=== PATIENT | female | born 1965 | race Caucasian/White ===

== ENCOUNTER 2017-06-08 18:36 | Emergency (ER) | payer MEDICAID ==
[~2017-06-08] VITALS: Ht 160 cm; Wt 68.0 kg
[~2017-06-08 18:36] MED LIST: ACT35T; ALPR1TAB2 PO; BUTA1CAP42 PO; CARI350T27 PO; CLIN150C17 PO; CLN150C PO; CLON0.5T3; DICL75TA2 PO; DICY20TA10 PO; DOXY100C2 PO; DULO30CA3 PO; DULO60CA6 PO; FLT05NA16; FLUD0.1T7 PO; GABA300T; GABA600T2 PO; HYDR-3820 PO; HYDR-757 PO; IBUP-15; IPRA0.2S18; LACT1CAP74 PO; LRT10T; METH750T3; MIDO2.5T; MIDO5TAB PO; OLOP2.5D OP; OLOPATADINE; OXB5TCR PO; PENI500T PO; PIRO20CA2; PROM25TA14 PO; PROP10TA8 PO; PROP20TA5; RT-COMBINH; SAVELLA 50 MG; [UNRECOGNIZED DRUG - CODE]
--- OUTSIDE RECORDS SUMMARY | 2017-06-08 18:42 | XMS REPORT | CCD ---
Author Author SYDNIE PURCELL Organization Unknown Address [address] [facility] [address] [place], [place] [id number] Care Team Providers Care Inserting Press Operator Name Role Phone VIPIN MATA, BELLE Billingsley Attphys VIPIN MATA, BELLE Davidsusierra Vital Signs Unknown or Not Available. Allergies Allergy Code Allergy Type Reaction Status IV IODINE {Clinical monitoring unavailable} 0 Drug allergy Active Procedures Procedure Code Procedure Type Date CBC W/ AUTO DIFF (RFLX MAN DIFF IF IND) 7998428 SNOMED CT 10/05/2015 COMPREHENSIVE METABOLIC PANEL 932293769 SNOMED CT 2014 C REACTIVE PROTEIN 46165819 SNOMED CT 10/05/2015 CULTURE BLOOD 33325473 SNOMED CT 10/05/2015 ^CBC W/AUTO DIFF 1154222 SNOMED CT 10/05/2015 CT NECK SOFT TISSUE W/O CONTRAST 274492541 SNOMED CT 10/05 History of Immunizations Unknown or Not Available. Problems Problem Code Start Date Resolved Date Status Facial cellulitis 851094746 10/09/2015 Active Results COMPREHENSIVE METABOLIC PANEL - Collect Date/Time: 10/06/2015 00:15 Test Name Code Test Result Test Units Test Ref Range GLUCOSE 2345-7 111 MG/DL L=70 H=100 SODIUM 2951-2 138 MEQ/L L=135 H=148 POTASSIUM 2823-3 6.2 MEQ/L L=3.5 H=5.3 CHLORIDE 2075-0 106 MEQ/L L=96 H=110 CO2 2028-9 20 MEQ/L L=22 H=29 BUN 3094-0 7 MG/DL L=8 H=22 CREATININE 2160-0 0.8 MG/DL L=0.6 H=1.6 SGOT/AST 1920-8 96 IU/L L=10 H=40 SGPT/ALT 1742-6 173 IU/L L=8 H=54 ALK PHOS 6768-6 118 IU/L L=35 H=115 TOTAL PROTEIN 2885-2 8.3 G/DL L=5.5 H=8.5 ALBUMIN 1751-7 4.1 G/DL L=3.1 H=5.4 TOTAL BILI 1975-2 0.4 MG/DL L=0.0 H=1.5 CALCIUM 97674-4 9.1 MG/DL L=8.2 H=10.6 AGE 50 yrs GFR NonAA 76 GFR AA 92 eGFR >60 N/A eGFR AA* >60 N/A CBC W/ AUTO DIFF (RFLX MAN DIFF IF IND) - Collect Date/Time: 10/06/2015 00:15 Test Name Code Test Result Test Units Test Ref Range WBC 93945-6 13.2 TH/CMM L=4.5 H=10.8 RBC 789-8 4.61 ML/CMM L=4.20 H=5.40 HGB 718-7 14.9 G/DL L=12.0 H=16.0 HCT 4544-3 43.0 % L=37.0 H=47.0 MCV 93 FL L=81 H=99 MCH 32.3 PG L=27.0 H=33.0 MCHC 34.7 G/DL L=31.0 H=36.0 RDW SD 46 FL L=36 H=50 MPV 11.6 FL L=9.3 H=12.5 PLT 777-3 188 TH/CMM L=130 H=440 %NEUT 78.0 % %LYMP 14.4 % %MIXED 7.60 % L=2.00 H=25.00 #NEUT 10.30 TH/CMM L=2.10 H=8.20 #LYMP 1.90 TH/CMM L=0.90 H=5.20 #MIXED 1.00 TH/CMM MANUAL DIFF NOT IND N/A C REACTIVE PROTEIN - Collect Date/Time: 10/06/2015 00:15 Test Name Code Test Result Test Units Test Ref Range C REACTIVE PROTEIN 1988-5 4.0 MG/DL L=0.0 H= 1.0 Active Medications Medication Code Dose Units Frequency Route Modification Start Date/Time ALPRAZolam 1MG Oral Tablet 887498 1 MILLIGRAMS THREE TIMES A DAY ORAL 10/09/2015 14:07 Prescription Detail 1 MILLIGRAMS ORAL THREE TIMES A DAY Combivent Respimat 100MCG-20MCG/Actuati Inhalation [place] 6110720 2 PUFF NEEDED INHALATION 10/09/2015 14: 07 Prescription Detail 2 PUFF INHALATION NEEDED Cymbalta 30MG Oral Capsule, Delayed Release 072255 30 MILLIGRAMS AT BEDTIME ORAL 10/09/2015 14:07 Prescription Detail 30 MILLIGRAMS ORAL AT BEDTIME Cymbalta 60MG Oral Capsule, Delayed Release 348753 60 MILLIGRAMS DAILY ORAL 10/09/2015 14:07 Prescription Detail 60 MILLIGRAMS ORAL DAILY Ditropan XL 5MG Oral Tablet, Extended Release 924042 5 MILLIGRAMS TWO TIMES A DAY ORAL 10/09/2015 14:07 Prescription Detail 5 MILLIGRAMS ORAL TWO TIMES A DAY Docusate Sodium 100MG Oral Capsule 4720106 100 MILLIGRAMS TWO TIMES A DAY BY MOUTH 10/09/2015 14:07 Prescription Detail 100 MILLIGRAMS BY MOUTH TWO TIMES A DAY Enoxaparin Sodium 40MG/0.4ML Subcutaneous Solution 062463 40 MILLIGRAMS EVERY 24 HOURS SUB Q 10/09/2015 14: 07 Prescription Detail 40 MILLIGRAMS SUB Q EVERY 24 HOURS Famotidine 20MG Oral Tablet 556813 20 MILLIGRAMS TWO TIMES A DAY BY MOUTH 10/09/2015 14:07 Prescription Detail 20 MILLIGRAMS BY MOUTH TWO TIMES A DAY Floranex 0.2 MG-0.2 MG Oral Tablet, Chewable 53483594364 1 TABLET WITH EACH MEAL BY MOUTH 10/09/2015 14:07 Prescription Detail 1 TABLET BY MOUTH WITH EACH MEAL Fludrocortisone Acetate 0.1MG Oral Tablet 712938 0.1 MILLIGRAMS TWO TIMES A DAY ORAL 10/09/2015 14:07 Prescription Detail 0.1 MILLIGRAMS ORAL TWO TIMES A DAY Gabapentin 600MG Oral Tablet 608724 600 MILLIGRAMS FOUR TIMES A DAY ORAL 10/09/2015 14:07 Prescription Detail 600 MILLIGRAMS ORAL FOUR TIMES A DAY HYDROmorphone HCl 2MG/1ML Injection Solution 063671 0.5 MILLIGRAMS NEEDED IVP 10/09/2015 14:07 Prescription Detail 0.5 MILLIGRAMS IVP NEEDED Ketorolac Tromethamine 30MG/1ML Injection Solution 3690567 30 MILLIGRAMS EVERY 6 HOURS IVP 10/09/2015 14: 07 Prescription Detail 30 MILLIGRAMS IVP EVERY 6 HOURS Loratadine 10MG Oral Tablet 706535 10 MILLIGRAMS DAILY ORAL 10/09/2015 14:07 Prescription Detail 10 MILLIGRAMS ORAL DAILY Midodrine HCl 5MG Oral Tablet 600648 5 MILLIGRAMS TWO TIMES A DAY ORAL 10/09/2015 14:07 Prescription Detail 5 MILLIGRAMS ORAL TWO TIMES A DAY Novaplus Ondansetron 2MG/1ML Injection Solution 929766 4 MILLIGRAMS NEEDED SIVP 10/09/2015 14:07 Prescription Detail 4 MILLIGRAMS SIVP NEEDED oxyCODONE HCl-acetaminophen 10MG-325MG Oral Tablet 6949208 1 EACH NEEDED EVERY 4 HR BY MOUTH 10/09/2015 14:07 Prescription Detail 1 EACH BY MOUTH NEEDED EVERY 4 HR Soma 250MG Oral Tablet 166806 250 MILLIGRAMS THREE TIMES A DAY ORAL 10/09/2015 14:07 Prescription Detail 250 MILLIGRAMS ORAL THREE TIMES A DAY Tums 500MG Oral Tablet, Chewable 46973407637 500 MILLIGRAMS NEEDED ORAL 10/09/2015 14:07 Prescription Detail 500 MILLIGRAMS ORAL NEEDED Unasyn 1GM-0.5GM Injection Powder for Solution 6304090 3 GRAM EVERY 6 HOURS INTRAVENOUS 10/09/2015 14:07 Prescription Detail 3 GRAM INTRAVENOUS EVERY 6 HOURS Vancomycin HCl Novation 1GM Intravenous Powder for Solution 487395 EVERY 8 HOURS IVPB 10/09/2015 14:07 Prescription Detail IVPB EVERY 8 HOURS Medications Administered During Visit Unknown or Not Available. Encounters Encounter Diagnosis Diagnosis Code Start Date Periapical abscess without sinus K047 10/05/2015 Social History Smoking Status Code Start Date End Date Current every day smoker [id number] Patient Decision Aids Unknown or Not Available. Discharge Instructions You were admitted to [facility] on 10/05/2015 with a principal diagnosis of Periapical abscess without sinus. You were discharged from [facility] on 10/06/2015. Should you have any questions prior to discharge, please contact a member of your healthcare team. If you have left the hospital and have any questions, please contact your primary care physician. Chief Complaint and Reason For Visit Chief Complaint Date of Onset DENTAL PAIN THROAT PAIN Function Status Unknown or Not Available. Plan of Care Unknown or Not Available. Referral/Transition of Care Unknown or Not Available.
--- OUTSIDE RECORDS SUMMARY | 2017-06-08 18:42 | XMS REPORT ---
Author Author CHUCKY SHEPPARD Organization [employer] Address Unknown Phone Unavailable Care Team Providers Care Lead Technical Writer Name Role Phone CHUCKY SHEPPARD CP Unavailable Allergies, Adverse Reactions, Alerts Substance Reaction Event Type Latex Gloves Info Not Available Drug Allergy Iodine Info Not Available Drug Allergy Problems Problem Type Condition Code Onset Dates Condition Status Assessment Dental examination Z01.20 Active Medications Medication Code System Code Instructions Start Date End Date Status Dosage Hysingla ER [facility] [address]-24 not defined Oxybutynin [facility] [address]-79 not defined Soma [facility] [address]-13 not defined Cymbalta [facility] [address]-95 not defined Piroxicam [facility] [address]-58 not defined Metoclopramide HCl [facility] [address]-94 not defined Ranitidine ND 0 not defined Fludrocortisone Acetate [facility] [address]-23 not defined Midodrine HCl [facility] [address]-92 not defined Nitrostat [facility] [address]-45 not defined Estropipate [facility] [address]-91 not defined Fluticasone Propionate [facility] [address]-86 not defined Hydrocodone-Acetaminophen [facility] [address]-92 not defined Gabapentin [facility] [address]-68 not defined Clindamycin HCl [facility] [address]-66 not defined Procedures Procedure Coding System Code Date INTRAORL-PERIAPICAL 1 FILM 70500 CPT-4 D0220 Jul 31, 2015 LTD ORAL EVALUATION - PROBLEM FOCUS CPT-4 D0140 Jul 31, 2015 Vital Signs Date/Time: Jul 31, 2015 Blood Pressure Diastolic 79 mmHg Blood Pressure Systolic 114 mmHg Results No Known Results Summary Purpose [employer] Submission
--- OUTSIDE RECORDS SUMMARY | 2017-06-08 18:42 | XMS REPORT | CCD ---
Author Author KATHI WEBB Unknown Address [address] [facility] [address] [place] [address] Care Team Providers Care Environmental Scientist Name Role Phone JESSICA ALMANZA MD Attphys JESSICA ALMANZA MD Prisurg Allergies Allergy Code Allergy Type Reaction Status IV IODINE {Clinical monitoring unavailable} 0 Drug allergy Active Active Medications Medication Code Dose Units Frequency Route Modification Start Date/Time ALPRAZolam 1MG Oral Tablet 220534 1 MILLIGRAMS THREE TIMES A DAY ORAL 10/09/2015 14:07 Prescription Detail 1 MILLIGRAMS ORAL THREE TIMES A DAY Combivent Respimat 100MCG-20MCG/Actuati Inhalation [place] 2007997 2 PUFF NEEDED INHALATION 10/09/2015 14: 07 Prescription Detail 2 PUFF INHALATION NEEDED Cymbalta 30MG Oral Capsule, Delayed Release 737477 30 MILLIGRAMS AT BEDTIME ORAL 10/09/2015 14:07 Prescription Detail 30 MILLIGRAMS ORAL AT BEDTIME Cymbalta 60MG Oral Capsule, Delayed Release 898771 60 MILLIGRAMS DAILY ORAL 10/09/2015 14:07 Prescription Detail 60 MILLIGRAMS ORAL DAILY Ditropan XL 5MG Oral Tablet, Extended Release 698985 5 MILLIGRAMS TWO TIMES A DAY ORAL 10/09/2015 14:07 Prescription Detail 5 MILLIGRAMS ORAL TWO TIMES A DAY Docusate Sodium 100MG Oral Capsule 0450832 100 MILLIGRAMS TWO TIMES A DAY BY MOUTH 10/09/2015 14:07 Prescription Detail 100 MILLIGRAMS BY MOUTH TWO TIMES A DAY Enoxaparin Sodium 40MG/0.4ML Subcutaneous Solution 924560 40 MILLIGRAMS EVERY 24 HOURS SUB Q 10/09/2015 14: 07 Prescription Detail 40 MILLIGRAMS SUB Q EVERY 24 HOURS Famotidine 20MG Oral Tablet 582980 20 MILLIGRAMS TWO TIMES A DAY BY MOUTH 10/09/2015 14:07 Prescription Detail 20 MILLIGRAMS BY MOUTH TWO TIMES A DAY Floranex 0.2 MG-0.2 MG Oral Tablet, Chewable 25936677862 1 TABLET WITH EACH MEAL BY MOUTH 10/09/2015 14:07 Prescription Detail 1 TABLET BY MOUTH WITH EACH MEAL Fludrocortisone Acetate 0.1MG Oral Tablet 377785 0.1 MILLIGRAMS TWO TIMES A DAY ORAL 10/09/2015 14:07 Prescription Detail 0.1 MILLIGRAMS ORAL TWO TIMES A DAY Gabapentin 600MG Oral Tablet 855583 600 MILLIGRAMS FOUR TIMES A DAY ORAL 10/09/2015 14:07 Prescription Detail 600 MILLIGRAMS ORAL FOUR TIMES A DAY HYDROmorphone HCl 2MG/1ML Injection Solution 4884555 0.5 MILLIGRAMS NEEDED IVP 10/09/2015 14:07 Prescription Detail 0.5 MILLIGRAMS IVP NEEDED Ketorolac Tromethamine 30MG/1ML Injection Solution 8030930 30 MILLIGRAMS EVERY 6 HOURS IVP 10/09/2015 14: 07 Prescription Detail 30 MILLIGRAMS IVP EVERY 6 HOURS Loratadine 10MG Oral Tablet 057737 10 MILLIGRAMS DAILY ORAL 10/09/2015 14:07 Prescription Detail 10 MILLIGRAMS ORAL DAILY Midodrine HCl 5MG Oral Tablet 914238 5 MILLIGRAMS TWO TIMES A DAY ORAL 10/09/2015 14:07 Prescription Detail 5 MILLIGRAMS ORAL TWO TIMES A DAY Novaplus Ondansetron 2MG/1ML Injection Solution 1472991 4 MILLIGRAMS NEEDED SIVP 10/09/2015 14:07 Prescription Detail 4 MILLIGRAMS SIVP NEEDED oxyCODONE HCl-acetaminophen 10MG-325MG Oral Tablet 5343012 1 EACH NEEDED EVERY 4 HR BY MOUTH 10/09/2015 14:07 Prescription Detail 1 EACH BY MOUTH NEEDED EVERY 4 HR Soma 250MG Oral Tablet 734891 250 MILLIGRAMS THREE TIMES A DAY ORAL 10/09/2015 14:07 Prescription Detail 250 MILLIGRAMS ORAL THREE TIMES A DAY Tums 500MG Oral Tablet, Chewable 97012519256 500 MILLIGRAMS NEEDED ORAL 10/09/2015 14:07 Prescription Detail 500 MILLIGRAMS ORAL NEEDED Unasyn 1GM-0.5GM Injection Powder for Solution 9497233 3 GRAM EVERY 6 HOURS INTRAVENOUS 10/09/2015 14:07 Prescription Detail 3 GRAM INTRAVENOUS EVERY 6 HOURS Vancomycin HCl Novation 1GM Intravenous Powder for Solution 7946846 EVERY 8 HOURS IVPB 10/09/2015 14: 07 Prescription Detail IVPB EVERY 8 HOURS Problems Problem Code Start Date Resolved Date Status Facial cellulitis 216680013 10/09/2015 Active Procedures Procedure Code Procedure Type Date CT MAXILLOFACIAL W/O CONTRAST [id number] [facility] 2015 C REACTIVE PROTEIN 50690490 [facility] 10/16/2016 SED RATE 241941239 [facility] 10/16/2016 COMPREHENSIVE METABOLIC PANEL 460750777 [facility] 2015 CBC W/ AUTO DIFF (RFLX MAN DIFF IF IND) 0433371 [facility] 10/16/2016 ^CBC W/AUTO DIFF 2210818 [facility] 10/16/2016 Results COMPREHENSIVE METABOLIC PANEL - Collect Date/Time: 10/16/2016 23:30 Test Name Code Test Result Test Units Test Ref Range GLUCOSE 2345-7 82 MG/DL L=70 H=100 SODIUM 2951-2 144 MEQ/L L=135 H=148 POTASSIUM 2823-3 3.9 MEQ/L L=3.5 H=5.3 CHLORIDE 2075-0 102 MEQ/L L=96 H=110 CO2 2028-9 30 MEQ/L L=22 H=29 BUN 3094-0 14 MG/DL L=8 H=22 CREATININE 2160-0 0.8 MG/DL L=0.6 H=1.6 SGOT/AST 1920-8 14 IU/L L=10 H=40 SGPT/ALT 1742-6 21 IU/L L=8 H=54 ALK PHOS 6768-6 83 IU/L L=35 H=115 TOTAL PROTEIN 2885-2 7.2 G/DL L=5.5 H=8.5 ALBUMIN 1751-7 4.0 G/DL L=3.1 H=5.4 TOTAL BILI 1975-2 0.2 MG/DL L=0.0 H=1.5 CALCIUM 02339-9 9.8 MG/DL L=8.2 H=10.6 AGE 51 yrs GFR NonAA 75 GFR AA 91 eGFR >60 N/A eGFR AA* >60 N/A CBC W/ AUTO DIFF (RFLX MAN DIFF IF IND) - Collect Date/Time: 10/16/2016 23:30 Test Name Code Test Result Test Units Test Ref Range WBC 56958-4 9.2 TH/CMM L=4.5 H=10.8 RBC 789-8 4.87 ML/CMM L=4.20 H=5.40 HGB 718-7 15.1 G/DL L=12.0 H=16.0 HCT 4544-3 46.3 % L=37.0 H=47.0 MCV 95 FL L=81 H=99 MCH 31.0 PG L=27.0 H=33.0 MCHC 32.6 G/DL L=31.0 H=36.0 RDW SD 45 FL L=36 H=50 RDW CV 12.9 % L=0.0 H=14.8 MPV 11.6 FL L=9.3 H=12.5 PLT 777-3 265 TH/CMM L=130 H=440 NRBC# 0.00 TH/CMM L=0.00 H=0.00 NRBC% 0.0 /100WBC L=0.0 H=2.0 %NEUT 55.8 % %LYMP 33.9 % %MONO 7.6 % %EOS 2.2 % %BASO 0.3 % #NEUT 5.12 TH/CMM L=2.10 H=8.20 #LYMP 3.12 TH/CMM L=0.90 H=5.20 #MONO 0.70 TH/CMM L=0.16 H=1.00 #EOS 0.20 TH/CMM L=0.00 H=0.80 #BASO 0.03 TH/CMM L=0.00 H=0.20 MANUAL DIFF NOT IND N/A SED RATE - Collect Date/Time: 10/16/2016 23:30 Test Name Code Test Result Test Units Test Ref Range SEDRATE 4537-7 19 MM/HR L=0 H=30 C REACTIVE PROTEIN - Collect Date/Time: 10/16/2016 23:30 Test Name Code Test Result Test Units Test Ref Range C REACTIVE PROTEIN 1988-5 <0.5 MG/DL L=0.0 H= 1.0 Function Status Unknown or Not Available. History of Immunizations Unknown or Not Available. Plan of Treatment Unknown or Not Available. Social History Smoking Status Code Start Date End Date Current every day smoker [id number] Vital Signs Unknown or Not Available. Function Status Unknown or Not Available. Goals Unknown or Not Available. ASSESSMENTS Unknown or Not Available. Health Concerns Section Unknown or Not Available.
--- OUTSIDE RECORDS SUMMARY | 2017-06-08 18:42 | XMS REPORT | CCD ---
Author Author SYDNIE PURCELL Organization Unknown Address [address] [facility] [address] [place], [place] [id number] Care Team Providers Care Records Supervisor Name Role Phone SARAHI MATA, Analilia MENDIETA Attphys KOBE WILLIAM DO Prisurg S., NESTOR Waddell NASST F., DARIEN NASST L., BHARTI Beard NASST Vital Signs Vital Sign Value Unit Date/Time Recent/Initial? BP Systolic 113 mmHg 10/09/2015 06:36 Initial VS BP Diastolic 72 mmHg 10/09/2015 06:36 Initial VS Respiratory Rate 16 bpm 10/09/2015 06:36 Initial VS Heart Rate 85 bpm 10/09/2015 06:36 Initial VS O2 % BldC Oximetry 96 % 10/09/2015 06:36 Initial VS Body Temperature 98 degrees 10/09/2015 06:36 Initial VS Weight Measured 143.03 lbs 10/09/2015 06:56 Initial VS Height 63 in 10/09/2015 06:56 Initial VS BMI (Body Mass Index) 25.33 kg/m^2 10/09/2015 06:56 Initial VS BSA (Body Surface Area) 1.7 m^2 10/09/2015 06:56 Initial VS BP Systolic 120 mmHg 10/09/2015 14:30 Most Recent VS BP Diastolic 80 mmHg 10/09/2015 14:30 Most Recent VS Respiratory Rate 18 bpm 10/09/2015 14:30 Most Recent VS Heart Rate 125 bpm 10/09/2015 14:30 Most Recent VS O2 % BldC Oximetry 96 % 10/09/2015 14:30 Most Recent VS Body Temperature 98.3 degrees 10/09/2015 14:30 Most Recent VS Allergies Allergy Code Allergy Type Reaction Status IV IODINE {Clinical monitoring unavailable} 0 Drug allergy Active Procedures Procedure Code Procedure Type Date CBC W/ AUTO DIFF (RFLX MAN DIFF IF IND) [id number] [facility] 10/09/2015 COMPREHENSIVE METABOLIC PANEL [id number] [facility] 2014 C REACTIVE PROTEIN [id number] [facility] 10/09/2015 CULTURE BLOOD [id number] [facility] 10/09/2015 CULTURE BLOOD [id number] [facility] 10/09/2015 LACTIC ACID [id number] [facility] 10/09/2015 ^CBC W/ MANUAL DIFF [id number] [facility] 10/09/2015 CT NECK SOFT TISSUE W/O CONTRAST [id number] [facility] 10/09 History of Immunizations Unknown or Not Available. Problems Problem Code Start Date Resolved Date Status Facial cellulitis [id number] 10/09/2015 Active Results COMPREHENSIVE METABOLIC PANEL - Collect Date/Time: 10/09/2015 03:00 Test Name Code Test Result Test Units Test Ref Range GLUCOSE 2345-7 116 MG/DL L=70 H=100 SODIUM 2951-2 141 MEQ/L L=135 H=148 POTASSIUM 2823-3 3.9 MEQ/L L=3.5 H=5.3 CHLORIDE 2075-0 106 MEQ/L L=96 H=110 CO2 2028-9 25 MEQ/L L=22 H=29 BUN 3094-0 17 MG/DL L=8 H=22 CREATININE 2160-0 0.8 MG/DL L=0.6 H=1.6 SGOT/AST 1920-8 18 IU/L L=10 H=40 SGPT/ALT 1742-6 94 IU/L L=8 H=54 ALK PHOS 6768-6 117 IU/L L=35 H=115 TOTAL PROTEIN 2885-2 6.4 G/DL L=5.5 H=8.5 ALBUMIN 1751-7 3.4 G/DL L=3.1 H=5.4 TOTAL BILI 1975-2 0.2 MG/DL L=0.0 H=1.5 CALCIUM 55410-8 9.4 MG/DL L=8.2 H=10.6 AGE 50 yrs GFR NonAA 76 GFR AA 92 eGFR >60 N/A eGFR AA* >60 N/A CBC W/ AUTO DIFF (RFLX MAN DIFF IF IND) - Collect Date/Time: 10/09/2015 03:00 Test Name Code Test Result Test Units Test Ref Range WBC 97037-9 21.5 TH/CMM L=4.5 H=10.8 RBC 789-8 3.90 ML/CMM L=4.20 H=5.40 HGB 718-7 12.2 G/DL L=12.0 H=16.0 HCT 4544-3 36.6 % L=37.0 H=47.0 MCV 94 FL L=81 H=99 MCH 31.3 PG L=27.0 H=33.0 MCHC 33.3 G/DL L=31.0 H=36.0 RDW SD 46 FL L=36 H=50 RDW CV 13.3 % L=0.0 H=14.8 MPV 12.0 FL L=9.3 H=12.5 PLT 777-3 235 TH/CMM L=130 H=440 NRBC# 0.00 TH/CMM L=0.00 H=0.00 NRBC% 0.0 /100WBC L=0.0 H=2.0 %NEUT 79.2 % %LYMP 12.1 % %MONO 8.7 % %EOS 0.0 % %BASO 0.0 % #NEUT 17.00 TH/CMM L=2.10 H=8.20 #LYMP 2.61 TH/CMM L=0.90 H=5.20 #MONO 1.88 TH/CMM L=0.16 H=1.00 #EOS 0.00 TH/CMM L=0.00 H=0.80 #BASO 0.01 TH/CMM L=0.00 H=0.20 SEGS 80 % BANDS 2 % LYMPHS 10 % MONOS 8 % MANUAL DIFF SEE BELOW N/A C REACTIVE PROTEIN - Collect Date/Time: 10/09/2015 03:00 Test Name Code Test Result Test Units Test Ref Range C REACTIVE PROTEIN 1988-5 12.0 MG/DL L=0.0 H= 1.0 LACTIC ACID - Collect Date/Time: 10/09/2015 04:35 Test Name Code Test Result Test Units Test Ref Range LACTIC ACID 2524-7 1.0 mmol/L L=0.5 H=1.6 Active Medications Medication Code Dose Units Frequency Route Modification Start Date/Time ALPRAZolam 1MG Oral Tablet 500882 1 MILLIGRAMS THREE TIMES A DAY ORAL 10/09/2015 14:07 Prescription Detail 1 MILLIGRAMS ORAL THREE TIMES A DAY Combivent Respimat 100MCG-20MCG/Actuati Inhalation [place] [id number] 2 PUFF NEEDED INHALATION 10/09/2015 14: 07 Prescription Detail 2 PUFF INHALATION NEEDED Cymbalta 30MG Oral Capsule, Delayed Release [id number] 30 MILLIGRAMS AT BEDTIME ORAL 10/09/2015 14:07 Prescription Detail 30 MILLIGRAMS ORAL AT BEDTIME Cymbalta 60MG Oral Capsule, Delayed Release [id number] 60 MILLIGRAMS DAILY ORAL 10/09/2015 14:07 Prescription Detail 60 MILLIGRAMS ORAL DAILY Ditropan XL 5MG Oral Tablet, Extended Release 520014 5 MILLIGRAMS TWO TIMES A DAY ORAL 10/09/2015 14:07 Prescription Detail 5 MILLIGRAMS ORAL TWO TIMES A DAY Docusate Sodium 100MG Oral Capsule [id number] 100 MILLIGRAMS TWO TIMES A DAY BY MOUTH 10/09/2015 14:07 Prescription Detail 100 MILLIGRAMS BY MOUTH TWO TIMES A DAY Enoxaparin Sodium 40MG/0.4ML Subcutaneous Solution 650521 40 MILLIGRAMS EVERY 24 HOURS SUB Q 10/09/2015 14: 07 Prescription Detail 40 MILLIGRAMS SUB Q EVERY 24 HOURS Famotidine 20MG Oral Tablet 527909 20 MILLIGRAMS TWO TIMES A DAY BY MOUTH 10/09/2015 14:07 Prescription Detail 20 MILLIGRAMS BY MOUTH TWO TIMES A DAY Floranex 0.2 MG-0.2 MG Oral Tablet, Chewable [id number] 1 TABLET WITH EACH MEAL BY MOUTH 10/09/2015 14:07 Prescription Detail 1 TABLET BY MOUTH WITH EACH MEAL Fludrocortisone Acetate 0.1MG Oral Tablet 069347 0.1 MILLIGRAMS TWO TIMES A DAY ORAL 10/09/2015 14:07 Prescription Detail 0.1 MILLIGRAMS ORAL TWO TIMES A DAY Gabapentin 600MG Oral Tablet 922096 600 MILLIGRAMS FOUR TIMES A DAY ORAL 10/09/2015 14:07 Prescription Detail 600 MILLIGRAMS ORAL FOUR TIMES A DAY HYDROmorphone HCl 2MG/1ML Injection Solution 019329 0.5 MILLIGRAMS NEEDED IVP 10/09/2015 14:07 Prescription Detail 0.5 MILLIGRAMS IVP NEEDED Ketorolac Tromethamine 30MG/1ML Injection Solution [id number] 30 MILLIGRAMS EVERY 6 HOURS IVP 10/09/2015 14: 07 Prescription Detail 30 MILLIGRAMS IVP EVERY 6 HOURS Loratadine 10MG Oral Tablet 125312 10 MILLIGRAMS DAILY ORAL 10/09/2015 14:07 Prescription Detail 10 MILLIGRAMS ORAL DAILY Midodrine HCl 5MG Oral Tablet 536563 5 MILLIGRAMS TWO TIMES A DAY ORAL 10/09/2015 14:07 Prescription Detail 5 MILLIGRAMS ORAL TWO TIMES A DAY Novaplus Ondansetron 2MG/1ML Injection Solution 622806 4 MILLIGRAMS NEEDED SIVP 10/09/2015 14:07 Prescription Detail 4 MILLIGRAMS SIVP NEEDED oxyCODONE HCl-acetaminophen 10MG-325MG Oral Tablet 7971226 1 EACH NEEDED EVERY 4 HR BY MOUTH 10/09/2015 14:07 Prescription Detail 1 EACH BY MOUTH NEEDED EVERY 4 HR Soma 250MG Oral Tablet 657416 250 MILLIGRAMS THREE TIMES A DAY ORAL 10/09/2015 14:07 Prescription Detail 250 MILLIGRAMS ORAL THREE TIMES A DAY Tums 500MG Oral Tablet, Chewable [id number] 500 MILLIGRAMS NEEDED ORAL 10/09/2015 14:07 Prescription Detail 500 MILLIGRAMS ORAL NEEDED Unasyn 1GM-0.5GM Injection Powder for Solution 1643367 3 GRAM EVERY 6 HOURS INTRAVENOUS 10/09/2015 14:07 Prescription Detail 3 GRAM INTRAVENOUS EVERY 6 HOURS Vancomycin HCl Novation 1GM Intravenous Powder for Solution 740849 EVERY 8 HOURS IVPB 10/09/2015 14:07 Prescription Detail IVPB EVERY 8 HOURS Medications Administered During Visit Medication Dose Units Frequency Route Date/ Time of Last Dose VANCOMYCIN [PREDEFINED] ADV IV : 1000MG Q8H IVPB 10/09/2015 09:15 HYDROmorphone SYR(DILAUDID)SYR:2MG/ML 1 MG PRN IVP 10/09/2015 13:39 DULOXETINE [CYMBALTA] CAP: 30 MG 60 MG DAILY PO 10/09/2015 10:10 PERCOCET 10/325MG TABLET 1 DOSE PRN Q 4 HRS PO 10/09/2015 09:42 UNASYN 3 GM IV [PREDEFINED] Q6H IVPB 10/09/2015 10:59 FAMOTIDINE [PEPCID] TABLET: 20 MG 20 MG BID PO 10/09/2015 10:10 KETOROLAC (TORADOL) VIAL: 30 MG/ML 1 ML 30 MG Q6H IVP 10/09/2015 10:10 LACTINEX TABLETS (PO) 1 TAB MEALS PO 2014 13:47 OXYBUTYNIN XL(DITROPAN XL):5MG 5 MG BID PO 10/09/2015 10:10 FLUDROCORTISONE (FLORINEF)TAB:0.1MG 0.1 MG BID PO 10/09/2015 10:10 ALPRAZOLAM [XANAX] TABLET : 1 MG 1 MG TID PO 10/09/2015 13:47 GABAPENTIN (NEURONTIN) TAB:600 MG 600 MG QID PO 10/09/2015 13:47 LORATADINE [CLARITIN] TABLET: 10 MG 10 MG DAILY PO 10/09/2015 10:10 ENOXAPARIN 40 MG/0.4ML YELLOW [LOVENOX] 40 MG Q24H SUB Q 10/09/2015 10:10 Encounters Encounter Diagnosis Diagnosis Code Start Date Cellulitis and abscess of mouth K122 10/09/2015 Social History Smoking Status Code Start Date End Date Current every day smoker [id number] Patient Decision Aids Unknown or Not Available. Discharge Instructions You were admitted to [facility] on 10/09/2015 with a principal diagnosis of Cellulitis and abscess of mouth. You were discharged from [facility] on 10/09/2015. Should you have any questions prior to discharge, please contact a member of your healthcare team. If you have left the hospital and have any questions, please contact your primary care physician. CHIEF COMPLAINT: RIGHT JAW SWELLING AND PAIN Chief Complaint and Reason For Visit Chief Complaint Date of Onset FACIAL CELLULITIS Function Status Unknown or Not Available. Plan of Care Unknown or Not Available. Referral/Transition of Care Unknown or Not Available.
--- OUTSIDE RECORDS SUMMARY | 2017-06-08 18:43 | XMS REPORT | CCD ---
Author Author KATHI WEBB Unknown Address [address] [facility] [address] [place] [address] Care Team Providers Care Installation Service Representative Name Role Phone LISA ER, MANNY DO Attphys [place] ER, MANNY DO Prisurg Allergies Allergy Code Allergy Type Reaction Status IV IODINE {Clinical monitoring unavailable} 0 Drug allergy Active Active Medications Medication Code Dose Units Frequency Route Modification Start Date/Time ALPRAZolam 1MG Oral Tablet 393534 1 MILLIGRAMS THREE TIMES A DAY ORAL 10/09/2015 14:07 Prescription Detail 1 MILLIGRAMS ORAL THREE TIMES A DAY Combivent Respimat 100MCG-20MCG/Actuati Inhalation [place] 1082876 2 PUFF NEEDED INHALATION 10/09/2015 14: 07 Prescription Detail 2 PUFF INHALATION NEEDED Cymbalta 30MG Oral Capsule, Delayed Release [id number] 30 MILLIGRAMS AT BEDTIME ORAL 10/09/2015 14:07 Prescription Detail 30 MILLIGRAMS ORAL AT BEDTIME Cymbalta 60MG Oral Capsule, Delayed Release 397100 60 MILLIGRAMS DAILY ORAL 10/09/2015 14:07 Prescription Detail 60 MILLIGRAMS ORAL DAILY Ditropan XL 5MG Oral Tablet, Extended Release 617545 5 MILLIGRAMS TWO TIMES A DAY ORAL 10/09/2015 14:07 Prescription Detail 5 MILLIGRAMS ORAL TWO TIMES A DAY Docusate Sodium 100MG Oral Capsule 1802221 100 MILLIGRAMS TWO TIMES A DAY BY MOUTH 10/09/2015 14:07 Prescription Detail 100 MILLIGRAMS BY MOUTH TWO TIMES A DAY Enoxaparin Sodium 40MG/0.4ML Subcutaneous Solution 777422 40 MILLIGRAMS EVERY 24 HOURS SUB Q 10/09/2015 14: 07 Prescription Detail 40 MILLIGRAMS SUB Q EVERY 24 HOURS Famotidine 20MG Oral Tablet 625015 20 MILLIGRAMS TWO TIMES A DAY BY MOUTH 10/09/2015 14:07 Prescription Detail 20 MILLIGRAMS BY MOUTH TWO TIMES A DAY Floranex 0.2 MG-0.2 MG Oral Tablet, Chewable 90295471183 1 TABLET WITH EACH MEAL BY MOUTH 10/09/2015 14:07 Prescription Detail 1 TABLET BY MOUTH WITH EACH MEAL Fludrocortisone Acetate 0.1MG Oral Tablet 585735 0.1 MILLIGRAMS TWO TIMES A DAY ORAL 10/09/2015 14:07 Prescription Detail 0.1 MILLIGRAMS ORAL TWO TIMES A DAY Gabapentin 600MG Oral Tablet 410242 600 MILLIGRAMS FOUR TIMES A DAY ORAL 10/09/2015 14:07 Prescription Detail 600 MILLIGRAMS ORAL FOUR TIMES A DAY HYDROmorphone HCl 2MG/1ML Injection Solution 2625745 0.5 MILLIGRAMS NEEDED IVP 10/09/2015 14:07 Prescription Detail 0.5 MILLIGRAMS IVP NEEDED Ketorolac Tromethamine 30MG/1ML Injection Solution [id number] 30 MILLIGRAMS EVERY 6 HOURS IVP 10/09/2015 14: 07 Prescription Detail 30 MILLIGRAMS IVP EVERY 6 HOURS Loratadine 10MG Oral Tablet 572214 10 MILLIGRAMS DAILY ORAL 10/09/2015 14:07 Prescription Detail 10 MILLIGRAMS ORAL DAILY Midodrine HCl 5MG Oral Tablet 235501 5 MILLIGRAMS TWO TIMES A DAY ORAL 10/09/2015 14:07 Prescription Detail 5 MILLIGRAMS ORAL TWO TIMES A DAY Novaplus Ondansetron 2MG/1ML Injection Solution 0708248 4 MILLIGRAMS NEEDED SIVP 10/09/2015 14:07 Prescription Detail 4 MILLIGRAMS SIVP NEEDED oxyCODONE HCl-acetaminophen 10MG-325MG Oral Tablet 6679407 1 EACH NEEDED EVERY 4 HR BY MOUTH 10/09/2015 14:07 Prescription Detail 1 EACH BY MOUTH NEEDED EVERY 4 HR Soma 250MG Oral Tablet 890645 250 MILLIGRAMS THREE TIMES A DAY ORAL 10/09/2015 14:07 Prescription Detail 250 MILLIGRAMS ORAL THREE TIMES A DAY Tums 500MG Oral Tablet, Chewable 71968165004 500 MILLIGRAMS NEEDED ORAL 10/09/2015 14:07 Prescription Detail 500 MILLIGRAMS ORAL NEEDED Unasyn 1GM-0.5GM Injection Powder for Solution 7115819 3 GRAM EVERY 6 HOURS INTRAVENOUS 10/09/2015 14:07 Prescription Detail 3 GRAM INTRAVENOUS EVERY 6 HOURS Vancomycin HCl Novation 1GM Intravenous Powder for Solution 3342908 EVERY 8 HOURS IVPB 10/09/2015 14: 07 Prescription Detail IVPB EVERY 8 HOURS Problems Problem Code Start Date Resolved Date Status Facial cellulitis [id number] 10/09/2015 Active Procedures Unknown or Not Available. Results Unknown or Not Available. Encounters Encounter Diagnosis Diagnosis Code Start Date Periapical abscess with sinus K046 11/28/2016 Function Status Unknown or Not Available. History of Immunizations Immunization Code Date influenza, split (incl. purified surface antigen) 15 08/15/2009 Social History Smoking Status Code Start Date End Date Current every day smoker [id number] Vital Signs Unknown or Not Available. Function Status Unknown or Not Available. Goals Unknown or Not Available. ASSESSMENTS Unknown or Not Available. Health Concerns Section Unknown or Not Available.
--- OUTSIDE RECORDS SUMMARY | 2017-06-08 18:43 | XMS REPORT | CCD ---
Author Author SYDNIE PURCELL Organization Unknown Address [address] [facility] [address] [place] [address] Care Team Providers Care Civil Engineering Project Manager Name Role Phone LISA ER, MANNY DO Attphys LISA ER, MANNY DO Prisurg Allergies Allergy Code Allergy Type Reaction Status IV IODINE {Clinical monitoring unavailable} 0 Drug allergy Active Active Medications Medication Code Dose Units Frequency Route Modification Start Date/Time ALPRAZolam 1MG Oral Tablet 803522 1 MILLIGRAMS THREE TIMES A DAY ORAL 10/09/2015 14:07 Prescription Detail 1 MILLIGRAMS ORAL THREE TIMES A DAY Combivent Respimat 100MCG-20MCG/Actuati Inhalation [place] 0859471 2 PUFF NEEDED INHALATION 10/09/2015 14: 07 Prescription Detail 2 PUFF INHALATION NEEDED Cymbalta 30MG Oral Capsule, Delayed Release 370272 30 MILLIGRAMS AT BEDTIME ORAL 10/09/2015 14:07 Prescription Detail 30 MILLIGRAMS ORAL AT BEDTIME Cymbalta 60MG Oral Capsule, Delayed Release 458416 60 MILLIGRAMS DAILY ORAL 10/09/2015 14:07 Prescription Detail 60 MILLIGRAMS ORAL DAILY Ditropan XL 5MG Oral Tablet, Extended Release 409125 5 MILLIGRAMS TWO TIMES A DAY ORAL 10/09/2015 14:07 Prescription Detail 5 MILLIGRAMS ORAL TWO TIMES A DAY Docusate Sodium 100MG Oral Capsule 3229948 100 MILLIGRAMS TWO TIMES A DAY BY MOUTH 10/09/2015 14:07 Prescription Detail 100 MILLIGRAMS BY MOUTH TWO TIMES A DAY Enoxaparin Sodium 40MG/0.4ML Subcutaneous Solution 550507 40 MILLIGRAMS EVERY 24 HOURS SUB Q 10/09/2015 14: 07 Prescription Detail 40 MILLIGRAMS SUB Q EVERY 24 HOURS Famotidine 20MG Oral Tablet 075278 20 MILLIGRAMS TWO TIMES A DAY BY MOUTH 10/09/2015 14:07 Prescription Detail 20 MILLIGRAMS BY MOUTH TWO TIMES A DAY Floranex 0.2 MG-0.2 MG Oral Tablet, Chewable 38826612687 1 TABLET WITH EACH MEAL BY MOUTH 10/09/2015 14:07 Prescription Detail 1 TABLET BY MOUTH WITH EACH MEAL Fludrocortisone Acetate 0.1MG Oral Tablet 234536 0.1 MILLIGRAMS TWO TIMES A DAY ORAL 10/09/2015 14:07 Prescription Detail 0.1 MILLIGRAMS ORAL TWO TIMES A DAY Gabapentin 600MG Oral Tablet 442287 600 MILLIGRAMS FOUR TIMES A DAY ORAL 10/09/2015 14:07 Prescription Detail 600 MILLIGRAMS ORAL FOUR TIMES A DAY HYDROmorphone HCl 2MG/1ML Injection Solution 5802801 0.5 MILLIGRAMS NEEDED IVP 10/09/2015 14:07 Prescription Detail 0.5 MILLIGRAMS IVP NEEDED Ketorolac Tromethamine 30MG/1ML Injection Solution 8252471 30 MILLIGRAMS EVERY 6 HOURS IVP 10/09/2015 14: 07 Prescription Detail 30 MILLIGRAMS IVP EVERY 6 HOURS Loratadine 10MG Oral Tablet 269295 10 MILLIGRAMS DAILY ORAL 10/09/2015 14:07 Prescription Detail 10 MILLIGRAMS ORAL DAILY Midodrine HCl 5MG Oral Tablet 349717 5 MILLIGRAMS TWO TIMES A DAY ORAL 10/09/2015 14:07 Prescription Detail 5 MILLIGRAMS ORAL TWO TIMES A DAY Novaplus Ondansetron 2MG/1ML Injection Solution 4089140 4 MILLIGRAMS NEEDED SIVP 10/09/2015 14:07 Prescription Detail 4 MILLIGRAMS SIVP NEEDED oxyCODONE HCl-acetaminophen 10MG-325MG Oral Tablet 7546116 1 EACH NEEDED EVERY 4 HR BY MOUTH 10/09/2015 14:07 Prescription Detail 1 EACH BY MOUTH NEEDED EVERY 4 HR Soma 250MG Oral Tablet 804121 250 MILLIGRAMS THREE TIMES A DAY ORAL 10/09/2015 14:07 Prescription Detail 250 MILLIGRAMS ORAL THREE TIMES A DAY Tums 500MG Oral Tablet, Chewable 19290613987 500 MILLIGRAMS NEEDED ORAL 10/09/2015 14:07 Prescription Detail 500 MILLIGRAMS ORAL NEEDED Unasyn 1GM-0.5GM Injection Powder for Solution 1654571 3 GRAM EVERY 6 HOURS INTRAVENOUS 10/09/2015 14:07 Prescription Detail 3 GRAM INTRAVENOUS EVERY 6 HOURS Vancomycin HCl Novation 1GM Intravenous Powder for Solution 3592775 EVERY 8 HOURS IVPB 10/09/2015 14: 07 Prescription Detail IVPB EVERY 8 HOURS Problems Problem Code Start Date Resolved Date Status Facial cellulitis [id number] 10/09/2015 Active Procedures Unknown or Not Available. Results Unknown or Not Available. Encounters Encounter Diagnosis Diagnosis Code Start Date Periapical abscess with sinus K046 11/28/2016 Function Status Unknown or Not Available. History of Immunizations Immunization Code Date influenza, split (incl. purified surface antigen) 15 08/15/2009 Social History Smoking Status Code Start Date End Date Current every day smoker [id number] Vital Signs Unknown or Not Available. Function Status Unknown or Not Available. Goals Unknown or Not Available. ASSESSMENTS Unknown or Not Available. Health Concerns Section Unknown or Not Available.
--- OUTSIDE RECORDS SUMMARY | 2017-06-08 18:43 | XMS REPORT ---
Author Author [facility] Organization [facility] Address [address] [place], [place] [id number] Care Team Providers Care Coin Machine Mechanic Name Role Phone PCP Unavailable Allergies and Adverse Reactions Name Reaction Notes NO KNOWN DRUG ALLERGIES Plan of Treatment Planned Activity Comments Planned Date Planned Time Plan/Goal CYTOPATH TBS C/V MANUAL 04/10/2015 12:00 AM MAMMOGRAM SCREENING 04/22/2015 12:00 AM DXA BONE DENSITY AXIAL 04/22/2015 12:00 AM Medications Active Name Start Date Estimated Completion Date SIG Comments Cymbalta Oral Capsule, Delayed Release(E.C.) 60 mg take 1 capsule (60 mg ) by oral route once daily Fludrocortisone Oral Tablet 0.1 mg take 1 tablet by oral route 2 times a day Alprazolam Oral Tablet 1 mg take 1 tablet by oral route daily Loratadine Oral Tablet 10 mg take 1 tablet (10 mg) by oral route once daily Gabapentin Oral Tablet 600 mg take 1 tablet by oral route 4 times a day Midodrine Oral Tablet 5 mg take 1/2 tablet by oral route BID Fluticasone Nasal [place], Suspension 50 mcg/Actuation spray 2 sprays in each nostril by intranasal route once daily Combivent Inhalation Aerosol 18-103 mcg/Actuation inhale 2 puffs by inhalation route 4 times a day as needed Nitrostat Sublingual Tablet, 0.[address] 1 tablet (0.4 mg) by buccal route at the first sign of an attack; no more than 3 tablets are recommended within a 15 minute period. Miralax Oral Powder 17 gram/dose 02/09/2012 take 17 gram mixed with 8 oz. water, juice, soda, coffee or tea by oral route once daily estropipate Oral tablet 0.75 mg 12/05/2012 take 1 tablet (0.75 mg) by oral route once daily oxybutynin chloride Oral tablet 5 mg take 1 tablet (5 mg) by oral route 2 times per day for 30 days estropipate oral tablet 0.75 mg 12/22/2013 TAKE 1 TABLET (0.75 MG) BY ORAL ROUTE ONCE DAILY estropipate oral tablet 0.75 mg 04/06/2014 TAKE 1 TABLET (0.75 MG) BY ORAL ROUTE ONCE DAILY estropipate oral tablet 0.75 mg 11/07/2014 TAKE 1 TABLET (0.75 MG) BY ORAL ROUTE ONCE DAILY Flagyl oral tablet 500 mg 04/10/2015 04/17/2015 take 1 tablet (500 mg) by oral route 2 times per day for 7 days Name Start Date Expiration Date SIG Comments Feldene Oral Capsule 20 mg take 1 capsule (20 mg) by oral route once daily lidocaine HCl Mucous Membrane Gel 2 % 12/22/2011 01/05/2012 apply to affected area BID x 7 days or until pain is gone Diflucan Oral Tablet 150 mg 12/22/2011 12/24/2011 take 1 tablet (150 mg) by oral route once for 1 day Lortab Oral Tablet 5-500 mg 12/22/2011 12/29/2011 take 1 tablet by oral route every 6 hours as needed for pain for 7 days Colace Oral Capsule 100 mg 02/09/2012 05/09/2012 take 1 capsule (100 mg) by oral route 2 times per day as needed for constipation metronidazole Oral tablet 500 mg 12/05/2012 12/12/2012 take 1 tablet (500 mg) by oral route every 12 hours for 7 days Flagyl oral tablet 500 mg 03/15/2014 03/22/2014 take 1 tablet (500 mg) by oral route 2 times per day for 7 days acyclovir oral tablet 400 mg 03/15/2014 04/04/2014 take 1 tablet by oral route 3 times a day for 5 days Flagyl oral tablet 500 mg 04/05/2014 04/12/2014 take 1 tablet (500 mg) by oral route 2 times per day for 7 days Diflucan oral tablet 150 mg 04/05/2014 04/08/2014 take 1 tablet (150 mg) by oral route once for 3 days Discontinued Name Start Date Discontinued Date SIG Comments Cenestin Oral Tablet 0.9 mg 02/24/2013 take 1 tablet (0.9 mg) by oral route once daily Tramadol Oral Tablet 50 mg 04/10/2015 Take one or two tablets three times a day Actonel Oral Tablet 35 mg 04/10/2015 take 1 tablet (35 mg) by oral route once weekly in the morning, at least 30 minutes before the first food, beverage , or medication of the day Triest/progesterone/testosterone topical 1.25/200/1 mg/ml 12/05/2012 apply to wrist daily metronidazole Oral tablet 500 mg 02/24/2013 02/24/2013 take 1 tablet (500 mg) by oral route every 12 hours for 7 days error metronidazole Oral tablet 500 mg 02/24/2013 04/10/2015 take 1 tablet (500 mg) by oral route every 12 hours for 7 days penicillin V potassium oral tablet 500 mg 04/10/2015 Diflucan Oral Tablet 150 mg 03/22/2014 04/05/2014 take 1 tablet (150 mg) by oral route once Problem List Description Status Onset Bipolar Disorder Active Arthritis unspecified Active Asthma Active Headache Active Mitral valve prolapse Active Osteoporosis Active Genital herpes Active 04/24/2012 Vaginal Discharge Active 04/05/2014 Vital Signs Date Time BP-Sys(mm[Hg] BP-Daisy(mm[Hg]) HR(bpm) RR(rpm) Temp WT HT HC BMI BSA BMI Percentile O2 Sat(%) 04/10/2015 3:30:00 PM 114 mmHg 75 mmHg 98 bpm 18 rpm 96.4 F 139.25 lbs 63 in 24.67 kg/m2 1.68 m2 04/05/2014 2:36:00 PM 118 mmHg 74 mmHg 100 bpm 98.4 F 143 lbs 63 in 25.3311 kg/m 1.698 m 03/22/2014 2:48:00 PM 124 mmHg 85 mmHg 103 bpm 98.3 F 140 lbs 63 in 24.80 kg/m2 1.68 m2 03/15/2014 3:29:00 PM 100 mmHg 60 mmHg 68 bpm 98 F 145 lbs 63 in 25.6853 kg/m 1.7098 m 07/05/2013 5:01:00 PM 109 mmHg 69 mmHg 77 bpm 97.8 F 141 lbs 63 in 24.98 kg/m2 1.69 m2 02/24/2013 9:58:00 AM 119 mmHg 84 mmHg 87 bpm 96.2 F 146 lbs 63 in 25.8625 kg/m 1.7157 m 12/05/2012 10:49:00 AM 125 mmHg 81 mmHg 84 bpm 141 lbs 63 in 24.98 kg/m2 1.69 m2 02/08/2012 4:38:00 PM 129 mmHg 83 mmHg 103 bpm 140 lbs 63 in 24.7996 kg/m 1.6801 m 01/06/2012 3:29:00 PM 108 mmHg 80 mmHg 94 bpm 137 lbs 63 in 24.27 kg/m2 1.66 m2 12/22/2011 3:22:00 PM 118 mmHg 80 mmHg 88 bpm 142 lbs 63 in 25.1539 kg/m 1.6921 m 07/08/2010 2:16:00 PM 97 mmHg 67 mmHg 75 bpm 98 F 137.5 lbs 63 in 24.36 kg/m2 1.67 m2 Social History Name Description Comments Drug use marijuana use as a teen Alcohol Tobacco Current every day smoker History of Procedures Date Ordered Description Order Status 12/22/2011 12:00 AM CHYLMD TRACH DNA AMP PROBE Returned 12/22/2011 12:00 AM N.GONORRHOEAE DNA AMP PROB Returned 12/22/2011 12:00 AM CYTOPATH TBS C/V MANUAL Returned 12/22/2011 12:00 AM SPECIMEN HANDLING OFFICE-LAB Reviewed 12/22/2011 12:00 AM KENYON VIRUS ISOLATE HSV Reviewed 12/22/2011 12:00 AM SMEAR WET [place] SALINE/INK Reviewed 01/04/2012 12:00 AM SYPHILIS TEST NON-TREP QUAL Returned 01/04/2012 12:00 AM HERPES SIMPLEX TYPE 1 TEST Returned 01/06/2012 12:00 AM MAMMOGRAM SCREENING Returned 02/08/2012 12:00 AM METABOLIC PANEL TOTAL CA Returned 02/08/2012 12:00 AM COMPLETE CBC W/AUTO DIFF WBC Returned 02/08/2012 12:00 AM ASSAY OF FREE TESTOSTERONE Reviewed 02/08/2012 12:00 AM ASSAY OF TOTAL TESTOSTERONE Reviewed 02/08/2012 12:00 AM ASSAY OF PROGESTERONE Returned 02/08/2012 12:00 AM ASSAY OF ESTRADIOL Returned 02/08/2012 12:00 AM ASSAY OF ESTROGEN Reviewed 12/14/2012 12:00 AM SMEAR WET MOUNT SALINE/INK Reviewed 02/24/2013 12:00 AM SMEAR WET [place] SALINE/INK Reviewed 07/05/2013 12:00 AM SMEAR WET [place] SALINE/INK Reviewed 07/13/2013 12:00 AM MAMMOGRAM SCREENING Returned 03/15/2014 12:00 AM TRICHOMONAS ASSAY W/OPTIC Returned 07/08/2010 12:00 AM SPECIMEN HANDLING OFFICE-LAB Reviewed 04/05/2014 12:00 AM COMPLETE CBC W/AUTO DIFF WBC Returned 04/05/2014 12:00 AM ASSAY THYROID STIM HORMONE Returned 04/05/2014 12:00 AM CHYLMD TRACH DNA AMP PROBE Returned Results Summary Data and Description Results 02/08/2012 6:10 PM GLUCOSE 86.0 mg/dLSODIUM 139.0 mmol/LPOTASSIUM 3.70 mmol/ LCHLORIDE 103.0 mmol/LCO2 25.0 mmol/LBUN 16.0 mg/dLCREATININE 0.70 mg/dLCALCIUM 9.0 mg/dLeGFR 60 PROGESTERONE 0.10 ng/mLWBC 8.5 RBC 4.86 HGB 15.70 g/dLHCT 45.30 %MCV 93.0 fLMCH 32.30 pgMCHC 34.70 g/dLRDW CV 12.90 %MPV 12.10 fLPLT 224 % NEUT 51.30 %%LYMP 40.60 %%MONO 5.70 %%EOS 1.90 %%BASO 0.50 %#NEUT 4.38 #LYMP 3.46 #MONO 0.49 #EOS 0.16 #BASO 0.04 ESTRADIOL 47.0 pg/mL 04/05/2014 3:52 PM TSH 2.430 uIU/mLWBC 7.6 RBC 4.96 HGB 15.90 g/dLHCT 45.50 % MCV 92.0 fLMCH 32.10 pgMCHC 34.90 g/dLRDW CV 12.80 %MPV 11.80 fLPLT 198 %NEUT 52.70 %%LYMP 38.40 %%MONO 6.20 %%EOS 2.40 %%BASO 0.30 %#NEUT 4.00 #LYMP 2.91 # MONO 0.47 #EOS 0.18 #BASO 0.02 History Of Immunizations Not available. History of Past Illness Name Date of Onset Comments Arthritis unspecified Asthma Headache Mitral valve prolapse TIA 1993 sudden onset-affected memory. Nothing like this since Hypotension, Orthostatic transient Bipolar Disorder Osteoporosis Genital herpes 04/24/2012 Stress Incontinence Jul 08 2010 2:18PM Vaginal Discharge Jul 08 2010 2:18PM Vaginal Discharge 04/05/2014 Vulvar Lesion Dec 22 2011 3:30PM Candidiasis, Vulvovaginal Dec 22 2011 3:30PM Vulvar Lesion Jan 04 2012 10:50AM Screening Mammogram Jan 06 2012 3:52PM Vulvar Lesion Jan 06 2012 3:34PM Pelvic Pain Feb 08 2012 4:44PM Menopausal Syndrome Feb 08 2012 4:44PM Pelvic Pain Feb 09 2012 10:21AM Bacterial Vaginitis Dec 05 2012 10:56AM Genital Herpes Dec 05 2012 10:56AM Menopausal Syndrome Dec 05 2012 10:56AM Bacterial Vaginosis Feb 24 2013 11:54AM Vaginal Discharge Jul 05 2013 5:05PM Screening Mammogram Jul 06 2013 10:11AM Bacterial Vaginitis Mar 15 2014 3:33PM Herpetic Vulvovaginitis Mar 15 2014 3:33PM Vaginal Discharge Mar 15 2014 3:33PM Candidiasis vulvovaginitis Mar 22 2014 2:50PM Vaginal Discharge Mar 22 2014 2:50PM Candidiasis vulvovaginitis Apr 05 2014 2:39PM Bacterial Vaginitis Apr 05 2014 2:39PM Vaginal Discharge Apr 05 2014 2:39PM Routine gynecological examination Apr 10 2015 3:40PM Bacterial Vaginitis Apr 10 2015 3:40PM Screening Mammogram Apr 10 2015 4:29PM Osteoporosis Apr 10 2015 4:29PM Payers Insurance Name Company Name Plan Name Plan Number Policy Number Policy Group Number Start Date [employer] [place] [employer] [place] [id number] N/A [employer] [place] [facility] [place] Plan [id number] N/A [place] [employer] [place] [employer] Prog [id number] N/A History of Encounters Visit Date Visit Type Provider 04/10/2015 Office visit Marsha Calhoun SCOURING TRAIN OPERATOR 04/05/2014 Office visit Marsha Calhoun SCOURING TRAIN OPERATOR 03/22/2014 Office visit Marsha Calhoun SCOURING TRAIN OPERATOR 03/15/2014 Office visit Marsha Calhoun SCOURING TRAIN OPERATOR 11/10/2013 García Nina MD 07/05/2013 Office visit Derrick Logan MD 02/24/2013 Office visit Derrick Logan MD 12/05/2012 Office visit Derrick Logan MD 02/08/2012 Office visit Derrick Logan MD 01/06/2012 Office visit Derrick Logan MD 12/22/2011 Office visit Derrick Logan MD 07/08/2010 Office visit Juliet Aaron MD
--- OUTSIDE RECORDS SUMMARY | 2017-06-08 18:43 | XMS REPORT | CCD ---
Author Author SYDNIE PURCELL Organization Unknown Address [address] [place], [place] [id number] Care Team Providers Care Director Special Education Name Role Phone HANDSHY ER, LISSY MATA Attphys HANDSHY ER, LISSY MATA Prisurg Vital Signs Unknown or Not Available. Allergies Allergy Code Allergy Type Reaction Status IV IODINE {Clinical monitoring unavailable} 0 Drug allergy Active Procedures Procedure Code Procedure Type Date CBC W/ AUTO DIFF (RFLX MAN DIFF IF IND) 4435077 SNOMED CT 10/05/2015 C REACTIVE PROTEIN 50949355 SNOMED CT 10/05/2015 SED RATE 135052108 SNOMED CT 10/05/2015 RAPID DRUG SCREEN 194299825 SNOMED CT 10/05/2015 COMPREHENSIVE METABOLIC PANEL 327873851 SNOMED CT 2014 ^CBC W/AUTO DIFF 3734734 SNOMED CT 10/05/2015 .BARBITURATE CONFIRM 619883849 SNOMED CT 10/05/2015 .BENZO QUANT UR 143932737 SNOMED CT 10/05/2015 .THC QUANT UR 254728554 SNOMED CT 10/05/2015 History of Immunizations Unknown or Not Available. Problems Problem Code Start Date Resolved Date Status Facial cellulitis 689200334 10/09/2015 Active Results COMPREHENSIVE METABOLIC PANEL - Collect Date/Time: 10/05/2015 04:50 Test Name Code Test Result Test Units Test Ref Range GLUCOSE 2345-7 104 MG/DL L=70 H=100 SODIUM 2951-2 140 MEQ/L L=135 H=148 POTASSIUM 2823-3 3.5 MEQ/L L=3.5 H=5.3 CHLORIDE 2075-0 108 MEQ/L L=96 H=110 CO2 2028-9 25 MEQ/L L=22 H=29 BUN 3094-0 12 MG/DL L=8 H=22 CREATININE 2160-0 0.7 MG/DL L=0.6 H=1.6 SGOT/AST 1920-8 305 IU/L L=10 H=40 SGPT/ALT 1742-6 254 IU/L L=8 H=54 ALK PHOS 6768-6 115 IU/L L=35 H=115 TOTAL PROTEIN 2885-2 6.1 G/DL L=5.5 H=8.5 ALBUMIN 1751-7 3.6 G/DL L=3.1 H=5.4 TOTAL BILI 1975-2 0.2 MG/DL L=0.0 H=1.5 CALCIUM 51089-9 8.8 MG/DL L=8.2 H=10.6 AGE 50 yrs GFR NonAA 88 GFR AA 107 eGFR >60 N/A eGFR AA* >60 N/A RAPID DRUG SCREEN - Collect Date/Time: 10/05/2015 05:31 Test Name Code Test Result Test Units Test Ref Range Cannabinoids (THC) NON-NEGATIVE N/A NEG: < 50 ng/ml Phencyclidine (PCP) NEGATIVE N/A NEG: < 25 ng/ ml Cocaine NEGATIVE N/A NEG: < 300 ng/ml Methamphetamine NEGATIVE N/A NEG: < 1000 ng/ml Opiates NON-NEGATIVE N/A NEG: < 300 ng/ml Amphetamine NEGATIVE N/A NEG: < 1000 ng/ml Benzodiazepines NON-NEGATIVE N/A NEG: < 300 ng/ ml Tricyclic Antidepres NEGATIVE N/A NEG: < 300 ng/ ml Methadone NEGATIVE N/A NEG: < 300 ng/ml Barbiturates NON-NEGATIVE N/A NEG: < 200 ng/ml Oxycodone NEGATIVE N/A NEG: < 100 ng/ml Propoxyphene (PPX) NEGATIVE N/A NEG: < 300 ng/ ml CBC W/ AUTO DIFF (RFLX MAN DIFF IF IND) - Collect Date/Time: 10/05/2015 04:50 Test Name Code Test Result Test Units Test Ref Range WBC 30253-0 8.2 TH/CMM L=4.5 H=10.8 RBC 789-8 4.36 ML/CMM L=4.20 H=5.40 HGB 718-7 13.6 G/DL L=12.0 H=16.0 HCT 4544-3 41.1 % L=37.0 H=47.0 MCV 94 FL L=81 H=99 MCH 31.2 PG L=27.0 H=33.0 MCHC 33.1 G/DL L=31.0 H=36.0 RDW SD 44 FL L=36 H=50 RDW CV 12.7 % L=0.0 H=14.8 MPV 11.7 FL L=9.3 H=12.5 PLT 777-3 208 TH/CMM L=130 H=440 NRBC# 0.00 TH/CMM L=0.00 H=0.00 NRBC% 0.0 /100WBC L=0.0 H=2.0 %NEUT 54.2 % %LYMP 34.9 % %MONO 8.5 % %EOS 2.0 % %BASO 0.4 % #NEUT 4.43 TH/CMM L=2.10 H=8.20 #LYMP 2.85 TH/CMM L=0.90 H=5.20 #MONO 0.69 TH/CMM L=0.16 H=1.00 #EOS 0.16 TH/CMM L=0.00 H=0.80 #BASO 0.03 TH/CMM L=0.00 H=0.20 MANUAL DIFF NOT IND N/A SED RATE - Collect Date/Time: 10/05/2015 04:50 Test Name Code Test Result Test Units Test Ref Range SEDRATE 4537-7 16 MM/HR L=0 H=30 C REACTIVE PROTEIN - Collect Date/Time: 10/05/2015 04:50 Test Name Code Test Result Test Units Test Ref Range C REACTIVE PROTEIN 1988-5 0.7 MG/DL L=0.0 H= 1.0 Active Medications Medication Code Dose Units Frequency Route Modification Start Date/Time ALPRAZolam 1MG Oral Tablet 687028 1 MILLIGRAMS THREE TIMES A DAY ORAL 10/09/2015 14:07 Prescription Detail 1 MILLIGRAMS ORAL THREE TIMES A DAY Combivent Respimat 100MCG-20MCG/Actuati Inhalation [place] 1789205 2 PUFF NEEDED INHALATION 10/09/2015 14: 07 Prescription Detail 2 PUFF INHALATION NEEDED Cymbalta 30MG Oral Capsule, Delayed Release 199530 30 MILLIGRAMS AT BEDTIME ORAL 10/09/2015 14:07 Prescription Detail 30 MILLIGRAMS ORAL AT BEDTIME Cymbalta 60MG Oral Capsule, Delayed Release [id number] 60 MILLIGRAMS DAILY ORAL 10/09/2015 14:07 Prescription Detail 60 MILLIGRAMS ORAL DAILY Ditropan XL 5MG Oral Tablet, Extended Release 162255 5 MILLIGRAMS TWO TIMES A DAY ORAL 10/09/2015 14:07 Prescription Detail 5 MILLIGRAMS ORAL TWO TIMES A DAY Docusate Sodium 100MG Oral Capsule 8058709 100 MILLIGRAMS TWO TIMES A DAY BY MOUTH 10/09/2015 14:07 Prescription Detail 100 MILLIGRAMS BY MOUTH TWO TIMES A DAY Enoxaparin Sodium 40MG/0.4ML Subcutaneous Solution 724305 40 MILLIGRAMS EVERY 24 HOURS SUB Q 10/09/2015 14: 07 Prescription Detail 40 MILLIGRAMS SUB Q EVERY 24 HOURS Famotidine 20MG Oral Tablet 143921 20 MILLIGRAMS TWO TIMES A DAY BY MOUTH 10/09/2015 14:07 Prescription Detail 20 MILLIGRAMS BY MOUTH TWO TIMES A DAY Floranex 0.2 MG-0.2 MG Oral Tablet, Chewable [id number] 1 TABLET WITH EACH MEAL BY MOUTH 10/09/2015 14:07 Prescription Detail 1 TABLET BY MOUTH WITH EACH MEAL Fludrocortisone Acetate 0.1MG Oral Tablet 581333 0.1 MILLIGRAMS TWO TIMES A DAY ORAL 10/09/2015 14:07 Prescription Detail 0.1 MILLIGRAMS ORAL TWO TIMES A DAY Gabapentin 600MG Oral Tablet 275755 600 MILLIGRAMS FOUR TIMES A DAY ORAL 10/09/2015 14:07 Prescription Detail 600 MILLIGRAMS ORAL FOUR TIMES A DAY HYDROmorphone HCl 2MG/1ML Injection Solution 483000 0.5 MILLIGRAMS NEEDED IVP 10/09/2015 14:07 Prescription Detail 0.5 MILLIGRAMS IVP NEEDED Ketorolac Tromethamine 30MG/1ML Injection Solution 1546117 30 MILLIGRAMS EVERY 6 HOURS IVP 10/09/2015 14: 07 Prescription Detail 30 MILLIGRAMS IVP EVERY 6 HOURS Loratadine 10MG Oral Tablet 433662 10 MILLIGRAMS DAILY ORAL 10/09/2015 14:07 Prescription Detail 10 MILLIGRAMS ORAL DAILY Midodrine HCl 5MG Oral Tablet 429457 5 MILLIGRAMS TWO TIMES A DAY ORAL 10/09/2015 14:07 Prescription Detail 5 MILLIGRAMS ORAL TWO TIMES A DAY Novaplus Ondansetron 2MG/1ML Injection Solution 657685 4 MILLIGRAMS NEEDED SIVP 10/09/2015 14:07 Prescription Detail 4 MILLIGRAMS SIVP NEEDED oxyCODONE HCl-acetaminophen 10MG-325MG Oral Tablet 8951570 1 EACH NEEDED EVERY 4 HR BY MOUTH 10/09/2015 14:07 Prescription Detail 1 EACH BY MOUTH NEEDED EVERY 4 HR Soma 250MG Oral Tablet 560023 250 MILLIGRAMS THREE TIMES A DAY ORAL 10/09/2015 14:07 Prescription Detail 250 MILLIGRAMS ORAL THREE TIMES A DAY Tums 500MG Oral Tablet, Chewable 35004674593 500 MILLIGRAMS NEEDED ORAL 10/09/2015 14:07 Prescription Detail 500 MILLIGRAMS ORAL NEEDED Unasyn 1GM-0.5GM Injection Powder for Solution 2056219 3 GRAM EVERY 6 HOURS INTRAVENOUS 10/09/2015 14:07 Prescription Detail 3 GRAM INTRAVENOUS EVERY 6 HOURS Vancomycin HCl Novation 1GM Intravenous Powder for Solution 957793 EVERY 8 HOURS IVPB 10/09/2015 14:07 Prescription Detail IVPB EVERY 8 HOURS Medications Administered During Visit Unknown or Not Available. Encounters Encounter Diagnosis Diagnosis Code Start Date Periapical abscess without sinus K047 10/05/2015 Social History Smoking Status Code Start Date End Date Current every day smoker [id number] Patient Decision Aids Unknown or Not Available. Discharge Instructions You were admitted to [facility] on 10/05/2015 with a principal diagnosis of Periapical abscess without sinus. You were discharged from [facility] on 10/05/2015. Should you have any questions prior to discharge, please contact a member of your healthcare team. If you have left the hospital and have any questions, please contact your primary care physician. Chief Complaint and Reason For Visit Chief Complaint Date of Onset TOOTHACHE Function Status Unknown or Not Available. Plan of Care Unknown or Not Available. Referral/Transition of Care Unknown or Not Available.
--- OUTSIDE RECORDS SUMMARY | 2017-06-08 18:43 | XMS REPORT | CCD ---
Author Author KATHI WEBB Unknown Address [address] [address] [place] [address] Care Team Providers Care Storage Wharfage Clerk Name Role Phone VIPIN MATA, BELLE Billingsley Attphys BELLE LEW MD [facility] Allergies Allergy Code Allergy Type Reaction Status IV IODINE {Clinical monitoring unavailable} 0 Drug allergy Active Active Medications Medication Code Dose Units Frequency Route Modification Start Date/Time ALPRAZolam 1MG Oral Tablet 072079 1 MILLIGRAMS THREE TIMES A DAY ORAL 10/09/2015 14:07 Prescription Detail 1 MILLIGRAMS ORAL THREE TIMES A DAY Combivent Respimat 100MCG-20MCG/Actuati Inhalation [place] 7115047 2 PUFF NEEDED INHALATION 10/09/2015 14: 07 Prescription Detail 2 PUFF INHALATION NEEDED Cymbalta 30MG Oral Capsule, Delayed Release 633011 30 MILLIGRAMS AT BEDTIME ORAL 10/09/2015 14:07 Prescription Detail 30 MILLIGRAMS ORAL AT BEDTIME Cymbalta 60MG Oral Capsule, Delayed Release [id number] 60 MILLIGRAMS DAILY ORAL 10/09/2015 14:07 Prescription Detail 60 MILLIGRAMS ORAL DAILY Ditropan XL 5MG Oral Tablet, Extended Release 464516 5 MILLIGRAMS TWO TIMES A DAY ORAL 10/09/2015 14:07 Prescription Detail 5 MILLIGRAMS ORAL TWO TIMES A DAY Docusate Sodium 100MG Oral Capsule 2969252 100 MILLIGRAMS TWO TIMES A DAY BY MOUTH 10/09/2015 14:07 Prescription Detail 100 MILLIGRAMS BY MOUTH TWO TIMES A DAY Enoxaparin Sodium 40MG/0.4ML Subcutaneous Solution 232774 40 MILLIGRAMS EVERY 24 HOURS SUB Q 10/09/2015 14: 07 Prescription Detail 40 MILLIGRAMS SUB Q EVERY 24 HOURS Famotidine 20MG Oral Tablet [id number] 20 MILLIGRAMS TWO TIMES A DAY BY MOUTH 10/09/2015 14:07 Prescription Detail 20 MILLIGRAMS BY MOUTH TWO TIMES A DAY Floranex 0.2 MG-0.2 MG Oral Tablet, Chewable [id number] 1 TABLET WITH EACH MEAL BY MOUTH 10/09/2015 14:07 Prescription Detail 1 TABLET BY MOUTH WITH EACH MEAL Fludrocortisone Acetate 0.1MG Oral Tablet 933047 0.1 MILLIGRAMS TWO TIMES A DAY ORAL 10/09/2015 14:07 Prescription Detail 0.1 MILLIGRAMS ORAL TWO TIMES A DAY Gabapentin 600MG Oral Tablet 785126 600 MILLIGRAMS FOUR TIMES A DAY ORAL 10/09/2015 14:07 Prescription Detail 600 MILLIGRAMS ORAL FOUR TIMES A DAY HYDROmorphone HCl 2MG/1ML Injection Solution 2118841 0.5 MILLIGRAMS NEEDED IVP 10/09/2015 14:07 Prescription Detail 0.5 MILLIGRAMS IVP NEEDED Ketorolac Tromethamine 30MG/1ML Injection Solution [id number] 30 MILLIGRAMS EVERY 6 HOURS IVP 10/09/2015 14: 07 Prescription Detail 30 MILLIGRAMS IVP EVERY 6 HOURS Loratadine 10MG Oral Tablet 557267 10 MILLIGRAMS DAILY ORAL 10/09/2015 14:07 Prescription Detail 10 MILLIGRAMS ORAL DAILY Midodrine HCl 5MG Oral Tablet 577350 5 MILLIGRAMS TWO TIMES A DAY ORAL 10/09/2015 14:07 Prescription Detail 5 MILLIGRAMS ORAL TWO TIMES A DAY Novaplus Ondansetron 2MG/1ML Injection Solution 0412407 4 MILLIGRAMS NEEDED SIVP 10/09/2015 14:07 Prescription Detail 4 MILLIGRAMS SIVP NEEDED oxyCODONE HCl-acetaminophen 10MG-325MG Oral Tablet 7062009 1 EACH NEEDED EVERY 4 HR BY MOUTH 10/09/2015 14:07 Prescription Detail 1 EACH BY MOUTH NEEDED EVERY 4 HR Soma 250MG Oral Tablet 778629 250 MILLIGRAMS THREE TIMES A DAY ORAL 10/09/2015 14:07 Prescription Detail 250 MILLIGRAMS ORAL THREE TIMES A DAY Tums 500MG Oral Tablet, Chewable [id number] 500 MILLIGRAMS NEEDED ORAL 10/09/2015 14:07 Prescription Detail 500 MILLIGRAMS ORAL NEEDED Unasyn 1GM-0.5GM Injection Powder for Solution 5253518 3 GRAM EVERY 6 HOURS INTRAVENOUS 10/09/2015 14:07 Prescription Detail 3 GRAM INTRAVENOUS EVERY 6 HOURS Vancomycin HCl Novation 1GM Intravenous Powder for Solution 7996582 EVERY 8 HOURS IVPB 10/09/2015 14: 07 Prescription Detail IVPB EVERY 8 HOURS Problems Problem Code Start Date Resolved Date Status Facial cellulitis [id number] 10/09/2015 Active Procedures Unknown or Not Available. Results Unknown or Not Available. Function Status Unknown or Not Available. History of Immunizations Unknown or Not Available. Plan of Treatment Unknown or Not Available. Social History Smoking Status Code Start Date End Date Current every day smoker [id number] Vital Signs Unknown or Not Available. Function Status Unknown or Not Available. Goals Unknown or Not Available. ASSESSMENTS Unknown or Not Available. Health Concerns Section Unknown or Not Available.
--- OUTSIDE RECORDS SUMMARY | 2017-06-08 18:44 | XMS REPORT ---
Author Author [facility] Organization [facility] Address [address] [place], [place] [id number] Care Team Providers Care Radiotelegraph Operator Servicer Name Role Phone PCP Unavailable Allergies and Adverse Reactions Name Reaction Notes NO KNOWN DRUG ALLERGIES Plan of Treatment Not available. Medications Active Name Start Date Estimated Completion [...] tablet by oral route BID Fluticasone Nasal [place], Suspension 50 mcg/Actuation spray 2 sprays in [...] (0.75 MG) BY ORAL ROUTE ONCE DAILY Name Start Date Expiration Date SIG Comments [...] by oral route once for 3 days estropipate oral tablet 0.75 mg 11/07/2014 TAKE 1 TABLET (0.75 MG) BY ORAL ROUTE ONCE DAILY Flagyl oral tablet 500 mg 04/10/2015 04/17/2015 take 1 tablet (500 mg) by oral route 2 times per day for 7 days Discontinued Name Start Date Discontinued Date [...] HC BMI BSA BMI Percentile O2 Sat(%) 05/23/2015 3:06:00 PM 115 mmHg 76 mmHg 90 bpm 98.6 F 142 lbs 63 in 25.15 kg/m2 1.69 m2 04/10/2015 3:30:00 PM 114 mmHg 75 mmHg 98 bpm 18 rpm 96.4 F 139.25 lbs 63 in 24.6668 kg/m 1.6756 m 04/05/2014 2:36:00 PM 118 mmHg 74 mmHg 100 bpm 98.4 F 143 lbs 63 in 25.33 kg/m2 1.70 m2 03/22/2014 2:48:00 PM 124 mmHg 85 mmHg 103 bpm 98.3 F 140 lbs 63 in 24.7996 kg/m 1.6801 m 03/15/2014 3:29:00 PM 100 mmHg 60 mmHg 68 bpm 98 F 145 lbs 63 in 25.69 kg/m2 1.71 m2 07/05/2013 5:01:00 PM 109 mmHg 69 mmHg 77 bpm 97.8 F 141 lbs 63 in 24.9768 kg/m 1.6861 m 02/24/2013 9:58:00 AM 119 mmHg 84 mmHg 87 bpm 96.2 F 146 lbs 63 in 25.86 kg/m2 1.72 m2 12/05/2012 10:49:00 AM 125 mmHg 81 mmHg 84 bpm 141 lbs 63 in 24.9768 kg/m 1.6861 m 02/08/2012 4:38:00 PM 129 mmHg 83 mmHg 103 bpm 140 lbs 63 in 24.80 kg/m2 1.68 m2 01/06/2012 3:29:00 PM 108 mmHg 80 mmHg 94 bpm 137 lbs 63 in 24.2682 kg/m 1.662 m 12/22/2011 3:22:00 PM 118 mmHg 80 mmHg 88 bpm 142 lbs 63 in 25.15 kg/m2 1.69 m2 07/08/2010 2:16:00 PM 97 mmHg 67 mmHg 75 bpm 98 F 137.5 lbs 63 in 24.3568 kg/m 1.665 m Social History Name Description Comments Drug use marijuana use as a teen Alcohol Never Tobacco Current every day smoker History of [...] AM CHYLMD TRACH DNA AMP PROBE Returned 04/10/2015 12:00 AM CYTOPATH TBS C/V MANUAL Returned 04/22/2015 12:00 AM MAMMOGRAM SCREENING Returned 04/22/2015 12:00 AM DXA BONE DENSITY AXIAL Returned 05/23/2015 12:00 AM EXAM OF CERVIX W/SCOPE Ordered Results Summary Data and Description Results 02/08/2012 [...] 2015 4:29PM Osteoporosis Apr 10 2015 4:29PM Low grade squamous intraepithelial lesion (LGSIL) on Pap smear May 23 2015 3: 13PM Payers Insurance Name Company Name Plan Name Plan Number Policy Number Policy Group Number Start Date [employer] - [facility] [place] State [facility] State Plan [id number] N/A [facility] [id number] N/A [place] [employer] [facility] [place] [employer] [place] [id number] N/A History of Encounters Visit Date Visit Type Provider 05/23/2015 Procedures Derrick Logan MD 05/06/2015 Voided Derrick Logan MD 04/10/2015 Office visit Marsha Calhoun PRINCIPAL SCIENTIST 04/05/2014 Office visit Marsha Calhoun PRINCIPAL SCIENTIST 03/22/2014 Office visit Marsha Calhoun PRINCIPAL SCIENTIST 03/15/2014 Office visit Marsha Calhoun PRINCIPAL SCIENTIST 11/10/2013 [facility] Issa Nina MD 07/05/2013 Office visit Derrick Logan MD 02/24/2013 Office visit Derrick Logan MD 12/05/2012 Office visit Derrick Logan MD 02/08/2012 Office visit Derrick Logan MD 01/06/2012 Office visit Derrick Logan MD 12/22/2011 Office visit Derrick Logan MD 07/08/2010 Office visit Juliet Aaron MD
--- NOTE | 2017-06-08 18:52 | ED GI ---
General Chief Complaint: Abdominal/GI Problems Stated Complaint: N/V/D/STOMACH CRAMPS Nursing Triage Note: PT AMBULATORY TO ROOM CC LOWER ABD PAIN WITH NAUSEA, ONSET TODAY. STATES HE HAD AN EPISODE SIMILAR LAST WEEK. Sepsis Screen: No Definite Risk Source of Information: Patient, Spouse Exam Limitations: No Limitations History of Present Illness Time Seen By Provider: 18:52 Initial Comments 52-year-old female patient presents to the emergency department with complaints of lower abdominal pain 1 day. Did have similar symptoms approximately 2 wks ago. Also complains of nausea, vomiting, diarrhea. States she did have a fever 102.1F yesterday. reports having similar symptoms last week. Timing/Duration: 1 Day Severity/Quality: Cramping Location: Other (lower abdomen) Radiation: No Radiation Activities at Onset: None Modifying Factors: Worsens With Eating, Worsens With Palpation Allergies and Home Medications Allergies Coded Allergies: Iodinated Contrast Media - IV Dye (Unverified Allergy, Severe, 09/27/06) Uncoded Allergies: TAPE (Allergy, Unknown, 09/27/06) Home Medications Alprazolam 1 Mg Tablet, 1 MG PO TID PRN for ANXIETY, (Reported) Butalbit/Acetamin/Caff/Codeine 1 Each Capsule, 1-2 EACH PO Q6H PRN for HEADACHE, (Reported) Carisoprodol 350 Mg Tablet, 350 MG PO HS, (Reported) Carisoprodol 350 Mg Tablet, 350 MG PO BID PRN for BLOOD PRESSURE, (Reported) Clindamycin HCl 150 Mg Capsule, 450 MG PO TID for 10 Days Prescribed by: SALOMÓN GARCIA on 10/03/152049 Diclofenac Sodium 75 Mg Tablet.dr, 75 MG PO DAILY, (Reported) Dicyclomine HCl 20 Mg Tablet, 20 MG PO TID PRN for upset stomach, (Reported) Duloxetine HCl 60 Mg Capsule.dr, 60 MG PO AC PRN for depression, (Reported) Duloxetine HCl 30 Mg Capsule.dr, 30 MG PO HS PRN for depression, (Reported) Fludrocortisone Acetate 0.1 Mg Tablet, 1 TAB PO BID, (Reported) Fluticasone Propionate 16 Gm [place], (Reported) Gabapentin 600 Mg Tablet, 600 MG PO QID, (Reported) Hydrocodone/Acetaminophen 1 Each Tablet, 1-2 TAB PO Q12H PRN for PAIN, (Reported ) Hydrocodone/Acetaminophen 1 Each Tablet, 1 EACH PO Q6H PRN for PAIN, #5 Prescribed by: SALOMÓN GARCIA on 10/03/152049 Ibuprofen 200 Mg Tablet, (Reported) Ipratropium Raymond 0.5 Mg/2.5 Ml Nebu, (Reported) Ipratropium/Albuterol Sulfate 14.7 Gm Aer.w.adap, (Reported) Lactobacillus Combination No.4 1 Each Capsule, 1 EACH PO BID, #14 Prescribed by: SALOMÓN GARCIA on 10/03/152049 Loratadine 10 Mg Tab, (Reported) Midodrine HCl 5 Mg Tablet, 5 MG PO BID, (Reported) Olopatadine HCl 2.5 Ml Drops, 2.5 ML OP, (Reported) Ondansetron 8 Mg Tab.rapdis, 8 MG PO Q6H PRN for NAUSEA/VOMITING-1ST LINE, #10 Ref 0 Prescribed by: AYE CRAMER on 06/08/172035 Oxybutynin Chloride 5 Mg Tab, 5 MG PO BID, (Reported) Penicillin V Potassium 500 Mg Tablet, 500 MG PO QID PRN for infection in jaw for 6 months, (Reported) Promethazine HCl 25 Mg Tablet, 25 MG PO Q6H PRN for NAUSEA/VOMITING, (Reported) Propranolol HCl 10 Mg Tablet, 10 MG PO DAILY, (Reported) Review of Systems Constitutional: chills, fever, malaise Respiratory: Denies Cough, Denies Shortness of Air Cardiovascular: Denies Chest Pain, Denies Lightheadedness, Denies Palpitations Gastrointestinal: See HPI, Denies Abdomen Distended, Abdominal Pain (lower abdominal pain.), Denies Blood Streaked Stools, Denies Constipated, Diarrhea, Nausea, Poor Appetite, Poor Fluid Intake, Denies Rectal Bleeding, Vomiting Genitourinary: See HPI, Denies Burning, Denies Frequency, Denies Flank Pain, Denies Hematuria, Pain (lower abdominal pain.) Musculoskeletal: no symptoms reported Skin: no symptoms reported Psychiatric/Neurological: No Symptoms Reported All Other Systems Reviewed Negative Unless Noted: Yes (Negative excepted noted.) Past Vfvoese-Usgdyw-Vibqbn Hx Patient Social History Alcohol Use: Denies Use Recreational Drug Use: No Smoking Status: Current Everyday Smoker Type Used: Cigars Recent Foreign Travel: No Contact w/Someone Who Travel: No Recent Infectious Disease Expo: No Immunizations Up To Date Tetanus Booster (TDap): Unknown Seasonal Allergies Seasonal Allergies: Yes Surgeries HX Surgeries: Yes (rotator cuffx1, hiatal herniax3,jaw sx x3 ) Surgeries: Gallbladder, Hysterectomy Respiratory Hx Respiratory Disorders: Yes Respiratory Disorders: Asthma, COPD Cardiovascular Hx Cardiac Disorders: Yes (MITRAL PROLAPSE VALVE, ORTHOSTATIC HYPOTENSION, dvt' s left leg) Neurological Hx Neurological Disorders: Yes (STROKE 1993) 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 System Hx 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 Disorders: No Sexually Transmitted Disease: No Genitourinary Hx Genitourinary Disorders: No Gastrointestinal Hx Gastrointestinal Disorders: No Gastrointestinal Disorders: Hiatal Hernia Musculoskeletal Hx Musculoskeletal Disorders: Yes (OSTEOPENIA) Musculoskeletal Disorders: Degenerate Disk Disease, Osteoporosis Endocrine Hx Endocrine Disorders: No HEENT HX ENT Disorders: Yes (blurred vision) Psychosocial Hx Psychiatric Problems: Yes (insomnia) Behavioral Health Disorders: Anxiety, Bipolar, Depression Integumentary HX Skin/Integumentary Disorder: No Blood Transfusions Hx Blood Disorders: No Reviewed Nursing Assessment Reviewed/Agree w Nursing PMH: Yes Family Medical History Significant Family History: No Pertinent Family Hx Physical Exam Vital Signs VS - Last 72 Hours, by Label 06/08/17 18:43 Temp 97.5 Pulse 85 Resp 18 B/P (MAP) 139/97 Pulse Ox 95 O2 Delivery Room Air Capillary Refill : Less Than 3 Seconds General Appearance: WD/WN, no apparent distress, other (patient ambulated to the exam room without difficulty.) HEENT: PERRL/EOMI, pharynx normal Neck: supple, normal inspection Respiratory: lungs clear, normal breath sounds, no respiratory distress Cardiovascular: regular rate, rhythm, no murmur Gastrointestinal: normal bowel sounds, soft, no organomegaly, No distended, guarding (epigastric and RUQ), No rebound, tenderness (epigastric and RUQ. Unable to reproduce the lower abdominal pain on exam.) Extremities: normal capillary refill Back: normal inspection, no CVA tenderness Neurologic/Psychiatric: alert, normal mood/affect, oriented x 3 Skin: normal color, warm/dry Progress/Results/Core Measures Results/Orders Lab Results Laboratory Tests Test 06/08/17 18:41 06/08/17 19:12 Range/Units Urine Color YELLOW Urine Clarity CLEAR Urine pH 7 5-9 Urine Specific [place] 1.010 L 1.016-1.022 Urine Protein 2+ H NEGATIVE Urine Glucose (UA) NEGATIVE NEGATIVE Urine Ketones 2+ H NEGATIVE Urine Nitrite NEGATIVE NEGATIVE Urine Bilirubin NEGATIVE NEGATIVE Urine Urobilinogen NORMAL NORMAL MG/DL Urine Leukocyte Esterase NEGATIVE NEGATIVE Urine RBC (Auto) 2+ H NEGATIVE Urine RBC 0-2 /HPF Urine WBC 0-2 /HPF Urine Squamous Epithelial Cells 2-5 /HPF Urine Crystals NONE /LPF Urine Bacteria FEW H /HPF Urine Casts NONE /LPF Urine Mucus NEGATIVE /LPF Urine Culture Indicated NO White Blood Count 8.2 4.3-11.0 10^3/uL Red Blood Count 5.08 4.35-5.85 10^6/uL Hemoglobin 15.4 11.5-16.0 G/DL Hematocrit 46 35-52 % Mean Corpuscular Volume 90 80-99 FL Mean Corpuscular Hemoglobin 30 25-34 PG Mean Corpuscular Hemoglobin Concent 34 32-36 G/DL Red Cell Distribution Width 12.8 10.0-14.5 % Platelet Count 247 130-400 10^3/uL Mean Platelet Volume 11.5 H 7.4-10.4 FL Neutrophils (%) (Auto) 54 42-75 % Lymphocytes (%) (Auto) 35 12-44 % Monocytes (%) (Auto) 10 0-12 % Eosinophils (%) (Auto) 0 0-10 % Basophils (%) (Auto) 0 0-10 % Neutrophils # (Auto) 4.4 1.8-7.8 X 10^3 Lymphocytes # (Auto) 2.8 1.0-4.0 X 10^3 Monocytes # (Auto) 0.8 0.0-1.0 X 10^3 Eosinophils # (Auto) 0.0 0.0-0.3 10^3/uL Basophils # (Auto) 0.0 0.0-0.1 10^3/uL Sodium Level 138 135-145 MMOL/L Potassium Level 3.1 L 3.6-5.0 MMOL/L Chloride Level 102 98-107 MMOL/L Carbon Dioxide Level 22 21-32 MMOL/L Anion Gap 14 5-14 MMOL/L Blood Urea Nitrogen 8 7-18 MG/DL Creatinine 0.71 0.60-1.30 MG/DL Estimat Glomerular Filtration Rate > 60 BUN/Creatinine Ratio 11 Glucose Level 101 70-105 MG/DL Calcium Level 9.6 8.5-10.1 MG/DL Total Bilirubin 0.7 0.1-1.0 MG/DL Aspartate Amino Transf (AST/SGOT) 11 5-34 U/L Alanine Aminotransferase (ALT/SGPT) 11 0-55 U/L Alkaline Phosphatase 106 40-136 U/L Total Protein 7.8 6.4-8.2 GM/DL Albumin 4.2 3.2-4.5 GM/DL Lipase 10 8-78 U/L My Orders Orders - AYE CRAMER Cbc With Automated Diff (06/08/17 18:43) Comprehensive Metabolic Panel (06/08/17 18:43) Lipase (06/08/17 18:43) Ua Culture If Indicated (06/08/17 18:43) Ketorolac Injection (Toradol Injection) (06/08/17 19:08) Ondansetron Oral Dissolve Tab (Zofran (06/08/17 19:08) Ct Abdomen/Pelvis Wo (06/08/17 19:08) Rx-Ondansetron Po (Rx-Zofran Po) (06/08/17 20:51) Vital Signs/I&O Vital Sign - Last 12Hours 06/08/17 18:43 Temp 97.5 Pulse 85 Resp 18 B/P (MAP) 139/97 Pulse Ox 95 O2 Delivery Room Air Blood Pressure Mean: 111 Diagnostic Imaging Diagonstic Imaging: CT Plain Films/CT/US/NM/MRI: abdomen, pelvis Comments FINDINGS: Lack of enteric contrast limits evaluation of the abnormal-appearing bowel loops. There is a focal dilated-appearing loop of bowel within the anterior lower abdomen towards the pelvis. This appears to represent a dilated loop of small bowel with adjacent abnormal appearing loops of bowel noted which demonstrate wall thickening. The jejunum in the left upper quadrant demonstrates diffuse enlargement and thickwalled appearance as well. Abnormal- appearing small bowel loops also noted within the lower abdomen towards the pelvis. A rounded area on image #55 of 78 right paracentral, likely a loop of small bowel adjacent to the appendix. No definite inflammation is seen about the visualized aspects of the appendix but the entire appendix is not seen. There is no free fluid. No free air. The colon is overall decompressed. The nonopacified abdominal viscera limited. Evidence of previous cholecystectomy noted. No acute abnormality seen in the liver. Spleen is normal. Adrenal glands unremarkable. The pancreas is unremarkable as well. Kidneys demonstrate no acute disease. Diffuse atherosclerotic disease along the aorta and its branches also noted. No acute osseous abnormality is appreciated. Lung bases demonstrate chronic changes. IMPRESSION: 1. Abnormal appearing small bowel loops nonspecific due to the lack of enteric contrast. Several wall thickened and dilated loops of jejunum and possibly ilium are noted throughout the abdomen towards the right lower pelvis, possibly due to focal enteritis or ileus. An abnormal-appearing fluid collection in the anterior aspect of the lower abdomen right paracentral, likely a loop of small bowel, less likely a process such as abscess. Correlation with symptoms recommended and if clinically warranted post enteric and IV contrast imaging would be useful for further characterization. 2. Appendix only partially seen. Its visualized aspects unremarkable. 3. Other incidental findings as discussed above. Dictated on workstation # [id number] Reviewed: Reviewed by Me (radiology report reviewed by me) Departure Communication Progress Notes 2030 patient case discussed with Dr. Yu including history, vital signs, laboratory findings, and diagnostic study findings. Patient is unable to have contrast as recommended by the radiologist due to IV dye/iodine allergy. Mara Yu recommends discharge to home with gut rest, CLD, zofran, and f/u in her office Tomorrow or . 2039 all laboratory findings, diagnostic study findings, and Dr. Yu's recommendations discussed with the patient. Patient reports feeling much better with Zofran and Toradol. I discussed all discharge instructions as well as return precautions with the patient. As this examiner is leaving the room patient said "What can I do for this back and hip pain that I have?" Patient has not said anything previously to this examiner or ED staff about back pain or hip pain. Patient reports the pain is chronic. Patient did ask the patient what she takes at home for pain. Patient states she used to take hydrocodone, oxycodone, Soma, and tramadol. Patient states she has not filled any of these prescriptions or taken these medications for "several months". Patient states "I had one prescription of tramadol and soma when I first moved here, but that was a long time ago." Per patient's reconciliation history she received tramadol 50 mg #120 tabs and soma 350 mg #60 tabs on 05/31/17 from Anuel Elias APRN. When questioned about this, the patient states "Oh yeah, I do have those at home." I've advised the patient to use the prescriptions as prescribed by CLARE Ayon when necessary and to follow-up with Dr. Yu tomorrow or as instructed. Patient to use ice packs and heating pads as needed for chronic pain. Impression Impression: Primary Impression: Abdominal pain Qualified Codes: R10.10 - Upper abdominal pain, unspecified Additional Impressions: Nausea, vomiting, and diarrhea Ileus Disposition: 01 HOME, SELF-CARE Condition: Improved Departure-Patient Inst. Decision time for Depature: 20:35 Referrals: [facility] (PCP/Family) Primary Care Physician Patient Instructions: Acute Abdomen (Belly Pain), Adult (DC), GASTROENTERITIS- 6Y-ADULT, Nausea and Vomiting, Adult (DC) Add. Discharge Instructions: All discharge instructions reviewed with patient and/or family. Voiced understanding. Medications as instructed. Clear liquid diet until symptoms improve, then increase diet slowly to a low-fat, bland diet. Push fluids. Follow-up with Dr. Yu tomorrow or in her office for recheck at [facility]. Call tomorrow morning for appointment time. Return to the emergency department for worsened pain, fever, abdominal swelling, vomiting, vomiting blood, inability to urinate, blood in the stools, blood in the urine, or any other concerns. Scripts Ondansetron (Ondansetron Odt) 8 Mg Tab.rapdis 8 MG PO Q6H Y for NAUSEA/VOMITING-1ST LINE, #10 TAB 0 Refills Prov: AYE CRAMER 06/08/17 Copy Copies To 1: SKY YU MD, GRETCHEN L PA Jun 08, 2017 18:52
[2017-06-08] MEDS ORDERED: KETOROLAC 60 MG/2 ML VIAL IM STA (19:08)
[2017-06-08] MEDS ORDERED: ONDANSETRON 4 MG (ZOFRAN) ORAL DISSOLVE TAB SL STA (19:08)
[2017-06-08 19:20] LABS: BASOPHILS % (AUTO) 0 % (0-10); EOSINOPHILS % (AUTO) 0 % (0-10); LYMPHOCYTES # (AUTO) 2.8 X 10^3 (1.0-4.0); LYMPHOCYTES % (AUTO) 35 % (12-44); MEAN CORPUSCULAR HEMOGLOBIN 30 PG (25-34); MEAN CORPUSCULAR HGB CONC 34 G/DL (32-36); MEAN CORPUSCULAR VOLUME 90 FL (80-99); MEAN PLATELET VOLUME 11.5 FL (7.4-10.4); MONOCYTES # (AUTO) 0.8 X 10^3 (0.0-1.0); MONOCYTES % (AUTO) 10 % (0-12); NEUTROPHILS # (AUTO) 4.4 X 10^3 (1.8-7.8); NEUTROPHILS % (AUTO) 54 % (42-75); PLATELET COUNT 247 10^3/uL (130-400); RED BLOOD COUNT 5.08 10^6/uL (4.35-5.85); RED CELL DISTRIBUTION WIDTH 12.8 % (10.0-14.5); WHITE BLOOD COUNT 8.2 10^3/uL (4.3-11.0)
[2017-06-08 19:37] LABS: BILIRUBIN,URINE NEGATIVE (NEGATIVE); KETONES,URINE 2+ (NEGATIVE); LEUKOCYTE ESTERASE ,URINE NEGATIVE (NEGATIVE); NITRITE,URINE NEGATIVE (NEGATIVE); PH,URINE 7 (5-9); PROTEIN,URINE 2+ (NEGATIVE); UROBILINOGEN,URINE NORMAL (NORMAL)
[2017-06-08 19:44] LABS: ALANINE AMINOTRANSFERASE 11 U/L (0-55); ALBUMIN 4.2 GM/DL (3.2-4.5); ANION GAP 14 MMOL/L (5-14); ASPARTATE AMINO TRANSFERASE 11 U/L (5-34); BILIRUBIN,TOTAL 0.7 MG/DL (0.1-1.0); BLOOD UREA NITROGEN 8 MG/DL (7-18); BUN/CREATININE RATIO 11; CALCIUM 9.6 MG/DL (8.5-10.1); CARBON DIOXIDE 22 MMOL/L (21-32); CHLORIDE 102 MMOL/L (98-107); CREATININE SERUM 0.71 MG/DL (0.60-1.30); GFR ESTIMATED > 60; GLUCOSE 101 MG/DL (70-105); LIPASE 10 U/L (8-78); POTASSIUM 3.1 MMOL/L (3.6-5.0); SODIUM 138 MMOL/L (135-145); TOTAL PROTEIN 7.8 GM/DL (6.4-8.2)
--- NOTE | 2017-06-08 19:49 | Diagnostic Imaging Report ---
TECHNIQUE: Multiple contiguous axial images were obtained through the abdomen and pelvis without the use of intravenous contrast. INDICATION: Low abdomen pain with nausea, vomiting and diarrhea. EXAMINATION: CT abdomen and pelvis without contrast, 06/08/2017. COMPARISON: None. FINDINGS: Lack of enteric contrast limits evaluation of the abnormal-appearing bowel loops. There is a focal dilated-appearing loop of bowel within the anterior lower abdomen towards the pelvis. This appears to represent a dilated loop of small bowel with adjacent abnormal appearing loops of bowel noted which demonstrate wall thickening. The jejunum in the left upper quadrant demonstrates diffuse enlargement and thickwalled appearance as well. Abnormal-appearing small bowel loops also noted within the lower abdomen towards the pelvis. A rounded area on image #55 of 78 right paracentral, likely a loop of small bowel adjacent to the appendix. No definite inflammation is seen about the visualized aspects of the appendix but the entire appendix is not seen. There is no free fluid. No free air. The colon is overall decompressed. The nonopacified abdominal viscera limited. Evidence of previous cholecystectomy noted. No acute abnormality seen in the liver. Spleen is normal. Adrenal glands unremarkable. The pancreas is unremarkable as well. Kidneys demonstrate no acute disease. Diffuse atherosclerotic disease along the aorta and its branches also noted. No acute osseous abnormality is appreciated. Lung bases demonstrate chronic changes. IMPRESSION: 1. Abnormal appearing small bowel loops nonspecific due to the lack of enteric contrast. Several wall thickened and dilated loops of jejunum and possibly ilium are noted throughout the abdomen towards the right lower pelvis, possibly due to focal enteritis or ileus. An abnormal-appearing fluid collection in the anterior aspect of the lower abdomen right paracentral, likely a loop of small bowel, less likely a process such as abscess. Correlation with symptoms recommended and if clinically warranted post enteric and IV contrast imaging would be useful for further characterization. 2. Appendix only partially seen. Its visualized aspects unremarkable. 3. Other incidental findings as discussed above. Dictated by: Dictated on workstation # [id number]
[2017-06-08 19:52] LABS: WBC,URINE 0-2 /HPF
[2017-06-08] MEDS ORDERED: ONDA8TAB13 PO (20:36)
[2017-06-08] MEDS ORDERED: RX-ONDANSETRON 4 MG ODT (ZOFRAN) PPK #4 PO STA (20:51)
[2017-06-08 20:59] VITALS: BP 124/87
== END 2017-06-08 20:59 | disposition home or self-care (01) ==
LOC: EDUNIT# 18:36 → ER 18:38
DX: K56.7 Ileus, unspecified (principal); J44.9 Chronic obstructive pulmonary disease, unspecified; M81.0 Age-related osteoporosis without current pathological fracture; F41.9 Anxiety disorder, unspecified; F31.9 Bipolar disorder, unspecified; F17.290 Nicotine dependence, other tobacco product, uncomplicated; Z95.2 Presence of prosthetic heart valve; Z86.73 Personal history of transient ischemic attack (TIA), and cerebral infarction without residual deficits; Z90.710 Acquired absence of both cervix and uterus; Z87.19 Personal history of other diseases of the digestive system
CPT/HCPCS: 36415; 74176; 80053; 81000; 83690; 85025; 96372; 99284

== ENCOUNTER 2018-05-28 13:27 | Emergency (ER) | payer MEDICAID ==
[~2018-05-28] VITALS: Ht 160 cm; Wt 65.8 kg
[~2018-05-28 13:27] MED LIST changes: +ONDA8TAB13 PO; +POTA10CA43 PO
[2018-05-28] MEDS ORDERED: ONDANSETRON 4 MG/2 ML (SDV) Z0FRAN ONE (13:29)
[2018-05-28] MEDS ORDERED: fentaNYL INJECTION 100 MCG/2 ML AMP ONE (13:31)
[2018-05-28] MEDS ORDERED: LORazepam INJ 2 MG/ML (ATIVAN) VIAL ONE (13:31)
[2018-05-28 13:38] LABS: BASOPHILS % (AUTO) 0 % (0-10); EOSINOPHILS % (AUTO) 0 % (0-10); HEMATOCRIT 48 % (35-52); HEMOGLOBIN 16.4 G/DL (11.5-16.0); LYMPHOCYTES # (AUTO) 3.8 X 10^3 (1.0-4.0); LYMPHOCYTES % (AUTO) 34 % (12-44); MEAN CORPUSCULAR HEMOGLOBIN 31 PG (25-34); MEAN CORPUSCULAR HGB CONC 34 G/DL (32-36); MEAN CORPUSCULAR VOLUME 90 FL (80-99); MEAN PLATELET VOLUME 11.4 FL (7.4-10.4); MONOCYTES # (AUTO) 0.9 X 10^3 (0.0-1.0); MONOCYTES % (AUTO) 8 % (0-12); NEUTROPHILS # (AUTO) 6.4 X 10^3 (1.8-7.8); NEUTROPHILS % (AUTO) 57 % (42-75); PLATELET COUNT 279 10^3/uL (130-400); RED CELL DISTRIBUTION WIDTH 13.8 % (10.0-14.5); WHITE BLOOD COUNT 11.1 10^3/uL (4.3-11.0)
[2018-05-28] MEDS ORDERED: NS IV 1000 ML 1,000 ML IV ONE (13:40)
--- OUTSIDE RECORDS SUMMARY | 2018-05-28 13:41 | XMS REPORT ---
Author Author PAULA CHILDRESS Organization [facility] Address [address] [place] [address] Care Team Providers Care Wheat Buyer Name Role Phone PAULA CHILDRESS Unavailable PROBLEMS Type Condition ICD9-CM Code [id number] Code Onset Dates Condition Status SNOMED Code Problem Gastroesophageal reflux disease with esophagitis K21.0 Active 711754456 Problem Stress incontinence N39.3 Active 93584162 Problem Chronic fatigue R53.82 Active 22917881 Problem Anxiety F41.9 Active 69550440 Problem Lumbago with sciatica, left side M54.42 Active 551318854 Problem Acute right-sided low back pain with right-sided sciatica M54.41 Active 942560113 Problem Primary osteoarthritis, unspecified site M19.91 Active 541013874 Problem Arthritis M19.90 Active 2259033 Problem PTSD (post-traumatic stress disorder) F43.10 Active 36688840 Problem Other chronic pain G89.29 Active 21913004 Problem Degenerative joint disease M19.90 Active 314710550 Problem Unspecified mood [affective] disorder F39 Active 78985135 Problem Mood disorder F39 Active 69432921 ALLERGIES Substance Reaction Event Type Date Status Latex Gloves Unknown Drug Allergy Jan, Active Iodine Unknown Drug Allergy Jan, Active ENCOUNTERS Encounter Location Date Diagnosis [facility] [id number], [place] [address] May, [facility] [id number], [place] [address] May, [facility] [id number] [place] [address] 14628- 6893 Apr, Arthritis M19.90 ; Choking, initial encounter T17.308A and Acute cystitis without hematuria N30.00 [facility] [address] [place] [address] 74146- 8601 Apr, Unspecified mood [affective] disorder F39 and PTSD (post- traumatic stress disorder) F43.10 [place] [id number] [place] [address] 77594- 4004 Apr, 2nd deg burn hand T23.209A [facility] [id number] [place] [address] 56510- 5006 Apr, Mood disorder F39 and PTSD (post-traumatic stress disorder) F43.10 [place] [id number] [place] [address] 78447- 7035 Apr, [place] [id number] [place] [address] 31820- 0668 Mar, Abnormal TSH R79.89 [place] [id number] [place] [address] 54530- 2370 Mar, Chronic fatigue R53.82 ; Mood disorder F39 and Hypokalemia E87.6 [place] [id number] [place] [address] 41664- 8817 Mar, Mood disorder F39 and PTSD (post-traumatic stress disorder) F43.10 [place] [id number] [place] [address] 89266- 3440 Mar, Unspecified mood [affective] disorder F39 [place] [id number] [place] [address] 14120- 8783 February, [place] [id number] [place] [address] 38147- 8575 February, Mood disorder F39 ; Low back pain M54.5 ; Other chronic pain G89.29 ; Hypokalemia E87.6 and HSV-2 (herpes simplex virus 2) infection B00.9 [facility] [address] [place] [address] 47272- 0199 February, [place] [id number] [place] [address] 76311- 0648 Jan, Pain in left shoulder M25.512 ; Other chronic pain G89.29 and Bronchitis J40 [facility] [id number] [place] [address] 13856- 4601 Dec, Degenerative joint disease M19.90 and Anxiety F41.9 [facility] [address] 44672- 8806 Dec, [facility] [address] 15487- 3608 Dec, [facility] [address] 04303- 8277 Nov, [facility] [address] 15442- 6082 Nov, Degenerative joint disease M19.90 and Anxiety F41.9 [facility] [address] 43877- 3651 Nov, Lumbago with sciatica, left side M54.42 and Encounter for immunization Z23 [facility] [address] 08797- 8885 Nov, [facility] [address] 79084- 8137 Oct, Bronchitis J40 [facility] [id number] [place] [address] 70640 -7548 Oct, Cough R05 [facility] [id number] [place] [address] 03597- 6327 Oct, Degenerative joint disease M19.90 and Anxiety F41.9 [facility] [address] 94032- 5552 Sep, [facility] [address] 75720- 1930 Sep, [facility] [address] 93852- 6286 Sep, Localized edema R60.0 ; Anxiety F41.9 and Degenerative joint disease M19.90 [place] [address] 19373- 0172 Aug, Lumbago with sciatica, left side M54.42 ; Anxiety F41.9 and Stress incontinence N39.3 [place] [address] 10623- 8259 Aug, [place] [address] 27908- 6845 Aug, Localized edema R60.0 [facility] [address] 25302 -2883 Jul, Infected tooth K04.7 [place] [address] 24240- 3200 Jul, Localized edema R60.0 [place] [address] 44840- 0021 Jun, Localized edema R60.0 and Chronic fatigue R53.82 [place] [address] 27992- 6830 Jun, Localized edema R60.0 and Chronic fatigue R53.82 [place] [address] 30363- 6147 May, [place] [address] 31459- 9790 May, Gastroesophageal reflux disease with esophagitis K21.0 ; Primary osteoarthritis, unspecified site M19.91 and Acute right-sided low back pain with right-sided sciatica M54.41 [place] [address] 01162- 2848 May, [place] [address] 83747- 9628 May, Lumbago with sciatica, left side M54.42 and Anxiety F41.9 [facility] [address] [id number] [place] [address] Nov Degenerative joint disease M19.90 and Constipation K59.00 [facility] [address] [id number] [place] [id number] Jul, Dental examination Z01.20 IMMUNIZATIONS No Known Immunizations SOCIAL HISTORY Never Assessed REASON FOR VISIT Pain management (chronic)----DBennettRN PLAN OF CARE VITAL SIGNS Height 63.5 in 2018-01-31 Weight 145 lbs 2018-01-31 Temperature 98.4 degrees Fahrenheit 2018-01-31 Heart Rate 100 bpm 2018-01-31 Respiratory Rate 20 2018-01-31 BMI 25.28 kg/m2 2018-01-31 Blood pressure systolic 122 mmHg 2018-01-31 Blood pressure diastolic 84 mmHg 2018-01-31 MEDICATIONS Medication Instructions Dosage Frequency Start Date End Date Duration Status Nabumetone 500 mg Orally Twice a day 1 tablet 12h 30 Active Midodrine HCl 5 MG Orally twice a day 1 tabs daily 12h 30 Active Duloxetine HCl 30 MG Orally Once a day 1 tab p.m 24h 30 days Active Levaquin 500 mg Orally Once a day 1 tablet 24h Jan, Jan, 10 day(s) Active Protonix 40 mg Orally Once a day 1 tablet 24h 18 May, 2017 30 day(s) Active Oxybutynin Chloride ER 15 TAKE 1 TABLET BY MOUTH EVERY DAY 30 Active Gabapentin 600 MG Orally 4 times a day 1 tablet 6h 30 Active Loratadine 10 mg Orally Once a day 1 tab daily 24h 30 Active Combivent Respimat 20-100 MCG/ACT Inhalation Four times a day 1 puff 6h Oct, Active Nitrostat 0.4 MG Sublingual 1 tab under the tongue every 5 minutes until cp is controlled, report to ER if you use up to 3/day. 1 tablet Oct, Active Mupirocin 2 % Externally Three times a day 1 application to affected area 8h Dec, 5 day(s) Active Duloxetine HCl 60 mg Orally Once a day 1 tab a.m 24h 30 days Active Dicyclomine HCl 20 MG Orally Four times a day 1 tab daily 6h 30 Active Fludrocortisone Acetate 0.1 MG Orally 2 times a day 1 tablet 12h 30 Active RESULTS Name Result Date Reference Range Xray : Chest 2 View (IN HOUSE) 2018-01-31 PROCEDURES Procedure Date Ordered Result Body Site X-RAY EXAM CHEST 2 VIEWS January 31, 2018 INSTRUCTIONS MEDICATIONS ADMINISTERED No Known Medications MEDICAL (GENERAL) HISTORY Type Description Date Medical History Low blood pressure Medical History Mitral Valve Prolapse Medical History Asthma Medical History COPD Medical History Fainting (Low blood Pressure), transient hypotension Medical History Arthritis Medical History TMJ Medical History bells palsy Medical History age 18 bit by brown recluse left posterior leg and had complications Surgical History 3 Hiatal hernia surgery Surgical History Rotator cuff surgery (R) Surgical History Hysterectomy Surgical History cholecystectomy Surgical History tonsillectomy Hospitalization History Surgeries Hospitalization History [facility] thought it was a stroke Hospitalization History medical unit 3 months s/p spider bite age 18
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
--- OUTSIDE RECORDS SUMMARY | 2018-05-28 13:42 | XMS REPORT ---
Author Author PAULA CHILDRESS Organization [facility] Address [address] [place] [address] Care Team Providers Care Radiology Manager Name Role Phone PAULA CHILDRESS Unavailable PROBLEMS Type Condition ICD9-CM Code UMI33-FC Code Onset Dates Condition Status SNOMED Code Problem Primary osteoarthritis, unspecified site M19.91 Active 146375082 Problem Chronic fatigue R53.82 Active 13691978 Problem Gastroesophageal reflux disease with esophagitis K21.0 Active 847999987 Problem Anxiety F41.9 Active 46666525 Problem Lumbago with sciatica, left side M54.42 Active 543181030 Problem Acute right-sided low back pain with right-sided sciatica M54.41 Active 543628327 Problem PTSD (post-traumatic stress disorder) F43.10 Active 96831735 Problem Unspecified mood [affective] disorder F39 Active 11862575 Problem Degenerative joint disease M19.90 Active 384864412 Problem Stress incontinence N39.3 Active 31421004 Problem Mood disorder F39 Active 17350782 Problem Other chronic pain G89.29 Active 31817227 ALLERGIES No Information ENCOUNTERS Encounter Location Date Diagnosis [place] [address] [place] [address] 14159- 4223 Apr, [facility] [id number] [place] [address] 05526- 0929 Apr, [place] [address] [id number] [place] [address] 06761- 1795 Mar, Abnormal TSH R79.89 [place] [address] [id number] [place] [address] 64498- 7331 Mar, Chronic fatigue R53.82 ; Mood disorder F39 and Hypokalemia E87.6 [place] [address] [id number] [place] [address] 17804- 3781 Mar, Mood disorder F39 and PTSD (post-traumatic stress disorder) F43.10 [place] [address] [place] [id number] [place] [address] 57816- 1657 Mar, Unspecified mood [affective] disorder F39 [facility] [id number] [place] [address] 00390- 8206 February, [place] [address] 07918- 0226 February, Mood disorder F39 ; Low back pain M54.5 ; Other chronic pain G89.29 ; Hypokalemia E87.6 and HSV-2 (herpes simplex virus 2) infection B00.9 [place] [address] [id number] [place] [address] 97635- 8885 February, [place] [address] [place] [address] [id number] [place] [address] 35544- 4554 Jan, Pain in left shoulder M25.512 ; Other chronic pain G89.29 and Bronchitis J40 [place] [address] [id number] [place] [address] 78064- 8262 Dec, Degenerative joint disease M19.90 and Anxiety F41.9 [place] [address] [id number] [place] [address] 25608- 1375 Dec, [place] [address] [place] [id number] [place] [address] 88591- 8892 Dec, [facility] [id number] [place] [address] 02795- 4424 Nov, [facility] [id number] [place] [address] 32979- 6655 16 Nov, 2017 Degenerative joint disease M19.90 and Anxiety F41.9 [facility] [id number] [place] [address] 91749- 2325 15 Nov, 2017 Lumbago with sciatica, left side M54.42 and Encounter for immunization Z23 [place] [address] [place] [id number] [place] [address] 44684- 1442 Nov, [facility] [id number] [place] [address] 22886- 6206 Oct, Bronchitis J40 [facility] [id number] [place] [address] 11502 -0086 Oct, Cough R05 [place] [address] 93195- 6550 Oct, Degenerative joint disease M19.90 and Anxiety F41.9 [place] [address] [place] [address] [id number] [place] [address] 70654- 3501 Sep, [place] [address] [place] [id number] [place] [address] 16085- 4716 Sep, [place] [address] [place] [id number] [place] [address] 03313- 6881 Sep, Localized edema R60.0 ; Anxiety F41.9 and Degenerative joint disease M19.90 [place] [address] [place] [id number] [place] [address] 27935- 9332 Aug, Lumbago with sciatica, left side M54.42 ; Anxiety F41.9 and Stress incontinence N39.3 [place] [address] [place] [id number] [place] [address] 60974- 3161 Aug, [place] [address] [place] [address] [id number] [place] [address] 81692- 0397 Aug, Localized edema R60.0 [facility] [id number] [place] [address] 40310 -8730 Jul, Infected tooth K04.7 [place] [address] [place] [id number] [place] [address] 39828- 7731 Jul, Localized edema R60.0 [place] [address] [place] [id number] [place] [address] 30432- 8266 Jun, Localized edema R60.0 and Chronic fatigue R53.82 [facility] [address], [place] [address]- 3550 08 Jun, 2017 Localized edema R60.0 and Chronic fatigue R53.82 [facility] [address], [place] [address]- 4937 May, [facility] [address] [place] [address] 38646- 8865 May, Gastroesophageal reflux disease with esophagitis K21.0 ; Primary osteoarthritis, unspecified site M19.91 and Acute right-sided low back pain with right-sided sciatica M54.41 [place] [id number] [place] [address] 37036- 5567 May, [facility] [id number] [place] [address] 46658- 7039 May, Lumbago with sciatica, left side M54.42 and Anxiety F41.9 [facility] [address] [id number] [place] [address] 25 Nov Degenerative joint disease M19.90 and Constipation K59.00 [facility] [address] [id number] 07 Jul, 2015 Dental examination Z01.20 IMMUNIZATIONS Vaccine Route Administration Date Status FLULAVAL QUAD (6 MO AND UP) 2016 IM Intramuscular Dec 09, 2017 Administered SOCIAL HISTORY Never Assessed REASON FOR VISIT Ameritox PLAN OF CARE VITAL SIGNS MEDICATIONS Unknown Medications RESULTS Name Result Date Reference Range AMERITOX 2017-12-09 PROCEDURES Procedure Date Ordered Result Body Site No Charge Dec 09, 2017 FLULAVAL QUAD (6 MO AND UP) 2016Dec 09, 2017 SINGLE IMMUNIZATION ADMIN Dec 09, 2017 INSTRUCTIONS MEDICATIONS ADMINISTERED No Known Medications MEDICAL [...]
--- OUTSIDE RECORDS SUMMARY | 2018-05-28 13:42 | XMS REPORT ---
Author Author PAULA CHILDRESS Organization [facility] Address [address] [place] [address] Care Team Providers Care Tempering Oven Operator Name Role Phone PAULA CHILDRESS Unavailable PROBLEMS Type Condition ICD9-CM Code BPN90-OO Code Onset Dates Condition Status SNOMED Code Problem Lumbago with sciatica, left side M54.42 Active 916240469 Problem Primary osteoarthritis, unspecified site M19.91 Active 416043471 Problem Acute right-sided low back pain with right-sided sciatica M54.41 Active 157006730 Problem Anxiety F41.9 Active 77939433 Problem Mood disorder F39 Active 78112668 Problem Other chronic pain G89.29 Active 09018929 Problem Chronic fatigue R53.82 Active 87262087 Problem Gastroesophageal reflux disease with esophagitis K21.0 Active 358170568 Problem Degenerative joint disease M19.90 Active 728539247 Problem Stress incontinence N39.3 Active 81810236 ALLERGIES No Information ENCOUNTERS Encounter Location Date Diagnosis [place] [address] [place] [address] [id number] [place] [address] 46180- 5590 Mar, [place] [address] [place] [address] 96637- 5489 Mar, [facility] [id number] [place] [address] 59492- 2793 February, [place] [address] [place] [address] [id number] [place] [address] 34116- 6051 February, Mood disorder F39 ; Low back pain M54.5 ; Other chronic pain G89.29 ; Hypokalemia E87.6 and HSV-2 (herpes simplex virus 2) infection B00.9 [facility] [id number] [place] [address] 25349- 0879 February, [facility] [address] 66458- 4249 Jan, Pain in left shoulder M25.512 ; Other chronic pain G89.29 and Bronchitis J40 [facility] [address] 02568- 2068 Dec, Degenerative joint disease M19.90 and Anxiety F41.9 [place] [address] 88005- 7272 Dec, [facility] [address] 23937- 0025 Dec, [place] [address] 65259- 5385 Nov, [facility] [address] 98842- 0264 Nov, Degenerative joint disease M19.90 and Anxiety F41.9 [place] [address] 29853- 3209 Nov, Lumbago with sciatica, left side M54.42 and Encounter for immunization Z23 [place] [address] 62922- 4785 Nov, [facility] [address] 91858- 1233 Oct, Bronchitis J40 [facility] [address] 96361 -8934 Oct, Cough R05 [facility] [address] 37613- 4372 Oct, Degenerative joint disease M19.90 and Anxiety F41.9 [facility] [address] 32709- 2350 Sep, [facility] [address] 60864- 2952 Sep, [facility] [id number] [place] [address] 90126- 7978 08 Sep, 2017 Localized edema R60.0 ; Anxiety F41.9 and Degenerative joint disease M19.90 [place] [address] [place] [id number] [place] [address] 51541- 4462 Aug, Lumbago with sciatica, left side M54.42 ; Anxiety F41.9 and Stress incontinence N39.3 [facility] [address] [place] [address] [id number] [place] [address] 38030- 1775 Aug, [place] [address] [place] [id number] [place] [address] 78864- 7815 Aug, Localized edema R60.0 [facility] [id number] [place] [address] 11051 -5259 Jul, Infected tooth K04.7 [place] [address] [place] [id number] [place] [address] 61631- 2725 Jul, Localized edema R60.0 [place] [address] [place] [address] [id number] [place] [address] 93884- 9441 Jun, Localized edema R60.0 and Chronic fatigue R53.82 [place] [address] [place] [id number] [place] [address] 58989- 0099 Jun, Localized edema R60.0 and Chronic fatigue R53.82 [place] [address] [place] [id number] [place] [address] 28035- 9042 May, [place] [address] [place] [id number] [place] [address] 73039- 5067 May, Gastroesophageal reflux disease with esophagitis K21.0 ; Primary osteoarthritis, unspecified site M19.91 and Acute right-sided low back pain with right-sided sciatica M54.41 [place] [address] [place] [id number] [place] [address] 83814- 0506 14 May, 2017 [place] [address] [place] [id number] [place] [address] 71349- 3584 May, Lumbago with sciatica, left side M54.42 and Anxiety F41.9 [facility] [address] [id number] [place] [address] Nov Degenerative joint disease M19.90 and Constipation K59.00 [facility] [id number] [place] [id number] Jul, Dental examination Z01.20 IMMUNIZATIONS No Known Immunizations SOCIAL HISTORY Never Assessed REASON FOR VISIT Rx PLAN OF CARE VITAL SIGNS MEDICATIONS Unknown Medications RESULTS No Results PROCEDURES No Known procedures INSTRUCTIONS MEDICATIONS ADMINISTERED No Known Medications MEDICAL (GENERAL) HISTORY Type Description Date Medical History Low blood pressure Medical History Mitral Valve Prolapse Medical History Asthma Medical History COPD Medical History Fainting (Low blood Pressure) Medical History Arthritis Medical History Jaw Bone Medical History bells palsy Surgical History 3 Hiatal hernia surgery Surgical History Rotator cuff surgery (R) Surgical History Hysterectomy Surgical History cholecystectomy Surgical History tonsillectomy Hospitalization History Surgeries Hospitalization History [facility]IA thought it was a stroke
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
--- OUTSIDE RECORDS SUMMARY | 2018-05-28 13:42 | XMS REPORT ---
Author Author PAULA CHILDRESS Organization [facility] Address [address] [place] [address] Care Team Providers Care Java J2Ee Application Developer Name Role Phone PAULA CHILDRESS Unavailable PROBLEMS Type Condition ICD9-CM Code TOU45-RA Code Onset Dates Condition Status SNOMED Code Problem Acute right-sided low back pain with right-sided sciatica M54.41 Active 358163536 Problem Gastroesophageal reflux disease with esophagitis K21.0 Active 683983866 Problem Primary osteoarthritis, unspecified site M19.91 Active 625937186 Problem Anxiety F41.9 Active 07755767 Problem Lumbago with sciatica, left side M54.42 Active 558635229 Problem Unspecified mood [affective] disorder F39 Active 16585588 Problem Mood disorder F39 Active 59066209 Problem Stress incontinence N39.3 Active 41800677 Problem Chronic fatigue R53.82 Active 15726799 Problem Other chronic pain G89.29 Active 88174752 Problem Degenerative joint disease M19.90 Active 173323492 ALLERGIES No Information ENCOUNTERS Encounter Location Date Diagnosis [facility] [address] [place] [address] 14619- 2955 Mar, [place] [address] [place] [address] 39515- 8446 Mar, [facility] [id number] [place] [address] 01633- 8636 Mar, Unspecified mood [affective] disorder F39 [facility] [id number] [place] [address] 03964- 6502 February, [place] [id number] [place] [address] 98263- 0871 February, Mood disorder F39 ; Low back pain M54.5 ; Other chronic pain G89.29 ; Hypokalemia E87.6 and HSV-2 (herpes simplex virus 2) infection B00.9 [facility] [address] 12675- 4894 February, [place] [address] 56962- 8529 Jan, Pain in left shoulder M25.512 ; Other chronic pain G89.29 and Bronchitis J40 [place] [address] 39542- 9600 Dec, Degenerative joint disease M19.90 and Anxiety F41.9 [place] [address] 39698- 2731 Dec, [place] [address] 84543- 7509 Dec, [place] [address] 90183- 2323 Nov, [place] [address] 83583- 0723 Nov, Degenerative joint disease M19.90 and Anxiety F41.9 [place] [address] 63956- 6637 Nov, Lumbago with sciatica, left side M54.42 and Encounter for immunization Z23 [place] [address] 40709- 9197 Nov, [place] [address] 89924- 4481 Oct, Bronchitis J40 [facility] [address] 22308 -4243 Oct, Cough R05 [facility] [address] 42924- 0086 Oct, Degenerative joint disease M19.90 and Anxiety F41.9 [place] [address] [place] [address]- 8420 Sep, [facility] [address] 87040- 2257 Sep, [place] [address] 68562- 8671 Sep, Localized edema R60.0 ; Anxiety F41.9 and Degenerative joint disease M19.90 [place] [address] 02553- 6473 Aug, Lumbago with sciatica, left side M54.42 ; Anxiety F41.9 and Stress incontinence N39.3 [place] [address] 23355- 4988 Aug, [place] [address] 12519- 4168 Aug, Localized edema R60.0 [facility] [address] 47177 -8565 Jul, Infected tooth K04.7 [place] [address] 86903- 9255 Jul, Localized edema R60.0 [place] [address] 13879- 4783 Jun, Localized edema R60.0 and Chronic fatigue R53.82 [place] [address] 22858- 2807 Jun, Localized edema R60.0 and Chronic fatigue R53.82 [facility] [address] 92295- 6796 May, [place] [address] 40242- 2070 May, Gastroesophageal reflux disease with esophagitis K21.0 ; Primary osteoarthritis, unspecified site M19.91 and Acute right-sided low back pain with right-sided sciatica M54.41 [facility] [address] [facility] [id number] [place] [address]- 8013 May, [facility] [address] [facility] [id number] [place] [address]- 2778 May, Lumbago with sciatica, left side M54.42 and Anxiety F41.9 [facility] Keith WEEKSE [id number] [place] [address] Nov Degenerative joint disease M19.90 and Constipation K59.00 [facility] [address] [facility] [id number] [place] [id number] Jul, Dental examination Z01.20 IMMUNIZATIONS No Known Immunizations SOCIAL HISTORY Never Assessed REASON FOR VISIT Controlled Refill Request PLAN OF CARE VITAL SIGNS MEDICATIONS Medication Instructions Dosage Frequency Start Date End Date Duration Status Carisoprodol 350 MG Orally 2 times a day 1 tablet as needed 12h Active Alprazolam 1 MG Orally Twice a day 1 tablet 12h Active [place] 5-325 MG Orally every 6 hrs 1 tablet as needed 6h Oct, Active RESULTS No Results PROCEDURES No Known [...]
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
--- OUTSIDE RECORDS SUMMARY | 2018-05-28 13:42 | XMS REPORT ---
Author Author PAULA CHILDRESS Organization [facility] Address [address] [place] [address] Care Team Providers Care Rn Procedures Name Role Phone PAULA CHILDRESS Unavailable PROBLEMS Type Condition ICD9-CM Code VVF78-SH Code Onset Dates Condition Status SNOMED Code Problem Primary osteoarthritis, unspecified site M19.91 Active 724797992 Problem Chronic fatigue R53.82 Active 98751219 Problem Gastroesophageal reflux disease with esophagitis K21.0 Active 019731519 Problem Anxiety F41.9 Active 98148121 Problem Lumbago with sciatica, left side M54.42 Active 507678656 Problem Acute right-sided low back pain with right-sided sciatica M54.41 Active 234631230 Problem PTSD (post-traumatic stress disorder) F43.10 Active 37259888 Problem Unspecified mood [affective] disorder F39 Active 59125171 Problem Degenerative joint disease M19.90 Active 271333525 Problem Stress incontinence N39.3 Active 78084379 Problem Mood disorder F39 Active 43234417 Problem Other chronic pain G89.29 Active 50777931 ALLERGIES No Information ENCOUNTERS Encounter Location Date Diagnosis [place] [id number] [place] [address] 09139- 4652 Apr, [facility] [address] [place] [id number] [place] [address] 81673- 5582 Apr, [place] [address] [place] [id number] [place] [address] 16568- 0197 Mar, Abnormal TSH R79.89 [place] [address] [place] [id number] [place] [address] 68701- 5509 Mar, Chronic fatigue R53.82 ; Mood disorder F39 and Hypokalemia E87.6 [place] [address] [place] [address] [id number] [place] [address] 14745- 2747 Mar, Mood disorder F39 and PTSD (post-traumatic stress disorder) F43.10 [place] [address] [place] [id number] [place] [address] 77662- 4112 Mar, Unspecified mood [affective] disorder F39 [facility] [id number] [place] [address] 18957- 7182 February, [place] [address] 89149- 7618 February, Mood disorder F39 ; Low back pain M54.5 ; Other chronic pain G89.29 ; Hypokalemia E87.6 and HSV-2 (herpes simplex virus 2) infection B00.9 [place] [address] [place] [id number] [place] [address] 58853- 8287 February, [place] [address] [place] [id number] [place] [address] 56680- 6159 Jan, Pain in left shoulder M25.512 ; Other chronic pain G89.29 and Bronchitis J40 [place] [address] [id number] [place] [address] 56503- 4603 Dec, Degenerative joint disease M19.90 and Anxiety F41.9 [place] [address] [place] [id number] [place] [address] 78414- 1696 Dec, [place] [address] [place] [id number] [place] [address] 08329- 2753 Dec, [facility] [address] [id number] [place] [address] 95830- 8286 Nov, [facility] [address] [place] [address] [id number] [place] [address] 22360- 5923 16 Nov, 2017 Degenerative joint disease M19.90 and Anxiety F41.9 [facility] [address] [place] [id number] [place] [address] 86642- 1775 15 Nov, 2017 Lumbago with sciatica, left side M54.42 and Encounter for immunization Z23 [place] [address] [id number] [place] [address] 76871- 3773 Nov, [facility] [address] [id number] [place] [address] 38034- 9658 Oct, Bronchitis J40 [facility] [id number] [place] [address] 56640 -6273 Oct, Cough R05 [place] [address] 98059- 4373 Oct, Degenerative joint disease M19.90 and Anxiety F41.9 [place] [address] [place] [id number] [place] [address] 07308- 1405 Sep, [place] [address] [place] [id number] [place] [address] 00532- 0471 Sep, [place] [address] [place] [address] [id number] [place] [address] 95677- 6492 Sep, Localized edema R60.0 ; Anxiety F41.9 and Degenerative joint disease M19.90 [place] [address] [address] [id number] [place] [address] 52131- 1990 Aug, Lumbago with sciatica, left side M54.42 ; Anxiety F41.9 and Stress incontinence N39.3 [place] [address] [place] [id number] [place] [address] 06512- 8737 Aug, [place] [address] [place] [id number] [place] [address] 04489- 3894 Aug, Localized edema R60.0 [facility] [id number] [place] [address] 52014 -4658 Jul, Infected tooth K04.7 [place] [address] [place] [address] [id number] [place] [address] 07962- 3874 Jul, Localized edema R60.0 [place] [address] [address] [id number] [place] [address] 32336- 5920 Jun, Localized edema R60.0 and Chronic fatigue R53.82 [facility] [address], [place] [address] 4211 08 Jun, 2017 Localized edema R60.0 and Chronic fatigue R53.82 [facility] [address] [address] 2858 May, [facility] [address] [place] [address] 72815- 8790 May, Gastroesophageal reflux disease with esophagitis K21.0 ; Primary osteoarthritis, unspecified site M19.91 and Acute right-sided low back pain with right-sided sciatica M54.41 [place] [address] [id number] [place] [address] 51181- 7342 May, [facility] [address] [id number] [place] [address] 43629- 4533 May, Lumbago with sciatica, left side M54.42 and Anxiety F41.9 [facility] [address] [id number] [place] [address] Nov Degenerative joint disease M19.90 and Constipation K59.00 [facility] [address] [id number] Jul, Dental examination Z01.20 IMMUNIZATIONS No Known Immunizations SOCIAL HISTORY Never Assessed REASON FOR VISIT Controlled Med Refill PLAN OF CARE VITAL SIGNS MEDICATIONS Medication Instructions Dosage Frequency Start Date End Date Duration Status Carisoprodol 350 MG Orally 2 times a day 1 tablet as needed 12h 28 days Active [place] 5-325 MG Orally every 6 hrs 1 tablet as needed 6h Nov, 28 days Active Alprazolam 1 MG Orally Twice a day 1 tablet 12h 28 days Active RESULTS No Results PROCEDURES No [...]
--- OUTSIDE RECORDS SUMMARY | 2018-05-28 13:43 | XMS REPORT ---
Author Author PAULA CHILDRESS Organization [facility] [place] Address [address] [place] [address] Care Team Providers Care Salesforce Specialist Name Role Phone PAULA CHILDRESS Unavailable PROBLEMS Type Condition ICD9-CM Code ZGN85-WL Code Onset Dates Condition Status SNOMED Code Problem Anxiety F41.9 Active 67000659 Problem Primary osteoarthritis, unspecified site M19.91 Active 694197895 Problem Lumbago with sciatica, left side M54.42 Active 182297000 Problem Other chronic pain G89.29 Active 20199976 Problem Degenerative joint disease M19.90 Active 891501449 Problem Gastroesophageal reflux disease with esophagitis K21.0 Active 215524353 Problem Acute right-sided low back pain with right-sided sciatica M54.41 Active 800968122 Problem Stress incontinence N39.3 Active 56607646 Problem Chronic fatigue R53.82 Active 06434764 ALLERGIES No Information ENCOUNTERS Encounter Location Date Diagnosis [place] [address] 52428- 0470 Jan, Pain in left shoulder M25.512 ; Other chronic pain G89.29 and Bronchitis J40 [facility] [place] [address] [place] [id number] [place] [address] 35608- 4322 Dec, Degenerative joint disease M19.90 and Anxiety F41.9 [facility] [place] [id number] [place] [address] 45472- 9842 Dec, [facility] [place] [address] 07317- 5295 Dec, [facility] [place] [address] [place] [id number] [place] [address] 75943- 6356 Nov, [facility] [place] [address] [place] [address] [id number] [place] [address] 33142- 4799 Nov, Degenerative joint disease M19.90 and Anxiety F41.9 [facility] [place] [address] [place] [id number] [place] [address] 28577- 8076 15 Nov, 2017 Lumbago with sciatica, left side M54.42 and Encounter for immunization Z23 [facility] [place] [address] 27976- 6071 12 Nov, 2017 [facility] [place] [address] 13920- 8864 Oct, Bronchitis J40 [facility] [address] 03053 -1673 Oct, Cough R05 [place] [address] 28014- 8085 Oct, Degenerative joint disease M19.90 and Anxiety F41.9 [place] [address] 76361- 7614 Sep, [facility] [place] [address] 63505- 8841 Sep, [facility] [place] [address] 44158- 9432 Sep, Localized edema R60.0 ; Anxiety F41.9 and Degenerative joint disease M19.90 [place] [address] [place] [id number] [place] [address] 20336- 7752 Aug, Lumbago with sciatica, left side M54.42 ; Anxiety F41.9 and Stress incontinence N39.3 [place] [address] 46785- 7320 Aug, [place] [address] 85840- 2078 Aug, Localized edema R60.0 [facility] [address] [place] [id number] [place] [address] 87604 -7283 Jul, Infected tooth K04.7 [place] [address] [address]- 7054 Jul, Localized edema R60.0 [place] [address] [place] [id number] [place] [address] 21200- 2197 Jun, Localized edema R60.0 and Chronic fatigue R53.82 [place] [address] [place] [id number] [place] [address] 87279- 7158 Jun, Localized edema R60.0 and Chronic fatigue R53.82 [place] [address] [place] [id number] [place] [address] 13537- 5673 May, [place] [address] [place] [id number] [place] [address] 64780- 1502 May, Gastroesophageal reflux disease with esophagitis K21.0 ; Primary osteoarthritis, unspecified site M19.91 and Acute right-sided low back pain with right-sided sciatica M54.41 [place] [address] [place] [address] 81964- 1844 May, [place] [address] [place] [id number] [place] [address] 27352- 6381 May, Lumbago with sciatica, left side M54.42 and Anxiety F41.[address] [facility] [address] [id number] [place] [address] Nov Degenerative joint disease M19.90 and Constipation K59.00 [facility] [address] [facility] [id number] [id number] Jul, Dental examination Z01.20 IMMUNIZATIONS No Known Immunizations SOCIAL HISTORY Never Assessed REASON FOR VISIT Controlled Med Refill PLAN OF CARE VITAL SIGNS MEDICATIONS Medication Instructions Dosage Frequency Start Date End Date Duration Status [place] 5-325 MG Orally every 6 hrs 1 tablet as needed 6h Aug, Active Carisoprodol 350 MG Orally 2 times a day 1 tablet as needed 12h Active Alprazolam 1 MG Orally Twice a day 1 tablet 12h Active RESULTS No Results PROCEDURES No Known [...]
--- OUTSIDE RECORDS SUMMARY | 2018-05-28 13:43 | XMS REPORT ---
Author Author PAULA CHILDRESS Organization [facility] Address [address] [place] [address] Care Team Providers Care Electrolysis Engineer Name Role Phone PAULA CHILDRESS Unavailable PROBLEMS Type Condition ICD9-CM Code CNG47-YZ Code Onset Dates Condition Status SNOMED Code Problem Primary osteoarthritis, unspecified site M19.91 Active 276127967 Problem Chronic fatigue R53.82 Active 37708550 Problem Gastroesophageal reflux disease with esophagitis K21.0 Active 774090012 Problem Anxiety F41.9 Active 53954590 Problem Lumbago with sciatica, left side M54.42 Active 858273610 Problem Acute right-sided low back pain with right-sided sciatica M54.41 Active 194586185 Problem PTSD (post-traumatic stress disorder) F43.10 Active 71456718 Problem Unspecified mood [affective] disorder F39 Active 68890282 Problem Degenerative joint disease M19.90 Active 782902076 Problem Stress incontinence N39.3 Active 80526302 Problem Mood disorder F39 Active 51491566 Problem Other chronic pain G89.29 Active 35459042 ALLERGIES No Information ENCOUNTERS Encounter Location Date Diagnosis [place] [address] [place] [address] 67115- 0196 Apr, [facility] [address] [address] [id number] [place] [address] 88299- 1923 Apr, [place] [address] [place] [id number] [place] [address] 07829- 4420 Mar, Abnormal TSH R79.89 [place] [address] [place] [id number] [place] [address] 27032- 4203 Mar, Chronic fatigue R53.82 ; Mood disorder F39 and Hypokalemia E87.6 [place] [address] [place] [id number] [place] [address] 88173- 7008 Mar, Mood disorder F39 and PTSD (post-traumatic stress disorder) F43.10 [place] [address] [place] [id number] [place] [address] 21232- 5100 Mar, Unspecified mood [affective] disorder F39 [facility] [address] [id number] [place] [address] 73584- 4153 February, [place] [address] 58103- 3193 February, Mood disorder F39 ; Low back pain M54.5 ; Other chronic pain G89.29 ; Hypokalemia E87.6 and HSV-2 (herpes simplex virus 2) infection B00.9 [place] [address] [place] [id number] [place] [address] 18561- 1901 February, [place] [address] [place] [id number] [place] [address] 69987- 1273 Jan, Pain in left shoulder M25.512 ; Other chronic pain G89.29 and Bronchitis J40 [place] [address] [place] [id number] [place] [address] 55246- 3445 Dec, Degenerative joint disease M19.90 and Anxiety F41.9 [place] [address] [place] [id number] [place] [address] 85292- 2819 Dec, [place] [address] [place] [id number] [place] [address] 64539- 8885 Dec, [facility] [address] [place] [id number] [place] [address] 63182- 2947 Nov, [facility] [address] [place] [id number] [place] [address] 99126- 1112 16 Nov, 2017 Degenerative joint disease M19.90 and Anxiety F41.9 [facility] [address] [place] [id number] [place] [address] 64405- 1801 15 Nov, 2017 Lumbago with sciatica, left side M54.42 and Encounter for immunization Z23 [place] [address] [place] [id number] [place] [address] 54091- 7564 Nov, [facility] [address] [place] [id number] [place] [address] 28182- 8127 Oct, Bronchitis J40 [facility] [address] [id number] [place] [address] 59592 -2966 Oct, Cough R05 [place] [address] 78167- 4855 Oct, Degenerative joint disease M19.90 and Anxiety F41.9 [place] [address] [place] [id number] [place] [address] 35046- 9884 Sep, [place] [address] [place] [id number] [place] [address] 16683- 2702 Sep, [place] [address] [place] [id number] [place] [address] 46747- 1970 Sep, Localized edema R60.0 ; Anxiety F41.9 and Degenerative joint disease M19.90 [place] [address] [place] [id number] [place] [address] 98388- 3994 Aug, Lumbago with sciatica, left side M54.42 ; Anxiety F41.9 and Stress incontinence N39.3 [place] [address] [place] [id number] [place] [address] 97863- 2512 Aug, [place] [address] [place] [id number] [place] [address] 95808- 8621 Aug, Localized edema R60.0 [facility] [address] [place] [id number] [place] [address] 93362 -8274 Jul, Infected tooth K04.7 [place] [address] [place] [id number] [place] [address] 36180- 8976 Jul, Localized edema R60.0 [place] [address] [place] [id number] [place] [address] 09561- 9040 Jun, Localized edema R60.0 and Chronic fatigue R53.82 [facility] [address] [address]- 3334 08 Jun, 2017 Localized edema R60.0 and Chronic fatigue R53.82 [facility] [address] [address]- 5773 May, [facility] [address] [place] [address] 16607- 7613 May, Gastroesophageal reflux disease with esophagitis K21.0 ; Primary osteoarthritis, unspecified site M19.91 and Acute right-sided low back pain with right-sided sciatica M54.41 [place] [address] [place] [id number] [place] [address] 03624- 4384 May, [facility] [address] [place] [address] 68272- 9380 May, Lumbago with sciatica, left side M54.42 and Anxiety F41.9 [facility] [address] [id number] [place] [address] Nov Degenerative joint disease M19.90 and Constipation K59.00 [facility] [address] [id number] [id number] Jul, Dental examination Z01.20 IMMUNIZATIONS No Known Immunizations SOCIAL HISTORY Never Assessed REASON FOR VISIT Controlled Med Refill - Needs [employer] PLAN OF CARE VITAL SIGNS MEDICATIONS [...]
--- OUTSIDE RECORDS SUMMARY | 2018-05-28 13:43 | XMS REPORT ---
Author Author PAULA CHILDRESS Organization [facility] Address [address] [place] [address] Care Team Providers Care Radar Systems Engineer Name Role Phone PAULA CHILDRESS Unavailable PROBLEMS Type Condition ICD9-CM Code UKA46-UP Code Onset Dates Condition Status SNOMED Code Problem Lumbago with sciatica, left side M54.42 Active 166321004 Problem Primary osteoarthritis, unspecified site M19.91 Active 835760762 Problem Acute right-sided low back pain with right-sided sciatica M54.41 Active 655618417 Problem Anxiety F41.9 Active 21784874 Problem Mood disorder F39 Active 78405552 Problem Other chronic pain G89.29 Active 28067997 Problem Chronic fatigue R53.82 Active 57627806 Problem Gastroesophageal reflux disease with esophagitis K21.0 Active 641741759 Problem Degenerative joint disease M19.90 Active 405681790 Problem Stress incontinence N39.3 Active 48553555 ALLERGIES Substance Reaction Event Type Date Status Latex Gloves Unknown Drug Allergy Sep, Active Iodine Unknown Drug Allergy Sep, Active ENCOUNTERS Encounter Location Date Diagnosis [place] [address] [place] [address] 37140- 6543 Mar, [place] [address] [place] [address] 99868- 2136 Mar, [place] [address] [place] [id number] [place] [address] 44751- 3839 February, [place] [address] 00443- 9049 February, Mood disorder F39 ; Low back pain M54.5 ; Other chronic pain G89.29 ; Hypokalemia E87.6 and HSV-2 (herpes simplex virus 2) infection B00.9 [place] [address] [place] [id number] [place] [address] 34586- 0245 February, [facility] [address] [place] [id number] [place] [address] 94469- 9202 Jan, Pain in left shoulder M25.512 ; Other chronic pain G89.29 and Bronchitis J40 [facility] [address] [place] [id number] [place] [address] 39434- 3912 Dec, Degenerative joint disease M19.90 and Anxiety F41.9 [facility] [address] 71336- 9556 Dec, [facility] [address] [place] [id number] [place] [address] 81131- 1788 Dec, [facility] [address] [place] [id number] [place] [address] 78654- 1582 Nov, [facility] [address] [place] [id number] [place] [address] 15232- 8888 16 Nov, 2017 Degenerative joint disease M19.90 and Anxiety F41.9 [facility] [address] [place] [id number] [place] [address] 41117- 8767 Nov, Lumbago with sciatica, left side M54.42 and Encounter for immunization Z23 [facility] [address] [place] [id number] [place] [address] 17551- 0372 Nov, [facility] [address] [place] [id number] [place] [address] 63667- 2936 Oct, Bronchitis J40 [facility] [address] [place] [id number] [place] [address] 08216 -6677 Oct, Cough R05 [facility] [address] [place] [id number] [place] [address] 75501- 6579 Oct, Degenerative joint disease M19.90 and Anxiety F41.9 [facility] [address] [place] [id number] [place] [address] 33518- 4587 Sep, [facility] [address] [place] [address]- 4426 Sep, [facility] [address] [place] [id number] [place] [address] 80129- 3827 Sep, Localized edema R60.0 ; Anxiety F41.9 and Degenerative joint disease M19.90 [place] [address] [place] [id number] [place] [address] 48256- 0272 Aug, Lumbago with sciatica, left side M54.42 ; Anxiety F41.9 and Stress incontinence N39.3 [place] [address] [place] [id number] [place] [address] 04930- 3718 Aug, [place] [address] [place] [id number] [place] [address] 27322- 7689 Aug, Localized edema R60.0 [facility] [address] [place] [id number] [place] [address] 24312 -4495 Jul, Infected tooth K04.7 [place] [address] [place] [id number] [place] [address] 65580- 9192 Jul, Localized edema R60.0 [place] [address] [place] [id number] [place] [address] 01691- 6689 Jun, Localized edema R60.0 and Chronic fatigue R53.82 [place] [address] [place] [id number] [place] [address] 99404- 3584 Jun, Localized edema R60.0 and Chronic fatigue R53.82 [facility] [address] [place] [id number] [place] [address] 56054- 9988 May, [place] [address] [place] [id number] [place] [address] 76820- 7362 May, Gastroesophageal reflux disease with esophagitis K21.0 ; Primary osteoarthritis, unspecified site M19.91 and Acute right-sided low back pain with right-sided sciatica M54.41 [place] [address] [place] [id number] [place] [address] 95840- 5359 May, [facility] [address] [facility] [id number] [place] [address]- 5649 May, Lumbago with sciatica, left side M54.42 and Anxiety F41.9 [facility] Keith COMMERCE [id number] [place] [address] Nov Degenerative joint disease M19.90 and Constipation K59.00 [facility] [address] [id number] [place] [id number] Jul, Dental examination Z01.20 IMMUNIZATIONS No Known Immunizations SOCIAL HISTORY Never Assessed REASON FOR VISIT Controlled Med Refill PLAN OF CARE VITAL SIGNS MEDICATIONS Medication Instructions Dosage Frequency Start Date End Date Duration Status Casmalia 5-325 MG Orally every 6 hrs 1 [...]
--- OUTSIDE RECORDS SUMMARY | 2018-05-28 13:43 | XMS REPORT ---
Author Author PAULA CHILDRESS Organization [facility] Address [address] [place] [address] Care Team Providers Care Manager Relocation Name Role Phone PAULA CHILDRESS Unavailable PROBLEMS Type Condition ICD9-CM Code [id number] Code Onset Dates Condition Status SNOMED Code Problem Lumbago with sciatica, left side M54.42 Active 591431311 Problem Primary osteoarthritis, unspecified site M19.91 Active 861498583 Problem Acute right-sided low back pain with right-sided sciatica M54.41 Active 020348500 Problem Anxiety F41.9 Active 69823085 Problem Mood disorder F39 Active 31834737 Problem Other chronic pain G89.29 Active 19462133 Problem Chronic fatigue R53.82 Active 93991706 Problem Gastroesophageal reflux disease with esophagitis K21.0 Active 331618126 Problem Degenerative joint disease M19.90 Active 883654122 Problem Stress incontinence N39.3 Active 80063655 ALLERGIES No Information ENCOUNTERS Encounter Location Date Diagnosis [facility] [id number] [place] [address] Mar, [place] [id number] [place] [address] Mar, [facility] [id number] [place] [address] February, [place] [id number] [place] [address] February, Mood disorder F39 ; Low back pain M54.5 ; Other chronic pain G89.29 ; Hypokalemia E87.6 and HSV-2 (herpes simplex virus 2) infection B00.9 [facility] [id number] [place] [address] February, [facility] [address] [address] Jan, Pain in left shoulder M25.512 ; Other chronic pain G89.29 and Bronchitis J40 [facility] [address] [address] Dec, Degenerative joint disease M19.90 and Anxiety F41.9 [place] [address] [address] Dec, [facility] [address] [address] Dec, [place] [address] [address] Nov, [facility] [address] [address] Nov, Degenerative joint disease M19.90 and Anxiety F41.9 [place] [address] [address] Nov, Lumbago with sciatica, left side M54.42 and Encounter for immunization Z23 [place] [address] [address] Nov, [facility] [address] [address] Oct, Bronchitis J40 [facility] [address] [address] Oct, Cough R05 [facility] [address] [address] Oct, Degenerative joint disease M19.90 and Anxiety F41.9 [facility] [address] [address] Sep, [facility] [address] [address] Sep, [facility] [id number] [place] [address]- [address] 08 Sep, 2017 Localized edema R60.0 ; Anxiety F41.9 and Degenerative joint disease M19.90 [place] [id number] [place] [address] Aug, Lumbago with sciatica, left side M54.42 ; Anxiety F41.9 and Stress incontinence N39.3 [facility] [id number] [place] [address] Aug, [place] [id number] [place] [address]- [address] Aug, Localized edema R60.0 [facility] [id number] [place] [address] Jul, Infected tooth K04.7 [place] [id number] [place] [address] 6[address]- [address] Jul, Localized edema R60.0 [place] [id number] [place] [address] Jun, Localized edema R60.0 and Chronic fatigue R53.82 [place] [id number] [place] [address] 138[address]- [address] Jun, Localized edema R60.0 and Chronic fatigue R53.82 [place] [id number] [place] [address] May, [place] [id number] [place] [address]- [address] May, Gastroesophageal reflux disease with esophagitis K21.0 ; Primary osteoarthritis, unspecified site M19.91 and Acute right-sided low back pain with right-sided sciatica M54.41 [place] [id number] [place] [address]357- [address] 14 May, 2017 [place] [id number] [place] [address]- [address] May, Lumbago with sciatica, left side M54.42 and Anxiety F41.9 [facility] [id number] [place] [address] Nov Degenerative joint disease M19.90 and Constipation K59.00 [facility] [id number] [place] [id number] Jul, Dental examination Z01.20 IMMUNIZATIONS No Known Immunizations SOCIAL HISTORY Never Assessed REASON FOR VISIT Refill request PLAN OF CARE VITAL SIGNS MEDICATIONS Unknown [...]
[2018-05-28] MEDS ORDERED: ONDANSETRON 4 MG/2 ML (SDV) Z0FRAN IVP ONE (13:45)
[2018-05-28] MEDS ORDERED: LORazepam INJ 2 MG/ML (ATIVAN) VIAL IVP ONE (13:45)
[2018-05-28] MEDS ORDERED: fentaNYL INJECTION 100 MCG/2 ML AMP IVP ONE (13:45)
--- OUTSIDE RECORDS SUMMARY | 2018-05-28 13:45 | XMS REPORT | CCD ---
Author Author SYDNIE PURCELL Organization Unknown Address [address] [facility] [address] [place], [place] [id number] Care Team Providers Care Company Manager Name Role Phone JOURDAN DE LA O MD Attphys JOURDAN DE LA O MD Prisurg Vital Signs Unknown. Allergies Allergy Code Allergy Type Reaction Status IV IODINE {Clinical monitoring unavailable} 0 Drug allergy ( disorder) Active Procedures Procedure Code Procedure Type Date CT HEAD W/O CONTRAST 011492276 SNOMED CT 11/10/2013 .[place] 946014896 SNOMED CT 11/10/2013 ^CBC W/AUTO DIFF 8137183 SNOMED CT 11/10/2013 CBC W/ AUTO DIFF (RFLX MAN DIFF IF IND) 6068445 SNOMED CT 11/10/2013 URINALYSIS C&S IF IND 982288014 SNOMED CT 11/10/2013 RAPID DRUG SCREEN 498166672 SNOMED CT 11/10/2013 TROPONIN-I ADV 269230339 SNOMED CT 11/10/2013 C REACTIVE PROTEIN 01792779 SNOMED CT 11/10/2013 CULTURE BLOOD 12539932 SNOMED CT 11/10/2013 COMPREHENSIVE METABOLIC PANEL 003544382 SNOMED CT 2013 History of Immunizations Unknown. Problems Unknown. Results TROPONIN-I ADV Test Name Code Test Result Test Units Test Date[place] [address]-8 0.0400 ng/mL 11/10/2013 15: 15 URINALYSIS C&S IF IND Test Name Code Test Result Test Units Test Date/ Time COLOR YELLOW N/A 11/10/2013 16:45 APPEARANCE CLEAR N/A 11/10/2013 16:45 SPEC GRAV 1.010 N/A 11/10/2013 16:45 pH 7.0 N/A 11/10/2013 16:45 PROTEIN NEGATIVE N/A 11/10/2013 16:45 GLUCOSE NEGATIVE N/A 11/10/2013 16:45 KETONE NEGATIVE N/A 11/10/2013 16:45 BILIRUBIN NEGATIVE N/A 11/10/2013 16:45 BLOOD TRACE-INTACT N/A 11/10/2013 16:45 NITRITE NEGATIVE N/A 11/10/2013 16:45 LEUK SCREEN NEGATIVE N/A 11/10/2013 16:45 WBC/HPF NEGATIVE N/A 11/10/2013 16:45 RBC/HPF 0-5 N/A 11/10/2013 16:45 CASTS/LPF NEGATIVE N/A 11/10/2013 16:45 CRYSTALS NEGATIVE N/A 11/10/2013 16:45 MUCOUS THRDS FEW N/A 11/10/2013 16:45 BACTERIA NEGATIVE N/A 11/10/2013 16:45 EPITH CELLS 1+ SQUAMOUS N/A 11/10/2013 16:45 TRICHOMONAS NEGATIVE N/A 11/10/2013 16:45 YEAST NEGATIVE N/A 11/10/2013 16:45 CULT SET UP? NO N/A 11/10/2013 16:45 C REACTIVE PROTEIN Test Name Code Test Result Test Units Test Date/ Time C REACTIVE PROTEIN 1988-5 0.5000 MG/DL 11/10/2013 15:15 COMPREHENSIVE METABOLIC PANEL Test Name Code Test Result Test Units Test Date/ Time GLUCOSE 2345-7 90.0000 MG/DL 11/10/2013 15:15 SODIUM 2951-2 139.0000 MEQ/L 11/10/2013 15:15 POTASSIUM 2823-3 3.6000 MEQ/L 11/10/2013 15:15 CHLORIDE 2075-0 105.0000 MEQ/L 11/10/2013 15:15 CO2 2028-9 23.0000 MEQ/L 11/10/2013 15:15 BUN 3094-0 11.0000 MG/DL 11/10/2013 15:15 CREATININE 2160-0 0.6000 MG/DL 11/10/2013 15:15 SGOT/AST 1920-8 17.0000 IU/L 11/10/2013 15:15 SGPT/ALT 1742-6 17.0000 IU/L 11/10/2013 15:15 ALK PHOS 6768-6 95.0000 IU/L 11/10/2013 15:15 TOTAL PROTEIN 2885-2 7.0000 G/DL 11/10/2013 15:15 ALBUMIN 1751-7 3.8000 G/DL 11/10/2013 15:15 TOTAL BILI 1975-2 0.4000 MG/DL 11/10/2013 15:15 CALCIUM 27909-5 9.7000 MG/DL 11/10/2013 15:15 AGE 48.0000 yrs 11/10/2013 15:15 GFR NonAA 106.0000 11/10/2013 15:15 GFR AA 128.0000 11/10/2013 15:15 eGFR 60.0000 mL/min/1.7 11/10/2013 15:15 eGFR AA* 60.0000 mL/min/1.7 11/10/2013 15:15 CBC W/ AUTO DIFF (RFLX MAN DIFF IF IND) Test Name Code Test Result Test Units Test Date/ Time WBC 91914-4 7.9000 TH/CMM 11/10/2013 15:15 RBC 789-8 4.8900 ML/CMM 11/10/2013 15:15 HGB 718-7 15.4000 G/DL 11/10/2013 15:15 HCT 4544-3 46.1000 % 11/10/2013 15:15 MCV 94.0000 FL 11/10/2013 15:15 MCH 31.5000 PG 11/10/2013 15:15 MCHC 33.4000 G/DL 11/10/2013 15:15 RDW SD 46.0000 FL 11/10/2013 15:15 RDW CV 13.3000 % 11/10/2013 15:15 MPV 12.1000 FL 11/10/2013 15:15 PLT 777-3 225.0000 TH/CMM 11/10/2013 15:15 NRBC# 0.0000 TH/CMM 11/10/2013 15:15 NRBC% 0.0000 /100WBC 11/10/2013 15:15 %NEUT 57.4000 % 11/10/2013 15:15 %LYMP 36.0000 % 11/10/2013 15:15 %MONO 5.3000 % 11/10/2013 15:15 %EOS 0.9000 % 11/10/2013 15:15 %BASO 0.4000 % 11/10/2013 15:15 #NEUT 4.5100 TH/CMM 11/10/2013 15:15 #LYMP 2.8300 TH/CMM 11/10/2013 15:15 #MONO 0.4200 TH/CMM 11/10/2013 15:15 #EOS 0.0700 TH/CMM 11/10/2013 15:15 #BASO 0.0300 TH/CMM 11/10/2013 15:15 MANUAL DIFF NOT IND N/A 11/10/2013 15:15 RAPID DRUG SCREEN Test Name Code Test Result Test Units Test Date/ Time Cannabinoids (THC) NON-NEGATIVE N/A 11/10/2013 16 :45 Phencyclidine (PCP) NEGATIVE N/A 11/10/2013 16: 45 Cocaine NEGATIVE N/A 11/10/2013 16:45 Methamphetamine NEGATIVE N/A 11/10/2013 16:45 Opiates NON-NEGATIVE N/A 11/10/2013 16:45 Amphetamine NEGATIVE N/A 11/10/2013 16:45 Benzodiazepines NEGATIVE N/A 11/10/2013 16:45 Tricyclic Antidepres NEGATIVE N/A 11/10/2013 16: 45 Methadone NEGATIVE N/A 11/10/2013 16:45 Barbiturates NEGATIVE N/A 11/10/2013 16:45 Oxycodone NEGATIVE N/A 11/10/2013 16:45 Propoxyphene (PPX) NEGATIVE N/A 11/10/2013 16:45 Medications Unknown. Medications Administered Unknown. Encounters Encounter Diagnosis Diagnosis Code Start [place] [address] 11/10/2013 Social History Smoking Status Code Start Date End Date Current every day smoker [id number] Patient Decision Aids Unknown. 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 You had the following tests done: Cannabinoids (THC) Phencyclidine (PCP) Cocaine Methamphetamine Opiates Amphetamine Benzodiazepines Tricyclic Antidepres Methadone Barbiturates Oxycodone Propoxyphene ( PPX) COLOR APPEARANCE SPEC GRAV pH PROTEIN GLUCOSE KETONE BILIRUBIN BLOOD NITRITE LEUK SCREEN WBC/HPF RBC/ HPF CASTS/LPF CRYSTALS MUCOUS THRDS BACTERIA EPITH CELLS TRICHOMONAS YEAST CULT SET UP? WBC RBC HGB HCT MCV MCH MCHC RDW SD RDW CV MPV PLT NRBC# NRBC% %NEUT %LYMP %MONO %EOS %BASO #NEUT #LYMP #MONO #EOS #BASO MANUAL DIFF GLUCOSE SODIUM POTASSIUM CHLORIDE CO2 BUN CREATININE SGOT/AST SGPT/ALT ALK PHOS TOTAL PROTEIN ALBUMIN TOTAL BILI CALCIUM AGE GFR NonAA GFR AA eGFR eGFR AA* C REACTIVE PROTEIN TROPONIN-I AD You were discharged from [facility] on 11/10/2013. Should you have any questions prior to discharge, please contact a member of your healthcare team. If you have left the hospital and have any questions, please contact your primary care physician. Chief Complaint and Reason For Visit Chief Complaint Date of Onset FACE NUMBNESS SLURRED SPEECH Function Status Unknown. Plan of Care Unknown. Referral/Transition of Care Unknown.
--- OUTSIDE RECORDS SUMMARY | 2018-05-28 13:46 | XMS REPORT | Continuity of Care Document ---
Author Author [facility] Organization [facility] Address Unknown Phone Unavailable Allergies Active Description Code Type Severity Reaction Onset Reported/Identified Relationship to Patient Clinical Status Yes NICODERM NICODERM Drug Allergy Unknown RASH 05/30/2001 Yes nicotine nicotine Drug Allergy Unknown N/A 05/30/2001 Yes No Known Contrast Allergies No Known Contrast Allergies Drug Allergy Unknown N/A 05/30/2001 Yes No Known Food Allergies No Known Food Allergies Drug Allergy Unknown N/A Yes NO KNOWN LATEX ALLERGY/SENSITI NO KNOWN LATEX ALLERGY /SENSITI Drug Allergy Unknown N/A 05/30/2001 Yes Iodinated Contrast Media - IV Dye [id number] Drug Allergy Severe N/A 2005 Yes Iodinated Contrast- Oral and IV Dye [id number] Drug Allergy Severe N/A 01/2006 Yes TAPE TAPE Unknown N/A 09/27/2006 Medications There is no data. Problems Date Dx Coded Attending Type Code Diagnosis Diagnosed By 09/10/2013 AYE NICHOLS Ot 522.5 PERIAPICAL ABSCESS 09/10/2013 AYE NICHOLS Ot 525.9 DENTAL DISORDER NOS 10/03/2015 SALOMÓN GARCIA APRN Ot K08.8 OTHER SPECIFIED DISORDERS OF TEETH AND S 10/03/2015 SALOMÓN GARCIA APRN Ot M85.80 OTH DISRD OF BONE DENSITY AND STRUCTURE, 10/03/2015 SALOMÓN GARCIA APRN Ot M87.180 OSTEONECROSIS DUE TO DRUGS, JAW 10/03/2015 SALOMÓN GARCIA APRN Ot T45.8X5A ADVERSE EFFECT OF PRIM SYSTEMIC AND MARIO 10/03/2015 SALOMÓN GARCIA APRN Ot Z79.891 SNF (CURRENT) USE OF OPIATE ANALGE 06/08/2017 AYE NICHOLS Ot F17.290 NICOTINE DEPENDENCE, OTHER TOBACCO PRODU 06/08/2017 AYE NICHOLS Ot F31.9 BIPOLAR DISORDER, UNSPECIFIED 06/08/2017 BELA PA, AYE L Ot F41.9 ANXIETY DISORDER, UNSPECIFIED 06/08/2017 AYE NICHOLS Ot J44.9 CHRONIC OBSTRUCTIVE PULMONARY DISEASE, U 06/08/2017 AYE NICHOLS Ot K56.7 ILEUS, UNSPECIFIED 06/08/2017 AYE NICHOLS Ot M81.0 AGE-RELATED OSTEOPOROSIS W/O CURRENT PAT 06/08/2017 AYE NICHOLS Ot R10.30 LOWER ABDOMINAL PAIN, UNSPECIFIED 06/08/2017 AYE NICHOLS Ot Z86.73 PRSNL HX OF TIA (TIA), AND CEREB INFRC W 06/08/2017 AYE NICHOLS Ot Z87.19 PERSONAL HISTORY OF OTHER DISEASES OF 06/08/2017 AYE NICHOLS Ot Z90.710 ACQUIRED ABSENCE OF BOTH CERVIX AND UTER 06/08/2017 AYE NICHOLS Ot Z95.2 PRESENCE OF PROSTHETIC HEART VALVE 03/04/2018 SALOMÓN GARCIA APRN Ot E87.6 HYPOKALEMIA 03/04/2018 SALOMÓN AGRCIA APRN Ot F31.9 BIPOLAR DISORDER, UNSPECIFIED 03/04/2018 SALOMÓN GARCIA APRN Ot F41.9 ANXIETY DISORDER, UNSPECIFIED 03/04/2018 SALOMÓN GARCIA APRN Ot G44.89 OTHER HEADACHE SYNDROME 03/04/2018 SALOMÓN GARCIA APRN Ot G47.00 INSOMNIA, UNSPECIFIED 03/04/2018 SALOMÓN GARCIA APRN Ot J44.9 CHRONIC OBSTRUCTIVE PULMONARY DISEASE, U 03/04/2018 SALOMÓN GARCIA APRN Ot M81.0 AGE-RELATED OSTEOPOROSIS W/O CURRENT PAT 03/04/2018 SALOMÓN GARCIA APRN Ot R11.2 NAUSEA WITH VOMITING, UNSPECIFIED 03/04/2018 SALOMÓN GARCIA APRN Ot R19.7 DIARRHEA, UNSPECIFIED 03/04/2018 SALOMÓN GARCIA APRN Ot R51 HEADACHE 03/04/2018 SALOMÓN GARCIA APRN Ot Z86.718 PERSONAL HISTORY OF OTHER VENOUS THROMBO 03/04/2018 SALOMÓN GARCIA APRN Ot Z86.73 PRSNL HX OF TIA (TIA), AND CEREB INFRC W 03/04/2018 SALOMÓN GARCIA APRN Ot Z87.19 PERSONAL HISTORY OF OTHER DISEASES OF TH 03/04/2018 SALOMÓN GARCIA APRN Ot Z90.710 ACQUIRED ABSENCE OF BOTH CERVIX AND UTER 03/04/2018 SALOMÓN GARCIA APRN Ot Z91.041 RADIOGRAPHIC DYE ALLERGY STATUS 03/04/2018 SALOMÓN GARCIA APRN Ot Z91.048 OTHER NONMEDICINAL SUBSTANCE ALLERGY STA 03/07/2018 SALOMÓN GARCIA APRN Ot E87.6 HYPOKALEMIA 03/07/2018 SALOMÓN GARCIA APRN Ot F31.9 BIPOLAR DISORDER, UNSPECIFIED 03/07/2018 SALOMÓN GARCIA APRN Ot F41.9 ANXIETY DISORDER, UNSPECIFIED 03/07/2018 SALOMÓN GARCIA APRN Ot G44.89 OTHER HEADACHE SYNDROME 03/07/2018 SALOMÓN GARCIA APRN Ot G47.00 INSOMNIA, UNSPECIFIED 03/07/2018 SALOMÓN GARCIA APRN Ot J44.9 CHRONIC OBSTRUCTIVE PULMONARY DISEASE, U 03/07/2018 SALOMÓN GARCIA APRN Ot M81.0 AGE-RELATED OSTEOPOROSIS W/O CURRENT PAT 03/07/2018 SALOMÓN GARCIA APRN Ot R11.2 NAUSEA WITH VOMITING, UNSPECIFIED 03/07/2018 SALOMÓN GARCIA APRN Ot R19.7 DIARRHEA, UNSPECIFIED 03/07/2018 SALOMÓN GARCIA APRN Ot R51 HEADACHE 03/07/2018 SALOMÓN GARCIA APRN Ot Z86.718 PERSONAL HISTORY OF OTHER VENOUS THROMBO 03/07/2018 SALOMÓN GARCIA APRN Ot Z86.73 PRSNL HX OF TIA (TIA), AND CEREB INFRC W 03/07/2018 SALOMÓN GARCIA APRN Ot Z87.19 PERSONAL HISTORY OF OTHER DISEASES OF TH 03/07/2018 SALOMÓN GARCIA APRN Ot Z90.710 ACQUIRED ABSENCE OF BOTH CERVIX AND UTER 03/07/2018 SALOMÓN GARCIA APRN Ot Z91.041 RADIOGRAPHIC DYE ALLERGY STATUS 03/07/2018 SALOMÓN GARCIA APRN Ot Z91.048 OTHER NONMEDICINAL SUBSTANCE ALLERGY STA Procedures There is no data. Results Test Result Range Complete urinalysis with reflex to culture - 06/08/17 18:41 Urine color determination YELLOW NRG Urine clarity determination CLEAR NRG Urine pH measurement by test strip 7 5-9 Specific gravity of urine by test strip 1.010 1.016- 1.022 Urine protein assay by test strip, semi-quantitative 2+ NEGATIVE Urine glucose detection by automated test strip NEGATIVE NEGATIVE Erythrocytes detection in urine sediment by light microscopy 2+ NEGATIVE Urine ketones detection by automated test strip 2+ NEGATIVE Urine nitrite detection by test strip NEGATIVE NEGATIVE Urine total bilirubin detection by test strip NEGATIVE NEGATIVE Urine urobilinogen measurement by automated test strip (mass/volume) NORMAL NORMAL Urine leukocyte esterase detection by dipstick NEGATIVE NEGATIVE Automated urine sediment erythrocyte count by microscopy (number/high power field) [HPF] NRG Automated urine sediment leukocyte count by microscopy (number/high power field ) [HPF] NRG Bacteria detection in urine sediment by light microscopy FEW NRG Squamous epithelial cells detection in urine sediment by light microscopy 2-5 NRG Crystals detection in urine sediment by light microscopy NONE NRG Casts detection in urine sediment by light microscopy NONE NRG Mucus detection in urine sediment by light microscopy NEGATIVE NRG Complete urinalysis with reflex to culture NO NRG Complete blood count (CBC) with automated white blood cell (WBC) differential - 06/08/17 19:12 Blood leukocytes automated count (number/volume) 8.2 10*3/uL 4.3-11.0 Blood erythrocytes automated count (number/volume) 5.08 10*6/uL 4.35-5.85 Venous blood hemoglobin measurement (mass/volume) 15.4 g/dL 11.5-16.0 Blood hematocrit (volume fraction) 46 % 35-52 Automated erythrocyte mean corpuscular volume 90 [foz_us] 80-99 Automated erythrocyte mean corpuscular hemoglobin (mass per erythrocyte) 30 pg 25-34 Automated erythrocyte mean corpuscular hemoglobin concentration measurement ( mass/volume) 34 g/dL 32-36 Automated erythrocyte distribution width ratio 12.8 % 10.0-14.5 Automated blood platelet count (count/volume) 247 10*3/uL 130-400 Automated blood platelet mean volume measurement 11.5 [foz_us] 7.4-10.4 Automated blood neutrophils/100 leukocytes 54 % 42-75 Automated blood lymphocytes/100 leukocytes 35 % 12-44 Blood monocytes/100 leukocytes 10 % 0-12 Automated blood eosinophils/100 leukocytes 0 % 0-10 Automated blood basophils/100 leukocytes 0 % 0-10 Blood neutrophils automated count (number/volume) 4.4 10*3 1.8-7.8 Blood lymphocytes automated count (number/volume) 2.8 10*3 1.0-4.0 Blood monocytes automated count (number/volume) 0.8 10*3 0.0-1.0 Automated eosinophil count 0.0 10*3/uL 0.0-0.3 Automated blood basophil count (count/volume) 0.0 10*3/uL 0.0-0.1 Comprehensive metabolic panel - 06/08/17 19:12 Serum or plasma sodium measurement (moles/volume) 138 mmol/L 135-145 Serum or plasma potassium measurement (moles/volume) 3.1 mmol/L 3.6-5.0 Serum or plasma chloride measurement (moles/volume) 102 mmol/L 98-107 Carbon dioxide 22 mmol/L 21-32 Serum or plasma anion gap determination (moles/volume) 14 mmol/L 5-14 Serum or plasma urea nitrogen measurement (mass/volume) 8 mg/dL 7-18 Serum or plasma creatinine measurement (mass/volume) 0.71 mg/dL 0.60-1.30 Serum or plasma urea nitrogen/creatinine mass ratio 11 NRG Serum or plasma creatinine measurement with calculation of estimated glomerular filtration rate > NRG Serum or plasma glucose measurement (mass/volume) 101 mg/dL 70-105 Serum or plasma calcium measurement (mass/volume) 9.6 mg/dL 8.5-10.1 Serum or plasma total bilirubin measurement (mass/volume) 0.7 mg/dL 0.1-1.0 Serum or plasma alkaline phosphatase measurement (enzymatic activity/volume) 106 U/L 40-136 Serum or plasma aspartate aminotransferase measurement (enzymatic activity/ volume) 11 U/L 5-34 Serum or plasma alanine aminotransferase measurement (enzymatic activity/volume ) 11 U/L 0-55 Serum or plasma protein measurement (mass/volume) 7.8 g/dL 6.4-8.2 Serum or plasma albumin measurement (mass/volume) 4.2 g/dL 3.2-4.5 Lipase - 06/08/17 19:12 Lipase 10 U/L 8-78 CBC With Differential/Platelet - 07/05/17 15:02 WBC 7.1 x10E3/uL 3.4-10.8 RBC 4.49 x10E6/uL 3.77-5.28 Hemoglobin 13.6 g/dL 11.1-15.9 Hematocrit 41.0 % 34.0-46.6 MCV 91 fL 79-97 MCH 30.3 pg 26.6-33.0 MCHC 33.2 g/dL 31.5-35.7 RDW 13.5 % 12.3-15.4 Platelets 238 x10E3/uL 150-379 Neutrophils 50 % Lymphs 38 % Monocytes 6 % Eos 6 % Basos 0 % Neutrophils (Absolute) 3.5 x10E3/uL 1.4-7.0 Lymphs (Absolute) 2.7 x10E3/uL 0.7-3.1 Monocytes(Absolute) 0.4 x10E3/uL 0.1-0.9 Eos (Absolute) 0.4 x10E3/uL 0.0-0.4 Baso (Absolute) 0.0 x10E3/uL 0.0-0.2 Immature Granulocytes 0 % Immature Grans (Abs) 0.0 x10E3/uL 0.0-0.1 Comp. Metabolic Panel (14) - 07/05/17 15:02 Glucose, Serum 81 mg/dL 65-99 BUN 13 mg/dL 6-24 Creatinine, Serum 0.68 mg/dL 0.57-1.00 eGFR If NonAfricn Am 100 mL/min/1.73 >59 eGFR If Africn Am 115 mL/min/1.73 >59 BUN/Creatinine Ratio 19 9-23 Sodium, Serum 139 mmol/L 134-144 Potassium, Serum 3.6 mmol/L 3.5-5.2 Chloride, Serum 98 mmol/L 96-106 Carbon Dioxide, Total 25 mmol/L 18-29 Calcium, Serum 8.5 mg/dL 8.7-10.2 Protein, Total, Serum 6.3 g/dL 6.0-8.5 Albumin, Serum 3.8 g/dL 3.5-5.5 Globulin, Total 2.5 g/dL 1.5-4.5 A/G Ratio 1.5 1.2-2.2 Bilirubin, Total 0.2 mg/dL 0.0-1.2 Alkaline Phosphatase, S 80 IU/L 39-117 AST (SGOT) 15 IU/L 0-40 ALT (SGPT) 11 IU/L 0-32 Lipid Panel - 07/05/17 15:02 Cholesterol, Total 223 mg/dL 100-199 Triglycerides 99 mg/dL 0-149 HDL Cholesterol 60 mg/dL >39 VLDL Cholesterol Claude 20 mg/dL 5-40 LDL Cholesterol Calc 143 mg/dL 0-99 TSH - 07/05/17 15:02 TSH 2.120 uIU/mL 0.450-4.500 CMP - 07/05/17 15:02 Glucose, Serum 81 mg/dL 65-99 BUN 13 mg/dL 6-24 Creatinine, Serum 0.68 mg/dL 0.57-1.00 eGFR If NonAfricn Am 100 mL/min/1.73 >59 eGFR If Africn Am 115 mL/min/1.73 >59 BUN/Creatinine Ratio 19 9-23 Sodium, Serum 139 mmol/L 134-144 Potassium, Serum 3.6 mmol/L 3.5-5.2 Chloride, Serum 98 mmol/L 96-106 Carbon Dioxide, Total 25 mmol/L 18-29 Calcium, Serum 8.5 mg/dL 8.7-10.2 Protein, Total, Serum 6.3 g/dL 6.0-8.5 Albumin, Serum 3.8 g/dL 3.5-5.5 Globulin, Total 2.5 g/dL 1.5-4.5 A/G Ratio 1.5 1.2-2.2 Bilirubin, Total 0.2 mg/dL 0.0-1.2 Alkaline Phosphatase, S 80 IU/L 39-117 AST (SGOT) 15 IU/L 0-40 ALT (SGPT) 11 IU/L 0-32 Complete blood count (CBC) with automated white blood cell (WBC) differential - 03/04/18 20:50 Blood leukocytes automated count (number/volume) 9.5 10*3/uL 4.3-11.0 Blood erythrocytes automated count (number/volume) 5.20 10*6/uL 4.35-5.85 Venous blood hemoglobin measurement (mass/volume) 16.3 g/dL 11.5-16.0 Blood hematocrit (volume fraction) 46 % 35-52 Automated erythrocyte mean corpuscular volume 89 [foz_us] 80-99 Automated erythrocyte mean corpuscular hemoglobin (mass per erythrocyte) 31 pg 25-34 Automated erythrocyte mean corpuscular hemoglobin concentration measurement ( mass/volume) 35 g/dL 32-36 Automated erythrocyte distribution width ratio 12.7 % 10.0-14.5 Automated blood platelet count (count/volume) 242 10*3/uL 130-400 Automated blood platelet mean volume measurement 11.9 [foz_us] 7.4-10.4 Automated blood neutrophils/100 leukocytes 50 % 42-75 Automated blood lymphocytes/100 leukocytes 41 % 12-44 Blood monocytes/100 leukocytes 9 % 0-12 Automated blood eosinophils/100 leukocytes 0 % 0-10 Automated blood basophils/100 leukocytes 0 % 0-10 Blood neutrophils automated count (number/volume) 4.7 10*3 1.8-7.8 Blood lymphocytes automated count (number/volume) 3.9 10*3 1.0-4.0 Blood monocytes automated count (number/volume) 0.8 10*3 0.0-1.0 Automated eosinophil count 0.0 10*3/uL 0.0-0.3 Automated blood basophil count (count/volume) 0.0 10*3/uL 0.0-0.1 Comprehensive metabolic panel - 03/04/18 20:50 Serum or plasma sodium measurement (moles/volume) 143 mmol/L 135-145 Serum or plasma potassium measurement (moles/volume) 3.1 mmol/L 3.6-5.0 Serum or plasma chloride measurement (moles/volume) 108 mmol/L 98-107 Carbon dioxide 21 mmol/L 21-32 Serum or plasma anion gap determination (moles/volume) 14 mmol/L 5-14 Serum or plasma urea nitrogen measurement (mass/volume) 7 mg/dL 7-18 Serum or plasma creatinine measurement (mass/volume) 0.76 mg/dL 0.60-1.30 Serum or plasma urea nitrogen/creatinine mass ratio 9 NRG Serum or plasma creatinine measurement with calculation of estimated glomerular filtration rate > NRG Serum or plasma glucose measurement (mass/volume) 101 mg/dL 70-105 Serum or plasma calcium measurement (mass/volume) 9.4 mg/dL 8.5-10.1 Serum or plasma total bilirubin measurement (mass/volume) 0.6 mg/dL 0.1-1.0 Serum or plasma alkaline phosphatase measurement (enzymatic activity/volume) 102 U/L 40-136 Serum or plasma aspartate aminotransferase measurement (enzymatic activity/ volume) 14 U/L 5-34 Serum or plasma alanine aminotransferase measurement (enzymatic activity/volume ) 14 U/L 0-55 Serum or plasma protein measurement (mass/volume) 7.4 g/dL 6.4-8.2 Serum or plasma albumin measurement (mass/volume) 4.3 g/dL 3.2-4.5 Complete urinalysis with reflex to culture - 03/04/18 21:57 Urine color determination YELLOW NRG Urine clarity determination CLEAR NRG Urine pH measurement by test strip 7 5-9 Specific gravity of urine by test strip 1.010 1.016- 1.022 Urine protein assay by test strip, semi-quantitative NEGATIVE NEGATIVE Urine glucose detection by automated test strip NEGATIVE NEGATIVE Erythrocytes detection in urine sediment by light microscopy 1+ NEGATIVE Urine ketones detection by automated test strip NEGATIVE NEGATIVE Urine nitrite detection by test strip NEGATIVE NEGATIVE Urine total bilirubin detection by test strip NEGATIVE NEGATIVE Urine urobilinogen measurement by automated test strip (mass/volume) NORMAL NORMAL Urine leukocyte esterase detection by dipstick NEGATIVE NEGATIVE Automated urine sediment erythrocyte count by microscopy (number/high power field) [HPF] NRG Automated urine sediment leukocyte count by microscopy (number/high power field ) NONE NRG Bacteria detection in urine sediment by light microscopy NONE NRG Squamous epithelial cells detection in urine sediment by light microscopy 0-2 NRG Crystals detection in urine sediment by light microscopy NONE NRG Casts detection in urine sediment by light microscopy NONE NRG Mucus detection in urine sediment by light microscopy NEGATIVE NRG Complete urinalysis with reflex to culture NO NRG TSH - 04/15/18 16:42 TSH 8.95 mIU/L NRG Encounters ACCT No. Visit Date/Time Discharge Status Pt. Type Provider Facility Loc./Unit Complaint [id number] 10/21/2015 15:00:40 10/21/2015 23:59:59 CLS Outpatient Lela Cuadra [id number] 06/03/2015 22:28:08 06/03/2015 23:59:59 CLS Outpatient Derrick Logan [id number] 06/03/2015 22:15:45 06/03/2015 23:59:59 CLS Outpatient Derrick Logan [id number] 06/03/2015 21:59:52 06/03/2015 23:59:59 CLS Outpatient Marsha Calhoun [id number] 04/05/2014 15:13:19 04/05/2014 23:59:59 CLS Outpatient Marsha Calhoun [id number] 03/22/2014 15:27:53 03/22/2014 23:59:59 CLS Outpatient Marsha Calhoun [id number] 03/15/2014 16:09:24 03/15/2014 23:59:59 CLS Outpatient Marsha Calhoun [id number] 12/12/2013 18:33:28 12/12/2013 23:59:59 CLS Outpatient Issa Nina [id number] 07/06/2017 12:08:00 Document Registration [id number] 06/10/2015 07:56:38 ACT Document Registration [id number] 05/04/2018 17:00:00 05/04/2018 23:59:59 CLS Outpatient [facility]ESS [facility] [id number] 2018 16:00:00 Document Registration [id number] 07/05/2017 14:40:00 Document Registration [id number] 03/04/2018 20:39:00 03/04/2018 22:57:00 DIS Emergency SALOMÓN GARCIA APRN [facility] HEADACHE;VOMITING [id number] 06/08/2017 18:38:00 06/08/2017 20:59:00 DIS Emergency AYE NICHOLS [facility] N/V/D/STOMACH CRAMPS [id number] 10/03/2015 19:37:00 10/03/2015 21:05:00 DIS Emergency SALOMÓN GARCIA APRN [facility] ER DENTAL,JAW PAIN [id number] 09/10/2013 17:13:00 09/10/2013 22:45:00 DIS Emergency AYE NICHOLS [facility] JAW PAIN [id number] 06/10/2015 07:56:00 06/10/2015 07:56:00 DIS Outpatient Jose MATA, Brad Sams [facility] RIKKI
[2018-05-28 13:58] LABS: ALANINE AMINOTRANSFERASE 20 U/L (0-55); ALBUMIN 4.8 GM/DL (3.2-4.5); ALKALINE PHOSPHATASE 107 U/L (40-136); BILIRUBIN,TOTAL 0.6 MG/DL (0.1-1.0); BUN/CREATININE RATIO 11; CARBON DIOXIDE 21 MMOL/L (21-32); CHLORIDE 105 MMOL/L (98-107); CREATININE SERUM 0.93 MG/DL (0.60-1.30); GFR ESTIMATED > 60; GLUCOSE 116 MG/DL (70-105); LIPASE 9 U/L (8-78); SODIUM 138 MMOL/L (135-145); TOTAL PROTEIN 8.3 GM/DL (6.4-8.2)
--- NOTE | 2018-05-28 14:20 | Diagnostic Imaging Report ---
PROCEDURE: CT abdomen and pelvis without contrast. TECHNIQUE: Multiple contiguous axial images were obtained through the abdomen and pelvis without the use of intravenous contrast. INDICATION: Abdominal pain with nausea and vomiting. COMPARISON: 06/08/2017. FINDINGS: Evaluation of the abdominal viscera is mildly limited without contrast. Lower chest: The lung bases are clear. No pericardial or pleural effusion. Peritoneum: No free intraperitoneal air or fluid. Liver and biliary system: Unenhanced liver is normal. Cholecystectomy. No biliary duct dilatation. Spleen and Pancreas: Spleen is normal. Unenhanced pancreas is grossly normal. Adrenals: Normal. tract: No renal or ureteral calculi. No obstructive uropathy. Status post hysterectomy. GI tract: There are surgical changes near the GE junction which may relate to prior hiatal hernia repair. Stomach is partially seen with food debris and air and there is no wall thickening. No bowel obstruction. No pericolonic inflammatory changes. Normal appendix. Vasculature and Lymph nodes: Normal caliber aorta. No abdominal or pelvic lymphadenopathy. Musculoskeletal: No concerning osseous lesion. IMPRESSION: 1. No acute obstructive or inflammatory process in the abdomen and pelvis. 2. Stable postoperative changes at GE junction likely from hernia repair. No recurrent hernia. 3. No urinary tract calculi. Dictated by: Dictated on workstation # [id number]
[2018-05-28] MEDS ORDERED: ANTACID SUSP 30 ML UDC (MYLANTA) PO ONE (15:00)
[2018-05-28] MEDS ORDERED: LIDOCAINE 2% VISCOUS 15 ML UDC PO ONE (15:00)
[2018-05-28 15:10] LABS: BILIRUBIN,URINE NEGATIVE (NEGATIVE); CLARITY,URINE CLEAR; COLOR,URINE YELLOW; GLUCOSE, URINE (UA) NEGATIVE (NEGATIVE); KETONES,URINE NEGATIVE (NEGATIVE); LEUKOCYTE ESTERASE ,URINE NEGATIVE (NEGATIVE); NITRITE,URINE NEGATIVE (NEGATIVE); PH,URINE 7 (5-9); PROTEIN,URINE NEGATIVE (NEGATIVE); UROBILINOGEN,URINE NORMAL (NORMAL)
[2018-05-28 15:17] LABS: BACTERIA,URINE NEGATIVE /HPF; RBC,URINE RARE /HPF
--- NOTE | 2018-05-28 16:02 | ED Abdominal Pain ---
General Chief Complaint: Abdominal/GI Problems Stated Complaint: ABD PAIN Nursing Triage Note: PT HELPED OUT OF CAR BY THIS RN. PT CRYING UNCONTROLLABLY, CO OF ABD PAIN FOR A COUPLE DAYS. PT STATES HAS BEEN VOMITING, PT IS DIFFICULT TO UNDERSTAND D/T CRYING PT IS ABLE TO TRANSFER TO BED, PT CO OF NAUSEA VOMITING AND ALOT OF DRY HEAVING. RATES PAIN 10/10 Sepsis Screen: No Definite Risk Source of Information: Patient Exam Limitations: No Limitations History of Present Illness Date Seen by Provider: May 28, 2018 Time Seen by Provider: 13:30 Initial Comments This 53-year-old woman presents to the emergency room with her with complaints of nausea, vomiting, and upper abdominal pain. She is brought in by wheelchair. She is hysterically crying on arrival. She reports worsening symptoms over the last 3 days that are now unbearable. Pain is reported as 10 over 10. Patient has a history of gastritis and Hill gastropexy. She denies any fever, diarrhea, urinary changes, or other acute symptoms. Patient's reports she was recently out of her dicyclomine which was then filled on May 26. Allergies and Home Medications Allergies Coded Allergies: Iodinated Contrast Media - IV Dye (Unverified Allergy, Severe, 09/27/06) Uncoded Allergies: TAPE (Allergy, Unknown, 09/27/06) Home Medications Alprazolam 1 Mg Tablet, 1 MG PO TID PRN for ANXIETY, (Reported) Butalbit/Acetamin/Caff/Codeine 1 Each Capsule, 1-2 EACH PO Q6H PRN for HEADACHE, (Reported) Carisoprodol 350 Mg Tablet, 350 MG PO HS, (Reported) Carisoprodol 350 Mg Tablet, 350 MG PO BID PRN for BLOOD PRESSURE, (Reported) Clindamycin HCl 150 Mg Capsule, 450 MG PO TID Prescribed by: SALOMÓN GARCIA on 10/03/152049 Diclofenac Sodium 75 Mg Tablet.dr, 75 MG PO DAILY, (Reported) Dicyclomine HCl 20 Mg Tablet, 20 MG PO TID PRN for upset stomach, (Reported) Duloxetine HCl 60 Mg Capsule.dr, 60 MG PO AC PRN for depression, (Reported) Duloxetine HCl 30 Mg Capsule.dr, 30 MG PO HS PRN for depression, (Reported) Fludrocortisone Acetate 0.1 Mg Tablet, 1 TAB PO BID, (Reported) Gabapentin 600 Mg Tablet, 600 MG PO QID, (Reported) Hydrocodone/Acetaminophen 1 Each Tablet, 1-2 TAB PO Q12H PRN for PAIN, (Reported ) Hydrocodone/Acetaminophen 1 Each Tablet, 1 EACH PO Q6H PRN for PAIN Prescribed by: SALOMÓN GARCIA on 10/03/152049 Lactobacillus Combination No.4 1 Each Capsule, 1 EACH PO BID Prescribed by: SALOMÓN GARCIA on 10/03/152049 Midodrine HCl 5 Mg Tablet, 5 MG PO BID, (Reported) Omeprazole 20 Mg Capsule.dr, 20 MG PO BID Prescribed by: KASSIE DELACRUZ on 05/28/181602 Ondansetron 8 Mg Tab.rapdis, 8 MG PO Q6H PRN for NAUSEA/VOMITING-1ST LINE Prescribed by: AYE CRAMER on 06/08/172035 Ondansetron 4 Mg Tab.rapdis, 4 MG SL Q4H PRN for NAUSEA/VOMITING-1ST LINE Prescribed by: KASSIE DELACRUZ on 05/28/181602 Oxybutynin Chloride 5 Mg Tab, 5 MG PO BID, (Reported) Penicillin V Potassium 500 Mg Tablet, 500 MG PO QID PRN for infection in jaw for 6 months, (Reported) Potassium Chloride 10 Meq Capsule.er, 40 MEQ PO DAILY Prescribed by: SALOMÓN GARCIA on 03/04/182144 Promethazine HCl 25 Mg Tablet, 25 MG PO Q6H PRN for NAUSEA/VOMITING, (Reported) Propranolol HCl 10 Mg Tablet, 10 MG PO DAILY, (Reported) Patient Home Medication List Home Medication List Reviewed: Yes Review of Systems Constitutional: no symptoms reported EENTM: No Symptoms Reported Respiratory: No Symptoms Reported Cardiovascular: No Symptoms Reported Gastrointestinal: See HPI Genitourinary: No Symptoms Reported Musculoskeletal: no symptoms reported Skin: no symptoms reported Psychiatric/Neurological: See HPI Endocrine: No Symptoms Reported Past Pdqzmia-Nksltl-Fvmsad Hx Past Med/Social Hx: Reviewed and Corrections made Patient Social History Alcohol Use: Denies Use Recreational Drug Use: No Type Used: Cigars Recent Foreign Travel: No Contact w/Someone Who Travel: No Recent Infectious Disease Expo: No Recent Hopitalizations: No Physical Abuse: No Sexual Abuse: No Immunizations Up To Date Tetanus Booster (TDap): Unknown Seasonal Allergies Seasonal Allergies: Yes Past Medical History Surgeries: Yes (rotator cuffx1, hiatal herniax3,jaw sx x3 ) Abdominal (He'll gas. 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 Sexually Transmitted Disease: No Genitourinary: No Gastrointestinal: Yes (History gastritis) Gastroesophageal Reflux, Hiatal Hernia Musculoskeletal: Yes (OSTEOPENIA) Degenerate Disk Disease, Osteoporosis Endocrine: No Cancer: No Psychosocial: Yes (insomnia) Anxiety, Bipolar, Depression Nursing Suicide Risk Score: 0 Integumentary: No Blood Disorders: No Family Medical History Reviewed Nursing Family Hx No Pertinent Family Hx Physical Exam Vital Signs Vital Signs - First Documented 05/28/18 13:27 Temp 97.3 Pulse 100 Resp 18 B/P (MAP) 124/76 (92) Pulse Ox 97 Capillary Refill : Less Than 3 Seconds Height/Weight/BMI Height: 5'3.00" Weight: 145lbs. oz. 65.961806mc; BMI Method:Stated General Appearance: WD/WN, severe distress HEENT: PERRL/EOMI, normal ENT inspection Neck: normal inspection Respiratory: lungs clear, normal breath sounds, no respiratory distress, no accessory muscle use Cardiovascular: regular rate, rhythm, no edema, no murmur Gastrointestinal: normal bowel sounds, soft; No distended, No guarding, No rebound; tenderness (Tenderness even to light percussion in the epigastric region and right upper quadrant) Extremities: normal inspection, no pedal edema Back: normal inspection Neurologic/Psychiatric: cookie breaker II-XII nml as tested, no motor/sensory deficits, alert, oriented x 3, other (Very anxious and tearful) Skin: normal color, warm/dry Progress/Results/Core Measures Results/Orders Lab Results Laboratory Tests Test 05/28/18 13:31 05/28/18 15:02 Range/Units White Blood Count 11.1 H 4.3-11.0 10^3/uL Red Blood Count 5.30 4.35-5.85 10^6/uL Hemoglobin 16.4 H 11.5-16.0 G/DL Hematocrit 48 35-52 % Mean Corpuscular Volume 90 80-99 FL Mean Corpuscular Hemoglobin 31 25-34 PG Mean Corpuscular Hemoglobin Concent 34 32-36 G/DL Red Cell Distribution Width 13.8 10.0-14.5 % Platelet Count 279 130-400 10^3/uL Mean Platelet Volume 11.4 H 7.4-10.4 FL Neutrophils (%) (Auto) 57 42-75 % Lymphocytes (%) (Auto) 34 12-44 % Monocytes (%) (Auto) 8 0-12 % Eosinophils (%) (Auto) 0 0-10 % Basophils (%) (Auto) 0 0-10 % Neutrophils # (Auto) 6.4 1.8-7.8 X 10^3 Lymphocytes # (Auto) 3.8 1.0-4.0 X 10^3 Monocytes # (Auto) 0.9 0.0-1.0 X 10^3 Eosinophils # (Auto) 0.0 0.0-0.3 10^3/uL Basophils # (Auto) 0.0 0.0-0.1 10^3/uL Sodium Level 138 135-145 MMOL/L Potassium Level 4.0 3.6-5.0 MMOL/L Chloride Level 105 98-107 MMOL/L Carbon Dioxide Level 21 21-32 MMOL/L Anion Gap 12 5-14 MMOL/L Blood Urea Nitrogen 10 7-18 MG/DL Creatinine 0.93 0.60-1.30 MG/DL Estimat Glomerular Filtration Rate > 60 BUN/Creatinine Ratio 11 Glucose Level 116 H 70-105 MG/DL Calcium Level 10.0 8.5-10.1 MG/DL Total Bilirubin 0.6 0.1-1.0 MG/DL Aspartate Amino Transf (AST/SGOT) 18 5-34 U/L Alanine Aminotransferase (ALT/SGPT) 20 0-55 U/L Alkaline Phosphatase 107 40-136 U/L Total Protein 8.3 H 6.4-8.2 GM/DL Albumin 4.8 H 3.2-4.5 GM/DL Lipase 9 8-78 U/L Urine Color YELLOW Urine Clarity CLEAR Urine pH 7 5-9 Urine Specific [place] 1.010 L 1.016-1.022 Urine Protein NEGATIVE NEGATIVE Urine Glucose (UA) NEGATIVE NEGATIVE Urine Ketones NEGATIVE NEGATIVE Urine Nitrite NEGATIVE NEGATIVE Urine Bilirubin NEGATIVE NEGATIVE Urine Urobilinogen NORMAL NORMAL MG/DL Urine Leukocyte Esterase NEGATIVE NEGATIVE Urine RBC (Auto) 2+ H NEGATIVE Urine RBC RARE /HPF Urine WBC NONE /HPF Urine Squamous Epithelial Cells 2-5 /HPF Urine Crystals NONE /LPF Urine Bacteria NEGATIVE /HPF Urine Casts NONE /LPF Urine Mucus NEGATIVE /LPF Urine Culture Indicated NO My Orders Orders - KASSIE TRAN MD Ondansetron Injection (Zofran Injectio (05/28/18 13:29) Ondansetron Injection (Zofran Injectio (05/28/18 13:45) Fentanyl Injection (Sublimaze Injection (05/28/18 13:45) Lorazepam Injection (Ativan Injection) (05/28/18 13:45) Fentanyl Injection (Sublimaze Injection (05/28/18 13:31) Cbc With Automated Diff (05/28/18 13:33) Comprehensive Metabolic Panel (05/28/18 13:33) Lipase (05/28/18 13:33) Ua Culture If Indicated (05/28/18 13:33) Saline Lock/Iv-Start (05/28/18 13:33) Lorazepam Injection (Ativan Injection) (05/28/18 13:31) Saline Lock/Iv-Start (05/28/18 13:40) Ns Iv 1000 Ml (Sodium Chloride 0.9%) (05/28/18 13:40) Ct Abdomen/Pelvis Wo (05/28/18 13:52) Lidocaine 2% Viscous 15 Ml (Xylocaine Vi (05/28/18 15:00) Antacid Suspension (Mylanta Suspension (05/28/18 15:00) Medications Given in ED Vital Signs/I&O 05/28/18 05/28/18 13:27 16:10 Temp 97.3 97.3 Pulse 100 100 Resp 18 18 B/P (MAP) 124/76 (92) 124/76 (92) Pulse Ox 97 97 05/29/18 00:00 Intake Total 1000 ml Balance 1000 ml Blood Pressure Mean: 92 Progress Progress Note : Progress Note Patient was seen and examined. She was initially treated with fentanyl, Ativan , and Zofran. IV fluids were infused. Workup was pursued. Initial workup with labs was not very revealing. Further workup was pursued with CT scan due to patient's extreme pain. No definite abnormalities were found to explain her pain. A GI cocktail was administered which did help some. Patient eventually was able to rest quietly in fall sleep. She was dismissed home for further follow-up. She was started on antacid therapy. See discharge instructions. Diagnostic Imaging Diagonstic Imaging: CT Plain Films/CT/US/NM/MRI: abdomen, pelvis Comments CT abdomen and pelvis viewed by me and report reviewed. See report below: NAME: KAROL [facility] REC#: [id number] PT STATUS: REG ER : 1965 PHYSICIAN: KASSIE TRAN MD ADMIT DATE: 05/28/18/ER Signed Date of Exam: 05/28/18 CT ABDOMEN/PELVIS WO PROCEDURE: CT abdomen and pelvis without contrast. TECHNIQUE: Multiple contiguous axial images were obtained through the abdomen and pelvis without the use of intravenous contrast. INDICATION: Abdominal pain with nausea and vomiting. COMPARISON: 06/08/2017. FINDINGS: Evaluation of the abdominal viscera is mildly limited without contrast. Lower chest: The lung bases are clear. No pericardial or pleural effusion. Peritoneum: No free intraperitoneal air or fluid. Liver and biliary system: Unenhanced liver is normal. Cholecystectomy. No biliary duct dilatation. Spleen and Pancreas: Spleen is normal. Unenhanced pancreas is grossly normal. Adrenals: Normal. tract: No renal or ureteral calculi. No obstructive uropathy. Status post hysterectomy. GI tract: There are surgical changes near the GE junction which may relate to prior hiatal hernia repair. Stomach is partially seen with food debris and air and there is no wall thickening. No bowel obstruction. No pericolonic inflammatory changes. Normal appendix. Vasculature and Lymph nodes: Normal caliber aorta. No abdominal or pelvic lymphadenopathy. Musculoskeletal: No concerning osseous lesion. IMPRESSION: 1. No acute obstructive or inflammatory process in the abdomen and pelvis. 2. Stable postoperative changes at GE junction likely from hernia repair. No recurrent hernia. 3. No urinary tract calculi. Dictated by: Dictated on workstation # [id number] Dict: 05/28/181415 Trans: 05/28/18 1421 Interpreted by: CYNTHIA ESTRADA MD Electronically signed by: CYNTHIA ESTRADA MD 05/28/18 142 Departure Impression Primary Impression: Epigastric pain Additional Impression: Nausea and vomiting Qualified Codes: R11.2 - Nausea with vomiting, unspecified Disposition: 01 HOME, SELF-CARE Condition: Improved Departure-Patient Inst. Decision time for Depature: 15:56 Referrals: [facility] (PCP/Family) Primary Care Physician Patient Instructions: Acute Abdomen (Belly Pain), Adult (DC), Gastritis (DC) Add. Discharge Instructions: Consume only clear liquids for the next 24 hours. Then gradually advance your diet with small quantities of bland food as tolerated. Avoid the following: Eating large meals, eating close to bedtime, caffeine, carbonation, citrus fruits and juices, tomato products, alcohol, tobacco products, chocolate, mints, spicy foods, fatty or greasy foods, and NSAID medications such as ibuprofen, meloxicam, or naproxen. Follow-up with your primary care provider soon as possible. Return to the emergency room if symptoms are worsening. Fill your omeprazole today and start soon as possible. All discharge instructions reviewed with patient and/or family. Voiced understanding. Scripts Ondansetron (Zofran Odt) 4 Mg Tab.rapdis 4 MG SL Q4H PRN for NAUSEA/VOMITING-1ST LINE, #10 TAB Prov: KASSIE TRAN MD 05/28/18 Omeprazole (Omeprazole) 20 Mg Capsule.dr 20 MG PO BID, #60 CAP Prov: KASSIE TRAN MD 05/28/18 Copy Copies To 1: BHARTI KIM JOSHUA T MD May 28, 2018 16:02
[2018-05-28] MEDS ORDERED: OMEP20CA12 PO (16:03)
[2018-05-28] MEDS ORDERED: ONDA4TAB8 SL (16:03)
[2018-05-28 16:10] VITALS: BP 124/76
== END 2018-05-28 16:15 | disposition home or self-care (01) ==
LOC: EDUNIT# 13:27 → ER 13:28
DX: R10.13 Epigastric pain (principal); R11.2 Nausea with vomiting, unspecified; J44.9 Chronic obstructive pulmonary disease, unspecified; K21.9 Gastro-esophageal reflux disease without esophagitis; M81.0 Age-related osteoporosis without current pathological fracture; G47.00 Insomnia, unspecified; F41.9 Anxiety disorder, unspecified; F31.9 Bipolar disorder, unspecified; Z86.73 Personal history of transient ischemic attack (TIA), and cerebral infarction without residual deficits; Z86.718 Personal history of other venous thrombosis and embolism; Z91.041 Radiographic dye allergy status; Z91.048 Other nonmedicinal substance allergy status; Z79.52 Long term (current) use of systemic steroids; Z90.710 Acquired absence of both cervix and uterus; Z87.19 Personal history of other diseases of the digestive system
CPT/HCPCS: 36415; 74176; 80053; 81000; 83690; 85025; 96361; 96374; 96375

== ENCOUNTER 2018-08-26 19:36 | Emergency (ER) | payer MEDICAID ==
[~2018-08-26] VITALS: Ht 160 cm; Wt 61.2 kg
[~2018-08-26 19:36] MED LIST changes: +HYDR-4226 PO; -HYDR-757 PO; +OMEP20CA12 PO; +ONDA4TAB8 SL
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
--- OUTSIDE RECORDS SUMMARY | 2018-08-26 19:53 | XMS REPORT | Continuity of Care Document ---
Author Author [facility] Organization [facility] Address Unknown Phone Unavailable Allergies Active Description [...] Yes Iodinated Contrast Media - IV Dye [id number] Drug Allergy Severe N/A 2005 Yes Iodinated Contrast- Oral and IV Dye [id number] Drug Allergy Severe N/A 01/2006 Yes TAPE [...] MARIO 10/03/2015 SALOMÓN GARCIA APRN Ot Z79.891 RETIREMENT (CURRENT) USE OF OPIATE ANALGE 06/08/2017 AYE [...] GARCIA APRN Ot E87.6 HYPOKALEMIA 03/04/2018 SALOMÓN GARCIA APRN Ot F31.9 BIPOLAR DISORDER, UNSPECIFIED 03/04/2018 [...] Ot Z91.048 OTHER NONMEDICINAL SUBSTANCE ALLERGY STA 05/28/2018 Ot F31.9 BIPOLAR DISORDER, UNSPECIFIED 05/28/2018 Ot F41.9 ANXIETY DISORDER, UNSPECIFIED 05/28/2018 Ot G47.00 INSOMNIA, UNSPECIFIED 05/28/2018 Ot J44.9 CHRONIC OBSTRUCTIVE PULMONARY DISEASE, U 05/28/2018 Ot K21.9 GASTRO- ESOPHAGEAL REFLUX DISEASE WITHOUT 05/28/2018 Ot M81.0 AGE-RELATED OSTEOPOROSIS W/O CURRENT PAT 05/28/2018 Ot R10.13 EPIGASTRIC PAIN 05/28/2018 Ot R11.2 NAUSEA WITH VOMITING, UNSPECIFIED 05/28/2018 Ot Z79.52 RETIREMENT ( CURRENT) USE OF SYSTEMIC STER 05/28/2018 Ot Z86.718 PERSONAL HISTORY OF OTHER VENOUS THROMBO 05/28/2018 Ot Z86.73 PRSNL HX OF TIA (TIA), AND CEREB INFRC W 05/28/2018 Ot Z87.19 PERSONAL HISTORY OF OTHER DISEASES OF TH 05/28/2018 Ot Z90.710 ACQUIRED ABSENCE OF BOTH CERVIX AND UTER 05/28/2018 Ot Z91.041 RADIOGRAPHIC DYE ALLERGY STATUS 05/28/2018 Ot Z91.048 OTHER NONMEDICINAL SUBSTANCE ALLERGY STA [...] Am 115 mL/min/1.73 >59 BUN/Creatinine Ratio 19 9- Sodium, Serum 139 mmol/L 134-144 Potassium, Serum [...] - 04/15/18 16:42 TSH 8.95 mIU/L NRG Complete blood count (CBC) with automated white blood cell (WBC) differential - 05/28/18 13:31 Blood leukocytes automated count (number/volume) 11.1 10*3/uL 4.3-11.0 Blood erythrocytes automated count (number/volume) 5.30 10*6/uL 4.35-5.85 Venous blood hemoglobin measurement (mass/volume) 16.4 g/dL 11.5-16.0 Blood hematocrit (volume fraction) 48 % 35-52 Automated erythrocyte mean corpuscular volume 90 [foz_us] 80-99 Automated erythrocyte mean corpuscular hemoglobin (mass per erythrocyte) 31 pg 25-34 Automated erythrocyte mean corpuscular hemoglobin concentration measurement ( mass/volume) 34 g/dL 32-36 Automated erythrocyte distribution width ratio 13.8 % 10.0-14.5 Automated blood platelet count (count/volume) 279 10*3/uL 130-400 Automated blood platelet mean volume measurement 11.4 [foz_us] 7.4-10.4 Automated blood neutrophils/100 leukocytes 57 % 42-75 Automated blood lymphocytes/100 leukocytes 34 % 12-44 Blood monocytes/100 leukocytes 8 % 0-12 Automated blood eosinophils/100 leukocytes 0 % 0-10 Automated blood basophils/100 leukocytes 0 % 0-10 Blood neutrophils automated count (number/volume) 6.4 10*3 1.8-7.8 Blood lymphocytes automated count (number/volume) 3.8 10*3 1.0-4.0 Blood monocytes automated count (number/volume) 0.9 10*3 0.0-1.0 Automated eosinophil count 0.0 10*3/uL 0.0-0.3 Automated blood basophil count (count/volume) 0.0 10*3/uL 0.0-0.1 Comprehensive metabolic panel - 05/28/18 13:31 Serum or plasma sodium measurement (moles/volume) 138 mmol/L 135-145 Serum or plasma potassium measurement (moles/volume) 4.0 mmol/L 3.6-5.0 Serum or plasma chloride measurement (moles/volume) 105 mmol/L 98-107 Carbon dioxide 21 mmol/L 21-32 Serum or plasma anion gap determination (moles/volume) 12 mmol/L 5-14 Serum or plasma urea nitrogen measurement (mass/volume) 10 mg/dL 7-18 Serum or plasma creatinine measurement (mass/volume) 0.93 mg/dL 0.60-1.30 Serum or plasma urea nitrogen/creatinine mass ratio 11 NRG Serum or plasma creatinine measurement with calculation of estimated glomerular filtration rate > NRG Serum or plasma glucose measurement (mass/volume) 116 mg/dL 70-105 Serum or plasma calcium measurement (mass/volume) 10.0 mg/dL 8.5-10.1 Serum or plasma total bilirubin measurement (mass/volume) 0.6 mg/dL 0.1-1.0 Serum or plasma alkaline phosphatase measurement (enzymatic activity/volume) 107 U/L 40-136 Serum or plasma aspartate aminotransferase measurement (enzymatic activity/ volume) 18 U/L 5-34 Serum or plasma alanine aminotransferase measurement (enzymatic activity/volume ) 20 U/L 0-55 Serum or plasma protein measurement (mass/volume) 8.3 g/dL 6.4-8.2 Serum or plasma albumin measurement (mass/volume) 4.8 g/dL 3.2-4.5 Lipase - 05/28/18 13:31 Lipase 9 U/L 8-78 Complete urinalysis with reflex to culture - 05/28/18 15:02 Urine color determination YELLOW NRG Urine clarity [...] erythrocyte count by microscopy (number/high power field) RARE NRG Automated urine sediment leukocyte count by microscopy (number/high power field ) NONE NRG Bacteria detection in urine sediment by light microscopy NEGATIVE NRG Squamous epithelial cells detection in urine sediment by light microscopy 2-5 NRG Crystals detection in urine sediment by light microscopy NONE NRG Casts detection in urine sediment by light microscopy NONE NRG Mucus detection in urine sediment by light microscopy NEGATIVE NRG Complete urinalysis with reflex to culture NO NRG CMP - 07/08/18 15:23 GLUCOSE 79 mg/dL 65-99 UREA NITROGEN (BUN) 23 mg/dL 7-25 CREATININE 1.46 mg/dL 0.50-1.05 eGFR NON-AFR. LITHUANIAN 40 mL/min/1.73m2 > OR=60 eGFR 47 mL/min/1.73m2 > OR=60 BUN/CREATININE RATIO 16 (calc) 6-22 SODIUM 138 mmol/L 135-146 POTASSIUM 4.4 mmol/L 3.5-5.3 CHLORIDE 104 mmol/L 98-110 CARBON DIOXIDE 23 mmol/L 20-32 CALCIUM 9.5 mg/dL 8.6-10.4 PROTEIN, TOTAL 6.7 g/dL 6.1-8.1 ALBUMIN 4.2 g/dL 3.6-5.1 GLOBULIN 2.5 g/dL (calc) 1.9-3.7 ALBUMIN/GLOBULIN RATIO 1.7 (calc) 1.0-2.5 BILIRUBIN, TOTAL 0.4 mg/dL 0.2-1.2 ALKALINE PHOSPHATASE 81 U/L 33-130 AST 18 U/L 10-35 ALT 17 U/L 6-29 Encounters ACCT No. Visit Date/Time Discharge Status Pt. Type Provider Facility Loc./Unit Complaint [id number] 10/21/2015 15:00:40 10/21/2015 23:59:59 CLS Outpatient Lela Cuadra [id number] 06/03/2015 22:28:08 06/03/2015 23:59:59 CLS Outpatient Derrick Logan [id number] 06/03/2015 22:15:45 06/03/2015 23:59:59 CLS Outpatient Derrick Logan [id number] 06/03/2015 21:59:52 06/03/2015 23:59:59 CLS Outpatient Marsha Calhoun [id number] 04/05/2014 15:13:19 04/05/2014 23:59:59 CLS Outpatient Marsha Calhoun [id number] 03/22/2014 15:27:53 03/22/2014 23:59:59 CLS Outpatient Marsha Calhoun [id number] 03/15/2014 16:09:24 03/15/2014 23:59:59 CLS Outpatient Marsha Calhoun [id number] 12/12/2013 18:33:28 12/12/2013 23:59:59 CLS Outpatient Issa Nina [id number] 07/06/2017 12:08:00 Document Registration [id number] 06/10/2015 07:56:38 ACT Document Registration [id number] 06/02/2018 15:20:00 06/02/2018 23:59:59 CLS Outpatient PAULA CHILDRESS APRN [facility] [id number] 07/08/2018 14:40:00 Document Registration [id number] 2018 16:00:00 Document Registration [id number] 07/05/2017 14:40:00 Document Registration [id number] 03/04/2018 20:39:00 03/04/2018 22:57:00 DIS Emergency SALOMÓN GARCIA APRN [facility] ER HEADACHE;VOMITING [id number] 06/08/2017 18:38:00 06/08/2017 20:59:00 DIS Emergency AYE NICHOLS [facility] ER N/V/D/STOMACH CRAMPS [id number] 10/03/2015 19:37:00 10/03/2015 21:05:00 DIS Emergency SALOMÓN GARCIA APRN [facility] ER DENTAL,JAW PAIN [id number] 09/10/2013 17:13:00 09/10/2013 22:45:00 DIS Emergency AYE NICHOLS [facility] ER JAW PAIN [id number] 08/26/2018 19:37:00 ACT Emergency BARRIE FLETCHER MD [facility] ER FALL [id number] 05/28/2018 13:39:00 Document Registration [id number] 06/10/2015 07:56:00 06/10/2015 07:56:00 DIS Outpatient Jose MATA, [facility] RIKKI
--- NOTE | 2018-08-26 21:07 | ED Upper Extremity ---
General Chief Complaint: Upper Extremity Stated Complaint: FALL Nursing Triage Note: Pt ambulated to rm 10 w/o difficulty. Pt c/o fall that occured at approximately 1700. Pt states pt fell against curb landing on R arm. Pt c/o R shoulder and rib pain. Nursing Sepsis Screen: No Definite Risk Source: patient Exam Limitations: no limitations History of Present Illness Date Seen by Provider: Aug 26, 2018 Time Seen by Provider: 19:41 Initial Comments Patient is a 53-year-old female who presents to the emergency room a fall that occurred around 1700 tonight. She states she was leaving [employer] when she tripped causing her to fall onto her right side landing on a curb. She reports right shoulder and right rib pain after the fall. It is progressively becoming worse as time goes on. Denies hitting her head, loss of consciousness, neck pain. Onset: this evening Pain/Injury Location: right shoulder Method of Injury: fell Modifying Factors: Improves With Movement Allergies and Home Medications Allergies Coded Allergies: Iodinated Contrast Media - IV Dye (Unverified Allergy, Severe, 09/27/06) Uncoded Allergies: TAPE (Allergy, Unknown, 09/27/06) Home Medications Alprazolam 1 Mg Tablet, 1 MG PO TID PRN for ANXIETY, (Reported) Butalbit/Acetamin/Caff/Codeine 1 Each Capsule, 1-2 EACH PO Q6H PRN for HEADACHE, (Reported) Carisoprodol 350 Mg Tablet, 350 MG PO HS, (Reported) Carisoprodol 350 Mg Tablet, 350 MG PO BID PRN for BLOOD PRESSURE, (Reported) Clindamycin HCl 150 Mg Capsule, 450 MG PO TID Prescribed by: SALOMÓN GARCIA on 10/03/152049 Diclofenac Sodium 75 Mg Tablet.dr, 75 MG PO DAILY, (Reported) Dicyclomine HCl 20 Mg Tablet, 20 MG PO TID PRN for upset stomach, (Reported) Duloxetine HCl 60 Mg Capsule.dr, 60 MG PO AC PRN for depression, (Reported) Duloxetine HCl 30 Mg Capsule.dr, 30 MG PO HS PRN for depression, (Reported) Fludrocortisone Acetate 0.1 Mg Tablet, 1 TAB PO BID, (Reported) Gabapentin 600 Mg Tablet, 600 MG PO QID, (Reported) Hydrocodone/Acetaminophen 1 Each Tablet, 1-2 TAB PO Q12H PRN for PAIN, (Reported ) Hydrocodone/Acetaminophen 1 Each Tablet, 1 EACH PO Q6H PRN for PAIN Prescribed by: SALOMÓN GARCIA on 10/03/152049 Lactobacillus Combination No.4 1 Each Capsule, 1 EACH PO BID Prescribed by: SALOMÓN GARCIA on 10/03/152049 Midodrine HCl 5 Mg Tablet, 5 MG PO BID, (Reported) Omeprazole 20 Mg Capsule.dr, 20 MG PO BID Prescribed by: KASSIE DELACRUZ on 05/28/18 160 Ondansetron 8 Mg Tab.rapdis, 8 MG PO Q6H PRN for NAUSEA/VOMITING-1ST LINE Prescribed by: AYE CRAMER on 06/08/172035 Ondansetron 4 Mg Tab.rapdis, 4 MG SL Q4H PRN for NAUSEA/VOMITING-1ST LINE Prescribed by: KASSIE DELACRUZ on 05/28/181602 Oxybutynin Chloride 5 Mg Tab, 5 MG PO BID, (Reported) Penicillin V Potassium 500 Mg Tablet, 500 MG PO QID PRN for infection in jaw for 6 months, (Reported) Potassium Chloride 10 Meq Capsule.er, 40 MEQ PO DAILY Prescribed by: SALOMÓN GARCIA on 03/04/182144 Promethazine HCl 25 Mg Tablet, 25 MG PO Q6H PRN for NAUSEA/VOMITING, (Reported) Propranolol HCl 10 Mg Tablet, 10 MG PO DAILY, (Reported) Patient Home Medication List Home Medication List Reviewed: Yes Review of Systems Constitutional: no symptoms reported, see HPI Musculoskeletal: see HPI, joint pain (right shoulder), other (right rib pain) All Other Systems Reviewed Negative Unless Noted: Yes Past Knafdsv-Ylekyg-Djqvjd Hx Past Med/Social Hx: Reviewed Nursing Past Med/Soc Hx Patient Social History Alcohol Use: Denies Use Recreational Drug Use: No Smoking Status: Current Everyday Smoker Type Used: Cigars, Cigarettes 2nd Hand Smoke Exposure: Yes Recent Foreign Travel: No Contact w/Someone Who Travel: No Recent Infectious Disease Expo: No Recent Hopitalizations: No Immunizations Up To Date Tetanus Booster (TDap): Unknown Seasonal Allergies Seasonal Allergies: Yes Past Medical History Surgeries: Yes (rotator cuffx1, hiatal herniax3,jaw sx x3 ) Abdominal, Gallbladder, Hysterectomy Respiratory: Yes Asthma, COPD Currently Using CPAP: No Currently Using BIPAP: No Cardiac: Yes (MITRAL PROLAPSE VALVE, ORTHOSTATIC HYPOTENSION, dvt's left leg) Neurological: Yes (STROKE 1993) Stroke, TIA 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 Disorders: No [employer] History: Hysterectomy Sexually Transmitted Disease: No Genitourinary: No Gastrointestinal: Yes (History gastritis) Gastroesophageal Reflux, Hiatal Hernia Musculoskeletal: Yes (OSTEOPENIA) Degenerate Disk Disease, Osteoporosis Endocrine: No Cancer: No Psychosocial: Yes (insomnia) Anxiety, Bipolar, Depression Integumentary: No Blood Disorders: No Family Medical History Reviewed Nursing Family Hx No Pertinent Family Hx Physical Exam Vital Signs Vital Signs - First Documented 08/26/18 19:41 Temp 96.8 Pulse 104 Resp 17 B/P (MAP) 97/73 (81) Pulse Ox 98 O2 Delivery Room Air Capillary Refill : Less Than 3 Seconds Height, Weight, BMI Height: 5'3.00" Weight: 135lbs. oz. 61.507163tc; BMI Method:Stated General Appearance: WD/WN, no apparent distress Neck: non-tender, full range of motion, supple, normal inspection Cardiovascular: normal peripheral pulses, regular rate, rhythm, no edema, no gallop, no JVD, no murmur Respiratory: lungs clear, no respiratory distress, no accessory muscle use, other (and right rib tenderness) Shoulder: normal inspection, no evidence of injury, pain (pain with range of motion) Neurologic/Tendon: normal sensation, normal motor functions, normal tendon functions, responds to pain, no evidence tendon injury Neurologic/Psychiatric: alert, normal mood/affect, oriented x 3 Skin: normal color, warm/dry Progress/Results/Core Measures Results/Orders My Orders Vital Signs/I&O Blood Pressure Mean: 81 Diagnostic Imaging Diagonstic Imaging: Xray Plain Films/CT/US/NM/MRI: other (ribs shoulder) Comments NAME: KAROL COLON [facility] REC#: [id number] PT STATUS: DEP ER : 1965 PHYSICIAN: DEWAYNE FLORES ADMIT DATE: 08/26/18/ER Signed Date of Exam: 08/26/18 RIBS, RIGHT 2-3 VIEWS EXAMINATION: Right ribs at 9:08 PM INDICATION: Rib pain Three views were obtained. There is no evidence for a displaced rib fracture. There is no sign of an injury to the underlying right lung either. Specifically, there is no pneumothorax. IMPRESSION: There is no evidence for a displaced rib fracture. Dictated by: Dictated on workstation # [id number] Dict: 08/26/182116 Trans: 08/26/182238 Interpreted by: YONY KRUEGER MD Electronically signed by: YONY KRUEGER MD 08/26/182238 NAME: KAROL COLON [facility] REC#: [id number] PHYSICIAN: DEWAYNE FLORES CC: DEWAYNE FLORES; YONY KRUEGER MD Page 1 of 1 RADIOLOGY REPORT VIA [place], [place] CC: DEWAYNE FLORES; YONY KRUEGER MD Page 1 of 1 RADIOLOGY REPORT NAME: KYLE COLONJOSÉ MIGUEL Rodriguez [facility] REC#: [id number] PT STATUS: DEP ER : 1965 PHYSICIAN: DEWAYNE FLORES ADMIT DATE: 08/26/18/ER Signed Date of Exam: 08/26/18 SHOULDER, RIGHT, 3 VIEWS INDICATION: Injury. EXAMINATION: Right shoulder at 9:03 p.m. Three views were obtained. FINDINGS: There is no fracture, dislocation or acute bony abnormality evident. The glenohumeral joint is well maintained. There is only mild degenerative disease of the acromioclavicular joint. The soft tissues are unremarkable. IMPRESSION: There is no evidence for an acute bony abnormality. Dictated by: Dictated on workstation # [id number] Dict: 08/26/182117 Trans: 08/26/182239 Interpreted by: YONY KRUEGER MD Electronically signed by: YONY KRUEGER MD 08/26/182239 Reviewed: Reviewed by Me Departure Impression Primary Impression: Fall Additional Impressions: Contusion of rib on right side Contusion of right shoulder Disposition: 01 HOME, SELF-CARE Condition: Stable/Unchanged Departure-Patient Inst. Decision time for Depature: 21:42 Referrals: [facility] (PCP/Family) Primary Care Physician Patient Instructions: Contusion (DC) Add. Discharge Instructions: Rest, ice to the sore areas at 20 minute intervals, Tylenol and ibuprofen as directed by the bottle for pain relief. [facility] for recheck. Return back to the emergency room for any worsening symptoms or concerns as needed. All discharge instructions reviewed with patient and/or family. Voiced understanding. DEWAYNE FLORES Aug 26, 2018 21:07
--- NOTE | 2018-08-26 21:22 | Diagnostic Imaging Report ---
EXAMINATION: Right ribs at 9:08 PM INDICATION: Rib pain Three views were obtained. There is no evidence for a displaced rib fracture. There is no sign of an injury to the underlying right lung either. Specifically, there is no pneumothorax. IMPRESSION: There is no evidence for a displaced rib fracture. Dictated by: Dictated on workstation # [id number]
--- NOTE | 2018-08-26 21:23 | Diagnostic Imaging Report ---
INDICATION: Injury. EXAMINATION: Right shoulder at 9:03 p.m. Three views were obtained. FINDINGS: There is no fracture, dislocation or acute bony abnormality evident. The glenohumeral joint is well maintained. There is only mild degenerative disease of the acromioclavicular joint. The soft tissues are unremarkable. IMPRESSION: There is no evidence for an acute bony abnormality. Dictated by: Dictated on workstation # [id number]
[2018-08-26] MEDS ORDERED: HYDROcodone/APAP 5 MG/325 MG (LORTAB) TAB PO ONE (21:45)
[2018-08-26 21:50] VITALS: BP 99/76
== END 2018-08-26 21:50 | disposition home or self-care (01) ==
LOC: EDUNIT# 19:36 → ER 19:37
DX: S20.211A Contusion of right front wall of thorax, initial encounter (principal); S40.011A Contusion of right shoulder, initial encounter; J44.9 Chronic obstructive pulmonary disease, unspecified; G47.00 Insomnia, unspecified; F41.9 Anxiety disorder, unspecified; F31.9 Bipolar disorder, unspecified; K21.9 Gastro-esophageal reflux disease without esophagitis; F17.290 Nicotine dependence, other tobacco product, uncomplicated; F17.210 Nicotine dependence, cigarettes, uncomplicated; Z91.041 Radiographic dye allergy status; Z86.73 Personal history of transient ischemic attack (TIA), and cerebral infarction without residual deficits; Z86.718 Personal history of other venous thrombosis and embolism; Z91.048 Other nonmedicinal substance allergy status; Z79.51 Long term (current) use of inhaled steroids; Z90.710 Acquired absence of both cervix and uterus; Z87.19 Personal history of other diseases of the digestive system; W01.0XXA Fall on same level from slipping, tripping and stumbling without subsequent striking against object, initial encounter
CPT/HCPCS: 71100; 73030

== ENCOUNTER 2018-12-18 16:18 | Emergency (ER) | payer MEDICAID ==
[~2018-12-18] VITALS: Ht 160 cm; Wt 63.5 kg
[~2018-12-18 16:18] MED LIST changes: -GABA600T2 PO; +GBPN600T PO
[2018-12-18] MEDS ORDERED: LEVO50TA6 PO (16:45)
[2018-12-18] MEDS ORDERED: PANT40TA3 PO (16:45)
[2018-12-18] MEDS ORDERED: NITR0.4T42 SL (16:45)
[2018-12-18] MEDS ORDERED: DULO60CA58 PO (16:45)
[2018-12-18] MEDS ORDERED: SUCR1TAB36 PO (16:45)
[2018-12-18] MEDS ORDERED: OXYB15TA PO (16:45)
[2018-12-18] MEDS ORDERED: MELO15TA39 PO (16:45)
[2018-12-18] MEDS ORDERED: CETI10TA20 PO (16:45)
[2018-12-18] MEDS ORDERED: BUDE90AE2 IH (16:45)
[2018-12-18] MEDS ORDERED: CYCL10TA9 PO ×2 (16:45→18:17)
[2018-12-18] MEDS ORDERED: CYCLOBENZAPRINE 10 MG (FLEXERIL) TAB PO STA (16:54)
[2018-12-18] MEDS ORDERED: HYDROcodone/APAP 5 MG/325 MG (LORTAB) TAB PO STA (16:54)
--- NOTE | 2018-12-18 17:37 | ED Back Pain ---
General Chief Complaint: Back Problems Stated Complaint: LOWER BACK PAIN Nursing Triage Note: pt reports she fell on the ice on evening. c/o worsening pain with tingling in left leg today. she also reports she is having difficulty with motor function of both legs. Nursing Sepsis Screen: No Definite Risk History of Present Illness Date Seen by Provider: Dec 18, 2018 Time Seen by Provider: 16:45 Initial Comments 53-year-old female reports falling on 12/15/18. She was on the ice and landed on her right hip. She has been having pain in the right hip and lumbar spine with some pain radiating into both legs. She denies any previous history of injuries to her low back or legs. She denies head injury at the time of the fall. She has been taking Tylenol and Flexeril with minimal improvement in her symptoms. She denies any bowel or bladder incontinence or retention. Location: Lumbar Spine, Other (right hip) Timing/Duration: 2-3 Days Pain/Injury Location: Back Method of Injury: Fall Associated Symptoms: No loss of bladder control, No loss of bowel control Allergies and Home Medications Allergies Coded Allergies: Iodinated Contrast Media - IV Dye (Unverified Allergy, Severe, 09/27/06) Uncoded Allergies: TAPE (Allergy, Unknown, 09/27/06) Home Medications Budesonide 90 Mcg Aer.pow.ba, 90 MCG IH BID, (Reported) Cetirizine HCl 10 Mg Tablet, 10 MG PO DAILY, (Reported) Cyclobenzaprine HCl 10 Mg Tablet, 10 MG PO TID, (Reported) Cyclobenzaprine HCl 10 Mg Tablet, 10 MG PO Q8H PRN for SPASMS Prescribed by: HOSSEIN ALMEIDA on 12/18/181816 Dicyclomine HCl 20 Mg Tablet, 20 MG PO QID, (Reported) Duloxetine HCl 60 Mg Capsule.dr, 120 MG PO DAILY, (Reported) Fludrocortisone Acetate 0.1 Mg Tablet, 1 TAB PO BID, (Reported) Levothyroxine Sodium 50 Mcg Tablet, 50 MCG PO DAILY, (Reported) Meloxicam 15 Mg Tablet, 15 MG PO DAILY, (Reported) Midodrine HCl 5 Mg Tablet, 5 MG PO BID, (Reported) Oxybutynin Chloride 15 Mg Tab.er.24, 15 MG PO DAILY, (Reported) Pantoprazole Sodium 40 Mg Tablet.dr, 40 MG PO DAILY, (Reported) Sucralfate 1 Gm Tablet, 1 GM PO QID, (Reported) Tramadol HCl 50 Mg Tablet, 50 MG PO Q6H PRN for PAIN-MODERATE Prescribed by: HOSSEIN ALMEIDA on 12/18/181816 Patient Home Medication List Home Medication List Reviewed: Yes Review of Systems Constitutional: no symptoms reported, see HPI Musculoskeletal: see HPI, joint pain (right hip) All Other Systems Reviewed Negative Unless Noted: Yes Past Psnvhkv-Azlfxf-Jpqjio Hx Past Med/Social Hx: Reviewed Nursing Past Med/Soc Hx Patient Social History Alcohol Use: Denies Use Recreational Drug Use: No Smoking Status: Current Everyday Smoker Type Used: Pipe 2nd Hand Smoke Exposure: Yes Recent Foreign Travel: No Contact w/Someone Who Travel: No Recent Infectious Disease Expo: No Recent Hopitalizations: No Immunizations Up To Date Tetanus Booster (TDap): Unknown Date of Influenza Vaccine: Jul 25, 2018 Seasonal Allergies Seasonal Allergies: Yes Past Medical History Surgeries: Yes (rotator cuffx1, hiatal herniax3,jaw sx x3 ) Abdominal, Gallbladder, Hysterectomy, Tonsillectomy Respiratory: Yes Asthma, COPD Currently Using CPAP: No Currently Using BIPAP: No Cardiac: Yes (MITRAL PROLAPSE VALVE, ORTHOSTATIC HYPOTENSION, dvt's left leg) Neurological: Yes (STROKE 1993) Stroke, TIA 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 Sexually Transmitted Disease: No Genitourinary: No Gastrointestinal: Yes (History gastritis) Gastroesophageal Reflux, Hiatal Hernia Musculoskeletal: Yes (OSTEOPENIA) Degenerate Disk Disease, Osteoporosis Endocrine: No Cancer: No Psychosocial: Yes (insomnia) Anxiety, Bipolar, Depression Integumentary: No Blood Disorders: No Family Medical History No Pertinent Family Hx Physical Exam Vital Signs Vital Signs - First Documented 12/18/18 12/18/18 16:28 18:25 Temp 97.9 Pulse 99 Resp 16 B/P (MAP) 124/95 (105) Pulse Ox 95 O2 Delivery Room Air Capillary Refill : Less Than 3 Seconds Height, Weight, BMI Height: 5'3.00" Weight: 140lbs. oz. 63.592322xs; BMI Method:Stated General Appearance: No Apparent Distress, WD/WN Neck: Full Range of Motion, Normal Inspection, Non Tender Cardiovascular: Regular Rate, Rhythm, No Edema, Normal Peripheral Pulses Respiratory: Chest Non Tender, Lungs Clear, Normal Breath Sounds, No Accessory Muscle Use Gastrointestinal: Normal Bowel Sounds, Non Tender, Soft Back: Normal Inspection, Decreased Range of Motion (secondary to pain), Muscle Spasm, Vertebral Tenderness (L2 to S1), Other (Power V/V L4 to S1, negative straight leg raising sign bilaterally) Neurologic/Psychiatric: Alert, Oriented x3, No Motor/Sensory Deficits, Normal Mood/Affect Skin: Normal Color, Warm/Dry Progress/Results/Core Measures Results/Orders My Orders Orders - HOSSEIN ALMEIDA Lumbar Spine - 2-3 Views (12/18/18 16:54) Pelvis With Right Hip 2-3views (12/18/18 16:54) Cyclobenzaprine Tablet (Flexeril Tablet) (12/18/18 16:54) Hydrocodone/Apap 5/325 Tablet (Lortab 5 (12/18/18 16:54) Vital Signs/I&O 12/18/18 12/18/18 16:28 18:25 Temp 97.9 Pulse 99 91 Resp 16 16 B/P (MAP) 124/95 (105) 119/92 (101) Pulse Ox 95 92 O2 Delivery Room Air Blood Pressure Mean: 105 Progress Progress Note : Time: 16:45 Progress Note Patient seen and evaluated, we'll obtain x-rays of the lumbar spine. Hydrocodone /APAP 5/325 mg orally for pain and cyclobenzaprine 10 mg for muscle spasms. 1745 patient reports improvement in pain. X-rays reviewed with patient no acute findings. Discharge instructions and return precautions reviewed with patient. Diagnostic Imaging Diagonstic Imaging: Xray Plain Films/CT/US/NM/MRI: pelvis, hip Comments NAME: KAROL COLON [facility] REC#: [id number] PT STATUS: REG ER : 1965 PHYSICIAN: HOSSEIN ALMEIDA ADMIT DATE: 12/18/18/ER Draft Date of Exam:12/18/18 PELVIS WITH RIGHT HIP 2-3VIEWS INDICATION: Fall. Hip and pelvis pain. COMPARISON: None. EXAMINATION: AP view of the pelvis and two dedicated radiographic views of the right hip were obtained. FINDINGS: There is no fracture, dislocation, bone destruction, or radiopaque foreign body. The visualized pelvic osseous structures and the SI joints demonstrate no acute fracture or dislocation. There is no bone destruction or radiopaque foreign body. The surrounding soft tissue structures are unremarkable. IMPRESSION: No acute fracture or dislocation in the pelvis or right hip joint. Dictated on workstation # [id number] Dict: 12/18/189 Trans: 12/18/18 1748 [facility] [id number] Interpreted by: SAUMYA MENA MD Electronically signed by: Reviewed: Reviewed by Me Diagonstic Imaging: Xray Plain Films/CT/US/NM/MRI: other (lumbar spine) Comments NAME: KAROL COLON [facility] REC#: [id number] PT STATUS: REG ER : 1965 PHYSICIAN: HOSSEIN ALMEIDA ADMIT DATE: 12/18/18/ER Draft Date of Exam:12/18/18 LUMBAR SPINE - 2-3 VIEWS INDICATION: Fall. Back pain. COMPARISON: 08/06/2009. EXAMINATION: Frontal and lateral views of the lumbar spine were obtained. FINDINGS: Alignment and vertebral heights are maintained. There is no fracture or destructive process. Multilevel degenerative disease is noted in the lumbar spine. Limited views of the abdomen demonstrate nonobstructive bowel gas pattern. IMPRESSION: 1. No acute fracture or dislocation of the lumbar spine. 2. multilevel degenerative changes. Dictated on workstation # [id number] Dict: 12/18/181737 Trans: 12/18/[address] [id number] Interpreted by: SAUMYA MENA MD Electronically signed by: Departure Impression Primary Impression: Back pain of lumbar region with sciatica Additional Impression: Fall Qualified Codes: W19.XXXA - Unspecified fall, initial encounter Disposition: HOME, SELF-CARE Condition: Improved Departure-Patient Inst. Decision time for Depature: 17:45 Referrals: [facility] (PCP/Family) Primary Care Physician Patient Instructions: Lumbar Muscle Strain (DC), Low Back Pain (DC) Add. Discharge Instructions: Alternate between ice and heat to the low back for 20 minutes every 2 hours while awake. Progress activity as tolerated. Use a walker or cane for ambulation You may alternate between Tylenol 650 mg and ibuprofen 600 mg every 4 hours for pain If your pain is not controlled with that you may take tramadol every 8 hours. Follow-up with your primary care provider in 2-3 days if symptoms are not improving or worsen. Return to emergency department for new injuries, incontinence or retention of stool or urine, new problems or concerns. All discharge instructions reviewed with patient and/or family. Voiced understanding. Scripts Tramadol HCl (Tramadol HCl) 50 Mg Tablet 50 MG PO Q6H PRN for PAIN-MODERATE, #20 TAB 0 Refills Prov: HOSSEIN ALMEIDA 12/18/18 Cyclobenzaprine HCl (Cyclobenzaprine HCl) 10 Mg Tablet 10 MG PO Q8H PRN for SPASMS, #18 TAB 0 Refills Prov: HOSSEIN ALMEIDA 12/18/18 HOSSEIN ALMEIDA Dec 18, 2018 17:37
--- NOTE | 2018-12-18 17:48 | Diagnostic Imaging Report ---
INDICATION: Fall. Back pain. COMPARISON: 08/06/2009. EXAMINATION: Frontal and lateral radiographic views of the lumbar spine were obtained. FINDINGS: Alignment and vertebral heights are maintained. There is no fracture or destructive process. Multilevel degenerative disease is noted in the lumbar spine. Limited views of the abdomen demonstrate nonobstructive bowel gas pattern. IMPRESSION: 1. No acute fracture or dislocation of the lumbar spine. 2. multilevel degenerative changes. Dictated by: Dictated on workstation # [id number]
--- NOTE | 2018-12-18 17:49 | Diagnostic Imaging Report ---
INDICATION: Fall. Hip and pelvis pain. COMPARISON: None. EXAMINATION: AP view of the pelvis and two dedicated radiographic views of the right hip were obtained. FINDINGS: There is no fracture, dislocation, bone destruction, or radiopaque foreign body. The visualized pelvic osseous structures and the SI joints demonstrate no acute fracture or dislocation. There is no bone destruction or radiopaque foreign body. The surrounding soft tissue structures are unremarkable. IMPRESSION: No acute fracture or dislocation in the pelvis or right hip joint. Dictated by: Dictated on workstation # [id number]
[2018-12-18] MEDS ORDERED: TRAM50TA2 PO (18:17)
[2018-12-18 18:25] VITALS: BP 119/92
== END 2018-12-18 18:25 | disposition home or self-care (01) ==
LOC: EDUNIT# 16:18 → ER 16:19
DX: M54.41 Lumbago with sciatica, right side (principal); M25.551 Pain in right hip; J44.9 Chronic obstructive pulmonary disease, unspecified; K21.9 Gastro-esophageal reflux disease without esophagitis; F41.9 Anxiety disorder, unspecified; F31.9 Bipolar disorder, unspecified; G47.00 Insomnia, unspecified; F17.290 Nicotine dependence, other tobacco product, uncomplicated; Z86.73 Personal history of transient ischemic attack (TIA), and cerebral infarction without residual deficits; Z90.710 Acquired absence of both cervix and uterus; Z86.718 Personal history of other venous thrombosis and embolism; Z87.19 Personal history of other diseases of the digestive system; Z90.89 Acquired absence of other organs; Z98.890 Other specified postprocedural states; Z91.041 Radiographic dye allergy status; Z91.048 Other nonmedicinal substance allergy status; Z79.51 Long term (current) use of inhaled steroids; W00.9XXA Unspecified fall due to ice and snow, initial encounter
CPT/HCPCS: 72100

== ENCOUNTER → 2019-02-02 | Outpatient (CLI) | payer MEDICAID ==
[~2019-02-02] MED LIST changes: +BUDE90AE2 IH; +CETI10TA20 PO; +CYCL10TA9 PO; +DULO60CA58 PO; +LEVO50TA6 PO; +MELO15TA39 PO; +NITR0.4T42 SL; +OXYB15TA PO; +PANT40TA3 PO; +SUCR1TAB36 PO; +TRAM50TA2 PO
--- NOTE | 2019-02-02 13:46 | Diagnostic Imaging Report ---
PROCEDURE: MRI right joint upper extremity without contrast. TECHNIQUE: Multiplanar, multisequence non contrast-enhanced MRI of the right upper extremity was accomplished. INDICATION: Right shoulder pain and decreased range of motion. There is no significant joint effusion. There is abnormal increased T2 signal seen within the distal infraspinatus tendon compatible with full-thickness tear, however, there is no retraction. Remainder of the rotator cuff is intact. There is very mild acromioclavicular degenerative spurring. No definite labral or biceps tendon abnormality is seen. There is no marrow signal abnormality to suggest fracture. IMPRESSION: Findings are consistent with full-thickness tear of distal infraspinatus tendon without retraction. No other internal derangement of the right shoulder is appreciated. Dictated by: Dictated on workstation # [id number]
== END ==
LOC: RAD 12:39
PROVIDERS: ATTEND Nurse Practitioner Community Health
DX: G89.29 Other chronic pain (principal); M25.511 Pain in right shoulder
CPT/HCPCS: 73221

== ENCOUNTER 2019-05-29 15:54 | Emergency (ER) | payer MEDICAID ==
[~2019-05-29] VITALS: Ht 160 cm; Wt 61.2 kg
[~2019-05-29 15:54] MED LIST changes: -DULO60CA58 PO; +DULO60CA59 PO; -OMEP20CA12 PO; +OMEP20CA13 PO
--- NOTE | 2019-05-29 16:14 | NUR ---
pt here with " ". pt alert gcs 15. pt points to and c/o rlq abd pain radiating to right back started this am. monsalve rating //2- 9. pt denies n/v/d. c/o constipation " little bit". last bm yest. am. pt denies ua and vaginalc/os. no acute sighns of dyspnea noted. lungs cta bilaterally. abd soft nondistended tender to palpation rlq abd only. pt instructed npo. done [place] pt [id number].
[2019-05-29] MEDS ORDERED: KETOROLAC 30 MG/ML VIAL IVP ONE (16:15)
--- NOTE | 2019-05-29 16:26 | ED Abdominal Pain ---
General Chief Complaint: Abdominal/GI Problems Stated Complaint: R SIDE ABD/PELVIC PAIN Nursing Triage Note: Patient ambulatory to ER with complaint of right lower quadrant abdominal pain that began upon waking up this morning. Patient describes the pain as cramping and the pain radiates into the right flank area. Patient denies any n/v/d. Patient denies any problems with urination. Sepsis Screen: No Definite Risk Source of Information: Patient Exam Limitations: No Limitations History of Present Illness Date Seen by Provider: May 29, 2019 Time Seen by Provider: 16:24 Initial Comments To ER with reports of right lower quadrant abdominal pain that began earlier this morning upon awakening. No fevers or chills nausea or vomiting. No dysuria. Timing/Duration: 1-2 Days Severity/Quality: Moderate Location: RLQ Radiation: No Radiation Activities at Onset: None Allergies and Home Medications Allergies Coded Allergies: Iodinated Contrast Media - IV Dye (Unverified Allergy, Severe, 09/27/06) Uncoded Allergies: TAPE (Allergy, Unknown, 09/27/06) Home Medications Budesonide 90 Mcg Aer.pow.ba, 90 MCG IH BID, (Reported) Cetirizine HCl 10 Mg Tablet, 10 MG PO DAILY, (Reported) Cyclobenzaprine HCl 10 Mg Tablet, 10 MG PO TID, (Reported) Cyclobenzaprine HCl 10 Mg Tablet, 10 MG PO Q8H PRN for SPASMS Prescribed by: HOSSEIN ALMEIDA on 12/18/181816 Dicyclomine HCl 20 Mg Tablet, 20 MG PO QID, (Reported) Duloxetine HCl 60 Mg Capsule.dr, 120 MG PO DAILY, (Reported) Fludrocortisone Acetate 0.1 Mg Tablet, 1 TAB PO BID, (Reported) Levothyroxine Sodium 50 Mcg Tablet, 50 MCG PO DAILY, (Reported) Meloxicam 15 Mg Tablet, 15 MG PO DAILY, (Reported) Midodrine HCl 5 Mg Tablet, 5 MG PO BID, (Reported) Oxybutynin Chloride 15 Mg Tab.er.24, 15 MG PO DAILY, (Reported) Pantoprazole Sodium 40 Mg Tablet.dr, 40 MG PO DAILY, (Reported) Sucralfate 1 Gm Tablet, 1 GM PO QID, (Reported) Tramadol HCl 50 Mg Tablet, 50 MG PO Q6H PRN for PAIN-MODERATE Prescribed by: HOSSEIN ALMEIDA on 12/18/181816 Patient Home Medication List Home Medication List Reviewed: Yes Review of Systems Review of Systems Constitutional: see HPI EENTM: No Symptoms Reported Respiratory: No Symptoms Reported Cardiovascular: No Symptoms Reported Gastrointestinal: See HPI, Abdominal Pain Genitourinary: No Symptoms Reported Musculoskeletal: no symptoms reported Skin: no symptoms reported Psychiatric/Neurological: No Symptoms Reported Endocrine: No Symptoms Reported Hematologic/Lymphatic: No Symptoms Reported Past Xrnqbcc-Pcsnxj-Vpubdh Hx Patient Social History Alcohol Use: Denies Use Recreational Drug Use: Yes (marijuana) Smoking Status: Current Everyday Smoker Type Used: Cigarettes 2nd Hand Smoke Exposure: Yes Recent Foreign Travel: No Contact w/Someone Who Travel: No Recent Infectious Disease Expo: No Recent Hopitalizations: No Physical Abuse: No Sexual Abuse: No Mistreated: No Fear: No Immunizations Up To Date Tetanus Booster (TDap): Unknown PED Vaccines UTD: Yes Date of Influenza Vaccine: Jul 25, 2018 Seasonal Allergies Seasonal Allergies: Yes Past Medical History Surgeries: Yes (hiatal hernia x3) Bowel Surgery, Gallbladder, Hysterectomy, Tonsillectomy Respiratory: Yes COPD Currently Using CPAP: No Currently Using BIPAP: No Cardiac: No Neurological: No Stroke, TIA 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 Sexually Transmitted Disease: No Genitourinary: No Gastrointestinal: Yes Hiatal Hernia Musculoskeletal: Yes Scoliosis Endocrine: No HEENT: Yes (sinus infections) Cancer: Yes Cervical Did You Recieve Any Treatments: Yes What Type of Treatment Did You: Surgical Intervention Psychosocial: Yes (multiple personality disorder) ADD/ADHD, PTSD, Bipolar Integumentary: No Blood Disorders: No Adverse Reaction/Blood Tranf: No Family Medical History No Pertinent Family Hx Physical Exam Vital Signs Vital Signs - First Documented 05/29/19 15:57 Temp 99.2 Pulse 77 Resp 14 B/P (MAP) 117/80 (92) Pulse Ox 97 O2 Delivery Room Air Capillary Refill : Less Than 3 Seconds Height/Weight/BMI Height: 5'3.00" Weight: 135lbs. oz. 61.288027fz; BMI Method:Stated General Appearance: WD/WN, no apparent distress HEENT: PERRL/EOMI, normal ENT inspection Respiratory: no respiratory distress, no accessory muscle use Gastrointestinal: normal bowel sounds, soft, tenderness Extremities: normal range of motion, non-tender Neurologic/Psychiatric: alert, normal mood/affect, oriented x 3 Skin: normal color, warm/dry Progress/Results/Core Measures Results/Orders Lab Results Laboratory Tests Test 05/29/19 16:22 Range/Units White Blood Count 8.7 4.3-11.0 10^3/uL Red Blood Count 4.54 4.35-5.85 10^6/uL Hemoglobin 14.0 11.5-16.0 G/DL Hematocrit 42 35-52 % Mean Corpuscular Volume 93 80-99 FL Mean Corpuscular Hemoglobin 31 25-34 PG Mean Corpuscular Hemoglobin Concent 33 32-36 G/DL Red Cell Distribution Width 12.8 10.0-14.5 % Platelet Count 205 130-400 10^3/uL Mean Platelet Volume 11.7 H 7.4-10.4 FL Neutrophils (%) (Auto) 58 42-75 % Lymphocytes (%) (Auto) 34 12-44 % Monocytes (%) (Auto) 7 0-12 % Eosinophils (%) (Auto) 2 0-10 % Basophils (%) (Auto) 1 0-10 % Neutrophils # (Auto) 5.0 1.8-7.8 X 10^3 Lymphocytes # (Auto) 2.9 1.0-4.0 X 10^3 Monocytes # (Auto) 0.6 0.0-1.0 X 10^3 Eosinophils # (Auto) 0.1 0.0-0.3 10^3/uL Basophils # (Auto) 0.0 0.0-0.1 10^3/uL Urine Color YELLOW Urine Clarity CLEAR Urine pH 7 5-9 Urine Specific [place] 1.010 L 1.016-1.022 Urine Protein 1+ H NEGATIVE Urine Glucose (UA) NEGATIVE NEGATIVE Urine Ketones 1+ H NEGATIVE Urine Nitrite NEGATIVE NEGATIVE Urine Bilirubin NEGATIVE NEGATIVE Urine Urobilinogen 1 NORMAL MG/DL Urine Leukocyte Esterase 1+ H NEGATIVE Urine RBC (Auto) 1+ H NEGATIVE Urine RBC 2-5 H /HPF Urine WBC NONE /HPF Urine Squamous Epithelial Cells 5-10 /HPF Urine Crystals NONE /LPF Urine Bacteria FEW H /HPF Urine Casts NONE /LPF Urine Mucus LARGE H /LPF Urine Culture Indicated NO Sodium Level 138 135-145 MMOL/L Potassium Level 3.9 3.6-5.0 MMOL/L Chloride Level 105 98-107 MMOL/L Carbon Dioxide Level 24 21-32 MMOL/L Anion Gap 9 5-14 MMOL/L Blood Urea Nitrogen 10 7-18 MG/DL Creatinine 0.79 0.60-1.30 MG/DL Estimat Glomerular Filtration Rate > 60 BUN/Creatinine Ratio 13 Glucose Level 89 70-105 MG/DL Calcium Level 9.0 8.5-10.1 MG/DL Corrected Calcium 9.2 8.5-10.1 MG/DL Total Bilirubin 0.3 0.1-1.0 MG/DL Aspartate Amino Transf (AST/SGOT) 11 5-34 U/L Alanine Aminotransferase (ALT/SGPT) 11 0-55 U/L Alkaline Phosphatase 83 40-136 U/L Total Protein 7.2 6.4-8.2 GM/DL Albumin 3.8 3.2-4.5 GM/DL My Orders Orders - SALOMÓN GARCIA APRN Ua Culture If Indicated (05/29/19 16:03) Cbc With Automated Diff (05/29/19 16:03) Comprehensive Metabolic Panel (05/29/19 16:03) Ed Iv/Invasive Line Start (05/29/19 16:03) Ketorolac Injection (Toradol Injection) (05/29/19 16:15) Ct Abd/Pelvis Wo(Kidney Stone) (05/29/19 16:10) Medications Given in ED Current Medications Medications Dose Ordered Sig/Margareth Route Start Time Stop Time Status Last Admin Dose Admin Ketorolac Tromethamine 15 mg ONCE ONCE IVP 05/29/19 16:15 05/29/19 16:16 DC 05/29/19 16:24 15 MG Vital Signs/I&O 05/29/19 15:57 Temp 99.2 Pulse 77 Resp 14 B/P (MAP) 117/80 (92) Pulse Ox 97 O2 Delivery Room Air Blood Pressure Mean: 92 Departure Impression Primary Impression: Abdominal pain Disposition: 01 HOME, SELF-CARE Condition: Stable Departure-Patient Inst. Decision time for Depature: 17:10 Referrals: [facility] (PCP) Primary Care Physician PAULA CHILDRESS (Family) Primary Care Physician Patient Instructions: Acute Abdomen (Belly Pain) Add. Discharge Instructions: The cause of your abdominal pain is not entirely clear, though your appendix is normal, you do not have a urinary tract infection. Your bowels with normal as do the kidneys ureters and bladder. This likely muscular in nature. Take Tylenol and ibuprofen for pain control. Return to ER for any concerns. Follow-up with your doctor this week for recheck. SALOMÓN GARCIA APRN May 29, 2019 16:26
--- NOTE | 2019-05-29 16:28 | NUR ---
labs and ua to lab by me
[2019-05-29 16:32] LABS: BASOPHILS % (AUTO) 1 % (0-10); EOSINOPHILS # (AUTO) 0.1 10^3/uL (0.0-0.3); EOSINOPHILS % (AUTO) 2 % (0-10); HEMATOCRIT 42 % (35-52); LYMPHOCYTES # (AUTO) 2.9 X 10^3 (1.0-4.0); LYMPHOCYTES % (AUTO) 34 % (12-44); MEAN CORPUSCULAR HEMOGLOBIN 31 PG (25-34); MEAN CORPUSCULAR HGB CONC 33 G/DL (32-36); MEAN CORPUSCULAR VOLUME 93 FL (80-99); MEAN PLATELET VOLUME 11.7 FL (7.4-10.4); MONOCYTES # (AUTO) 0.6 X 10^3 (0.0-1.0); MONOCYTES % (AUTO) 7 % (0-12); NEUTROPHILS % (AUTO) 58 % (42-75); PLATELET COUNT 205 10^3/uL (130-400); RED CELL DISTRIBUTION WIDTH 12.8 % (10.0-14.5); WHITE BLOOD COUNT 8.7 10^3/uL (4.3-11.0)
[2019-05-29 16:39] LABS: BILIRUBIN,URINE NEGATIVE (NEGATIVE); CLARITY,URINE CLEAR; COLOR,URINE YELLOW; GLUCOSE, URINE (UA) NEGATIVE (NEGATIVE); KETONES,URINE 1+ (NEGATIVE); LEUKOCYTE ESTERASE ,URINE 1+ (NEGATIVE); NITRITE,URINE NEGATIVE (NEGATIVE); PH,URINE 7 (5-9); PROTEIN,URINE 1+ (NEGATIVE); UROBILINOGEN,URINE 1 MG/DL (NORMAL)
[2019-05-29 16:59] LABS: BACTERIA,URINE FEW /HPF
--- NOTE | 2019-05-29 16:59 | Diagnostic Imaging Report ---
PROCEDURE: CT urinary tract, rule out kidney stone. TECHNIQUE: Multiple contiguous axial images were obtained through the abdomen and pelvis without the use of intravenous contrast. Auto Exposure Controls were utilized during the CT exam to meet ALARA standards for radiation dose reduction. INDICATION: Right flank pain FINDINGS: The lung bases are clear. The liver appears normal. The gallbladder is surgically absent. The pancreas is normal. The spleen is not enlarged. The adrenals are normal. The kidneys appear normal. Ureters are not dilated. The appendix is normal. Small bowel is not dilated. The colon is unremarkable. There is no intraperitoneal free air or free fluid. Uterus is surgically absent. IMPRESSION: Postop changes from cholecystectomy and hysterectomy. No acute abnormality is seen in the abdomen or pelvis. Dictated by: Dictated on workstation # [id number]
[2019-05-29 17:06] LABS: ALANINE AMINOTRANSFERASE 11 U/L (0-55); ALBUMIN 3.8 GM/DL (3.2-4.5); ALKALINE PHOSPHATASE 83 U/L (40-136); BILIRUBIN,TOTAL 0.3 MG/DL (0.1-1.0); BUN/CREATININE RATIO 13; CARBON DIOXIDE 24 MMOL/L (21-32); CHLORIDE 105 MMOL/L (98-107); CREATININE SERUM 0.79 MG/DL (0.60-1.30); GFR ESTIMATED > 60; GLUCOSE 89 MG/DL (70-105); POTASSIUM 3.9 MMOL/L (3.6-5.0); SODIUM 138 MMOL/L (135-145); TOTAL PROTEIN 7.2 GM/DL (6.4-8.2)
[2019-05-29 17:26] VITALS: BP 120/81
--- NOTE | 2019-05-29 17:26 | NUR ---
knows f/u. i went over the handtyped by information on the chart. i d/cd 2 ivs prior to d/c. d/c instructions to pt. told to read all papers. no scripts given. pt left ambulatory with . pt
== END 2019-05-29 17:26 | disposition home or self-care (01) ==
LOC: EDUNIT# 15:54 → ER 15:54
DX: R10.31 Right lower quadrant pain (principal); J44.9 Chronic obstructive pulmonary disease, unspecified; F44.81 Dissociative identity disorder; F90.9 Attention-deficit hyperactivity disorder, unspecified type; F43.10 Post-traumatic stress disorder, unspecified; F31.9 Bipolar disorder, unspecified; F12.10 Cannabis abuse, uncomplicated; F17.210 Nicotine dependence, cigarettes, uncomplicated; Z86.73 Personal history of transient ischemic attack (TIA), and cerebral infarction without residual deficits; Z85.41 Personal history of malignant neoplasm of cervix uteri; Z90.710 Acquired absence of both cervix and uterus; Z90.89 Acquired absence of other organs; Z88.8 Allergy status to other drugs, medicaments and biological substances; Z91.041 Radiographic dye allergy status; Z79.52 Long term (current) use of systemic steroids
CPT/HCPCS: 36415; 74176; 80053; 81000; 85025

== ENCOUNTER 2019-07-14 16:27 | Emergency (ER) | payer MEDICAID | END 2019-07-14 18:02 | disposition home or self-care (01) | LOC: ER 16:27 ==

== ENCOUNTER 2019-08-24 14:30 | Emergency (ER) | payer MEDICAID ==
[~2019-08-24] VITALS: Ht 16 cm; Wt 62.1 kg
[~2019-08-24 14:30] MED LIST changes: +ACHD5005 PO
--- NOTE | 2019-08-24 15:06 | ED Abdominal Pain ---
General Chief Complaint: Abdominal/GI Problems Stated Complaint: UPPER ABD CRAMPING;DARK STOOLS Nursing Triage Note: C/O UPPER ABD CRAMPING SINCE LAST NIGHT WITH DARK DIARRHEA STOOL Sepsis Screen: No Definite Risk Source of Information: Patient Exam Limitations: No Limitations History of Present Illness Date Seen by Provider: Aug 24, 2019 Time Seen by Provider: 15:04 Initial Comments To ER with reports of upper abdominal cramping since last night, she's also had some dark stools since last night. She's had nausea and vomiting. She's had a co uple abdominal surgeries including cholecystectomy, ovarian cystectomy, hiatal hernia repair, she also reports a history of peptic ulcers stating that "had a 10 pound ulcer removed" by Dr. Hansen here years ago Timing/Duration: 1-2 Days Severity/Quality: Moderate Location: Epigastric Radiation: No Radiation Activities at Onset: None Allergies and Home Medications Allergies Coded Allergies: Iodinated Contrast Media - IV Dye (Unverified Allergy, Severe, 09/27/06) Uncoded Allergies: TAPE (Allergy, Unknown, 09/27/06) Home Medications Budesonide 90 Mcg Aer.pow.ba, 90 MCG IH BID, (Reported) Cetirizine HCl 10 Mg Tablet, 10 MG PO DAILY, (Reported) Cyclobenzaprine HCl 10 Mg Tablet, 10 MG PO TID, (Reported) Cyclobenzaprine HCl 10 Mg Tablet, 10 MG PO Q8H PRN for SPASMS Prescribed by: HOSSEIN ALMEIDA on 12/18/181816 Dicyclomine HCl 20 Mg Tablet, 20 MG PO QID, (Reported) Duloxetine HCl 60 Mg Capsule.dr, 120 MG PO DAILY, (Reported) Fludrocortisone Acetate 0.1 Mg Tablet, 1 TAB PO BID, (Reported) Hydrocodone Bit/Acetaminophen 1 Tab Tab, 1 EACH PO Q4-6HR PRN for PAIN-MODERATE Prescribed by: SALOMÓN GARCIA on 07/14/191757 Levothyroxine Sodium 50 Mcg Tablet, 50 MCG PO DAILY, (Reported) Meloxicam 15 Mg Tablet, 15 MG PO DAILY, (Reported) Midodrine HCl 5 Mg Tablet, 5 MG PO BID, (Reported) Oxybutynin Chloride 15 Mg Tab.er.24, 15 MG PO DAILY, (Reported) Pantoprazole Sodium 40 Mg Tablet.dr, 40 MG PO DAILY, (Reported) Sucralfate 1 Gm Tablet, 1 GM PO QID, (Reported) Sucralfate 1 Gm/10 Ml Oral.susp, 1 GM PO ACHS Prescribed by: SALOMÓN GARCIA on 08/24/19 170 Tramadol HCl 50 Mg Tablet, 50 MG PO Q6H PRN for PAIN-MODERATE Prescribed by: HOSSEIN ALMEIDA on 12/18/18 1817 Patient Home Medication List Home Medication List Reviewed: Yes Review of Systems Review of Systems Constitutional: see HPI EENTM: No Symptoms Reported Respiratory: No Symptoms Reported Cardiovascular: No Symptoms Reported Gastrointestinal: See HPI, Abdominal Pain Genitourinary: No Symptoms Reported Musculoskeletal: no symptoms reported Skin: no symptoms reported Psychiatric/Neurological: No Symptoms Reported Endocrine: No Symptoms Reported Past Poqzhmo-Xdcsci-Edrjxo Hx Patient Social History Alcohol Use: Denies Use Recreational Drug Use: Yes Drug of Choice: MARIJUANA Smoking Status: Current Everyday Smoker Type Used: Cigarettes 2nd Hand Smoke Exposure: Yes Recent Foreign Travel: No Contact w/Someone Who Travel: No Recent Infectious Disease Expo: No Recent Hopitalizations: No Physical Abuse: No Sexual Abuse: No Mistreated: No Fear: No Immunizations Up To Date Tetanus Booster (TDap): Unknown PED Vaccines UTD: Yes Date of Influenza Vaccine: Jul 25, 2018 Seasonal Allergies Seasonal Allergies: Yes Past Medical History Surgeries: Yes (hiatal hernia x3) Bowel Surgery, Gallbladder, Hysterectomy, Tonsillectomy Respiratory: Yes COPD Currently Using CPAP: No Currently Using BIPAP: No Cardiac: No Neurological: No Stroke, TIA 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 Sexually Transmitted Disease: No Genitourinary: No Gastrointestinal: Yes Hiatal Hernia Musculoskeletal: Yes Degenerate Disk Disease, Osteoporosis, Scoliosis Endocrine: No HEENT: Yes (sinus infections) Cancer: Yes Cervical Did You Recieve Any Treatments: Yes What Type of Treatment Did You: Surgical Intervention Psychosocial: Yes (multiple personality disorder) ADD/ADHD, PTSD, Bipolar Integumentary: No Blood Disorders: No Adverse Reaction/Blood Tranf: No Family Medical History No Pertinent Family Hx Physical Exam Vital Signs Vital Signs - First Documented 08/24/19 14:32 Temp 35.9 Pulse 87 Resp 18 B/P (MAP) 116/83 (94) Pulse Ox 98 Capillary Refill : Less Than 3 Seconds Height/Weight/BMI Height: 5'3.00" Weight: 135lbs. oz. 61.300575ot; 2425.00 BMI Method:Stated General Appearance: WD/WN, no apparent distress Respiratory: no respiratory distress, no accessory muscle use Gastrointestinal: normal bowel sounds, soft, tenderness (epigastric) Extremities: normal range of motion, non-tender Neurologic/Psychiatric: alert, normal mood/affect, oriented x 3 Skin: normal color, warm/dry Progress/Results/Core Measures Results/Orders Lab Results Laboratory Tests Test 08/24/19 15:20 08/24/19 15:45 Range/Units White Blood Count 9.5 4.3-11.0 10^3/uL Red Blood Count 5.29 4.35-5.85 10^6/uL Hemoglobin 16.1 H 11.5-16.0 G/DL Hematocrit 47 35-52 % Mean Corpuscular Volume 90 80-99 FL Mean Corpuscular Hemoglobin 30 25-34 PG Mean Corpuscular Hemoglobin Concent 34 32-36 G/DL Red Cell Distribution Width 13.3 10.0-14.5 % Platelet Count 275 130-400 10^3/uL Mean Platelet Volume 11.4 H 7.4-10.4 FL Neutrophils (%) (Auto) 62 42-75 % Lymphocytes (%) (Auto) 29 12-44 % Monocytes (%) (Auto) 8 0-12 % Eosinophils (%) (Auto) 1 0-10 % Basophils (%) (Auto) 0 0-10 % Neutrophils # (Auto) 5.9 1.8-7.8 X 10^3 Lymphocytes # (Auto) 2.8 1.0-4.0 X 10^3 Monocytes # (Auto) 0.7 0.0-1.0 X 10^3 Eosinophils # (Auto) 0.1 0.0-0.3 10^3/uL Basophils # (Auto) 0.0 0.0-0.1 10^3/uL Sodium Level 140 135-145 MMOL/L Potassium Level 3.9 3.6-5.0 MMOL/L Chloride Level 106 98-107 MMOL/L Carbon Dioxide Level 22 21-32 MMOL/L Anion Gap 12 5-14 MMOL/L Blood Urea Nitrogen 9 7-18 MG/DL Creatinine 0.78 0.60-1.30 MG/DL Estimat Glomerular Filtration Rate > 60 BUN/Creatinine Ratio 12 Glucose Level 118 H 70-105 MG/DL Calcium Level 9.7 8.5-10.1 MG/DL Corrected Calcium 9.5 8.5-10.1 MG/DL Total Bilirubin 0.5 0.1-1.0 MG/DL Aspartate Amino Transf (AST/SGOT) 15 5-34 U/L Alanine Aminotransferase (ALT/SGPT) 18 0-55 U/L Alkaline Phosphatase 89 40-136 U/L Total Protein 7.8 6.4-8.2 GM/DL Albumin 4.3 3.2-4.5 GM/DL Lipase 10 8-78 U/L Urine Color YELLOW Urine Clarity SLIGHTLY CLOUDY Urine pH 5 5-9 Urine Specific [place] 1.025 H 1.016-1.022 Urine Protein 2+ H NEGATIVE Urine Glucose (UA) NEGATIVE NEGATIVE Urine Ketones 1+ H NEGATIVE Urine Nitrite NEGATIVE NEGATIVE Urine Bilirubin NEGATIVE NEGATIVE Urine Urobilinogen 1 NORMAL MG/DL Urine Leukocyte Esterase 1+ H NEGATIVE Urine RBC (Auto) 4+ H NEGATIVE Urine RBC 5-10 H /HPF Urine WBC 0-2 /HPF Urine Crystals NONE /LPF Urine Bacteria TRACE /HPF Urine Casts NONE /LPF Urine Mucus NEGATIVE /LPF Urine Culture Indicated NO My Orders Orders - SALOMÓN GARCIA APRN Cbc With Automated Diff (08/24/19 15:03) Comprehensive Metabolic Panel (08/24/19 15:03) Lipase (08/24/19 15:03) Ed Iv/Invasive Line Start (08/24/19 15:03) Antacid Suspension (Mylanta Suspension (08/24/19 15:15) Lidocaine 2% Viscous 15 Ml (Xylocaine Vi (08/24/19 15:15) Ondansetron Injection (Zofran Injectio (08/24/19 15:15) Ua Culture If Indicated (08/24/19 15:10) Ct Abdomen/Pelvis Wo (08/24/19 16:12) Medications Given in ED Current Medications Medications Dose Ordered Sig/Margareth Route Start Time Stop Time Status Last Admin Dose Admin Al Hydrox/Mg Hydrox/Simethicone 30 ml ONCE ONCE PO 08/24/19 15:15 08/24/19 15:16 DC 08/24/19 15:17 30 ML Lidocaine HCl 15 ml ONCE ONCE PO 08/24/19 15:15 08/24/19 15:16 DC 08/24/19 15:17 15 ML Ondansetron HCl 8 mg ONCE ONCE IVP 08/24/19 15:15 08/24/19 15:16 DC 08/24/19 15:20 8 MG Vital Signs/I&O 08/24/19 14:32 Temp 35.9 Pulse 87 Resp 18 B/P (MAP) 116/83 (94) Pulse Ox 98 Blood Pressure Mean: 94 POS Departure Communication (Admissions) 1702-pain is completely resolved with a GI cocktail. Impression Primary Impression: Gastritis Qualified Codes: K29.00 - Acute gastritis without bleeding Disposition: HOME, SELF-CARE Condition: Stable Departure-Patient Inst. Decision time for Depature: 17:04 Referrals: [facility]/ (PCP) Primary Care Physician PAULA CHILDRESS (Family) Primary Care Physician DANISHA OLIVERA BRETT D DO KIDO, TAKAAKI MD Patient Instructions: Colitis, Gastritis Add. Discharge Instructions: 1. Follow-up withone of the surgeons listed. . All discharge instructions reviewed with patient and/or family. Voiced understanding. Scripts Sucralfate (Carafate) 1 Gm/10 Ml Oral.susp 1 GM PO ACHS, #400 ML Prov: SALOMÓN GARCIA ASSEMBLER FINAL 08/24/19 SALOMÓN GARCIA ASSEMBLER FINAL Aug 24, 2019 15:06 POS
[2019-08-24] MEDS ORDERED: LIDOCAINE 2% VISCOUS 15 ML UDC PO ONE (15:15)
[2019-08-24] MEDS ORDERED: ONDANSETRON 4 MG/2 ML (SDV) Z0FRAN IVP ONE (15:15)
[2019-08-24] MEDS ORDERED: ANTACID SUSP 30 ML UDC (MYLANTA) PO ONE (15:15)
[2019-08-24 15:28] LABS: BASOPHILS % (AUTO) 0 % (0-10); EOSINOPHILS # (AUTO) 0.1 10^3/uL (0.0-0.3); EOSINOPHILS % (AUTO) 1 % (0-10); HEMATOCRIT 47 % (35-52); HEMOGLOBIN 16.1 G/DL (11.5-16.0); LYMPHOCYTES # (AUTO) 2.8 X 10^3 (1.0-4.0); LYMPHOCYTES % (AUTO) 29 % (12-44); MEAN CORPUSCULAR HEMOGLOBIN 30 PG (25-34); MEAN CORPUSCULAR HGB CONC 34 G/DL (32-36); MEAN CORPUSCULAR VOLUME 90 FL (80-99); MEAN PLATELET VOLUME 11.4 FL (7.4-10.4); MONOCYTES # (AUTO) 0.7 X 10^3 (0.0-1.0); MONOCYTES % (AUTO) 8 % (0-12); NEUTROPHILS # (AUTO) 5.9 X 10^3 (1.8-7.8); NEUTROPHILS % (AUTO) 62 % (42-75); PLATELET COUNT 275 10^3/uL (130-400); RED CELL DISTRIBUTION WIDTH 13.3 % (10.0-14.5); WHITE BLOOD COUNT 9.5 10^3/uL (4.3-11.0)
[2019-08-24 15:49] LABS: ALANINE AMINOTRANSFERASE 18 U/L (0-55); ALBUMIN 4.3 GM/DL (3.2-4.5); ALKALINE PHOSPHATASE 89 U/L (40-136); BILIRUBIN,TOTAL 0.5 MG/DL (0.1-1.0); BUN/CREATININE RATIO 12; CALCIUM 9.7 MG/DL (8.5-10.1); CARBON DIOXIDE 22 MMOL/L (21-32); CHLORIDE 106 MMOL/L (98-107); CREATININE SERUM 0.78 MG/DL (0.60-1.30); GFR ESTIMATED > 60; GLUCOSE 118 MG/DL (70-105); LIPASE 10 U/L (8-78); POTASSIUM 3.9 MMOL/L (3.6-5.0); SODIUM 140 MMOL/L (135-145); TOTAL PROTEIN 7.8 GM/DL (6.4-8.2)
[2019-08-24 15:54] LABS: BILIRUBIN,URINE NEGATIVE (NEGATIVE); CLARITY,URINE SLIGHTLY CLOUDY; COLOR,URINE YELLOW; GLUCOSE, URINE (UA) NEGATIVE (NEGATIVE); KETONES,URINE 1+ (NEGATIVE); LEUKOCYTE ESTERASE ,URINE 1+ (NEGATIVE); NITRITE,URINE NEGATIVE (NEGATIVE); PH,URINE 5 (5-9); PROTEIN,URINE 2+ (NEGATIVE)
[2019-08-24 16:17] LABS: BACTERIA,URINE TRACE /HPF; WBC,URINE 0-2 /HPF
--- NOTE | 2019-08-24 17:04 | Diagnostic Imaging Report ---
PROCEDURE: CT abdomen and pelvis without contrast. TECHNIQUE: Multiple contiguous axial images were obtained through the abdomen and pelvis without the use of intravenous contrast. Auto Exposure Controls were utilized during the CT exam to meet ALARA standards for radiation dose reduction. INDICATION: Upper abdominal pain with nausea and vomiting. COMPARISON: May 29, 2019, and June 08, 2017. FINDINGS: Bilateral subpleural fibrosis is again noted within the lungs. Postsurgical changes are again noted about the GE junction, appearing similar to the prior examination, likely related to prior hiatal hernia repair. Cholecystectomy. The unenhanced liver, spleen, adrenal glands, and pancreas are unremarkable. The kidneys are unremarkable. Mild scattered vascular calcifications without aneurysmal dilatation of the abdominal aorta. The urinary bladder is decompressed, therefore not well evaluated. The uterus is not visualized, likely surgically absent. No abnormal adnexal mass lesion. The appendix is unremarkable. The colon is poorly distended, though there is mural thickening throughout the majority of the colon with some adjacent fat stranding present, particularly involving the transverse colon. No bowel obstruction or pneumatosis. No significant adenopathy, free air, or free fluid within the abdomen or pelvis. No acute osseous abnormality with mild scattered osseous degenerative changes. IMPRESSION: 1. Mural thickening of the majority of the colon is favored relate to mild colitis, likely of an infectious or inflammatory process. 2. No renal or ureteral calculi. 3. Cholecystectomy, hysterectomy, and postsurgical changes at the gastroesophageal junction. 4. Bibasilar interstitial lung disease. Dictated by: Dictated on workstation # [id number]
[2019-08-24] MEDS ORDERED: SUCR1ORA5 PO (17:06)
[2019-08-24 17:14] VITALS: BP 120/80
== END 2019-08-24 17:18 | disposition home or self-care (01) ==
LOC: EDUNIT# 14:30 → ER 14:31
DX: K29.70 Gastritis, unspecified, without bleeding (principal); J44.9 Chronic obstructive pulmonary disease, unspecified; F90.9 Attention-deficit hyperactivity disorder, unspecified type; F43.10 Post-traumatic stress disorder, unspecified; F31.9 Bipolar disorder, unspecified; F44.81 Dissociative identity disorder; F17.210 Nicotine dependence, cigarettes, uncomplicated; Z86.73 Personal history of transient ischemic attack (TIA), and cerebral infarction without residual deficits; Z85.41 Personal history of malignant neoplasm of cervix uteri; Z90.710 Acquired absence of both cervix and uterus; Z90.89 Acquired absence of other organs; Z88.8 Allergy status to other drugs, medicaments and biological substances; Z91.041 Radiographic dye allergy status
CPT/HCPCS: 36415; 74176; 80053; 81000; 83690; 85025

== ENCOUNTER 2019-10-10 09:13 | Emergency (ER) | payer MEDICAID ==
[~2019-10-10] VITALS: Ht 165 cm; Wt 63.6 kg
[~2019-10-10 09:13] MED LIST changes: +SUCR1ORA5 PO
[2019-10-10 09:37] LABS: BASOPHILS % (AUTO) 0 % (0-10); EOSINOPHILS # (AUTO) 0.1 10^3/uL (0.0-0.3); EOSINOPHILS % (AUTO) 1 % (0-10); HEMATOCRIT 45 % (35-52); HEMOGLOBIN 15.3 G/DL (11.5-16.0); LYMPHOCYTES # (AUTO) 3.4 X 10^3 (1.0-4.0); LYMPHOCYTES % (AUTO) 30 % (12-44); MEAN CORPUSCULAR HEMOGLOBIN 30 PG (25-34); MEAN CORPUSCULAR HGB CONC 34 G/DL (32-36); MEAN CORPUSCULAR VOLUME 89 FL (80-99); MEAN PLATELET VOLUME 11.4 FL (7.4-10.4); MONOCYTES # (AUTO) 0.9 X 10^3 (0.0-1.0); MONOCYTES % (AUTO) 8 % (0-12); NEUTROPHILS # (AUTO) 6.8 X 10^3 (1.8-7.8); NEUTROPHILS % (AUTO) 61 % (42-75); PLATELET COUNT 274 10^3/uL (130-400); RED CELL DISTRIBUTION WIDTH 13.6 % (10.0-14.5); WHITE BLOOD COUNT 11.1 10^3/uL (4.3-11.0)
[2019-10-10] MEDS ORDERED: ANTACID SUSP 30 ML UDC (MYLANTA) PO ONE (09:45)
[2019-10-10] MEDS ORDERED: LIDOCAINE 2% VISCOUS 15 ML UDC PO ONE (09:45)
[2019-10-10] MEDS ORDERED: FAMOTIDINE 20MG/2ML IV (PEPCID) IVP ONE (09:45)
[2019-10-10] MEDS ORDERED: ASPIRIN 81 MG CHEW (CHILDREN'S ASA) PO ONE (09:45)
[2019-10-10 09:54] LABS: PROTHROMBIN TIME PATIENT 13.3 SEC (12.2-14.7)
[2019-10-10 09:56] LABS: ALANINE AMINOTRANSFERASE 16 U/L (0-55); ALBUMIN 4.2 GM/DL (3.2-4.5); ALKALINE PHOSPHATASE 88 U/L (40-136); BILIRUBIN,TOTAL 0.5 MG/DL (0.1-1.0); BUN/CREATININE RATIO 15; CALCIUM 9.7 MG/DL (8.5-10.1); CARBON DIOXIDE 19 MMOL/L (21-32); CHLORIDE 105 MMOL/L (98-107); CREATININE SERUM 0.82 MG/DL (0.60-1.30); GFR ESTIMATED > 60; GLUCOSE 111 MG/DL (70-105); LIPASE 12 U/L (8-78); MAGNESIUM 1.7 MG/DL (1.6-2.4); POTASSIUM 3.8 MMOL/L (3.6-5.0); SODIUM 137 MMOL/L (135-145); TOTAL PROTEIN 7.3 GM/DL (6.4-8.2)
--- NOTE | 2019-10-10 10:53 | Diagnostic Imaging Report ---
INDICATION: Chest pain. FINDINGS: No focal infiltrate, failure, effusion or pneumothorax. Lungs are hyperexpanded with flattening of the diaphragms and retrosternal airspace expansion suggestive of air trapping. No pneumonia. No failure. No pleural abnormality. IMPRESSION: Clear hyperexpanded lungs otherwise negative. Dictated by: Dictated on workstation # [id number]
[2019-10-10] MEDS ORDERED: ONDANSETRON 4 MG/2 ML (SDV) Z0FRAN IVP ONE (11:00)
[2019-10-10] MEDS ORDERED: PANTOPRAZOLE 40 MG (PROTONIX) VIAL IV ONE ×2 (11:45)
[2019-10-10] MEDS ORDERED: SUCR1TAB36 PO (13:06)
--- NOTE | 2019-10-10 13:07 | ED Chest Pain ---
General Chief Complaint: Chest Wall Stated Complaint: CHEST PAIN Nursing Triage Note: AMB TO ROOM C/O COUGH FOR 2 WEEKS ONSET OF CHEST PAIN THIS AM . ALSO REPORTS IS HOMELESS AND LIVING IN A GARAGE Nursing Sepsis Screen: No Definite Risk Source: patient Exam Limitations: no limitations History of Present Illness Date Seen by Provider: Oct 10, 2019 Time Seen by Provider: 09:28 Initial Comments This 54-year-old woman presents to the emergency room with complaints of chest and epigastric pain that started around 08:00, cough for a couple of weeks, shortness of air, increased discomfort with deep breathing, and improvement of symptoms with activity. She is afebrile. She reports history of cardiac catheterization but no interventions performed. 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 Saravia she has not established with anyone new since his practice was closed. She has significant history of hiatal hernia with multiple repairs as well as ulcers. Patient and her significant other are presently living in a garage unit with a space heater. Allergies and Home Medications Allergies Coded Allergies: Iodinated Contrast Media - IV Dye (Unverified Allergy, Severe, 09/27/06) Uncoded Allergies: TAPE (Allergy, Unknown, 09/27/06) Home Medications Budesonide 90 Mcg Aer.pow.ba, 90 MCG IH BID, (Reported) Cetirizine HCl 10 Mg Tablet, 10 MG PO DAILY, (Reported) Cyclobenzaprine HCl 10 Mg Tablet, 10 MG PO TID, (Reported) Cyclobenzaprine HCl 10 Mg Tablet, 10 MG PO Q8H PRN for SPASMS Prescribed by: HOSSEIN ALMEIDA on 12/18/181816 Dicyclomine HCl 20 Mg Tablet, 20 MG PO QID, (Reported) Duloxetine HCl 60 Mg Capsule.dr, 120 MG PO DAILY, (Reported) Fludrocortisone Acetate 0.1 Mg Tablet, 1 TAB PO BID, (Reported) Hydrocodone Bit/Acetaminophen 1 Tab Tab, 1 EACH PO Q4-6HR PRN for PAIN-MODERATE Prescribed by: SALOMÓN GARCIA on 07/14/191757 Levothyroxine Sodium 50 Mcg Tablet, 50 MCG PO DAILY, (Reported) Meloxicam 15 Mg Tablet, 15 MG PO DAILY, (Reported) Midodrine HCl 5 Mg Tablet, 5 MG PO BID, (Reported) Oxybutynin Chloride 15 Mg Tab.er.24, 15 MG PO DAILY, (Reported) Pantoprazole Sodium 40 Mg Tablet.dr, 40 MG PO DAILY, (Reported) Sucralfate 1 Gm Tablet, 1 GM PO QID, (Reported) Sucralfate 1 Gm/10 Ml Oral.susp, 1 GM PO ACHS Prescribed by: SALOMÓN GARCIA on 08/24/19 1706 Sucralfate 1 Gm Tablet, 1 GM PO QID Crush or dissolved in 10 mL water to create slurry. Take 30 minutes prior to meals and bedtime Prescribed by: KASSIE DELACRUZ on 10/10/19 1306 Tramadol HCl 50 Mg Tablet, 50 MG PO Q6H PRN for PAIN-MODERATE Prescribed by: HOSSEIN ALMEIDA on 12/18/18 1817 Patient Home Medication List Home Medication List Reviewed: Yes Review of Systems Review of Systems Constitutional: no symptoms reported EENTM: No Symptoms Reported Respiratory: See HPI Cardiovascular: See HPI Gastrointestinal: See HPI Genitourinary: No Symptoms Reported Musculoskeletal: no symptoms reported Skin: no symptoms reported Psychiatric/Neurological: No Symptoms Reported Endocrine: No Symptoms Reported Hematologic/Lymphatic: No Symptoms Reported Past Poyobfe-Yucntg-Nirufa Hx Past Med/Social Hx: Reviewed and Corrections made Patient Social History Alcohol Use: Denies Use Recreational Drug Use: No Drug of Choice: MARIJUANA Smoking Status: Current Everyday Smoker Type Used: Cigarettes 2nd Hand Smoke Exposure: Yes Recent Foreign Travel: No Contact w/Someone Who Travel: No Recent Infectious Disease Expo: No Recent Hopitalizations: No Immunizations Up To Date Tetanus Booster (TDap): Unknown PED Vaccines UTD: Yes Date of Influenza Vaccine: Jul 25, 2018 Seasonal Allergies Seasonal Allergies: Yes Past Medical History Surgeries: Yes (hiatal hernia x3) Bowel Surgery, Cardiac, Gallbladder, Hysterectomy, Orthopedic, Tonsillectomy Respiratory: Yes COPD Currently Using CPAP: No Currently Using BIPAP: No Cardiac: Yes Hypotension (Orthostatic), Peripheral Vascular (Venous insufficiency), Valvular Heart Disease (MVP) Neurological: No Stroke, TIA 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 Disorders: No OVEN HEATER History: Hysterectomy Sexually Transmitted Disease: No Genitourinary: No Gastrointestinal: Yes Hiatal Hernia Musculoskeletal: Yes Degenerate Disk Disease, Osteoporosis, Scoliosis Endocrine: No HEENT: Yes (sinus infections) Cancer: Yes Cervical Did You Recieve Any Treatments: Yes What Type of Treatment Did You: Surgical Intervention Psychosocial: Yes (multiple personality disorder) ADD/ADHD, PTSD, Bipolar Integumentary: No Blood Disorders: No Adverse Reaction/Blood Tranf: No Family Medical History No Pertinent Family Hx Physical Exam Vital Signs Vital Signs - First Documented 10/10/19 09:16 Temp 36.3 Pulse 98 Resp 18 B/P (MAP) 120/89 (99) Pulse Ox 94 O2 Delivery Room Air Capillary Refill : Less Than 3 Seconds Height, Weight, BMI Height: 5'3.00" Weight: 135lbs. oz. 61.761514cn; 23.00 BMI Method:Stated General Appearance: WD/WN, Mild Distress HEENT: PERRL/EOMI, Normal ENT Inspection Neck: Normal Inspection Respiratory: Lungs Clear, Normal Breath Sounds, No Accessory Muscle Use, No Respiratory Distress, Other (Anterior chest wall tender to palpation) Cardiovascular: Regular Rate, Rhythm, No Edema, No Murmur, Normal Peripheral Pulses Gastrointestinal: Normal Bowel Sounds, Soft, Tenderness (Epigastrium, negative Bernstein) Extremity: Normal Inspection, No Pedal Edema, Calf Tenderness (Left leg) Neurologic/Psychiatric: Alert, Oriented x3, No Motor/Sensory Deficits, 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 II- XII Norm as Tested, Other (Is mildly anxious) Skin: Normal Color, Warm/Dry Progress/Results/Core Measures Results/Orders Lab Results Laboratory Tests Test 10/10/19 09:26 10/10/19 12:02 Range/Units White Blood Count 11.1 H 4.3-11.0 10^3/uL Red Blood Count 5.07 4.35-5.85 10^6/uL Hemoglobin 15.3 11.5-16.0 G/DL Hematocrit 45 35-52 % Mean Corpuscular Volume 89 80-99 FL Mean Corpuscular Hemoglobin 30 25-34 PG Mean Corpuscular Hemoglobin Concent 34 32-36 G/DL Red Cell Distribution Width 13.6 10.0-14.5 % Platelet Count 274 130-400 10^3/uL Mean Platelet Volume 11.4 H 7.4-10.4 FL Neutrophils (%) (Auto) 61 42-75 % Lymphocytes (%) (Auto) 30 12-44 % Monocytes (%) (Auto) 8 0-12 % Eosinophils (%) (Auto) 1 0-10 % Basophils (%) (Auto) 0 0-10 % Neutrophils # (Auto) 6.8 1.8-7.8 X 10^3 Lymphocytes # (Auto) 3.4 1.0-4.0 X 10^3 Monocytes # (Auto) 0.9 0.0-1.0 X 10^3 Eosinophils # (Auto) 0.1 0.0-0.3 10^3/uL Basophils # (Auto) 0.0 0.0-0.1 10^3/uL Prothrombin Time 13.3 12.2-14.7 SEC INR Comment 1.0 0.8-1.4 Activated Partial Thromboplast Time 26 24-35 SEC D-Dimer 0.44 0.00-0.49 UG/ML Sodium Level 137 135-145 MMOL/L Potassium Level 3.8 3.6-5.0 MMOL/L Chloride Level 105 98-107 MMOL/L Carbon Dioxide Level 19 L 21-32 MMOL/L Anion Gap 13 5-14 MMOL/L Blood Urea Nitrogen 12 7-18 MG/DL Creatinine 0.82 0.60-1.30 MG/DL Estimat Glomerular Filtration Rate > 60 BUN/Creatinine Ratio 15 Glucose Level 111 H 70-105 MG/DL Calcium Level 9.7 8.5-10.1 MG/DL Corrected Calcium 9.5 8.5-10.1 MG/DL Magnesium Level 1.7 1.6-2.4 MG/DL Total Bilirubin 0.5 0.1-1.0 MG/DL Aspartate Amino Transf (AST/SGOT) 14 5-34 U/L Alanine Aminotransferase (ALT/SGPT) 16 0-55 U/L Alkaline Phosphatase 88 40-136 U/L Myoglobin 74.4 10.0-92.0 NG/ML Troponin I < 0.028 < 0.028 <0.028 NG/ML Total Protein 7.3 6.4-8.2 GM/DL Albumin 4.2 3.2-4.5 GM/DL Lipase 12 8-78 U/L My Orders Orders - KASSIE TRAN MD Ekg Tracing (10/10/19 09:15) Cbc With Automated Diff (10/10/19 09:29) Magnesium (10/10/19 09:29) Comprehensive Metabolic Panel (10/10/19:) Myoglobin Serum (10/10/19:29) Protime With Inr (10/10/19:29) Partial Thromboplastin Time (10/10/19 09:29) O2 (10/10/19 09:29) Monitor-Rhythm Ecg Trace Only (10/10/19 09:29) Ed Iv/Invasive Line Start (10/10/19 09:29) Fibrin Degradation Products (10/10/19 09:36) Lidocaine 2% Viscous 15 Ml (Xylocaine Vi (10/10/19 09:45) Antacid Suspension (Mylanta Suspension (10/10/19 09:45) Aspirin Chewable Tablet (Baby Aspirin Ch (10/10/19 09:45) Famotidine Injection (Pepcid Injection) (10/10/19 09:45) Troponin I (10/10/19 09:26) Lipase (10/10/19 09:26) Chest Pa/Lat (2 View) (10/10/19 10:22) Ondansetron Injection (Zofran Injectio (10/10/19 11:00) Troponin I (10/10/19 12:00) Pantoprazole Injection (Protonix Injecti (10/10/19 11:45) Pantoprazole Injection (Protonix Injecti (10/10/19 11:45) Medications Given in ED Current Medications Medications Dose Ordered Sig/Margareth Route Start Time Stop Time Status Last Admin Dose Admin Al Hydrox/Mg Hydrox/Simethicone 30 ml ONCE ONCE PO 10/10/19 09:45 10/10/19 09:46 DC 10/10/19 09:52 30 ML Aspirin 324 mg ONCE ONCE PO 10/10/19 09:45 10/10/19 09:46 DC 10/10/19 09:51 324 MG Famotidine 20 mg ONCE ONCE IVP 10/10/19 09:45 10/10/19 09:46 DC 10/10/19 09:50 20 MG Lidocaine HCl 15 ml ONCE ONCE PO 10/10/19 09:45 10/10/19 09:46 DC 10/10/19 09:52 15 ML Ondansetron HCl 8 mg ONCE ONCE IVP 10/10/19 11:00 10/10/19 11:01 DC 10/10/19 10:59 8 MG Pantoprazole 40 mg ONCE ONCE IV 10/10/19 11:45 10/10/19 11:46 DC 10/10/19 11:51 40 MG Vital Signs/I&O 10/10/19 10/10/19 09:16 13:26 Temp 36.3 36.3 Pulse 98 90 Resp 18 18 B/P (MAP) 120/89 (99) 97/82 (99) Pulse Ox 94 96 O2 Delivery Room Air Room Air Blood Pressure Mean: 99 POS Progress Progress Note : Time: 13:02 Progress Note Patient experienced improvement in her pain after GI cocktail and Pepcid. She was further treated with IV Protonix which improved her symptoms even further. Repeat troponin was negative. Patient was sleeping comfortably just prior to discharge. Initial ECG Impression Date: Oct 10, 2019 Initial ECG Impression Time: 09:19 Initial ECG Rate: 96 Initial ECG Rhythm: Normal Sinus Comment Sinus rhythm with no ST elevation or depression. No abnormal intervals or axis deviation. Diagnostic Imaging Diagonstic Imaging: Xray Plain Films/CT/US/NM/MRI: chest Comments Chest x-ray viewed by me and report reviewed. See report below: NAME: KAROL COLON [facility] REC#: [id number] PT STATUS: DEP ER : 1965 PHYSICIAN: KASSIE TRAN MD ADMIT DATE: 10/10/19/ER Signed Date of Exam:10/10/19 CHEST PA/LAT (2 VIEW) INDICATION: Chest pain. FINDINGS: No focal infiltrate, failure, effusion or pneumothorax. Lungs are hyperexpanded with flattening of the diaphragms and retrosternal airspace expansion suggestive of air trapping. No pneumonia. No failure. No pleural abnormality. IMPRESSION: Clear hyperexpanded lungs otherwise negative. Dictated by: Dictated on workstation # [id number] Dict: 10/10/19 1039 Trans: 10/10/19 1650 [id number] Interpreted by: QUENTIN BANKS Electronically signed by: QUENTIN BANKS 10/10/19 1650 Departure Impression Primary Impression: Atypical chest pain Additional Impression: Epigastric pain Disposition: 01 HOME, SELF-CARE Condition: Improved Departure-Patient Inst. Decision time for Depature: 13:03 Referrals: [facility] (PCP) Primary Care Physician PAULA CHILDRESS (Family) Primary Care Physician Patient Instructions: Acute Abdomen (Belly Pain), Chest Pain (DC) Add. Discharge Instructions: Continue with your medications as previously prescribed. Add Carafate (sucralfate) as prescribed. Use about 5-10 ML's of water to soften the tablet and make a slurry. Drink 30 minutes before eating and drinking and again at bedtime. Follow-up with your primary care provider and drafter automotive design layout as soon as possible. Return to the emergency room if you have worsening symptoms. Avoid the following: Eating close to bedtime, eating large meals, caffeine, carbonation, chocolate, citrus fruits and juices, alcohol, tobacco products, tomato products, NSAID medications such as ibuprofen or naproxen, mints, spicy foods, or anything else you know irritates your stomach. All discharge instructions reviewed with patient and/or family. Voiced understanding. Scripts Sucralfate (Carafate) 1 Gm Tablet 1 GM PO QID, #120 TAB Crush or dissolved in 10 mL water to create slurry. Take 30 minutes prior to meals and bedtime Prov: KASSIE TRAN MD 10/10/19 Copy Copies To 1: BHARTI KIM JOSHUA T MD Oct 10, 2019 13:07 POS
[2019-10-10 13:26] VITALS: BP 97/82
== END 2019-10-10 13:26 | disposition home or self-care (01) ==
LOC: EDUNIT# 09:13 → ER 09:15
DX: R07.89 Other chest pain (principal); R10.13 Epigastric pain; J44.9 Chronic obstructive pulmonary disease, unspecified; F90.9 Attention-deficit hyperactivity disorder, unspecified type; F43.10 Post-traumatic stress disorder, unspecified; F31.9 Bipolar disorder, unspecified; F60.89 Other specific personality disorders; F17.210 Nicotine dependence, cigarettes, uncomplicated; Z90.710 Acquired absence of both cervix and uterus; Z90.89 Acquired absence of other organs; Z86.73 Personal history of transient ischemic attack (TIA), and cerebral infarction without residual deficits; Z88.8 Allergy status to other drugs, medicaments and biological substances; Z91.041 Radiographic dye allergy status
CPT/HCPCS: 36415; 71046; 80053; 83690; 83735; 83874; 84484; 85025; 85379; 85610; 85730; 93005; 93041

== ENCOUNTER → 2019-10-26 | Outpatient (CLI) | payer MEDICAID ==
[~2019-10-26] MED LIST changes: +CATHETER FLUSH 10 ML SYR IV PRN; -TRAM50TA2 PO; +TRM50T PO
--- NOTE | 2019-10-26 17:26 | Diagnostic Imaging Report ---
INDICATION: Shortness of breath. TECHNIQUE: Ventilatory images were performed following inhalation of aerosolized 39.2 mCi technetium DTPA. Perfusion imaging was performed following the intravenous administration of 5.4 mCi technetium 99m MAA. COMPARISON: Most recent relevant correlated chest x-ray was performed on 10/10/2019. FINDINGS: There was no mismatch defect. The study was unremarkable. No findings of PE. This is a normal study. IMPRESSION: Normal V/Q lung scan. Dictated by: Dictated on workstation # [id number]
== END ==
LOC: CARD 14:28
PROVIDERS: ATTEND Nurse Practitioner
DX: R06.02 Shortness of breath (principal); R79.89 Other specified abnormal findings of blood chemistry
CPT/HCPCS: 78582

== ENCOUNTER → 2020-06-25 | Outpatient (CLI) | payer MEDICAID ==
[~2020-06-25] MED LIST changes: +ACHYD1T PO; -CATHETER FLUSH 10 ML SYR IV PRN; -CETI10TA20 PO; +CETI10TA21 PO; -HYDR-3820 PO; -MIDO5TAB PO; +MIDO5TAB3 PO; -OLOP2.5D OP; +OLOP2.5D12 OP; -OMEP20CA13 PO; +OMEP20CA18 PO; -OXYB15TA PO; +OXYB15TA19 PO
--- NOTE | 2020-06-25 14:35 | Diagnostic Imaging Report ---
INDICATION: Postmenopausal screening for osteoporosis and back pain. COMPARISON: None. FINDINGS: AP Spine L1-L4: [BMD (g/cm2): 0.964] [T-Score: -2.0] [Z-Score: -1.1] [BMD Previous: na] [BMD % Change: na] LT Hip Neck: [BMD (g/cm2): 0.724] [T-Score: -2.3] [Z-Score: -1.2] LT Hip Total: [BMD (g/cm2):0.851] [T-Score:-1.2] [Z-Score: -0.6] [BMD Previous: na] [BMD % Change: na] RT Hip Neck: [BMD (g/cm2):0.734] [T-Score:-2.2] [Z-Score:-1.1] RT Hip Total: [BMD (g/cm2):0.824] [T-score:-1.5] [Z-Score:-0.8] [BMD Previous:na] [BMD % Change:na] *Indicates significant change from prior examination based on 95% confidence level. World Health Organization criteria for BMD interpretation classify patients as Normal (T-score at or above -1.0), Osteopenic (T-score between -1.0 and -2.5) or Osteoporotic (T-score at or below -2.5). LIMITATIONS AND MODIFICATION: None. FRACTURE RISK (FRAX SCORE): The ten year probability of (%): Major Osteoporotic Fracture: [9.7] Hip Fracture: [2.4] IMPRESSION: 1. Osteopenia (Low bone mass). 2. Baseline examination. 3. See below National Osteoporosis Foundation guidelines on when to potentially initiate pharmacologic therapy. Based on the National Osteoporosis Foundation Guidelines, pharmacologic treatment should be initiated in any of the following, unless clinical conditions suggest otherwise: * Any patient with prior fragility fracture of the hip or vertebrae. A spine fracture indicates 5X risk for subsequent spine fracture and 2X risk for subsequent hip fracture. * Osteoporosis (T-score <-2.5). * Postmenopausal women and men age 50 and older with low bone mass/osteopenia (T-score between -1.0 and -2.5) by DXA and 10-year major osteoporotic fracture greater than 20% or a 10-year probability of hip fracture greater than 3%. These fracture risks are supplied above in the FRAX score, if applicable. * Clinician judgement and/or patient preferences may indicate treatment for people with 10-year fracture probabilities above or below these levels. Dictated by: Dictated on workstation # [id number]
== END ==
LOC: RAD 12:56
PROVIDERS: ATTEND Nurse Practitioner Community Health
DX: Z13.820 Encounter for screening for osteoporosis (principal); M54.5 Low back pain; M85.89 Other specified disorders of bone density and structure, multiple sites; Z78.0 Asymptomatic menopausal state
CPT/HCPCS: 77080

== ENCOUNTER → 2021-01-13 | Outpatient (CLI) | payer MEDICAID ==
[~2021-01-13] MED LIST changes: -CETI10TA21 PO; +CETI10TA49 PO; -CLIN150C17 PO; +CLIN150C18 PO; -PANT40TA3 PO; +PANT40TA52 PO
--- NOTE | 2021-01-13 21:35 | Diagnostic Imaging Report ---
EXAMINATION: Magnetic resonance imaging of the left knee without intravenous contrast DATE: January 13, 2021. COMPARISON: Left knee radiographs July 14, 2019. INDICATION: 55-year-old female, fall 2 weeks ago. Left knee pain. TECHNIQUE: Multiplanar, multisequence non contrast enhanced MR imaging was accomplished. FINDINGS: MENISCI: The medial meniscus is intact. The lateral meniscus is intact. LIGAMENTS AND TENDONS: The anterior and posterior cruciate ligaments are intact. The medial collateral ligament is intact. The iliotibial band, mid third lateral capsular ligament, fibular collateral ligament, biceps femoris tendon and conjoined tendon are intact. The quadriceps tendon and patella ligament are intact. JOINT: The articular cartilage surfaces are intact. There is no knee joint effusion, prominent synovitis, or intra-articular body. BONE: There is unremarkable bone marrow signal. Specifically, negative for fracture, osteomyelitis, osteonecrosis, or marrow replacing process. BURSAE AND SOFT TISSUES: There is low-level edema in the tibialis anterior, extensor digitorum longus, and peroneus longus muscles as well as tibialis posterior. The additional intramuscular signal is unremarkable. There is no Aguiar's cyst. IMPRESSION: 1. Intact menisci and cruciate ligaments. Additional ligaments and tendons are intact. 2. No acute fracture or bone contusion. 3. Intact articular cartilage. No knee joint effusion. 4. Low level edema in the tibialis anterior, extensor digitorum longus, and peroneus longus muscles as well as tibialis posterior. This potentially could reflect low-grade muscle strains, myositis, and/or early denervation related signal changes. There is no fatty muscle atrophy. Dictated by: Dictated on workstation # [id number]
== END ==
LOC: RAD 13:04
PROVIDERS: ATTEND Nurse Practitioner Family
DX: M25.562 Pain in left knee (principal)
CPT/HCPCS: 73721

== ENCOUNTER 2021-04-04 05:32 | Outpatient (RCR) | payer MEDICAID ==
[~2021-04-04] VITALS: Ht 160 cm; Wt 63.6 kg
== END 2021-04-04 09:22 | disposition home or self-care (01) ==
LOC: PREOP 05:32
PROVIDERS: ATTEND Surgery
DX: Z01.812 Encounter for preprocedural laboratory examination (principal); Z12.11 Encounter for screening for malignant neoplasm of colon; K21.9 Gastro-esophageal reflux disease without esophagitis; Z20.822 Contact with and (suspected) exposure to COVID-19
CPT/HCPCS: 87635

== ENCOUNTER → 2021-04-04 | Outpatient (CLI) | payer MEDICAID ==
[~2021-04-04] MED LIST changes: +DIAZ5TAB49 PO; +FLDR.1T PO; +FLUC100T6 PO; +LEVO75CA5 PO; +LORA-53 PO; +LURA40TA3 PO; +MONT10TA32 PO; +[UNRECOGNIZED DRUG - CODE] MC
--- NOTE | 2021-04-04 16:05 | Diagnostic Imaging Report ---
PROCEDURE: MR imaging cervical spine without contrast. TECHNIQUE: Multiplanar, multisequence MR imaging of the cervical spine was performed without contrast. INDICATION: Neck pain. COMPARISON: 08/06/2009. FINDINGS: No acute fracture or dislocation is seen in the cervical spine. There is normal alignment of the cervical spine. The vertebral body heights and disc spaces are well maintained. The bone marrow signal is unremarkable. No focal osseous lesions. The craniocervical junction is maintained. The cervical spinal cord demonstrates normal intrinsic signal. No epidural collections are seen. The included brainstem and posterior fossa have normal appearance. Multilevel degenerative changes are seen in the cervical spine with posterior disc bulges and uncovertebral arthropathy. C2-C3: No significant spinal canal or foraminal stenosis. C3-C4: No significant spinal canal or foraminal stenosis. C4-C5: Posterior disc bulge and uncovertebral arthropathy results in no significant spinal canal narrowing and no significant foraminal narrowing. C5-C6: Posterior disc bulge and uncovertebral arthropathy results in no significant spinal canal narrowing and [id number] right and mild left foraminal stenosis. C6-C7: Posterior disc bulge and uncovertebral arthropathy results in no significant spinal canal narrowing and no significant foraminal narrowing. C7-T1: No significant spinal canal or foraminal stenosis. The soft tissues of neck are unremarkable. IMPRESSION: 1. No acute fracture or dislocation of the cervical spine. 2. Multilevel degenerative changes in the cervical spine, greatest at C5-C6 and C6-C7. Dictated by: Dictated on workstation # [id number]
== END ==
LOC: RAD 13:15
PROVIDERS: ATTEND Nurse Practitioner Family
DX: M50.122 Cervical disc disorder at C5-C6 level with radiculopathy (principal); M50.123 Cervical disc disorder at C6-C7 level with radiculopathy
CPT/HCPCS: 72141

== ENCOUNTER → 2021-04-08 | Outpatient (CLI) | payer MEDICAID ==
--- NOTE | 2021-04-08 17:05 | Diagnostic Imaging Report ---
PROCEDURE: MRI lumbar spine. TECHNIQUE: Multiplanar, multisequence MRI of the lumbar spine was performed without contrast. DATE: April 08, 2021. COMPARISON: Lumbar spine radiographs December 18, 2018. INDICATION: 55-year-old female, low back pain. FINDINGS: The alignment of the lumbar spine is unremarkable. There is no evidence of a diffuse marrow infiltrating or replacing process. There is no compression deformity or acute fracture. There is no focal concerning bone lesion. There is severe disc height loss at L5-S1 with adjacent Modic endplate degenerative related changes. The additional disc heights are well preserved. The visualized cord and conus medullaris is unremarkable and terminates at the L1-L2 level. L1-L2: There is no disc bulge. The facet joints and ligamentum flavum are unremarkable. There is no foraminal narrowing. There is no spinal canal stenosis. L2-L3: There is no disc bulge. The facet joints and ligamentum flavum are unremarkable. There is no foraminal narrowing. There is no spinal canal stenosis. L3-L4: There is no disc bulge. The facet joints and ligamentum flavum are unremarkable. There is no foraminal narrowing. There is no spinal canal stenosis. L4-L5: There is no disc bulge. There are mild to moderate bilateral facet degenerative changes with mild ligamentum flavum hypertrophy. There is no foraminal narrowing. There is no spinal canal stenosis. L5-S1: There is diffuse disc bulge eccentric to the right. There is moderate to severe narrowing of the right lateral recess. The facet joints and ligamentum flavum are unremarkable. There is no foraminal narrowing. There is no spinal canal stenosis. IMPRESSION: 1. L5-S1 diffuse disc bulge eccentric to the right with moderate to severe narrowing of the right lateral recess. 2. Mild bilateral facet degenerative changes with ligamentum flavum hypertrophy at L4-L5 without foraminal or spinal stenosis. 3. No focal concerning bone lesion. Dictated by: Dictated on workstation # [id number]
--- NOTE | 2021-04-08 17:12 | Diagnostic Imaging Report ---
Exam: MRI thoracic spine without contrast. Date: April 08, 2021. Indication: 55-year-old female, mid back pain. Comparison: None. Technique: Multiple noncontrast MRI sequences of the thoracic spine were obtained. Findings: The alignment of the thoracic spine is unremarkable. There is no evidence of a diffuse marrow infiltrating or replacing process. There is no focal concerning bone lesion. There is no compression deformity or other fracture. There is no identified abnormal signal in the thoracic spinal cord. At T6-T7, there is a small right paracentral disc protrusion without spinal stenosis. There is no additional disc protrusion or extrusion identified at the level of the thoracic spine. There is no spinal stenosis at the level of the thoracic spine. Impression: 1. Very small right paracentral disc protrusion at T6-T7 without spinal stenosis. 2. No abnormal cord signal. 3. No bone marrow signal abnormality. Dictated by: Dictated on workstation # [id number]
== END ==
LOC: RAD 15:30
PROVIDERS: ATTEND Nurse Practitioner Family
DX: M47.816 Spondylosis without myelopathy or radiculopathy, lumbar region (principal); M51.24 Other intervertebral disc displacement, thoracic region; M51.27 Other intervertebral disc displacement, lumbosacral region; M48.07 Spinal stenosis, lumbosacral region; M24.28 Disorder of ligament, vertebrae
CPT/HCPCS: 72146; 72148

== ENCOUNTER 2021-05-15 05:31 | Outpatient (RCR) | payer MEDICAID ==
[~2021-05-15] VITALS: Ht 160 cm; Wt 36.6 kg
[~2021-05-15 05:31] MED LIST changes: +ALBU2.5V4 INH; +ASPI-789 PO; +FLUT9.9S NS; +IPRA4AER IH; +LINA290C PO; +MIRT-69 PO; +NITR0.4T39 SL
== END 2021-05-16 08:58 | disposition home or self-care (01) ==
LOC: PREOP 05:31
PROVIDERS: ATTEND Surgery
DX: Z01.812 Encounter for preprocedural laboratory examination (principal); Z12.11 Encounter for screening for malignant neoplasm of colon; K21.9 Gastro-esophageal reflux disease without esophagitis; Z20.822 Contact with and (suspected) exposure to COVID-19
CPT/HCPCS: 87635

== ENCOUNTER 2021-05-19 07:26 | Day surgery (SDC) | payer MEDICAID ==
[~2021-05-19] VITALS: Ht 160 cm; Wt 36.6 kg
[2021-05-19] MEDS ORDERED: LACTATED RINGERS 1,000 ML IV ONE (07:37)
[2021-05-19] MEDS ORDERED: LACTATED RINGERS 1,000 ML IV STA (07:54)
[2021-05-19] MEDS ORDERED: ONDANSETRON 4 MG/2 ML (SDV) Z0FRAN ONE (07:58)
[2021-05-19] MEDS ORDERED: ONDANSETRON 4 MG/2 ML (SDV) Z0FRAN IV ONE (08:00)
[2021-05-19] MEDS ORDERED: HURRICAINE EXT TUBE (BENZOCAINE) XX PRN (08:00)
[2021-05-19 08:01] VITALS: BP 112/78
[2021-05-19] MEDS ORDERED: MIDAZOLAM 2 MG/2 ML (VERSED) VIAL ONE (09:21)
[2021-05-19] MEDS ORDERED: PROPOFOL INJECTION 50 ML IV ONE (09:21)
[2021-05-19 10:00] VITALS: BP 98/57
--- NOTE | 2021-05-19 10:04 | Progress Note-Post Operative ---
Post-Operative Progess Note Surgeon (s)/Admeasurer (s) Surgeon DANISHA OLIVERA DO Admeasurer: none Pre-Operative Diagnosis Gastritis, Dysphagia, Screening colon Post-Operative Diagnosis Hiatal hernia gastritis polyps int hemorrhoids Procedure & Operative Findings Date of Procedure 05/19/21 Procedure Performed/Findings EGD with bx Colon with hot bx PROCEDURE NOTE: After informed consent was obtained, the patient was brought to the endoscopy suite, placed in bed in left lateral decubitus position. She was administered IV sedation by the COMMUNITY HEALTH COUNSELOR who then monitored vitals the entire time, heart rate, blood pressure and pulse ox and the scope was inserted down the mouth through the esophagus into the stomach. On the way down, noted some mild narrowing but able to easily pass the scope, pushed into the stomach, pushed past the antrum into the duodenum. Duodenum looked good. Pulled back and did a biopsy of antrum, then retroflexed the scope, saw small hiatal hernia and previous wrap, took a picture of this and then pulled the scope into the GE junction, noted the hiatal hernia and then did a biopsy of the GE junction. Pushed the scope back into the stomach, suctioned all the air out of the stomach. At this point pulled the scope up the esophagus and out the mouth. Next changed gloves and camera and went below to start the colonoscopy; scope was inserted, pushed all the way to about [address] in noted flat polyps in the descending and transverse colon and did hot biopsies of them. Pushed to the cecum, took a picture of appendiceal orifice and then slowly withdrew the scope insufflating to look c ircumferentially at the fernández starting in the cecum, up the ascending colon to the hepatic flexure, then down the transverse colon, splenic flexure, into the descending colon down in the sigmoid and then into the rectal vault and retroflexed he scope. Took picture of the internal hemorrhoids. The patient tolerated the procedure, and she recovered in endoscopy suite. Anesthesia Type IV sedation by COMMUNITY HEALTH COUNSELOR Estimated Blood Loss Estimated blood loss (mL): scant Specimens/Packing Specimens Removed antral bx GE jxn bx Transverse colon polyp desc colon polyp DANISHA OLIVERA DO May 19, 2021 10:04
[2021-05-19 10:05] VITALS: BP 87/60
--- NOTE | 2021-05-19 10:05 | Endoscopy Discharge Instruct ---
Endo Procedure/Findings Findings 1.: Gastritis 2.: Hiatal Hernia 3.: Polyp 4.: Internal Hemorrhoids Discharge Instructions - Activity: You might feel a little sleepy until tomorrow. This is due to the medicine you received to relax you. Until tomorrow, you should: NOT drive a car, operate machinery or power tools. NOT drink any alcoholic beverages. NOT make any important decisions or sign importortant papers. Do not return to work until tomorrow, unless otherwise instructed. Resume previous activities tomorrow. Diet: Start by taking liquids. If you tolerate liquids, advance to solid food. 1.: Colonscopy in 5 years 2.: EGD in 3 years Notify Physician - If you experience excessive bleeding, unusual abdominal pain, fever, or chest pain, contact your doctor immediately. DANISHA OLIVERA DO May 19, 2021 10:05
[2021-05-19 10:10] VITALS: BP 94/69
[2021-05-19 10:15] VITALS: BP 94/69
[2021-05-19 10:40] VITALS: BP 114/87
--- NOTE | 2021-05-19 13:12 | Anesthesia-General Post-Op ---
MAC Patient Condition Mental Status/LOC: Same as Preop Cardiovascular: Satisfactory Nausea/Vomiting: Absent Respiratory: Satisfactory Pain: Controlled Complications: Absent Post Op Complications Complications None Follow Up Care/Instructions Patient Instructions None needed. Anesthesiology Discharge Order Discharge Order Patient is doing well, no complaints, stable vital signs, no apparent adverse anesthesia problems. No complications reported per nursing. MARY INTERIANO CRNA May 19, 2021 13:12
== END 2021-05-19 11:24 | disposition home or self-care (01) ==
LOC: ENDO 07:26
PROVIDERS: ATTEND Surgery
DX: K29.50 Unspecified chronic gastritis without bleeding (principal); D12.4 Benign neoplasm of descending colon; K63.5 Polyp of colon; K44.9 Diaphragmatic hernia without obstruction or gangrene; K64.8 Other hemorrhoids; F17.210 Nicotine dependence, cigarettes, uncomplicated; F43.10 Post-traumatic stress disorder, unspecified; F90.9 Attention-deficit hyperactivity disorder, unspecified type; F31.9 Bipolar disorder, unspecified; Z79.890 Hormone replacement therapy; Z79.899 Other long term (current) drug therapy
CPT/HCPCS: 88305

== ENCOUNTER → 2021-09-11 | Outpatient (CLI) | payer MEDICAID ==
[~2021-09-11] MED LIST changes: +CATHETER FLUSH 10 ML SYR IV PRN; -CLIN150C18 PO; +CLIN150C20 PO; -DULO60CA6 PO; +DULO60CA7 PO; +REGADENOSON 0.4 MG/5 ML SYR (LEXISCAN) IV ONE
[2021-09-11 09:21] VITALS: BP 139/92
--- NOTE | 2021-09-11 18:44 | NUCLEAR STRESS TEST ---
REGADENOSON NUCLEAR STRESS Date of procedure: 09/11/2021. Primary care provider: [facility] Admitting physician: Kilo Birch Jr., MD. INDICATION: Abnormal electrocardiogram. BASELINE ELECTROCARDIOGRAM: Sinus rhythm with possible old septal myocardial infarction and diffuse, nonspecific T wave changes. STRESS TEST PROCEDURE: The patient was administered 0.4 mg of intravenous Regadenoson. The resting heart rate was 80 bpm and the peak heart rate was 140 bpm. The resting blood pressure was 139/92 mmHg and the minimum blood pressure was 125/94 mmHg. This represents a normal heart rate and a normal blood pressure response to Regadenoson. The test was stopped due to the protocol. There was no chest discomfort during the test. There were no arrhythmias during the test. There were no significant stress induced electrocardiogram changes. NUCLEAR PROCEDURE: The patient was administered 9.7 mCi of intravenous technetium 99m Tetrofosmin at rest for the rest images. The patient was subsequently administered 30 mCi of intravenous technetium 99m Tetrofosmin at peak stress for the stress images. Following an appropriate wait after each injection, imaging was obtained. The images were subsequently processed and reformatted in the usual views. Gated imaging was obtained. The image quality was adequate with a mild degree of gastrointestinal attenuation artifact. CT attenuation correction was used as a adjunct to standard imaging. Both the corrected and uncorrected images were reviewed for interpretation. NUCLEAR RESULTS: There was normal myocardial perfusion in all segments without evidence of infarction or ischemia. There was normal left ventricular chamber size with an end-diastolic volume of 25 mL and an end-systolic volume of 7 mL. There was no evidence of transient ischemic dilatation. The TID ratio was 1.06. There was normal wall motion in all segments with a calculated ejection fraction of 72%. IMPRESSION: 1. Normal heart rate and blood pressure response to regadenoson. 2. There was no chest discomfort, arrhythmias, or electrocardiogram changes during the test. 3. There was normal myocardial perfusion in all segments without evidence of infarction or ischemia. 4. There was normal wall motion in all segments with a calculated ejection fraction of 82%. Certain portions of this document may have been dictated utilizing voice recognition technology. Inherent to this technology, typographical and grammatical errors may exist. As much as I am diligent to identify and correct these mistakes, some errors may remain in the document. KILO BIRCH JR, MD Sep 11, 2021 18:44
== END ==
LOC: CARD 08:00
PROVIDERS: ATTEND Internal Medicine Cardiovascular Disease
DX: R94.31 Abnormal electrocardiogram [ECG] [EKG] (principal)
CPT/HCPCS: 78452; 93017

== ENCOUNTER 2021-09-12 08:30 | Outpatient (RCR) | payer MEDICAID ==
[~2021-09-12 08:30] MED LIST changes: -CATHETER FLUSH 10 ML SYR IV PRN; +CYCL10TA25 PO; -CYCL10TA9 PO; +DICY20TA PO; -DICY20TA10 PO; +MONT-40 PO; -MONT10TA32 PO; -REGADENOSON 0.4 MG/5 ML SYR (LEXISCAN) IV ONE
--- NOTE | 2021-10-20 14:00 | 30 Day Event Recorder ---
30-DAY EVENT RECORDER 30-DAY EVENT RECORDER DATE OF PROCEDURE: 09/14/2021-10/13/2021. INDICATION: Syncope. PROCEDURE: A 30-day event recorder was obtained for a total of 30 days. 17 rhythm strips were presented for review. The study quality is adequate. RESULTS: 1. The baseline tracing demonstrates sinus rhythm at a heart rate of approximately 98 bpm and during the study the heart rates ranged from 86-116 bpm with no arrhythmias. 2. There were 6 patient triggered events that correlated to sinus rhythm during one event in sinus tachycardia during the other events with heart rates ranging from 98-116 bpm with no arrhythmias. IMPRESSION: 1. This is a 30-day event monitor. 2. During the study the patient was in sinus rhythm and sinus tachycardia with heart rates ranging from 86-116 bpm with no arrhythmias. 3. There were 6 patient triggered events that correlated to sinus rhythm during one event in sinus tachycardia during the other events with heart rates ranging from 98-116 bpm with no arrhythmias. 4. There are no abnormalities on this study to explain syncope. Certain portions of this document may have been dictated utilizing voice recognition technology. Inherent to this technology, typographical and grammatical errors may exist. As much as I am diligent to identify and correct these mistakes, some errors may remain in the document. JESSI GILBRET JR, MD Oct 20, 2021 14:00
== END 2021-10-24 | disposition home or self-care (01) ==
LOC: CARD 08:30
PROVIDERS: ATTEND Internal Medicine Cardiovascular Disease
DX: R55 Syncope and collapse (principal)
CPT/HCPCS: 93270; 93306

== ENCOUNTER 2021-10-30 09:00 | Day surgery (SDC) | payer MEDICAID ==
[~2021-10-30] VITALS: Ht 160 cm; Wt 64.1 kg
[2021-10-30 08:49] VITALS: BP 117/76
[~2021-10-30 09:00] MED LIST changes: +LIDOCAINE 1% INJ 20 ML 20 ML VIAL ONE
--- NOTE | 2021-10-30 09:37 | Cardiac Procedure Note ---
Cardiology Procedures Date of Procedure 10/30/2021 IMPLANTABLE LOOP RECORDER INSERTION INDICATION: Syncope. PROCEDURE: After informed consent and in the fasting state, the left pectoral area was prepped and draped in the usual sterile fashion. The fourth intercostal space in the midclavicular line was infiltrated with 1% lidocaine for local anesthesia. I subsequently made a elizabeth in the skin using the insertion kit. I subsequently inserted a Medtronic LINQ II loop recorder using the insertion tool. Serial # [id number]. There was good R wave amplitude. The skin was closed with Dermabond. A sterile antibiotic dressing was applied. IMPRESSION: 1. Status post successful loop recorder insertion with a Medtronic LINQ II loop recorder (serial # [id number]). Certain portions of this document may have been dictated utilizing voice recognition technology. Inherent to this technology, typographical and grammatical errors may exist. As much as I am diligent to identify and correct these mistakes, some errors may remain in the document. JESSI GILBERT JR, MD Oct 30, 2021 09:37
[2021-11-04] MEDS ORDERED: ACHD5005 PO (07:24)
== END 2021-10-30 09:50 | disposition home or self-care (01) ==
LOC: CATH 09:00
PROVIDERS: ATTEND Internal Medicine Cardiovascular Disease
DX: I95.1 Orthostatic hypotension (principal); K21.9 Gastro-esophageal reflux disease without esophagitis; F31.9 Bipolar disorder, unspecified; F17.210 Nicotine dependence, cigarettes, uncomplicated; Z79.82 Long term (current) use of aspirin; Z79.899 Other long term (current) drug therapy; Z90.49 Acquired absence of other specified parts of digestive tract; Z86.73 Personal history of transient ischemic attack (TIA), and cerebral infarction without residual deficits; Z80.1 Family history of malignant neoplasm of trachea, bronchus and lung; Z82.49 Family history of ischemic heart disease and other diseases of the circulatory system
CPT/HCPCS: 33285

== ENCOUNTER 2021-11-02 22:40 | Emergency (ER) | payer MEDICAID ==
[~2021-11-02] VITALS: Ht 160 cm; Wt 64.1 kg
[~2021-11-02 22:40] MED LIST changes: -LIDOCAINE 1% INJ 20 ML 20 ML VIAL ONE
[2021-11-03] MEDS ORDERED: HYDROcodone/APAP 5 MG/325 MG (LORTAB) TAB PO ONE (01:00)
[2021-11-03 01:29] LABS: POTASSIUM 3.6 MMOL/L (3.6-5.0)
[2021-11-03 01:30] LABS: BASOPHILS # (AUTO) 0.1 10^3/uL (0.0-0.1); BASOPHILS % (AUTO) 1 % (0-10); CALCIUM 9.2 MG/DL (8.5-10.1); EOSINOPHILS # (AUTO) 0.2 10^3/uL (0.0-0.3); EOSINOPHILS % (AUTO) 2 % (0-10); HEMATOCRIT 46 % (35-52); HEMOGLOBIN 14.8 g/dL (11.5-16.0); LYMPHOCYTES # (AUTO) 3.5 10^3/uL (1.0-4.0); LYMPHOCYTES % (AUTO) 27 % (12-44); MEAN CORPUSCULAR HEMOGLOBIN 30 pg (25-34); MEAN CORPUSCULAR HGB CONC 32 g/dL (32-36); MEAN CORPUSCULAR VOLUME 94 fL (80-99); MEAN PLATELET VOLUME 11.5 fL (9.0-12.2); MONOCYTES # (AUTO) 0.8 10^3/uL (0.0-1.0); MONOCYTES % (AUTO) 6 % (0-12); NEUTROPHILS # (AUTO) 8.4 10^3/uL (1.8-7.8); NEUTROPHILS % (AUTO) 64 % (42-75); PLATELET COUNT 264 10^3/uL (130-400)
[2021-11-03 01:35] LABS: CREATININE SERUM 0.89 MG/DL (0.60-1.30)
--- NOTE | 2021-11-03 02:41 | ED General ---
General Chief Complaint: Post OP Complications/Pain Stated Complaint: POST OP INTERNAL HEART MONITOR - CHEST PAIN Nursing Triage Note: PROCEDURE FOR LOOP RECOEDER PLACED ON WEDNESDAY BY DR ZUNIGA HERE AT [facility]. TELLS THIS RN SHE HAS NOT BEEN TAKING HER TYLENOL OR IBUPROFEN SHE WAS INSTRUCTED TO DO. SHE STATES SHE JUST WANTS TO GET IT CHECKED BECAUSE SHE FEELS LIKE IT SHOULDNT HURT THIS BAD. Source of Information: Patient, Family, Old Records Exam Limitations: No Limitations History of Present Illness Date Seen by Provider: Nov 03, 2021 Time Seen by Provider: 00:40 Initial Comments This 56-year-old woman presents to the emergency room with complaints of escalating pain at the site of a loop recorder insertion. Loop recorder was placed by Dr. Birch 4 days ago on October 30. She had stated to nursing staff that she was not taking Tylenol and ibuprofen but stated to me she had. She feels like the pain is abnormal and she would like it evaluated. She appears in distress on initial evaluation. She has notable bruising around the insertion site but no significant inflammatory response noted. Allergies and Home Medications Allergies Coded Allergies: Iodinated Contrast Media (Unverified Allergy, Severe, 11/02/21) Uncoded Allergies: TAPE (Allergy, Unknown, 09/27/06) Patient Home Medication List Home Medication List Reviewed: Yes Albuterol Sulfate (Albuterol Sulfate) 2.5 Mg/3 Ml Vial.neb, 2.5 MG INH PRN PRN for WHEEZING, (Reported) Entered as Reported by: MORENA TERRY on 05/12/21 1343 Albuterol/Ipratropium (Combivent Respimat Inhal [place]) 4 Gm Aero, 1 PUFF IH QID, (Reported) Entered as Reported by: MORENA TERRY on 05/12/21 1343 Aspirin/Acetaminophen/Caffeine (Excedrin Migraine Caplet) 1 Each Tablet, 2 EACH PO Q6-8HR PRN for Headache, (Reported) Entered as Reported by: MORENA TERRY on 05/12/21 1345 Cetirizine HCl (Zyrtec) 10 Mg Tablet, 10 MG PO DAILY, (Reported) Entered as Reported by: HOSSEIN ARAIZA on 12/18/18 1645 Cyclobenzaprine HCl (Cyclobenzaprine HCl) 10 Mg Tablet, 10 MG PO PRN PRN for MUSCLE SPASMS, (Reported) Entered as Reported by: MORENA TERRY on 05/12/21 134 Diclofenac Sodium (Diclofenac Sodium) 75 Mg Tablet.dr, 75 MG PO DAILY, (Reported) Entered as Reported by: MORENA TERRY on 05/12/21 134 Dicyclomine HCl (Dicyclomine HCl) 20 Mg Tablet, 20 MG PO QID, (Reported) Entered as Reported by: JOANNE HI on 10/03/152023 Duloxetine HCl (Duloxetine HCl) 60 Mg Capsule.dr, 60 MG PO DAILY, (Reported) Entered as Reported by: MORENA TERRY on 05/12/21 134 Fludrocortisone Acetate (Fludrocortisone Acetate) 0.1 Mg Tab, 0.1 MG PO BID, (Reported) Entered as Reported by: OPAL KAUR on 03/31/21 09 Fluticasone Propionate (Flonase Allergy Relief) 9.9 Ml [place].susp, 2 SPRAY NS DAILY, (Reported) Entered as Reported by: MORENA TERRY on 05/12/21 134 Gabapentin (Gabapentin) 600 Mg Tablet, 600 MG PO HS, (Reported) Entered as Reported by: OPAL KAUR on 03/31/21 09 Hydrocodone/Acetaminophen (Hydrocodone-Acetamin 5-325 mg) 1 Each Tablet, 0.5 TAB PO Q4H PRN for PAIN-BREAKTHROUGH Prescribed by: KASSIE DELACRUZ on 11/04/21 0728 Levothyroxine Sodium (Levothyroxine) 75 Mcg Capsule, 75 MCG PO DAILY, (Reported) Entered as Reported by: OPAL KAUR on 03/31/21 09 Linaclotide (Linzess) 290 Mcg Capsule, 290 MCG PO DAILY, (Reported) Entered as Reported by: MORENA TERRY on 05/12/21 134 Loratadine (Loratadine) 10 Mg Tab.rapdis, 10 MG PO DAILY, (Reported) Entered as Reported by: OPAL KAUR on 03/31/21 09 Midodrine HCl (Midodrine HCl) 5 Mg Tablet, 5 MG PO BID, (Reported) Entered as Reported by: OJANNE HI on 10/03/152023 Mirtazapine (Mirtazapine) 30 Mg Tablet, 30 MG PO DAILY, (Reported) Entered as Reported by: MORENA TERRY on 05/12/21 1343 Montelukast Sodium (Montelukast Sodium) 10 Mg Tablet, 10 MG PO DAILY, (Reported) Entered as Reported by: OPAL KAUR on 03/31/21 0951 Nitroglycerin (Nitroglycerin) 0.4 Mg Tab.subl, 0.4 MG SL UD PRN for CHEST PAIN, (Reported) Entered as Reported by: MORENA TERRY on 05/12/21 1343 Oxybutynin Chloride (Oxybutynin Chloride ER) 15 Mg Tab.er.24, 15 MG PO DAILY, (Reported) Entered as Reported by: HOSSEIN ARAIZA on 12/18/18 1645 Pantoprazole Sodium (Pantoprazole Sodium) 40 Mg Tablet.dr, 40 MG PO DAILY, (Reported) Entered as Reported by: HOSSEIN ARAIZA on 12/18/18 1645 Discontinued Medications Hydrocodone/Acetaminophen (Hydrocodone-Acetamin 5-325 mg) 1 Each Tablet, 1 TAB PO Q6H PRN for PAIN-MODERATE (5-7) Discontinued Reason: Prescription changed Prescribed by: KASSIE DELACRUZ on 11/03/21 0250 Review of Systems Review of Systems Constitutional: no symptoms reported EENTM: no symptoms reported Respiratory: no symptoms reported Cardiovascular: see HPI Gastrointestinal: no symptoms reported Genitourinary: no symptoms reported : No Musculoskeletal: no symptoms reported Skin: see HPI Psychiatric/Neurological: No Symptoms Reported Hematologic/Lymphatic: No Symptoms Reported Immunological/Allergic: no symptoms reported Past Wxblxdp-Qujlpo-Hyhtfj Hx Patient Social History Tobacco Use?: Yes Tobacco type used: Cigarettes Smoking Status: Current Everyday Smoker Use of E-Cig and/or Vaping dev: No Substance use?: No Alcohol Use?: No Pt feels they are or have been: No Immunizations Up To Date Tetanus Booster (TDap): Unknown PED Vaccines UTD: Yes Influenza Vaccine Up-to-Date: No; Not Current First/Initial COVID19 Vaccinat: DECEMBER 2020 Second COVID19 Vaccination Jaylon: DECEMBER 2020 COVID19 Vaccine 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[employer] Seasonal Allergies Seasonal Allergies: Yes (LORATADINE/ZYRTEC/CLARITIN) Past Medical History Surgeries: Yes (hiatal hernia x3) Adenoidectomy, Bowel Surgery, Cardiac (Loop recorder), Gallbladder, Hysterectomy, Orthopedic, Tonsillectomy Respiratory: Yes COPD Currently Using CPAP: No Currently Using BIPAP: No Cardiac: Yes Deep Vein Thrombosis, Hypotension, Valvular Heart Disease Neurological: Yes Headaches /Migraines, Stroke, TIA 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 Sexually Transmitted Disease: No Genitourinary: No Gastrointestinal: Yes Gastroesophageal Reflux, Hiatal Hernia Musculoskeletal: Yes Degenerate Disk Disease, Osteoporosis, Scoliosis Endocrine: No HEENT: Yes (WEARS GLASSES ) Hearing Impairment: Denies Cancer: Yes Cervical Did You Recieve Any Treatments: Yes What Type of Treatment Did You: Surgical Intervention Psychosocial: Yes (multiple personality disorder) ADD/ADHD, PTSD, Bipolar Integumentary: No Blood Disorders: No Adverse Reaction/Blood Tranf: No (N/A) Family Medical History No Pertinent Family Hx Physical Exam Vital Signs Vital Signs - First Documented 11/02/21 22:50 Temp 36.4 Pulse 82 Resp 20 B/P (MAP) 111/83 (92) Pulse Ox 94 O2 Delivery Room Air Capillary Refill : Height, Weight, BMI Height: 5'3.00" Weight: 135lbs. oz. 61.609204he; 25.00 BMI Method:Stated General Appearance: WD/WN, Mild Distress HEENT: Normal ENT Inspection Neck: Normal Inspection Respiratory: Lungs Clear, Normal Breath Sounds, No Accessory Muscle Use Cardiovascular: Regular Rate, Rhythm, No Edema, No Murmur Extremity: Normal Inspection Neurologic/Psychiatric: Alert, Oriented x3, No Motor/Sensory Deficits, Other (Mildly anxious) Skin: Warm/Dry, Other (Subtle erythema that appears to be typical reaction to adhesive dressing. No warmth or inflammatory response noted. No evidence of abscess or purulent drainage. There was extensive bruising around the operative site and unusual tenderness in that area.) Progress/Results/Core Measures Suspected Sepsis SIRS Temperature: Pulse: 82 Respiratory Rate: 20 Laboratory Tests 11/03/21 01:11: White Blood Count 13.0H Blood Pressure 111 /83 Mean: 92 Laboratory Tests 11/03/21 01:11: Creatinine 0.89, Platelet Count 264 Results/Orders Lab Results Laboratory Tests Test 11/03/21 01:11 Range/Units White Blood Count 13.0 H 4.3-11.0 10^3/uL Red Blood Count 4.92 3.80-5.11 10^6/uL Hemoglobin 14.8 11.5-16.0 g/dL Hematocrit 46 35-52 % Mean Corpuscular Volume 94 80-99 fL Mean Corpuscular Hemoglobin 30 25-34 pg Mean Corpuscular Hemoglobin Concent 32 32-36 g/dL Red Cell Distribution Width 12.9 10.0-14.5 % Platelet Count 264 130-400 10^3/uL Mean Platelet Volume 11.5 9.0-12.2 fL Immature Granulocyte % (Auto) 0 % Neutrophils (%) (Auto) 64 42-75 % Lymphocytes (%) (Auto) 27 12-44 % Monocytes (%) (Auto) 6 0-12 % Eosinophils (%) (Auto) 2 0-10 % Basophils (%) (Auto) 1 0-10 % Neutrophils # (Auto) 8.4 H 1.8-7.8 10^3/uL Lymphocytes # (Auto) 3.5 1.0-4.0 10^3/uL Monocytes # (Auto) 0.8 0.0-1.0 10^3/uL Eosinophils # (Auto) 0.2 0.0-0.3 10^3/uL Basophils # (Auto) 0.1 0.0-0.1 10^3/uL Immature Granulocyte # (Auto) 0.1 0.0-0.1 10^3/uL Sodium Level 140 135-145 MMOL/L Potassium Level 3.6 3.6-5.0 MMOL/L Chloride Level 106 98-107 MMOL/L Carbon Dioxide Level 24 21-32 MMOL/L Anion Gap 10 5-14 MMOL/L Blood Urea Nitrogen 20 H 7-18 MG/DL Creatinine 0.89 0.60-1.30 MG/DL Estimat Glomerular Filtration Rate 65 BUN/Creatinine Ratio 22 Glucose Level 113 H 70-105 MG/DL Calcium Level 9.2 8.5-10.1 MG/DL C-Reactive Protein High Sensitivity 0.19 0.00-0.50 MG/DL My Orders Orders - KASSIE TRAN MD Basic Metabolic Panel (11/03/21 00:51) Cbc With Automated Diff (11/03/21 00:51) Hs C Reactive Protein (11/03/21 00:51) Ed Iv/Invasive Line Start (11/03/21 00:51) Hydrocodone/Apap 5/325 Tablet (Lortab 5 (11/03/21 01:00) Medications Given in ED Vital Signs/I&O 11/02/21 11/03/21 22:50 03:02 Temp 36.4 Pulse 82 78 Resp 20 18 B/P (MAP) 111/83 (92) 105/79 Pulse Ox 94 93 O2 Delivery Room Air Room Air Capillary Refill : Blood Pressure Mean: 92 Progress Note : Progress Note There was mild elevation in WBC but no significant evidence of inflammatory change around the site and no fever. CRP was normal. Bacterial infection is unlikely. I suspect the patient had a small hematoma and escalating pain due to that. She was advised to take Tylenol and ibuprofen. Pain improved signi ficantly with hydrocodone. She was placed on nasal cannula oxygen briefly after hydrocodone. For this reason only a half dose of hydrocodone was prescribed for pain not controlled by [id number] medications. Departure Impression Primary Impression: Postoperative pain Disposition: HOME, SELF-CARE Condition: Improved Departure-Patient Inst. Decision time for Depature: 02:40 Referrals: [facility] [place] (PCP/Family) Primary Care Physician Patient Instructions: Postoperative Pain (DC) Add. Discharge Instructions: Use ibuprofen up to 600 mg every 6 hours as needed for primary pain control. Based on your evaluation in the ER, it does not appear that you have any sign ificant infection associated with your surgery site. You may have a small hematoma contributing to the pain. Please contact Dr. Birch office first thing this morning to inform them of the increased pain you are experiencing. Return to the ER if you have worsening symptoms including escalating pain, new fever, worsening redness or puslike drainage, etc. Call with questions or concerns. Scripts Hydrocodone/Acetaminophen (Hydrocodone-Acetamin 5-325 mg) 1 Each Tablet 0.5 TAB PO Q4H PRN for PAIN-BREAKTHROUGH, #10 TAB Prov: KASSIE TRAN MD 11/04/21 Copy Copies To 1: JESSI BIRCH JR, MD BRUEGGEMANN, JOSHUA T MD Nov 03, 2021 02:41
[2021-11-03] MEDS ORDERED: ACHD5005 PO ×2 (02:49→02:52)
[2021-11-03 03:02] VITALS: BP 105/79
[2021-11-04] MEDS ORDERED: ACHD5005 PO (07:24)
== END 2021-11-03 03:02 | disposition home or self-care (01) ==
LOC: EDUNIT# 22:40 → ER 22:41
DX: G89.18 Other acute postprocedural pain (principal); D72.829 Elevated white blood cell count, unspecified; F31.9 Bipolar disorder, unspecified; F90.9 Attention-deficit hyperactivity disorder, unspecified type; F43.10 Post-traumatic stress disorder, unspecified; F44.81 Dissociative identity disorder; K21.9 Gastro-esophageal reflux disease without esophagitis; G43.909 Migraine, unspecified, not intractable, without status migrainosus; J44.9 Chronic obstructive pulmonary disease, unspecified; F17.210 Nicotine dependence, cigarettes, uncomplicated; Z86.73 Personal history of transient ischemic attack (TIA), and cerebral infarction without residual deficits; Z86.718 Personal history of other venous thrombosis and embolism; Z95.810 Presence of automatic (implantable) cardiac defibrillator; Z79.82 Long term (current) use of aspirin; Z79.51 Long term (current) use of inhaled steroids; Z79.899 Other long term (current) drug therapy
CPT/HCPCS: 36415; 80048; 85025; 86141

== ENCOUNTER → 2022-01-16 | Outpatient (CLI) | payer MEDICAID ==
[~2022-01-16] MED LIST changes: +FLUC100T10 PO; -FLUC100T6 PO; +LURA40TA2 PO; -LURA40TA3 PO
--- NOTE | 2022-01-16 15:19 | Diagnostic Imaging Report ---
INDICATION: Nausea with vomiting. Gastroparesis. TECHNIQUE: 1.06 mCi technetium 99M sulfur colloid was mixed with eggs and taken orally. FINDINGS: There is good uptake in the stomach on the immediate films. Sequential images show gastric emptying at 1 hour of 35%, 2 hours at 57%, 3 hours at 84%, and 4 hours at 94%. The linear fit T1 half is 118 minutes. IMPRESSION: Normal gastric emptying study. Dictated by: Dictated on workstation # [id number]
== END ==
LOC: CARD 09:00
PROVIDERS: ATTEND Internal Medicine Gastroenterology
DX: K31.84 Gastroparesis (principal)
CPT/HCPCS: 78264

== ENCOUNTER 2022-05-29 12:36 | Emergency (ER) | payer MEDICAID ==
[~2022-05-29] VITALS: Ht 160 cm; Wt 59.4 kg
[~2022-05-29 12:36] MED LIST changes: -ASPI-789 PO; +ASPI1TAB23 PO
--- NOTE | 2022-05-29 12:51 | ED Lower Extremity ---
General Stated Complaint: L CALF PAIN, L LEG WEAKNESS Source: patient Exam Limitations: no limitations History of Present Illness Date Seen by Provider: May 29, 2022 Time Seen by Provider: 12:48 Initial Comments Patient is a 57-year-old female who presents ED with pain behind her left calf. This started yesterday. Sharp pain below her left knee. Feels like a charley horse. She states she has had a history of a DVT in that left leg when she was a lot younger. Not currently on blood thinners. Denies of any trauma. She noted increased swelling last night with swelling today. Denies of any recent travels or surgeries besides a loop recorder placed 6 weeks ago. Patient took Tylenol last night without much improvement. Denies chest pain, cough, shortness of breath, headache, dizziness. Patient denies any bruising or redness or warmth Allergies and Home Medications Allergies Coded Allergies: Iodinated Contrast Media (Unverified Allergy, Severe, 11/02/21) Uncoded Allergies: TAPE (Allergy, Unknown, 09/27/06) Patient Home Medication List Home Medication List Reviewed: Yes Albuterol Sulfate (Albuterol Sulfate) 2.5 Mg/3 Ml Vial.neb, 2.5 MG INH PRN PRN for WHEEZING, (Reported) Entered as Reported by: MORENA TERRY on 05/12/21 1343 Albuterol/Ipratropium (Combivent Respimat Inhal [place]) 4 Gm Aero, 1 PUFF IH QID, (Reported) Entered as Reported by: MORENA TERRY on 05/12/21 1343 Aspirin/Acetaminophen/Caffeine (Excedrin Migraine Caplet) 1 Each Tablet, 2 EACH PO Q6-8HR PRN for Headache, (Reported) Entered as Reported by: MORENA TERRY on 05/12/21 1345 Cetirizine HCl (Zyrtec) 10 Mg Tablet, 10 MG PO DAILY, (Reported) Entered as Reported by: HOSSEIN ARAIZA on 12/18/18 1645 Cyclobenzaprine HCl (Cyclobenzaprine HCl) 10 Mg Tablet, 10 MG PO PRN PRN for MUSCLE SPASMS, (Reported) Entered as Reported by: MORENA TERRY on 05/12/21 1343 Diclofenac Sodium (Diclofenac Sodium) 75 Mg Tablet.dr, 75 MG PO DAILY, (Reported) Entered as Reported by: MORENA TERRY on 05/12/21 134 Dicyclomine HCl (Dicyclomine HCl) 20 Mg Tablet, 20 MG PO QID, (Reported) Entered as Reported by: JOANNE HI on 10/03/152023 Duloxetine HCl (Duloxetine HCl) 60 Mg Capsule.dr, 60 MG PO DAILY, (Reported) Entered as Reported by: MORENA TERRY on 05/12/21 134 Fludrocortisone Acetate (Fludrocortisone Acetate) 0.1 Mg Tab, 0.1 MG PO BID, (Reported) Entered as Reported by: OPAL KAUR on 03/31/21 09 Fluticasone Propionate (Flonase Allergy Relief) 9.9 Ml [place].susp, 2 SPRAY NS DAILY, (Reported) Entered as Reported by: MORENA TERRY on 05/12/21 134 Gabapentin (Gabapentin) 600 Mg Tablet, 600 MG PO HS, (Reported) Entered as Reported by: OPAL KAUR on 03/31/21 09 Hydrocodone/Acetaminophen (Hydrocodone-Acetamin 5-325 mg) 1 Each Tablet, 0.5 TAB PO Q4H PRN for PAIN-BREAKTHROUGH Prescribed by: KASSIE DELACRUZ on 11/04/21 0728 Levothyroxine Sodium (Levothyroxine) 75 Mcg Capsule, 75 MCG PO DAILY, (Reported) Entered as Reported by: OPAL KAUR on 03/31/21 09 Linaclotide (Linzess) 290 Mcg Capsule, 290 MCG PO DAILY, (Reported) Entered as Reported by: MORENA TERRY on 05/12/21 134 Loratadine (Loratadine) 10 Mg Tab.rapdis, 10 MG PO DAILY, (Reported) Entered as Reported by: OPAL KAUR on 03/31/21 09 Midodrine HCl (Midodrine HCl) 5 Mg Tablet, 5 MG PO BID, (Reported) Entered as Reported by: JOANNE HI on 10/03/152023 Mirtazapine (Mirtazapine) 30 Mg Tablet, 30 MG PO DAILY, (Reported) Entered as Reported by: MORENA TERRY on 05/12/21 134 Montelukast Sodium (Montelukast Sodium) 10 Mg Tablet, 10 MG PO DAILY, (Reported) Entered as Reported by: OPAL KAUR on 03/31/21 0951 Nitroglycerin (Nitroglycerin) 0.4 Mg Tab.subl, 0.4 MG SL UD PRN for CHEST PAIN, (Reported) Entered as Reported by: MORENA TERRY on 05/12/21 1343 Oxybutynin Chloride (Oxybutynin Chloride ER) 15 Mg Tab.er.24, 15 MG PO DAILY, (Reported) Entered as Reported by: HOSSEIN ARAIZA on 12/18/18 1645 Pantoprazole Sodium (Pantoprazole Sodium) 40 Mg Tablet.dr, 40 MG PO DAILY, (Reported) Entered as Reported by: HOSSEIN ARAIZA on 12/18/18 1645 Review of Systems Constitutional: No chills, No diaphoresis, No malaise, No weakness Respiratory: No cough, No dyspnea on exertion Cardiovascular: No chest pain Gastrointestinal: No abdominal pain, No diarrhea, No nausea Musculoskeletal: No joint pain; muscle pain, muscle stiffness, other (Leg swelling) Skin: No change in color All Other Systems Reviewed Negative Unless Noted: Yes Past Ptuxkad-Kgxjpu-Iweilp Hx Immunizations Up To Date Tetanus Booster (TDap): Unknown PED Vaccines UTD: Yes First/Initial COVID19 Vaccinat: DECEMBER 2020 Second COVID19 Vaccination Jaylon: DECEMBER 2020 Seasonal Allergies Seasonal Allergies: Yes (LORATADINE/ZYRTEC/CLARITIN) Past Medical History Surgeries: Yes (hiatal hernia x3) Adenoidectomy, Bowel Surgery, Cardiac, Gallbladder, Hysterectomy, Orthopedic, Tonsillectomy Respiratory: Yes COPD Currently Using CPAP: No Currently Using BIPAP: No Cardiac: Yes Deep Vein Thrombosis, Hypotension, Valvular Heart Disease Neurological: Yes Headaches /Migraines, Stroke, TIA 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 Disorders: 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 Sexually Transmitted Disease: No Genitourinary: No Gastrointestinal: Yes Gastroesophageal Reflux, Hiatal Hernia Musculoskeletal: Yes Degenerate Disk Disease, Osteoporosis, Scoliosis Endocrine: No HEENT: Yes (WEARS GLASSES ) Hearing Impairment: Denies Cancer: Yes Cervical Did You Recieve Any Treatments: Yes What Type of Treatment Did You: Surgical Intervention Psychosocial: Yes (multiple personality disorder) ADD/ADHD, PTSD, Bipolar Integumentary: No Blood Disorders: No Adverse Reaction/Blood Tranf: No (N/A) Family Medical History No Pertinent Family Hx Physical Exam Vital Signs Vital Signs - First Documented 05/29/22 12:56 Temp 35.6 Pulse 87 Resp 16 B/P (MAP) 132/87 (102) Pulse Ox 95 Capillary Refill : Height, Weight, BMI Height: 5'3.00" Weight: 135lbs. oz. 61.689380bz; 25.00 BMI Method:Stated General Appearance: WD/WN, no apparent distress HEENT: PERRL/EOMI, normal ENT inspection, TMs normal, pharynx normal Neck: non-tender, full range of motion, supple, normal inspection Cardiovascular: regular rate, rhythm, no edema, no gallop, no JVD Respiratory: chest non-tender, lungs clear, normal breath sounds, no respiratory distress Gastrointestinal: normal bowel sounds, non tender, soft, no organomegaly Back: normal inspection, no CVA tenderness Legs: left leg pain, left leg soft tissue tenderness (Tenderness to left posterior calf. Mild swelling without bruising or redness. No area of inoculation. 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 Denies any trauma. No erythema or warmth. Appears to be more muscle strain. Recommend anti-inflammatories, stretching, ice. If any worsening symptoms such as redness, swelling to return back to ED for further evaluation. Impression Primary Impression: Leg pain Disposition: 01 HOME, SELF-CARE Condition: Stable Departure-Patient Inst. Decision time for Depature: 13:51 Referrals: [facility] (PCP) Primary Care Physician KATHRYN MEADE APRN (Family) Primary Care Physician Patient Instructions: Leg Muscle Strain ED SOREN MILIAN May 29, 2022 12:50
--- NOTE | 2022-05-29 13:46 | Diagnostic Imaging Report ---
PROCEDURE: US left lower extremity venous. TECHNIQUE: Multiple real-time grayscale images were obtained over the left lower extremity in various projections. Additional duplex Doppler and color Doppler images were also obtained. INDICATION: Leg pain. FINDINGS: Left lower extremity deep venous system showed normal color flow, waveforms, and compressibility. The superficial veins appeared patent. No mass or fluid collection. IMPRESSION: Normal negative unilateral left lower extremity venous Doppler and ultrasound exam. Dictated by: Dictated on workstation # [id number]
[2022-05-29 13:57] VITALS: BP 132/87
== END 2022-05-29 13:57 | disposition home or self-care (01) ==
LOC: EDUNIT# 12:36 → ER 12:38
DX: M79.662 Pain in left lower leg (principal); M79.89 Other specified soft tissue disorders

== ENCOUNTER 2022-09-01 18:06 | Emergency (ER) | payer MEDICAID ==
[~2022-09-01] VITALS: Ht 160 cm; Wt 58.0 kg
[~2022-09-01 18:06] MED LIST changes: +LORA-1389 PO; -LORA-53 PO
--- NOTE | 2022-09-01 18:12 | ED Cardiac General ---
History of Present Illness General Chief Complaint: Cardiac/General Problems Stated Complaint: ABD PAIN/CHC SENT OVER History of Present Illness Date Seen by Provider: Sep 01, 2022 Time Seen by Provider: 18:12 Initial Comments 57-year-old female with PMH of hypertension/hiatal hernia surgeries x3/multiple TIA's/ COPD/ active smoker, is here with complaints of epigastric pain for the past several weeks which has been worsening. Patient has associated diarrhea for the past 6 days and just not been feeling well due to the pain and the nausea and vomiting she has been having with that. Patient also has heartburn and acid reflux with this as well. Patient is able to tolerate food and is able to eat and drink although she does get nauseous when doing so. Denies fever, chills, chest pain, palpitations, dizziness. Allergies and Home Medications Allergies Coded Allergies: Iodinated Contrast Media (Unverified Allergy, Severe, 11/02/21) Uncoded Allergies: TAPE (Allergy, Unknown, 09/27/06) Patient Home Medication List Home Medication List Reviewed: Yes Albuterol Sulfate (Albuterol Sulfate) 2.5 Mg/3 Ml Vial.neb, 2.5 MG INH PRN PRN for WHEEZING, (Reported) Entered as Reported by: MORENA TERRY on 05/12/21 1343 Albuterol/Ipratropium (Combivent Respimat Inhal [place]) 4 Gm Aero, 1 PUFF IH QID, (Reported) Entered as Reported by: MORENA TERRY on 05/12/21 1343 Aspirin/Acetaminophen/Caffeine (Excedrin Migraine Caplet) 1 Each Tablet, 2 EACH PO Q6-8HR PRN for Headache, (Reported) Entered as Reported by: MORENA TERRY on 05/12/21 1345 Cetirizine HCl (Zyrtec) 10 Mg Tablet, 10 MG PO DAILY, (Reported) Entered as Reported by: HOSSEIN ARAIZA on 12/18/18 1645 Cyclobenzaprine HCl (Cyclobenzaprine HCl) 10 Mg Tablet, 10 MG PO PRN PRN for MUSCLE SPASMS, (Reported) Entered as Reported by: MORENA TERRY on 05/12/21 1343 Diclofenac Sodium (Diclofenac Sodium) 75 Mg Tablet.dr, 75 MG PO DAILY, (Reported) Entered as Reported by: MORENA TERRY on 05/12/21 134 Dicyclomine HCl (Dicyclomine HCl) 20 Mg Tablet, 20 MG PO QID, (Reported) Entered as Reported by: JOANNE HI on 10/03/152023 Duloxetine HCl (Duloxetine HCl) 60 Mg Capsule.dr, 60 MG PO DAILY, (Reported) Entered as Reported by: MORENA TERRY on 05/12/21 134 Fludrocortisone Acetate (Fludrocortisone Acetate) 0.1 Mg Tab, 0.1 MG PO BID, (Reported) Entered as Reported by: OPAL KAUR on 03/31/21 09 Fluticasone Propionate (Flonase Allergy Relief) 9.9 Ml [place].susp, 2 SPRAY NS DAILY, (Reported) Entered as Reported by: MORENA TERRY on 05/12/21 134 Gabapentin (Gabapentin) 600 Mg Tablet, 600 MG PO HS, (Reported) Entered as Reported by: OPAL KAUR on 03/31/21 09 Hydrocodone/Acetaminophen (Hydrocodone-Acetamin 5-325 mg) 1 Each Tablet, 0.5 TAB PO Q4H PRN for PAIN-BREAKTHROUGH Prescribed by: KASSIE DELACRUZ on 11/04/21 0728 Levothyroxine Sodium (Levothyroxine) 75 Mcg Capsule, 75 MCG PO DAILY, (Reported) Entered as Reported by: OPAL KAUR on 03/31/21 09 Linaclotide (Linzess) 290 Mcg Capsule, 290 MCG PO DAILY, (Reported) Entered as Reported by: MORENA TERRY on 05/12/21 134 Loratadine (Loratadine) 10 Mg Tab.rapdis, 10 MG PO DAILY, (Reported) Entered as Reported by: OPAL KAUR on 03/31/21 09 Midodrine HCl (Midodrine HCl) 5 Mg Tablet, 5 MG PO BID, (Reported) Entered as Reported by: JOANNE HI on 10/03/152023 Mirtazapine (Mirtazapine) 30 Mg Tablet, 30 MG PO DAILY, (Reported) Entered as Reported by: MORENA TERRY on 05/12/21 134 Montelukast Sodium (Montelukast Sodium) 10 Mg Tablet, 10 MG PO DAILY, (Reported) Entered as Reported by: OPAL KAUR on 03/31/21 0951 Nitroglycerin (Nitroglycerin) 0.4 Mg Tab.subl, 0.4 MG SL UD PRN for CHEST PAIN, (Reported) Entered as Reported by: MORENA TERRY on 05/12/21 1343 Oxybutynin Chloride (Oxybutynin Chloride ER) 15 Mg Tab.er.24, 15 MG PO DAILY, (Reported) Entered as Reported by: HOSSEIN ARAIZA on 12/18/18 1645 Pantoprazole Sodium (Pantoprazole Sodium) 40 Mg Tablet.dr, 40 MG PO DAILY, (Reported) Entered as Reported by: HOSSEIN ARAIZA on 12/18/18 1645 Review of Systems Review of Systems Constitutional: no symptoms reported EENTM: No Symptoms Reported Respiratory: No Symptoms Reported Cardiovascular: No Symptoms Reported Gastrointestinal: Abdominal Pain, Diarrhea, Nausea Genitourinary: No Symptoms Reported Musculoskeletal: no symptoms reported Skin: no symptoms reported Psychiatric/Neurological: No Symptoms Reported Endocrine: No Symptoms Reported Hematologic/Lymphatic: No Symptoms Reported Past Xbyoupq-Sqdrzd-Ylfrwa Hx Immunizations Up To Date Tetanus Booster (TDap): Unknown PED Vaccines UTD: Yes First/Initial COVID19 Vaccinat: DECEMBER 2020 Second COVID19 Vaccination Jaylon: DECEMBER 2020 Third COVID19 Vaccination Date: DECEMBER 2020 Seasonal Allergies Seasonal Allergies: Yes (LORATADINE/ZYRTEC/CLARITIN) Past Medical History Surgery/Hospitalization HX: SX: LINK, TONSILS/ADENOIDS, HIATAL HERNIA, HYST, GALLBLADDER, R SHOULDER. 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 Sexually Transmitted Disease: No Genitourinary: No Gastrointestinal: Yes Gastroesophageal Reflux, Hiatal Hernia Musculoskeletal: Yes Degenerate Disk Disease, Osteoporosis, Scoliosis Endocrine: No HEENT: Yes (WEARS GLASSES ) Hearing Impairment: Denies Cancer: Yes Cervical Did You Recieve Any Treatments: Yes What Type of Treatment Did You: Surgical Intervention Psychosocial: Yes (multiple personality disorder) ADD/ADHD, PTSD, Bipolar Integumentary: No Blood Disorders: No Adverse Reaction/Blood Tranf: No (N/A) Family Medical History No Pertinent Family Hx Physical Exam Vital Signs Vital Signs - First Documented 09/01/22 18:06 Temp 36.3 Pulse 117 Resp 16 B/P (MAP) 98/65 (76) Pulse Ox 93 O2 Delivery Room Air Capillary Refill : Height, Weight, BMI Height: 5'3.00" Weight: 135lbs. oz. 61.273428kj; 23.00 BMI Method:Stated General Appearance: No Apparent Distress, Anxious, Thin HEENT: PERRL/EOMI, Moist Mucous Membranes Neck: Full Range of Motion, Normal Inspection, Non Tender Respiratory: Chest Non Tender, Lungs Clear, Normal Breath Sounds Cardiovascular: Regular Rate, Rhythm, No Edema, Tachycardia Gastrointestinal: Normal Bowel Sounds, No Organomegaly, No Pulsatile Mass, Soft, Tenderness (In epigastric region) Extremity: Normal Range of Motion Neurologic/Psychiatric: Alert, Oriented x3, No Motor/Sensory Deficits Skin: Normal Color Lymphatic: No Adenopathy Focused Exam Lactate Level 09/01/22 18:34: Lactic Acid Level 1.59 Lactic Acid Level Laboratory Tests Test 09/01/22 18:34 Lactic Acid Level 1.59 MMOL/L (0.50-2.00) Progress/Results/Core Measures Results/Orders Lab Results Laboratory Tests Test 09/01/22 18:34 09/01/22 18:45 09/01/22 18:50 09/01/22 19:17 Range/Units Lactic Acid Level 1.59 0.50-2.00 MMOL/L White Blood Count 17.3 H 4.3-11.0 10^3/uL Red Blood Count 4.69 3.80-5.11 10^6/uL Hemoglobin 14.6 11.5-16.0 g/dL Hematocrit 45 35-52 % Mean Corpuscular Volume 96 80-99 fL Mean Corpuscular Hemoglobin 31 25-34 pg Mean Corpuscular Hemoglobin Concent 33 32-36 g/dL Red Cell Distribution Width 12.7 10.0-14.5 % Platelet Count 265 130-400 10^3/uL Mean Platelet Volume 11.6 9.0-12.2 fL Immature Granulocyte % (Auto) 0 % Neutrophils (%) (Auto) 64 42-75 % Lymphocytes (%) (Auto) 27 12-44 % Monocytes (%) (Auto) 7 0-12 % Eosinophils (%) (Auto) 1 0-10 % Basophils (%) (Auto) 1 0-10 % Neutrophils # (Auto) 11.1 H 1.8-7.8 10^3/uL Lymphocytes # (Auto) 4.6 H 1.0-4.0 10^3/uL Monocytes # (Auto) 1.3 H 0.0-1.0 10^3/uL Eosinophils # (Auto) 0.2 0.0-0.3 10^3/uL Basophils # (Auto) 0.1 0.0-0.1 10^3/uL Immature Granulocyte # (Auto) 0.1 0.0-0.1 10^3/uL Neutrophils % (Manual) 71 % Lymphocytes % (Manual) 21 % Monocytes % (Manual) 7 % Eosinophils % (Manual) 1 % Blood Morphology Comment NORMAL D-Dimer 0.53 H 0.00-0.49 UG/ML Sodium Level 142 135-145 MMOL/L Potassium Level 4.6 3.6-5.0 MMOL/L Chloride Level 109 H 98-107 MMOL/L Carbon Dioxide Level 23 21-32 MMOL/L Anion Gap 10 5-14 MMOL/L Blood Urea Nitrogen 23 H 7-18 MG/DL Creatinine 1.06 0.60-1.30 MG/DL Estimat Glomerular Filtration Rate 61 BUN/Creatinine Ratio 22 Glucose Level 65 L 70-105 MG/DL Calcium Level 9.7 8.5-10.1 MG/DL Corrected Calcium 9.8 8.5-10.1 MG/DL Magnesium Level 1.7 1.6-2.4 MG/DL Total Bilirubin 0.4 0.1-1.0 MG/DL Aspartate Amino Transf (AST/SGOT) 13 5-34 U/L Alanine Aminotransferase (ALT/SGPT) 15 0-55 U/L Alkaline Phosphatase 86 40-136 U/L Troponin I < 0.028 <0.028 NG/ML B-Type Natriuretic Peptide 43.6 <100.0 PG/ML Total Protein 6.7 6.4-8.2 GM/DL Albumin 3.9 3.2-4.5 GM/DL Lipase 51 8-78 U/L Urine Color YELLOW Urine Clarity CLEAR Urine pH 7.0 5-9 Urine Specific [place] 1.020 1.016-1.022 Urine Protein NEGATIVE NEGATIVE Urine Glucose (UA) NEGATIVE NEGATIVE Urine Ketones NEGATIVE NEGATIVE Urine Nitrite NEGATIVE NEGATIVE Urine Bilirubin NEGATIVE NEGATIVE Urine Urobilinogen 2.0 < = 1.0 MG/DL Urine Leukocyte Esterase NEGATIVE NEGATIVE Urine RBC (Auto) NEGATIVE NEGATIVE Urine RBC 0-2 /HPF Urine WBC 0-2 /HPF Urine Squamous Epithelial Cells 0-2 /HPF Urine Renal Epithelial Cells NONE /HPF Urine Crystals NONE /LPF Urine Bacteria LARGE H /HPF Urine Casts NONE /LPF Urine Mucus NEGATIVE /LPF Urine Culture Indicated YES Urine Opiates Screen NEGATIVE NEGATIVE Urine Oxycodone Screen NEGATIVE NEGATIVE Urine Methadone Screen NEGATIVE NEGATIVE Urine Propoxyphene Screen NEGATIVE NEGATIVE Urine Barbiturates Screen NEGATIVE NEGATIVE Ur Tricyclic Antidepressants Screen POSITIVE H NEGATIVE Urine Phencyclidine Screen NEGATIVE NEGATIVE Urine Amphetamines Screen NEGATIVE NEGATIVE Urine Methamphetamines Screen NEGATIVE NEGATIVE Urine Benzodiazepines Screen NEGATIVE NEGATIVE Urine Cocaine Screen NEGATIVE NEGATIVE Urine Cannabinoids Screen POSITIVE H NEGATIVE Influenza Type A (RT-PCR) Not Detected Not Detecte Influenza Type B (RT-PCR) Not Detected Not Detecte SARS-CoV-2 RNA (RT-PCR) Not Detected Not Detecte My Orders Orders - FAIZA HASKINS MD Ekg Tracing (09/01/22 18:10) Bnp [place] (09/01/22 18:29) Cbc With Automated Diff (09/01/22 18:29) Comprehensive Metabolic Panel (09/01/22 18:29) Fibrin Degradation Products (09/01/22 18:29) Drug Screen Stat (Urine) (09/01/22 18:29) Lactic Acid Analyzer (09/01/22 18:29) Lipase (09/01/22 18:29) Magnesium (09/01/22 18:29) Ua Culture If Indicated (09/01/22 18:29) Troponin I [place] (09/01/22 18:29) Chest 1 View, Ap/Pa Only (09/01/22 18:29) Ed Iv/Invasive Line Start (09/01/22 18:29) Ns Iv 1000 Ml (Sodium Chloride 0.9%) (09/01/22 18:29) Covid 19 Inhouse Test (09/01/22 18:31) Influenza A And B By Pcr (09/01/22 18:31) Ct Chest/Abdomen/Pelvis Wo (09/01/22 18:35) Manual Differential (09/01/22 18:45) Urine Culture (09/01/22 18:50) Famotidine Injection (Pepcid Injection) (09/01/22 20:45) Antacid Suspension (Mylanta Suspension (09/01/22 20:45) Medications Given in ED Current Medications Medications Dose Ordered Sig/Margareth Route Start Time Stop Time Status Last Admin Dose Admin Al Hydrox/Mg Hydrox/Simethicone 30 ml ONCE ONCE PO 09/01/22 20:45 09/01/22 20:46 DC 09/01/22 20:42 30 ML Famotidine 20 mg ONCE ONCE IVP 09/01/22 20:45 09/01/22 20:46 DC 09/01/22 20:41 20 MG Vital Signs/I&O 09/01/22 18:06 Temp 36.3 Pulse 117 Resp 16 B/P (MAP) 98/65 (76) Pulse Ox 93 O2 Delivery Room Air Progress Progress Note : Progress Note 1. ABDOMINAL PAIN INDUCED BY MARIJUANA ABUSE: - CT ABD: no acute findings - CBC: WBC is 17.3, likely due to steroids pt is taking. There is no other source for an elevated WBC found on a thorough work up done in the ER - UA negative for infection - UDS positive for amphetamines and TCA - EKG and troponin normal - D-dimer is borderline elevated at 0.53 but pt refusing VQ scan,( she is allergic to contrast). Also likelihood for PE low since she has not SOB or chest pain and is satting 98% on room air.No leg edema - BMP panel normal - Lipse negative -Advised patient to stop using marijuana as this can cause the abdominal pain, nausea and vomiting she is experiencing -Patient has chronic hypotension and her blood pressure is always low at baseline. -Pepcid 20 mg IV/Maalox oral given to patient with much improvement in her symptoms. -Advised [id number] Pepcid twice a day and Maalox as needed. -Follow-up with PCP within the next 3 to 7 days -The patient was seen in the ED, and treated appropriately to presentation at a specific point in time. Patient is informed that there is a possibility that disease and illness can evolve and change in acuity rapidly or slowly after glendy ent is discharged from the ER. Precautionary advice given to the patient for immediate return to ER if symptoms worsen or do not resolve, and to seek emergency care sooner rather than later. Pt also advised on the importance of PCP follow up and compliance with management and follow up plan with PCP and/or specialist, as this is part of the management plan. Pt verbally expressed un derstanding. Diagnostic Imaging Diagonstic Imaging: CT Plain Films/CT/US/NM/MRI: abdomen Comments [facility], [place] NAME: [facility] REC#: [id number] PT STATUS: REG ER : 1965 PHYSICIAN: FAIZA HASKINS MD ADMIT DATE: 09/01/22/ER Draft Date of Exam:09/01/22 CT CHEST/ABDOMEN/PELVIS WO PROCEDURE: CT chest, abdomen, and pelvis without contrast. TECHNIQUE: Multiple contiguous axial images were obtained through the chest, abdomen, and pelvis without the use of intravenous contrast. Auto Exposure Controls were utilized during the CT exam to meet ALARA standards for radiation dose reduction. INDICATION: Chest and back pain; possible aortic dissection. Noncontrasted study reveals normal caliber thoracic aorta. There is mild atherosclerotic calcification of coronary arteries. There is mild diffuse centrilobular emphysema. No pneumothorax or significant pleural fluid is identified. There is no pericardial effusion. No pathologic adenopathy is seen and there is no evidence of focal infiltrate. Within the abdomen and pelvis, the aorta and iliac arteries are of normal caliber with mild aortoiliac atherosclerotic calcification. There is no evidence of retroperitoneal hematoma. Unenhanced images of liver, pancreas, adrenal glands and spleen are unremarkable. Gallbladder is surgically absent. There is no free fluid in the abdomen or pelvis. No organized fluid collection is seen. Partially collapsed unopacified bladder is unremarkable in appearance. There is moderate localized L5-S1 degenerative disc disease. IMPRESSION: No great vessel abnormality or other acute abnormality is seen within the abdomen or pelvis. Dictated on workstation # [id number] Dict: 09/01/221914 Trans: 09/01/221922 [facility] [id number] Interpreted by: QUENTIN ALVAREZ MD Electronically signed by: Departure Impression Primary Impression: Marijuana abuse Additional Impression: Abdominal pain Qualified Codes: R10.13 - Epigastric pain Disposition: HOME, SELF-CARE Condition: Improved Departure-Patient Inst. Referrals: [facility] (PCP) Primary Care Physician KATHRYN MEADE APRN (Family) Primary Care Physician Add. Discharge Instructions: -Advised patient to stop using marijuana as this can cause the abdominal pain, nausea and vomiting she is experiencings. -Advised [id number] Pepcid twice a day and Maalox as needed. -Follow-up with PCP within the next 3 to 7 days All discharge instructions reviewed with patient and/or family. Voiced understanding. FAIZA HASKINS MD Sep 01, 2022 18:12
[2022-09-01] MEDS ORDERED: NS IV 1000 ML 1,000 ML IV STA (18:29)
[2022-09-01 18:59] LABS: BILIRUBIN,URINE NEGATIVE (NEGATIVE); CLARITY,URINE CLEAR; COLOR,URINE YELLOW; GLUCOSE, URINE (UA) NEGATIVE (NEGATIVE); KETONES,URINE NEGATIVE (NEGATIVE); LEUKOCYTE ESTERASE ,URINE NEGATIVE (NEGATIVE); NITRITE,URINE NEGATIVE (NEGATIVE); PROTEIN,URINE NEGATIVE (NEGATIVE)
[2022-09-01 19:00] LABS: BASOPHILS # (AUTO) 0.1 10^3/uL (0.0-0.1); BASOPHILS % (AUTO) 1 % (0-10); EOSINOPHILS # (AUTO) 0.2 10^3/uL (0.0-0.3); EOSINOPHILS % (AUTO) 1 % (0-10); HEMATOCRIT 45 % (35-52); HEMOGLOBIN 14.6 g/dL (11.5-16.0); LYMPHOCYTES # (AUTO) 4.6 10^3/uL (1.0-4.0); LYMPHOCYTES % (AUTO) 27 % (12-44); MEAN CORPUSCULAR HEMOGLOBIN 31 pg (25-34); MEAN CORPUSCULAR HGB CONC 33 g/dL (32-36); MEAN CORPUSCULAR VOLUME 96 fL (80-99); MEAN PLATELET VOLUME 11.6 fL (9.0-12.2); MONOCYTES # (AUTO) 1.3 10^3/uL (0.0-1.0); MONOCYTES % (AUTO) 7 % (0-12); NEUTROPHILS # (AUTO) 11.1 10^3/uL (1.8-7.8); NEUTROPHILS % (AUTO) 64 % (42-75); PLATELET COUNT 265 10^3/uL (130-400); WHITE BLOOD COUNT 17.3 10^3/uL (4.3-11.0)
[2022-09-01 19:22] LABS: BACTERIA,URINE LARGE /HPF; RBC,URINE 0-2 /HPF; SQUAMOUS EPITHELIAL CELL,UR 0-2 /HPF; WBC,URINE 0-2 /HPF
[2022-09-01 19:23] LABS: AMPHETAMINE SCREEN, URINE NEGATIVE (NEGATIVE); BARBITURATE SCREEN URINE NEGATIVE (NEGATIVE); BENZODIAZEPINES SCREEN URINE NEGATIVE (NEGATIVE); CANNABINOID SCREEN, URINE POSITIVE (NEGATIVE); COCAINE SCREEN URINE NEGATIVE (NEGATIVE); METHADONE STAT NEGATIVE (NEGATIVE); OPIATE SCREEN URINE NEGATIVE (NEGATIVE); OXYCODONE STAT NEGATIVE (NEGATIVE); PROPOXYPHENE STAT NEGATIVE (NEGATIVE); TRICYCLIC ANTIDEPRESSANTS SCRE POSITIVE (NEGATIVE)
--- NOTE | 2022-09-01 19:23 | Diagnostic Imaging Report ---
PROCEDURE: CT chest, abdomen, and pelvis without contrast. TECHNIQUE: Multiple contiguous axial images were obtained through the chest, abdomen, and pelvis without the use of intravenous contrast. Auto Exposure Controls were utilized during the CT exam to meet ALARA standards for radiation dose reduction. INDICATION: Chest and back pain; possible aortic dissection. Noncontrasted study reveals normal caliber thoracic aorta. There is mild atherosclerotic calcification of coronary arteries. There is mild diffuse centrilobular emphysema. No pneumothorax or significant pleural fluid is identified. There is no pericardial effusion. No pathologic adenopathy is seen and there is no evidence of focal infiltrate. Within the abdomen and pelvis, the aorta and iliac arteries are of normal caliber with mild aortoiliac atherosclerotic calcification. There is no evidence of retroperitoneal hematoma. Unenhanced images of liver, pancreas, adrenal glands and spleen are unremarkable. Gallbladder is surgically absent. There is no free fluid in the abdomen or pelvis. No organized fluid collection is seen. Partially collapsed unopacified bladder is unremarkable in appearance. There is moderate localized L5-S1 degenerative disc disease. IMPRESSION: No great vessel abnormality or other acute abnormality is seen within the abdomen or pelvis. Dictated by: Dictated on workstation # [id number]
[2022-09-01 19:26] LABS: ALANINE AMINOTRANSFERASE 15 U/L (0-55); ALBUMIN 3.9 GM/DL (3.2-4.5); ALKALINE PHOSPHATASE 86 U/L (40-136); BILIRUBIN,TOTAL 0.4 MG/DL (0.1-1.0); BUN/CREATININE RATIO 22; CALCIUM 9.7 MG/DL (8.5-10.1); CARBON DIOXIDE 23 MMOL/L (21-32); CHLORIDE 109 MMOL/L (98-107); CREATININE SERUM 1.06 MG/DL (0.60-1.30); GFR ESTIMATED 61; GLUCOSE 65 MG/DL (70-105); LIPASE 51 U/L (8-78); MAGNESIUM 1.7 MG/DL (1.6-2.4); POTASSIUM 4.6 MMOL/L (3.6-5.0); SODIUM 142 MMOL/L (135-145); TOTAL PROTEIN 6.7 GM/DL (6.4-8.2)
[2022-09-01 19:27] LABS: EOSINOPHILS % (MANUAL) 1 %; LYMPHOCYTES % (MANUAL) 21 %; MONOCYTES % (MANUAL) 7 %; NEUTROPHILS % (MANUAL) 71 %; RBC MORPH NORMAL
--- NOTE | 2022-09-01 19:53 | Diagnostic Imaging Report ---
INDICATION: Abdominal pain There is mild air trapping, bilaterally. No pneumothorax or consolidation is identified. Loop recorder seen in the left chest wall. There is no evidence of consolidation or significant pleural fluid. IMPRESSION: Background emphysema without other evidence of acute abnormality. Dictated by: Dictated on workstation # [id number]
[2022-09-01] MEDS ORDERED: ANTACID SUSP 30 ML UDC (MYLANTA) PO ONE (20:45)
[2022-09-01] MEDS ORDERED: FAMOTIDINE 20MG/2ML IV (PEPCID) IVP ONE (20:45)
[2022-09-01 21:30] VITALS: BP 111/80
== END 2022-09-01 21:30 | disposition home or self-care (01) ==
LOC: EDUNIT# 18:06 → ER 18:08
DX: F12.10 Cannabis abuse, uncomplicated (principal); R10.13 Epigastric pain; Z98.890 Other specified postprocedural states; Z20.822 Contact with and (suspected) exposure to COVID-19
CPT/HCPCS: 36415; 71045; 71250; 74176; 80053; 80306; 81000; 83605; 83690; 83735; 83880; 84484; 85007; 85027; 85379; 87088; 87636; 93005

== ENCOUNTER 2022-11-20 09:30 | Outpatient (CLI) | payer MEDICAID ==
[~2022-11-20] VITALS: Ht 160 cm; Wt 56.2 kg
[~2022-11-20 09:30] MED LIST changes: -POTA10CA43 PO; +POTA10CA44 PO
[2022-11-20] MEDS ORDERED: VORT20TA PO (11:07)
[2022-11-20] MEDS ORDERED: OMEG100032 PO (11:12)
[2022-11-20] MEDS ORDERED: CHOL100048 PO (11:12)
[2022-11-20] MEDS ORDERED: MV-M1TAB57 PO (11:12)
[2022-11-20] MEDS ORDERED: SUCR1TAB PO (11:12)
[2022-11-20] MEDS ORDERED: LEVO50TA6 PO (11:12)
[2022-11-20] MEDS ORDERED: BUDE10.26 IH (11:12)
[2022-11-20] MEDS ORDERED: OMEP40CA6 PO (11:12)
[2022-11-20] MEDS ORDERED: ATOR40TA70 PO (11:12)
[2022-11-20] MEDS ORDERED: PROM25TA14 PO (11:12)
[2022-11-20] MEDS ORDERED: POTA99CA PO (11:12)
== END 2022-11-20 11:53 | disposition home or self-care (01) ==
LOC: PREOP 09:30
PROVIDERS: ATTEND Surgery
DX: Z01.818 Encounter for other preprocedural examination (principal)

== ENCOUNTER 2022-11-23 11:03 | Day surgery (SDC) | payer MEDICAID ==
[~2022-11-23] VITALS: Ht 160 cm; Wt 56.2 kg
[~2022-11-23 11:03] MED LIST changes: +ATOR40TA70 PO; +BUDE10.26 IH; +CHOL100048 PO; +MV-M1TAB57 PO; +OMEG100032 PO; +OMEP40CA6 PO; +POTA99CA PO; +SUCR1TAB PO; +VORT20TA PO
[2022-11-23] MEDS ORDERED: LACTATED RINGERS 1,000 ML IV STA (11:10)
[2022-11-23] MEDS ORDERED: HURRICAINE EXT TUBE (BENZOCAINE) XX PRN (11:15)
[2022-11-23 11:38] VITALS: BP 99/73
--- NOTE | 2022-11-23 11:39 | Progress Note-Pre Operative ---
Pre-Operative Progress Note Date of Available H&P: Nov 19, 2022 Date H&P Reviewed: Nov 23, 2022 Time H&P Reviewed: 11:36 History & Physical: H&P Reviewed, Patient Examed, No changes noted Pre-Operative Diagnosis: Epigastric pain DANISHA OLIVERA DO Nov 23, 2022 11:39
[2022-11-23] MEDS ORDERED: MIDAZOLAM 2 MG/2 ML (VERSED) VIAL ONE (12:50)
[2022-11-23 13:05] VITALS: BP 89/67
[2022-11-23] MEDS ORDERED: proPOfol 200 MG/20 ML (DIPRIVAN) VIAL IV ONE (13:09)
[2022-11-23 13:10] VITALS: BP 92/71
--- NOTE | 2022-11-23 13:10 | Progress Note-Post Operative ---
Post-Operative Progess Note Surgeon (s)/Supervisory Examiner (s) Surgeon DANISHA OLIVERA DO Supervisory Examiner: none Pre-Operative Diagnosis Epigastric pain Post-Operative Diagnosis Gastritis Gastroparesis Hiatal hernia Esophagitis Procedure & Operative Findings Date of Procedure 11/23/22 Procedure Performed/Findings EGD with biopsy PROCEDURE NOTE: After informed consent was obtained, the patient was brought to the endoscopy suite, placed in bed in left lateral decubitus position. She was administered IV sedation by the HALL WORKER who then monitored vitals the entire time, heart rate, blood pressure and pulse ox and the scope was inserted down the mouth through the esophagus into the stomach. On the way down, noted some mild esophagitis, took a picture, pushed into the stomach and noted some severe gastritis in the antrum; took a picture. Then pushed past the antrum into the duodenum; duodenum looked good. I also saw a lot of retained food in the stomach when I first entered. Pulled back and did a biopsy of the antrum and the body of the stomach. Then retroflexed the scope, saw hiatal hernia and the previous wrap; took a picture of this. Next, pulled the scope into the GE junction, took another picture of the GE junction then did a biopsy of the GE junction. Pushed the scope back into the stomach, suctioned all the air out of the stomach. At this point pulled the scope up the esophagus and out the mouth. The patient tolerated the procedure, and she recovered in endoscopy suite. Anesthesia Type IV sedation by Anesthesia Estimated Blood Loss Estimated blood loss (mL): scant Specimens/Packing Specimens Removed antral bx body of stomach bx GE jxn bx DANISHA OLIVERA DO Nov 23, 2022 13:10
--- NOTE | 2022-11-23 13:11 | Endoscopy Discharge Instruct ---
Endo Procedure/Findings Findings 1.: Gastritis 2.: Hiatal Hernia 3.: Other Findings (Gastroparesis) Discharge Instructions - Activity: You might feel a little sleepy until tomorrow. This is due to the medicine you received to relax you. Until tomorrow, you should: NOT drive a car, operate machinery or power tools. NOT drink any alcoholic beverages. NOT make any important decisions or sign importortant papers. Do not return to work until tomorrow, unless otherwise instructed. Resume previous activities tomorrow. Diet: Start by taking liquids. If you tolerate liquids, advance to solid food. 1.: EGD in 3 years Notify Physician - If you experience excessive bleeding, unusual abdominal pain, fever, or chest pain, contact your doctor immediately. DANISHA OLIVERA DO Nov 23, 2022 13:11
[2022-11-23 13:15] VITALS: BP 96/70
--- NOTE | 2022-11-23 13:28 | Anesthesia-General Post-Op ---
MAC Patient Condition Mental Status/LOC: Same as Preop Cardiovascular: Satisfactory Nausea/Vomiting: Absent Respiratory: Satisfactory Pain: Controlled Complications: Absent Post Op Complications Complications None Follow Up Care/Instructions Patient Instructions None needed. Anesthesiology Discharge Order Discharge Order Patient is doing well, no complaints, stable vital signs, no apparent adverse anesthesia problems. No complications reported per nursing. OSCAR JARVIS DO Nov 23, 2022 13:28
[2022-11-23 13:34] VITALS: BP 96/70
[2022-11-23 14:13] VITALS: BP 96/70
== END 2022-11-23 14:12 | disposition home or self-care (01) ==
LOC: ENDO 11:03
PROVIDERS: ATTEND Surgery
DX: K29.50 Unspecified chronic gastritis without bleeding (principal); K44.9 Diaphragmatic hernia without obstruction or gangrene; K21.00 Gastro-esophageal reflux disease with esophagitis, without bleeding; K31.84 Gastroparesis; F17.210 Nicotine dependence, cigarettes, uncomplicated; Z79.899 Other long term (current) drug therapy

== ENCOUNTER 2022-12-18 17:48 | Emergency (ER) | payer MEDICAID ==
[~2022-12-18] VITALS: Ht 160 cm; Wt 56.0 kg
--- NOTE | 2022-12-18 18:49 | ED Head Injury ---
General Chief Complaint: Head/Cervical Problems Stated Complaint: FALL - HEAD PAIN Nursing Triage Note: PT AMBULATORY TO ER W C/O HEAD PAIN FROM AN INJURY THAT OCCURED APPOX 0230. PATIENT STATES SHE WOKE UP TO USE THE RESTROOM AND GOT DIZZY UPON STANDING. BY THE TIME SHE MADE IT TO THE BATHROOM SHE "FACEPLANTED AND LOST ALL CONTROL OF HER BOWELS AND BLADDER." pATIENT STATES SHE HIT HER HEAD, SHOULDER, NECK AND NOSE. HEAD PAIN 06/03 STATES HE FOUND HER FACE FIRST ON THE FLOOR. pATIENT STATES SHE FEELS NAUSEOUS SINCE 1030 TODAY. Source: patient Exam Limitations: no limitations History of Present Illness Date Seen by Provider: Dec 18, 2022 Time Seen by Provider: 18:25 Initial Comments 57-year-old female presents to the ED with complaints of head injury. States she has a history of transient orthostatic hypotension with syncope. She states she woke up this morning to go to the bathroom and blacked out and hit her head. She is complaining of pain in the right side of her forehead, right side of neck, and right shoulder. States that she is able to remember the event, but has been having difficulty concentrating since then. She does not take any blood thinners. She used to see Dr. Birch, cardiology, but he is left the practice. She has been trying to get established with a new educational assistant. Allergies and Home Medications Allergies Coded Allergies: Iodinated Contrast Media (Unverified Allergy, Severe, 11/02/21) adhesive (Verified Allergy, Unknown, 11/20/22) Patient Home Medication List Home Medication List Reviewed: Yes Albuterol Sulfate (Albuterol Sulfate) 2.5 Mg/3 Ml Vial.neb, 2.5 MG INH PRN PRN for WHEEZING, (Reported) Entered as Reported by: MORENA TERRY on 05/12/21 1343 Albuterol/Ipratropium (Combivent Respimat Inhal [place]) 4 Gm Aero, 1 PUFF IH QID, (Reported) Entered as Reported by: MORENA TERRY on 05/12/21 1343 Atorvastatin Calcium (Atorvastatin Calcium) 40 Mg Tablet, 40 MG PO DAILY, (Reported) Entered as Reported by: VINNIE DOMÍNGUEZ on 11/20/22 1112 Budesonide/Formoterol Fumarate (Budesonide-Formoterol 160-4.5) 160 Mcg-4.5 Mcg/Actuation Hfa.aer.ad, 2 PUFF IH DAILY, (Reported) Entered as Reported by: VINNIE DOMÍNGUEZ on 11/20/22 1112 Cetirizine HCl (Zyrtec) 10 Mg Tablet, 10 MG PO DAILY, (Reported) Entered as Reported by: HOSSEIN ARAIZA on 12/18/18 1645 Cholecalciferol (Vitamin D3) (Vitamin D3) 25 Mcg (1000 Unit) Capsule, 25 MCG PO DAILY, (Reported) Entered as Reported by: VINNIE DOMÍNGUEZ on 11/20/22 1112 Dicyclomine HCl (Dicyclomine HCl) 20 Mg Tablet, 20 MG PO QID, (Reported) Entered as Reported by: JOANNE HI on 10/03/152023 Gabapentin (Gabapentin) 600 Mg Tablet, 600 MG PO TID, (Reported) Entered as Reported by: OPAL KAUR on 03/31/21 0951 Levothyroxine Sodium (Levothyroxine Sodium) 50 Mcg Tablet, 50 MCG PO DAILY, (Reported) Entered as Reported by: VINNIE DOMÍNGUEZ on 11/20/22 1112 Linaclotide (Linzess) 290 Mcg Capsule, 290 MCG PO DAILY, (Reported) Entered as Reported by: MORENA TERRY on 05/12/21 1343 Midodrine HCl (Midodrine HCl) 5 Mg Tablet, 5 MG PO BID, (Reported) Entered as Reported by: JOANNE HI on 10/03/152023 Montelukast Sodium (Montelukast Sodium) 10 Mg Tablet, 10 MG PO DAILY, (Reported) Entered as Reported by: OPAL KAUR on 03/31/21 0951 Mv-Mn/Folic Acid/Calcium/Vit K (Women's 50 Plus Multivit Tab) 400 Mcg-500 Mg Calcium-20 Mcg Tablet, 1 EACH PO DAILY, (Reported) Entered as Reported by: VINNIE DOMÍNGUEZ on 11/20/22 1112 Nitroglycerin (Nitroglycerin) 0.4 Mg Tab.subl, 0.4 MG SL UD PRN for CHEST PAIN, (Reported) Entered as Reported by: MORENA TERRY on 05/12/21 1343 [place]-3/Dha/Epa/Fish Oil (Fish Oil 1,000 mg Softgel) 1,000 Mg (120 Mg-180 Mg) Capsule, 1,000 MG PO DAILY, (Reported) Entered as Reported by: VINNIE DOMÍNGUEZ on 11/20/22 1112 Omeprazole (Omeprazole) 40 Mg Capsule.dr, 40 MG PO BID, (Reported) Entered as Reported by: VINNIE DOMÍNGUEZ on 11/20/22 1112 Oxybutynin Chloride (Oxybutynin Chloride ER) 15 Mg Tab.er.24, 15 MG PO DAILY, (Reported) Entered as Reported by: HOSSEIN ARAIZA on 12/18/18 1645 Potassium Citrate (Potassium) 99 Mg Capsule, 99 MG PO DAILY, (Reported) Entered as Reported by: VINNIE DOMÍNGUEZ on 11/20/22 1112 Promethazine HCl (Promethazine Tablet) 25 Mg Tablet, 25 MG PO Q6H PRN for NAUSEA/VOMITING, (Reported) Entered as Reported by: VINNIE DOMÍNGUEZ on 11/20/22 1112 Sucralfate (Sucralfate) 1 Gram Tablet, 1 GM PO BID, (Reported) Entered as Reported by: VINNIE DOMÍNGUEZ on 11/20/22 1112 Vortioxetine Hydrobromide (Trintellix) 20 Mg Tablet, 20 MG PO DAILY, (Reported) Entered as Reported by: VINNIE DOMÍNGUEZ on 11/20/22 1107 Review of Systems Review of Systems Constitutional: see HPI Past Yxydafz-Jcgemg-Csmaix Hx Patient Social History Tobacco Use?: Yes Tobacco type used: Cigarettes Smoking Status: Current Everyday Smoker Substance use?: Yes Substance type: Marijuana Alcohol Use?: No Immunizations Up To Date Tetanus Booster (TDap): Unknown PED Vaccines UTD: Yes First/Initial COVID19 Vaccinat: UNKNOWN Second COVID19 Vaccination Jaylon: UNKNOWN Third COVID19 Vaccination Date: UNKNOWN 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 Sexually Transmitted Disease: No Genitourinary: No Gastrointestinal: Yes (hiatal hernia sx x3, N&V) Gastroesophageal Reflux, Hiatal Hernia Musculoskeletal: Yes Degenerate Disk Disease, Osteoporosis, Scoliosis Endocrine: Yes Hypothyroidsim HEENT: Yes (WEARS GLASSES ) Hearing Impairment: Denies Cancer: Yes Cervical Did You Recieve Any Treatments: Yes What Type of Treatment Did You: Surgical Intervention Psychosocial: Yes (multiple personality disorder) ADD/ADHD, PTSD, Bipolar Integumentary: No Blood Disorders: No Adverse Reaction/Blood Tranf: No (N/A) Family Medical History No Pertinent Family Hx Physical Exam Vital Signs Vital Signs - First Documented 12/18/22 17:51 Temp 36.3 Pulse 88 Resp 20 B/P (MAP) 116/82 (93) Pulse Ox 97 O2 Delivery Room Air Capillary Refill : Less Than 3 Seconds Height, Weight, BMI Height: 5'3.00" Weight: 135lbs. oz. [id number]; 21.00 BMI Method:Stated General Appearance: WD/WN, mild distress HEENT: PERRL/EOMI, TMs normal Neck: normal inspection, limited range of motion, tender midline (Right side) Cardiovascular: regular rate, rhythm, no edema, no gallop, no JVD, no murmur Respiratory: lungs clear, normal breath sounds, no respiratory distress, no acc essory muscle use Extremities: normal range of motion, normal inspection Psychiatric: alert, oriented x 3 Crainal Nerves: normal hearing, normal speech, PERRL Motor/Sensory: no motor deficit, sensory deficit (When touching the right side of her face, she states that it is less noticeable than the left side.) Progress/Results/Core Measures Results/Orders Lab Results Laboratory Tests Test 12/18/22 19:50 Range/Units White Blood Count 12.0 H 4.3-11.0 10^3/uL Red Blood Count 5.05 3.80-5.11 10^6/uL Hemoglobin 15.7 11.5-16.0 g/dL Hematocrit 48 35-52 % Mean Corpuscular Volume 95 80-99 fL Mean Corpuscular Hemoglobin 31 25-34 pg Mean Corpuscular Hemoglobin Concent 33 32-36 g/dL Red Cell Distribution Width 12.9 10.0-14.5 % Platelet Count 258 130-400 10^3/uL Mean Platelet Volume 11.5 9.0-12.2 fL Immature Granulocyte % (Auto) 0 % Neutrophils (%) (Auto) 58 42-75 % Lymphocytes (%) (Auto) 34 12-44 % Monocytes (%) (Auto) 6 0-12 % Eosinophils (%) (Auto) 2 0-10 % Basophils (%) (Auto) 0 0-10 % Neutrophils # (Auto) 6.9 1.8-7.8 10^3/uL Lymphocytes # (Auto) 4.1 H 1.0-4.0 10^3/uL Monocytes # (Auto) 0.7 0.0-1.0 10^3/uL Eosinophils # (Auto) 0.2 0.0-0.3 10^3/uL Basophils # (Auto) 0.0 0.0-0.1 10^3/uL Immature Granulocyte # (Auto) 0.0 0.0-0.1 10^3/uL Prothrombin Time 12.9 12.2-14.7 SEC INR Comment 0.9 0.8-1.4 Activated Partial Thromboplast Time 25 24-35 SEC Sodium Level 141 135-145 MMOL/L Potassium Level 4.0 3.6-5.0 MMOL/L Chloride Level 104 98-107 MMOL/L Carbon Dioxide Level 26 21-32 MMOL/L Anion Gap 11 5-14 MMOL/L Blood Urea Nitrogen 13 7-18 MG/DL Creatinine 0.86 0.60-1.30 MG/DL Estimat Glomerular Filtration Rate 78 BUN/Creatinine Ratio 15 Glucose Level 104 70-105 MG/DL Calcium Level 10.2 H 8.5-10.1 MG/DL Corrected Calcium 10.1 8.5-10.1 MG/DL Magnesium Level 1.8 1.6-2.4 MG/DL Total Bilirubin 0.3 0.1-1.0 MG/DL Aspartate Amino Transf (AST/SGOT) 22 5-34 U/L Alanine Aminotransferase (ALT/SGPT) 32 0-55 U/L Alkaline Phosphatase 97 40-136 U/L Total Protein 7.6 6.4-8.2 GM/DL Albumin 4.1 3.2-4.5 GM/DL My Orders Orders - ARNAV LARSON APRN Ekg Tracing (12/18/22 18:22) Ct Head/Face/Cervical Wo (12/18/22 18:38) Cbc With Automated Diff (12/18/22 19:18) Magnesium (12/18/22 19:18) Chest 1 View, Ap/Pa Only (12/18/22 19:18) Comprehensive Metabolic Panel (12/18/22 19:18) Protime With Inr (12/18/22 19:18) Partial Thromboplastin Time (12/18/22 19:18) Monitor-Rhythm Ecg Trace Only (12/18/22 19:18) Ed Iv/Invasive Line Start (12/18/22 19:18) Acetaminophen/Codeine Tablet (Tylenol W/ (12/18/22 20:45) Vital Signs/I&O 12/18/22 17:51 Temp 36.3 Pulse 88 Resp 20 B/P (MAP) 116/82 (93) Pulse Ox 97 O2 Delivery Room Air Blood Pressure Mean: 93 Progress Progress Note #1: Time: 18:50 Progress Note Patient seen and evaluated, resting comfortably in bed, mild distress. Based on exam and symptoms, concerned for intracranial bleed. Would like to get lab work for syncopal episode. Patient does not want to be poked for labs. Will defer that at this time. CT head, C-spine, and face ordered. EKG ordered. Progress Note #2: Time: 19:21 Progress Note EKG shows prolonged QTc of 561, previous EKG showed slightly prolonged QTc at 486. Patient agrees to blood work at this time. CBC, CMP, magnesium, coags, chest x-ray ordered. Zofran noted on patient's med list, discussed this with patient as a possible cause of prolonged QT. States she has not taken Zofran in about 2 months. Initial ECG Impression Date: Dec 18, 2022 Initial ECG Impression Time: 18:31 Initial ECG Rate: 87 Initial ECG Rhythm: Normal Sinus Initial ECG Intervals: [place] Initial ECG Intervals QTc 561, previous EKG shows prolonged QT at 486 Initial ECG Impression: Normal Initial ECG Comparisson: Unchanged Departure Impression Primary Impression: Syncope Additional Impressions: Injury of head and neck Prolonged QT interval Disposition: 01 HOME, SELF-CARE Condition: Stable Departure-Patient Inst. Decision time for Depature: 20:35 Referrals: [facility] (PCP) Primary Care Physician FRANKLYN RODRIGUEZ DO (Family) Primary Care Physician ANNIE HANDY Patient Instructions: HEAD [id number]-YKHSU-BE WAKE-UP Add. Discharge Instructions: Take Tylenol with codeine as needed for pain. Take antibiotic for dental abscess. Follow-up with primary care provider. Call on Wednesday to schedule appointment with cardiology. Return if you have increased confusion, recurrent vomiting, severe headache, changes in vision, change in pupil size, or any other new, concerning, or worsening symptoms. All discharge instructions reviewed with patient and/or family. Voiced understanding. Scripts Amoxicillin/Potassium Clav (Amox Tr-K Clv 875-125 mg Tab) 875 Mg-125 Mg Tablet 1 EACH PO BID for 7 Days, #14 TAB 0 Refills Prov: ARANV LARSON APRN 12/18/22 Acetaminophen with Codeine (Acetaminophen-Cod #3 Tablet) 300 Mg-30 Mg Tablet 1 EACH PO Q6H for 3 Days, #12 TAB 0 Refills Prov: ARNAV LARSON APRN 12/18/22 ARNAV LARSON APRN Dec 18, 2022 18:49
--- NOTE | 2022-12-18 19:21 | Diagnostic Imaging Report ---
EXAMINATION: CT head, face and CT cervical spine without contrast. TECHNIQUE: Multiple contiguous axial images were obtained through the face, brain and cervical spine without the use of intravenous contrast. Sagittal and coronal reformations through the cervical spine were then performed. All CT scans use one or more of the following dose optimizing techniques: automated exposure control, MA and/or KvP adjustment based on patient size and exam type or iterative reconstruction. HISTORY: Head, face and neck injury. COMPARISON: 10/03/2015. FINDINGS: The quan-white matter differentiation is normal. No mass effect or midline shift. The ventricles are normal in size and configuration. Basilar cisterns are patent. There is no intra-axial or extra-axial fluid collection. There is no intracranial hemorrhage. The orbits are normal. Paranasal sinuses are normal. Mastoid air cells are clear. No soft tissue abnormality is seen. No osseus lesion or fracture is seen. No fracture is seen in the face. The nasal bones are normal. Mandible and maxillae are normal. Zygomatic arches are normal. Pterygoid plates are normal. There is a periapical lucency of a left maxillary premolar. The alignment of the cervical spine is normal. No fracture is seen. Vertebral body heights are normal. The craniocervical junction is normal. There is mild degenerative disease in the cervical spine. There are disc osteophyte complexes at C4-C5 and C5-C6. There is no spinal canal stenosis. No soft tissue abnormality is seen in the neck. Limited views of the superior thorax show emphysema. IMPRESSION: 1. No acute intracranial abnormality. 2. No cervical spine fracture. 3. No fracture in the face. 4. Left maxillary premolar periapical lucency. Dictated by: Dictated on workstation # [id number]
--- NOTE | 2022-12-18 19:53 | Diagnostic Imaging Report ---
EXAMINATION: Chest 1 view. HISTORY: Chest pain. COMPARISON: 09/01/2022. FINDINGS: The lungs are clear without edema or pneumonia. No pleural effusion or pneumothorax. Heart size is normal. Loop recorder projects over the left chest. IMPRESSION: Clear lungs. Dictated by: Dictated on workstation # [id number]
[2022-12-18 19:57] LABS: BASOPHILS % (AUTO) 0 % (0-10); EOSINOPHILS # (AUTO) 0.2 10^3/uL (0.0-0.3); EOSINOPHILS % (AUTO) 2 % (0-10); HEMATOCRIT 48 % (35-52); HEMOGLOBIN 15.7 g/dL (11.5-16.0); LYMPHOCYTES # (AUTO) 4.1 10^3/uL (1.0-4.0); LYMPHOCYTES % (AUTO) 34 % (12-44); MEAN CORPUSCULAR HEMOGLOBIN 31 pg (25-34); MEAN CORPUSCULAR HGB CONC 33 g/dL (32-36); MEAN CORPUSCULAR VOLUME 95 fL (80-99); MEAN PLATELET VOLUME 11.5 fL (9.0-12.2); MONOCYTES # (AUTO) 0.7 10^3/uL (0.0-1.0); MONOCYTES % (AUTO) 6 % (0-12); NEUTROPHILS # (AUTO) 6.9 10^3/uL (1.8-7.8); NEUTROPHILS % (AUTO) 58 % (42-75); PLATELET COUNT 258 10^3/uL (130-400)
[2022-12-18 20:11] LABS: INR 0.9 (0.8-1.4); PROTHROMBIN TIME PATIENT 12.9 SEC (12.2-14.7)
[2022-12-18 20:20] LABS: ALBUMIN 4.1 GM/DL (3.2-4.5); BILIRUBIN,TOTAL 0.3 MG/DL (0.1-1.0); CALCIUM 10.2 MG/DL (8.5-10.1); CREATININE SERUM 0.86 MG/DL (0.60-1.30); MAGNESIUM 1.8 MG/DL (1.6-2.4); TOTAL PROTEIN 7.6 GM/DL (6.4-8.2)
[2022-12-18] MEDS ORDERED: ACET-11 PO (20:42)
[2022-12-18] MEDS ORDERED: AMOX1TAB12 PO (20:42)
[2022-12-18] MEDS ORDERED: APAP 300 MG/CODEINE 30 MG (TYLENOL #3) TAB PO ONE (20:45)
[2022-12-18 20:53] VITALS: BP 124/92
== END 2022-12-18 20:57 | disposition home or self-care (01) ==
LOC: ER 17:48 → EDUNIT# 17:48 → ER 20:57
DX: S09.90XA Unspecified injury of head, initial encounter (principal); S19.9XXA Unspecified injury of neck, initial encounter; R55 Syncope and collapse; R94.31 Abnormal electrocardiogram [ECG] [EKG]; F17.210 Nicotine dependence, cigarettes, uncomplicated; W22.8XXA Striking against or struck by other objects, initial encounter
CPT/HCPCS: 36415; 70450; 70486; 71045; 72125; 80053; 83735; 85025; 85610; 85730; 93005; 93041

== ENCOUNTER → 2023-06-29 | Outpatient (CLI) | payer MEDICAID ==
[~2023-06-29] MED LIST changes: +ACET-11 PO; +AMOX1TAB12 PO; -POTA10CA44 PO; +POTA10CA84 PO
--- NOTE | 2023-06-29 14:31 | Diagnostic Imaging Report ---
INDICATION: COMPARISON: FINDINGS: AP Spine L1-L4: [BMD (g/cm2): 0.966] [T-Score: -2.0] [Z-Score: -0.4] [BMD Previous: 0.964] [BMD % Change: 0.2] LT Hip Neck: [BMD (g/cm2): 0.717] [T-Score: -2.3] [Z-Score: -0.8] LT Hip Total: [BMD (g/cm2):0.797] [T-Score:-1.7] [Z-Score: -0.5] [BMD Previous: 0.851] [BMD % Change: -6.3*] RT Hip Neck: [BMD (g/cm2):0.726] [T-Score:-2.2] [Z-Score:-0.8] RT Hip Total: [BMD (g/cm2):0.758] [T-score:-2.0] [Z-Score:-0.8] [BMD Previous:0.824] [BMD % Change:-8.0*] *Indicates significant change from prior examination based on 95% confidence level. World Health Organization criteria for BMD interpretation classify patients as Normal (T-score at or above -1.0), Osteopenic (T-score between -1.0 and -2.5) or Osteoporotic (T-score at or below -2.5). LIMITATIONS AND MODIFICATION: None. FRACTURE RISK (FRAX SCORE): The ten year probability of (%): Major Osteoporotic Fracture: [17.2] Hip Fracture: [5.1] IMPRESSION: 1. Osteopenia (Low bone mass). 2. Bone mineral density has decreased by a statistically significant amount, as detailed above. 3. See below National Osteoporosis Foundation guidelines on when to potentially initiate pharmacologic therapy. Based on the National Osteoporosis Foundation Guidelines, pharmacologic treatment should be initiated in any of the following, unless clinical conditions suggest otherwise: * Any patient with prior fragility fracture of the hip or vertebrae. A spine fracture indicates 5X risk for subsequent spine fracture and 2X risk for subsequent hip fracture. * Osteoporosis (T-score <-2.5). * Postmenopausal women and men age 50 and older with low bone mass/osteopenia (T-score between -1.0 and -2.5) by DXA and 10-year major osteoporotic fracture greater than 20% or a 10-year probability of hip fracture greater than 3%. These fracture risks are supplied above in the FRAX score, if applicable. * Clinician judgement and/or patient preferences may indicate treatment for people with 10-year fracture probabilities above or below these levels. Dictated by: Dictated on workstation # [id number]
== END ==
LOC: RAD 12:24
PROVIDERS: ATTEND Pediatrics
DX: M85.80 Other specified disorders of bone density and structure, unspecified site (principal); Z78.0 Asymptomatic menopausal state
CPT/HCPCS: 77080

== ENCOUNTER 2023-07-29 18:32 | Emergency (ER) | payer MEDICAID ==
[~2023-07-29] VITALS: Ht 160 cm; Wt 52.1 kg
[2023-07-29] MEDS ORDERED: ASPIRIN 81 MG CHEWABLE TABLET PO ONE (19:00)
[2023-07-29 19:02] LABS: BASOPHILS % (AUTO) 0 % (0-10); MEAN CORPUSCULAR VOLUME 94 fL (80-99)
[2023-07-29 19:04] LABS: EOSINOPHILS # (AUTO) 0.1 10^3/uL (0.0-0.3); EOSINOPHILS % (AUTO) 1 % (0-10); HEMATOCRIT 46 % (35-52); LYMPHOCYTES # (AUTO) 3.9 10^3/uL (1.0-4.0); LYMPHOCYTES % (AUTO) 40 % (12-44); MEAN CORPUSCULAR HEMOGLOBIN 31 pg (25-34); MEAN CORPUSCULAR HGB CONC 33 g/dL (32-36); MEAN PLATELET VOLUME 12.1 fL (9.0-12.2); MONOCYTES # (AUTO) 0.6 10^3/uL (0.0-1.0); MONOCYTES % (AUTO) 6 % (0-12); NEUTROPHILS # (AUTO) 5.2 10^3/uL (1.8-7.8); NEUTROPHILS % (AUTO) 53 % (42-75); PLATELET COUNT 191 10^3/uL (130-400); WHITE BLOOD COUNT 9.8 10^3/uL (4.3-11.0)
--- NOTE | 2023-07-29 19:07 | ED Cardiac General ---
History of Present Illness General Chief Complaint: Cardiac/General Problems Stated Complaint: ABD EKG Nursing Triage Note: PT TO RM 5 WITH CC OF ABNORMAL EKG AND BACK PAIN THAT RADIATES TO CHEST WHEN SHE TAKES A DEEP BREATH X2 DAYS. 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 PT A&OX4 History of Present Illness Date Seen by Provider: Jul 29, 2023 Time Seen by Provider: 18:38 Initial Comments 58-year-old female presents after being seen at [facility] for midthoracic back pain. Patient denies injuries or falls. She had an EKG done at [facility] this afternoon which was read as abnormal and referred to the emergency department. She did not bring the EKG with her. She denies chest pain or pressure. the pain has been present in her low mid back for the last 2 weeks. She is currently rating the pain 5/10. She has had multiple EKGs in the past that show a T wave abnormality she has had a stress test and echo in 2020 which were both normal and had an EF of 65 to 70%. She does not take aspirin or anticoagulants. She does smoke and has cut back to 5 cigarettes a day and is now vaping. She has a chronic cough but has noted it to be worse over the last week. She has pain in the mid thoracic region with deep inspiration and coughing. She has a productive cough at time that she said is milky. She took 3 Tylenol prior to arrival. December of this year, sustained back injury and had compression fracture L5 Timing/Duration: other (2 weeks) Severity: mild Location: back (mid thoracic) Activities at Onset: none Prior CP/Workup: echocardiography, stress test Modifying Factors: improves with lying down NTG SL CONCRETE ENGINEER: No ASA po CONCRETE ENGINEER: No Associated Systoms: No Chest Pain; Cough (Productive); No Diaphoresis, No Fever/Chills, No Headaches, No Loss of Appetite, No Malaise, No Nausea/Vomiting, No Rash, No Seizure, No Shortness of Air, No Syncope, No Weakness Allergies and Home Medications Allergies Coded Allergies: Iodinated Contrast Media (Unverified Allergy, Severe, 11/02/21) adhesive (Verified Allergy, Unknown, 11/20/22) Patient Home Medication List Home Medication List Reviewed: Yes Acetaminophen with Codeine (Acetaminophen-Cod #3 Tablet) 300 Mg-30 Mg Tablet, 1 EACH PO Q6H Prescribed by: Alyssa Dunaway on 12/18/222042 Albuterol Sulfate (Albuterol Sulfate) 2.5 Mg/3 Ml Vial.neb, 2.5 MG INH PRN PRN for WHEEZING, (Reported) Entered as Reported by: MORENA TERRY on 05/12/21 1343 Albuterol/Ipratropium (Combivent Respimat Inhal [place]) 4 Gm Aero, 1 PUFF IH QID, (Reported) Entered as Reported by: MORENA TERRY on 05/12/21 1343 Amoxicillin/Potassium Clav (Amox Tr-K Clv 875-125 mg Tab) 875 Mg-125 Mg Tablet, 1 EACH PO BID Prescribed by: Alyssa Dunaway on 12/18/222041 Atorvastatin Calcium (Atorvastatin Calcium) 40 Mg Tablet, 40 MG PO DAILY, (Reported) Entered as Reported by: VINNIE DOMÍNGUEZ on 11/20/22 111 Budesonide/Formoterol Fumarate (Budesonide-Formoterol 160-4.5) 160 Mcg-4.5 Mcg/Actuation Hfa.aer.ad, 2 PUFF IH DAILY, (Reported) Entered as Reported by: VINNIE DOMÍNGUEZ on 11/20/22 111 Cetirizine HCl (Zyrtec) 10 Mg Tablet, 10 MG PO DAILY, (Reported) Entered as Reported by: HOSSEIN ARAIZA on 12/18/18 1645 Cholecalciferol (Vitamin D3) (Vitamin D3) 25 Mcg (1000 Unit) Capsule, 25 MCG PO DAILY, (Reported) Entered as Reported by: VINNIE DOMÍNGUEZ on 11/20/22 111 Dicyclomine HCl (Dicyclomine HCl) 20 Mg Tablet, 20 MG PO QID, (Reported) Entered as Reported by: JOANNE HI on 10/03/152023 Gabapentin (Gabapentin) 600 Mg Tablet, 600 MG PO TID, (Reported) Entered as Reported by: OPAL KAUR on 03/31/21 0951 Levothyroxine Sodium (Levothyroxine Sodium) 50 Mcg Tablet, 50 MCG PO DAILY, (Reported) Entered as Reported by: VINNIE DOMÍNGUEZ on 11/20/22 111 Linaclotide (Linzess) 290 Mcg Capsule, 290 MCG PO DAILY, (Reported) Entered as Reported by: MORENA TERRY on 05/12/21 1343 Midodrine HCl (Midodrine HCl) 5 Mg Tablet, 5 MG PO BID, (Reported) Entered as Reported by: JOANNE HI on 10/03/152023 Montelukast Sodium (Montelukast Sodium) 10 Mg Tablet, 10 MG PO DAILY, (Reported) Entered as Reported by: OPAL KAUR on 03/31/21 0951 Mv-Mn/Folic Acid/Calcium/Vit K (Women's 50 Plus Multivit Tab) 400 Mcg-500 Mg Calcium-20 Mcg Tablet, 1 EACH PO DAILY, (Reported) Entered as Reported by: VINNIE DOMÍNGUEZ on 11/20/22 1112 Nitroglycerin (Nitroglycerin) 0.4 Mg Tab.subl, 0.4 MG SL UD PRN for CHEST PAIN, (Reported) Entered as Reported by: MORENA TERRY on 05/12/21 1343 [place]-3/Dha/Epa/Fish Oil (Fish Oil 1,000 mg Softgel) 1,000 Mg (120 Mg-180 Mg) Capsule, 1,000 MG PO DAILY, (Reported) Entered as Reported by: VINNIE DOMÍNGUEZ on 11/20/22 1112 Omeprazole (Omeprazole) 40 Mg Capsule.dr, 40 MG PO BID, (Reported) Entered as Reported by: VINNIE DOMÍNGUEZ on 11/20/22 1112 Oxybutynin Chloride (Oxybutynin Chloride ER) 15 Mg Tab.er.24, 15 MG PO DAILY, (Reported) Entered as Reported by: HOSSEIN ARAIZA on 12/18/18 1645 Potassium Citrate (Potassium) 99 Mg Capsule, 99 MG PO DAILY, (Reported) Entered as Reported by: VINNIE DOMÍNGUEZ on 11/20/22 1112 Promethazine HCl (Promethazine Tablet) 25 Mg Tablet, 25 MG PO Q6H PRN for NAUSEA/VOMITING, (Reported) Entered as Reported by: VINNIE DOMÍNGUEZ on 11/20/22 1112 Sucralfate (Sucralfate) 1 Gram Tablet, 1 GM PO BID, (Reported) Entered as Reported by: VINNIE DOMÍNGUEZ on 11/20/22 1112 Vortioxetine Hydrobromide (Trintellix) 20 Mg Tablet, 20 MG PO DAILY, (Reported) Entered as Reported by: VINNIE DOMÍNGUEZ on 11/20/22 1107 Review of Systems Review of Systems Constitutional: no symptoms reported, see HPI Respiratory: See HPI, Cough; Denies Shortness of Air, Denies SOA With Exertion, Denies SOA at Rest Cardiovascular: No Symptoms Reported, See HPI; Denies Chest Pain Musculoskeletal: see HPI, back pain ( midthoracic) All Other Systems Reviewed Negative Unless Noted: Yes Past Ndondbi-Yufutd-Koucor Hx Patient Social History Tobacco Use?: Yes Tobacco type used: Cigarettes Smoking Status: Current Everyday Smoker Use of E-Cig and/or Vaping dev: Yes E-Cig or Vaping type used: Nicotine Use of E-Cig and/or Vaping Abiodun: Current Everyday User Substance use?: No Alcohol Use?: No Immunizations Up To Date Tetanus Booster (TDap): Unknown PED Vaccines UTD: Yes First/Initial COVID19 Vaccinat: UNKNOWN Second COVID19 Vaccination Jaylon: UNKNOWN Third COVID19 Vaccination Date: UNKNOWN Seasonal Allergies Seasonal Allergies: Yes Past Medical History Surgery/Hospitalization HX: SX: LINK, TONSILS/ADENOIDS, HIATAL HERNIA, HYST, GALLBLADDER, R SHOULDER. 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 Sexually Transmitted Disease: No Genitourinary: No Gastrointestinal: Yes (hiatal hernia sx x3, N&V) Gastroesophageal Reflux, Hiatal Hernia Musculoskeletal: Yes Degenerate Disk Disease, Osteoporosis, Scoliosis Endocrine: Yes Hypothyroidsim HEENT: Yes (WEARS GLASSES ) Hearing Impairment: Denies Cancer: Yes Cervical Did You Recieve Any Treatments: Yes What Type of Treatment Did You: Surgical Intervention Psychosocial: Yes (multiple personality disorder) ADD/ADHD, PTSD, Bipolar Integumentary: No Blood Disorders: No Adverse Reaction/Blood Tranf: No (N/A) Family Medical History Reviewed Nursing Family Hx No Pertinent Family Hx Physical Exam Vital Signs Vital Signs - First Documented 07/29/23 18:38 Temp 36.7 Pulse 91 Resp 16 B/P (MAP) 128/87 (101) Pulse Ox 93 O2 Delivery Room Air Capillary Refill : Less Than 3 Seconds Height, Weight, BMI Height: 5'3.00" Weight: 135lbs. oz. 61.851714mq; 20.00 BMI Method:Stated General Appearance: No Apparent Distress, WD/WN HEENT: Normal ENT Inspection, Pharynx Normal Neck: Full Range of Motion, Normal Inspection, Non Tender, Supple Respiratory: Lungs Clear, Normal Breath Sounds Cardiovascular: Regular Rate, Rhythm, No Edema, No JVD, No Murmur, Normal Peripheral Pulses Gastrointestinal: Normal Bowel Sounds, Non Tender, Soft Extremity: Normal Capillary Refill, Normal Inspection, Normal Range of Motion, No Pedal Edema, Other (Tender to palpate, Mid Thoracic) Neurologic/Psychiatric: Alert, Oriented x3, No Motor/Sensory Deficits, Normal Mood/Affect Skin: Normal Color, Warm/Dry Progress/Results/Core Measures Results/Orders Lab Results Laboratory Tests Test 07/29/23 18:56 Range/Units White Blood Count 9.8 4.3-11.0 10^3/uL Red Blood Count 4.87 3.80-5.11 10^6/uL Hemoglobin 15.0 11.5-16.0 g/dL Hematocrit 46 35-52 % Mean Corpuscular Volume 94 80-99 fL Mean Corpuscular Hemoglobin 31 25-34 pg Mean Corpuscular Hemoglobin Concent 33 32-36 g/dL Red Cell Distribution Width 12.7 10.0-14.5 % Platelet Count 191 130-400 10^3/uL Mean Platelet Volume 12.1 9.0-12.2 fL Immature Granulocyte % (Auto) 0 % Neutrophils (%) (Auto) 53 42-75 % Lymphocytes (%) (Auto) 40 12-44 % Monocytes (%) (Auto) 6 0-12 % Eosinophils (%) (Auto) 1 0-10 % Basophils (%) (Auto) 0 0-10 % Neutrophils # (Auto) 5.2 1.8-7.8 10^3/uL Lymphocytes # (Auto) 3.9 1.0-4.0 10^3/uL Monocytes # (Auto) 0.6 0.0-1.0 10^3/uL Eosinophils # (Auto) 0.1 0.0-0.3 10^3/uL Basophils # (Auto) 0.0 0.0-0.1 10^3/uL Immature Granulocyte # (Auto) 0.0 0.0-0.1 10^3/uL Percent Immature Platelet Fraction 12.3 H 0.0-7.6 % Prothrombin Time 13.4 12.2-14.7 SEC INR Comment 1.0 0.8-1.4 Activated Partial Thromboplast Time 23 L 24-35 SEC Sodium Level 140 135-145 MMOL/L Potassium Level 3.4 L 3.6-5.0 MMOL/L Chloride Level 106 98-107 MMOL/L Carbon Dioxide Level 20 L 21-32 MMOL/L Anion Gap 14 5-14 MMOL/L Blood Urea Nitrogen 12 7-18 MG/DL Creatinine 0.89 0.60-1.30 MG/DL Estimat Glomerular Filtration Rate 75 BUN/Creatinine Ratio 13 Glucose Level 94 70-105 MG/DL Calcium Level 9.4 8.5-10.1 MG/DL Corrected Calcium 9.3 8.5-10.1 MG/DL Magnesium Level 2.2 1.6-2.4 MG/DL Total Bilirubin 0.4 0.1-1.0 MG/DL Aspartate Amino Transf (AST/SGOT) 17 5-34 U/L Alanine Aminotransferase (ALT/SGPT) 13 0-55 U/L Alkaline Phosphatase 87 40-136 U/L Myoglobin 30.8 10.0-92.0 NG/ML Troponin I < 0.028 <0.028 NG/ML Total Protein 7.3 6.4-8.2 GM/DL Albumin 4.1 3.2-4.5 GM/DL Smear Scan YES My Orders Orders - HOSSEIN ALMEIDA Ekg Tracing (07/29/23 18:36) Monitor-Rhythm Ecg Trace Only (07/29/23 18:36) Cbc And Automated Diff (07/29/23 18:52) Magnesium (07/29/23 18:52) Chest 1 View, Ap/Pa Only (07/29/23 18:52) Comprehensive Metabolic Panel (07/29/23 18:52) Myoglobin Serum (07/29/23 18:52) Protime With Inr (07/29/23 18:52) Partial Thromboplastin Time (07/29/23 18:52) Ed Iv/Invasive Line Start (07/29/23 18:52) Troponin I [place] (07/29/23 18:52) Aspirin Chewable Tablet (Aspirin Chewabl (07/29/23 19:00) Thoracic Spine, 2 Views Only (07/29/23 18:52) Sputum Culture (07/29/23 18:52) Medications Given in ED Current Medications Medications Dose Ordered Sig/Margareth Route Start Time Stop Time Status Last Admin Dose Admin Aspirin 324 mg ONCE ONCE PO 07/29/23 19:00 07/29/23 19:01 DC 07/29/23 19:22 324 MG Vital Signs/I&O 07/29/23 07/29/23 18:38 20:09 Temp 36.7 Pulse 91 82 Resp 16 16 B/P (MAP) 128/87 (101) 118/94 Pulse Ox 93 95 O2 Delivery Room Air Room Air Blood Pressure Mean: 101 Progress Progress Note : Time: 18:38 Progress Note Patient assessed, will obtain EKG, chest and T Spine x-ray, labs, aspirin 324 mg and reevaluate. Appears to be more musculoskeletal in nature than cardiac. 1939 labs all normal, no elevation in troponin. Pain continues to be isolated to upper back. Denies need for medication for pain. She was unable to produce sput um. Discharge instructions and return precautions reviewed. Initial ECG Impression Date: Jul 29, 2023 Initial ECG Impression Time: 18:44 Initial ECG Rate: 87 Initial ECG Rhythm: Normal Sinus Initial ECG Intervals: Normal Initial ECG Intervals OR 134, QRS D91, QT 372, QTc 416. Lizella P69, R 64, T 119 Initial ECG Impression: Normal Initial ECG Comparisson: Unchanged Diagnostic Imaging Diagonstic Imaging: Xray Plain Films/CT/US/NM/MRI: other (T Spine) Comments NAME: KAROL [facility] REC#: [id number] PT STATUS: REG ER : 1965 PHYSICIAN: HOSSEIN ALMEIDA ADMIT DATE: 07/29/23/ER Signed Date of Exam:07/29/23 THORACIC SPINE, 2 VIEWS ONLY THORACIC SPINE, 2 VIEWS ONLY INDICATION: Back pain COMPARISON: None available. TECHNIQUE: 2 views of thoracic spine FINDINGS: Alignment is normal. There is no fracture. Intervertebral disc space heights are preserved. No ankylosis. IMPRESSION: No osseous abnormality in the thoracic spine. Dictated by: Dictated on workstation # [id number] Dict: 07/29/231919 Trans: 07/29/231919 [facility] [id number] Interpreted by: CYNTHIA ESTRADA MD Electronically signed by: CYNTHIA ESTRADA MD 07/29/231919 Reviewed: Reviewed by Me Diagonstic Imaging: Xray Plain Films/CT/US/NM/MRI: chest Comments NAME: KAROL COLON [facility] REC#: [id number] PT STATUS: REG ER : 1965 PHYSICIAN: HOSSEIN ALMEIDA ADMIT DATE: 07/29/23/ER Signed Date of Exam:07/29/23 CHEST 1 VIEW, AP/PA ONLY CHEST 1 VIEW, AP/PA ONLY Indication: Chest pain. Comparison: 12/18/2022 Findings: No focal airspace disease in the visualized lungs. No pleural effusion or pneumothorax. Normal cardiomediastinal silhouette. Implanted loop recorder device is in stable position over the left mid hemithorax. Impression: 1. No acute cardiopulmonary process by portable radiography. Dictated by: Dictated on workstation # [id number] Dict: 07/29/231920 Trans: 07/29/231921 [facility] [id number] Interpreted by: CYNTHIA ESTRADA MD Electronically signed by: CYNTHIA ESTRADA MD 07/29/231921 Reviewed: Reviewed by Me Departure Impression Primary Impression: Tobacco abuse Additional Impressions: Thoracic back pain Qualified Codes: M54.6 - Pain in thoracic spine Cough Qualified Codes: R05.1 - Acute cough Disposition: 01 HOME, SELF-CARE Condition: Improved Departure-Patient Inst. Decision time for Depature: 17:45 Referrals: FRANKLYN RODRIGUEZ DO (PCP/Family) Primary Care Physician Patient Instructions: Back Muscle Strain (DC) Add. Discharge Instructions: Warm moist compressions to your upper back. Activity as tolerated. Tylenol 1000 mg every 6-8 hours. Talk to your PCP about medications for osteoporosis. If you begin having chest pain, return to the emergency department. Follow-up with your primary care provider. Return to the emergency department for new, urgent healthcare needs All discharge instructions reviewed with patient and/or family. Voiced understanding. HOSSEIN ALMEIDA Jul 29, 2023 19:07
[2023-07-29 19:09] LABS: SMEAR SCAN COMMENT YES
[2023-07-29 19:14] LABS: ALBUMIN 4.1 GM/DL (3.2-4.5); PROTHROMBIN TIME PATIENT 13.4 SEC (12.2-14.7)
[2023-07-29 19:15] LABS: CALCIUM 9.4 MG/DL (8.5-10.1)
[2023-07-29 19:16] LABS: GLUCOSE 94 MG/DL (70-105); TOTAL PROTEIN 7.3 GM/DL (6.4-8.2)
[2023-07-29 19:17] LABS: CARBON DIOXIDE 20 MMOL/L (21-32)
[2023-07-29 19:18] LABS: BILIRUBIN,TOTAL 0.4 MG/DL (0.1-1.0)
[2023-07-29 19:20] LABS: ALKALINE PHOSPHATASE 87 U/L (40-136); CREATININE SERUM 0.89 MG/DL (0.60-1.30); GFR ESTIMATED 75
[2023-07-29 19:21] LABS: BUN/CREATININE RATIO 13
--- NOTE | 2023-07-29 19:22 | Diagnostic Imaging Report ---
THORACIC SPINE, 2 VIEWS ONLY INDICATION: Back pain COMPARISON: None available. TECHNIQUE: 2 views of thoracic spine FINDINGS: Alignment is normal. There is no fracture. Intervertebral disc space heights are preserved. No ankylosis. IMPRESSION: No osseous abnormality in the thoracic spine. Dictated by: Dictated on workstation # [id number]
[2023-07-29 19:23] LABS: ALANINE AMINOTRANSFERASE 13 U/L (0-55); MAGNESIUM 2.2 MG/DL (1.6-2.4)
--- NOTE | 2023-07-29 19:23 | Diagnostic Imaging Report ---
CHEST 1 VIEW, AP/PA ONLY Indication: Chest pain. Comparison: 12/18/2022 Findings: No focal airspace disease in the visualized lungs. No pleural effusion or pneumothorax. Normal cardiomediastinal silhouette. Implanted loop recorder device is in stable position over the left mid hemithorax. Impression: 1. No acute cardiopulmonary process by portable radiography. Dictated by: Dictated on workstation # [id number]
[2023-07-29 19:37] LABS: CHLORIDE 106 MMOL/L (98-107); POTASSIUM 3.4 MMOL/L (3.6-5.0); SODIUM 140 MMOL/L (135-145)
[2023-07-29 20:09] VITALS: BP 118/94
== END 2023-07-29 20:11 | disposition home or self-care (01) ==
LOC: EDUNIT# 18:32 → ER 18:34
DX: M54.6 Pain in thoracic spine (principal); R05.9 Cough, unspecified; F17.210 Nicotine dependence, cigarettes, uncomplicated; F17.290 Nicotine dependence, other tobacco product, uncomplicated
CPT/HCPCS: 36415; 71045; 72070; 80053; 83735; 83874; 84484; 85025; 85610; 85730; 93005; 93041

== ENCOUNTER → 2023-08-31 | Outpatient (CLI) | payer MEDICAID ==
[~2023-08-31] MED LIST changes: +REGADENOSON 0.4 MG/5 ML SYR IV ONE
[2023-08-31] MEDS: CATHETER FLUSH 10 ML SYR IVP PRN (12:19)
[2023-08-31 13:34] VITALS: BP 151/105
[2023-08-31] MEDS: REGADENOSON 0.4 MG/5 ML SYR IV ONE (13:34)
--- NOTE | 2023-09-04 00:44 | STRESS TEST ---
DATE OF SERVICE: 08/31/2023 RESTING AND POST REGADENOSON TECHNETIUM-99M TETROFOSMIN SPECT CT IMAGING CLINICAL DIAGNOSIS: Chest discomfort. Baseline images were carried out after injection of 10.19 mCi of technetium-99m tetrofosmin. This was followed by 0.4 mg regadenoson and 30.3 mCi of technetium-99m tetrofosmin. The electrocardiogram showed sinus versus an ectopic atrial rhythm. There was nonspecific ST and T-wave abnormality. The electrocardiogram did not change significantly with the regadenoson infusion. Review of images at rest and following stress does not indicate any distinct perfusion defects consistent with significant myocardial ischemia or infarction. Gated images show normal to hyperdynamic left ventricular systolic function with normal regional wall motion and with a calculated ejection fraction of 82%. CONCLUSIONS: 1. No evidence of significant myocardial ischemia or infarction on this study. 2. Normal to hyperdynamic left ventricular systolic function with a calculated ejection fraction of 82%. 3. Normal regional wall motion. 4. Ectopic atrial rhythm during the study. Job ID: [id number] DocumentID: [id number] Dictated Date: 09/03/2023 19:19:40 [employer] Message Broker Developer Date: 09/04/2023 00:42:00 Dictated By: FEMI MAX MD; JOE; FACP; FACC;
== END ==
LOC: CARD 11:52
PROVIDERS: ATTEND Internal Medicine Cardiovascular Disease
DX: R07.89 Other chest pain (principal)
CPT/HCPCS: 78452; 93017